=== PATIENT | female | born 1980 | race Two or more races ===

== ENCOUNTER 2020-05-07 00:18 | Emergency (ER) | payer MEDICAID, OTHER, SELFPAY ==
[2020-05-07 00:25] VITALS: PULSE 77; RESP 18; TEMP 36.6; O2SAT 99; BMI 28.4
--- NOTE | 2020-05-07 00:38 | ED_ITS ---
HPI - Abdominal Pain General Chief Complaint: General Medical Stated Complaint: Back pain Time Seen by Provider: 05/07/20 00:33 Source: patient Mode of arrival: ambulatory Limitations: language barrier History of Present Illness HPI narrative: Patient's history of nonobstructive kidney stone in the ultrasound done on 07/24 comes here for sudden onset of left flank pain just prior to arrival without any nausea vomiting or hematuria no urinary symptoms pain get worse on deep breaths localized to left flank also has mild pain on the right flank patient says pain goes to the left thigh also denies any shortness of breath or cough MD elicited complaint: flank pain Pertinent past history: kidney stones Onset (ago): hour(s) Pain Consistency: constant Location: L flank Severity: moderate Pain scale (0-10): 6 Quality: sharp Radiation: back Related Data Previous Rx's Medication Instructions Recorded oxycodone-acetaminophen [Percocet] 1 tab PO Q6H PRN #20 tab 05/07/20 tamsulosin [Flomax] 0.4 mg PO DAILY #10 cap 05/07/20 Allergies Allergy/AdvReac Type Severity Reaction Status Date / Time No Known Allergies Allergy Unverified 01/22/20 19:42 [No Known Allergies*] Review of Systems Review of Systems Constitutional : No Weight loss, No Fever, No Chills ENT/Mouth : No sore throat, No Rhinorrhea Eyes: No Eye Pain, No Swelling Cardiovascular : No Chest Pain, no palpitations Respiratory : No Cough, No Sputum, no shortness of breath Gastrointestinal : no Nausea, No Vomiting, No Diarrhea, No abdominal Pain, no black stools Genitourinary : No Dysuria, No Urinary Frequency Musculoskeletal : No joint pain, No Myalgias, No Joint Swelling Skin : No Skin Lesions, No rash Neuro : No Weakness, No Numbness, No Dizziness, No Headache Psych : No Anxiety/Panic, No Depression Heme/Lymph: No Bruising, No Lymphadenopathy Endocrine : No Polyuria, No Polydipsia All other systems reviewed and are negative Physical Exam Vital Signs: Vital Signs: Last Vital Signs Temp 97.9 F 05/07/20 00:25 Pulse 80 05/07/20 02:00 Resp 18 05/07/20 00:25 BP 140/80 H 05/07/20 02:00 Pulse Ox 100 05/07/20 02:00 Body Mass Index 28.4 Appearance: Alert. Oriented X3. in mild distress. Eyes: Pupils equal, round and reactive to light. ENT: Pharynx normal. Neck: Normal inspection. Neck supple. CVS: Normal heart rate and rhythm. Pulses normal. Respiratory: No respiratory distress. Breath sounds normal. Abdomen: Soft and nontender. Bowel sounds are present, no mass palpable, L CVA tenderness + Skin: Skin warm and dry. Normal skin color. Normal skin turgor. Extremities: No lower extremity edema. Neuro: Oriented X 3. No motor deficit. No sensory deficit. MDM - Abdominal Pain MDM Narrative Medical decision making narrative: Patient with left UPJ stone 5 mm with slight hydronephrosis feeling much better after Toradol and IV fluids will discharge her home advised to follow-up with urologist Medical Records Attestation: I reviewed the patient's medical records. Lab Data Attestation: I reviewed the patient's lab results. Result diagrams: 05/07/20 00:55 05/07/20 00:55 Labs: Lab Results 05/07/20 05/07/20 05/07/20 Range/Units 00:54 00:54 00:55 WBC 8.2 (4.8-10.8) X10*3/uL RBC 4.43 (4.20-5.50) X10*6/uL Hgb 13.6 (12.0-16.0) g/dl Hct 40.9 (37-47) % MCV 92.3 (80-98) fL MCH 30.7 (27.0-33.0) pg MCHC 33.3 (31.0-35.0) g/dl RDW 12.6 (11.0-16.0) % Plt Count 244 (160-400) X10*3/uL MPV 11.0 (9.4-12.3) fL Immature Gran % (Auto) 0.2 (0.0-0.4) % Neut % (Auto) 63.1 (45-73) % Lymph % (Auto) 26.7 (20-40) % [place] % (Auto) 7.4 (2-11) % Eos % (Auto) 2.2 (0-4) % Baso % (Auto) 0.4 (0-2) % Lymph # (Auto) 2.2 (1.2-4.9) X10*3/uL [place] # (Auto) 0.6 (0.1-1.2) X10*3/uL Eos # (Auto) 0.2 (0.0-0.4) X10*3/uL Baso # (Auto) 0.0 (0.0-0.2) X10*3/uL Abs Immat Gran (auto) 0.02 (0.00-0.03) X10*3/uL Absolute Neuts (auto) 5.2 (2.0-8.3) X10*3/uL Absolute Nucleated RBC 0.000 (0.0-0.012) X10*3/uL Nucleated RBC % (auto) 0.0 (0.0-0.2) /100WBC Sodium (135-145) mmol/L Potassium (3.3-5.1) mmol/l Chloride (96-108) mmol/L Carbon Dioxide (22-29) mmol/L Anion Gap (12-20) BUN (9-16) mg/dL Creatinine (0.5-1.4) mg/dL Estim Creat Clear Calc Estimated GFR Random Glucose (60-115) mg/dL Calcium (8.4-10.2) mg/dL Urine Color YELLOW Urine Appearance CLEAR Urine pH 7.0 (5.0-8.0) Ur Specific [place] 1.015 (1.005-1.025) Urine Protein NEG (NEG-TRACE) MG/DL Urine Glucose (UA) NEG (NEG) MG/DL Urine Ketones NEG (NEG) MG/DL Urine Blood 2+ H (NEG) Urine Nitrite NEG (NEG) Ur Leukocyte Esterase NEG (NEG) Urine RBC 15-29 H (0) /HPF Urine WBC 1-4 (0-4) /HPF Ur Squamous Epith Cells 1+ /LPF Urine Bacteria 1+ /LPF Urine Test NEGATIVE (NEGATIVE) 05/07/20 Range/Units 00:55 WBC (4.8-10.8) X10*3/uL RBC (4.20-5.50) X10*6/uL Hgb (12.0-16.0) g/dl Hct (37-47) % MCV (80-98) fL MCH (27.0-33.0) pg MCHC (31.0-35.0) g/dl RDW (11.0-16.0) % Plt Count (160-400) X10*3/uL MPV (9.4-12.3) fL Immature Gran % (Auto) (0.0-0.4) % Neut % (Auto) (45-73) % Lymph % (Auto) (20-40) % [place] % (Auto) (2-11) % Eos % (Auto) (0-4) % Baso % (Auto) (0-2) % Lymph # (Auto) (1.2-4.9) X10*3/uL [place] # (Auto) (0.1-1.2) X10*3/uL Eos # (Auto) (0.0-0.4) X10*3/uL Baso # (Auto) (0.0-0.2) X10*3/uL Abs Immat Gran (auto) (0.00-0.03) X10*3/uL Absolute Neuts (auto) (2.0-8.3) X10*3/uL Absolute Nucleated RBC (0.0-0.012) X10*3/uL Nucleated RBC % (auto) (0.0-0.2) /100WBC Sodium 139 (135-145) mmol/L Potassium 3.8 (3.3-5.1) mmol/l Chloride 106 (96-108) mmol/L Carbon Dioxide 22 (22-29) mmol/L Anion Gap 15 (12-20) BUN 13 (9-16) mg/dL Creatinine 0.80 (0.5-1.4) mg/dL Estim Creat Clear Calc 92.7 Estimated GFR > 60 Random Glucose 123 H (60-115) mg/dL Calcium 9.2 (8.4-10.2) mg/dL Urine Color Urine Appearance Urine pH (5.0-8.0) Ur Specific [place] (1.005-1.025) Urine Protein (NEG-TRACE) MG/DL Urine Glucose (UA) (NEG) MG/DL Urine Ketones (NEG) MG/DL Urine Blood (NEG) Urine Nitrite (NEG) Ur Leukocyte Esterase (NEG) Urine RBC (0) /HPF Urine WBC (0-4) /HPF Ur Squamous Epith Cells /LPF Urine Bacteria /LPF Urine Test (NEGATIVE) Discharge Plan Discharge Clinical Impression: Renal colic Patient Disposition: Home, Self-Care Instructions: Kidney Stones (ED) Additional Instructions: Drink plenty of fluids. Take pain medication as prescribed. Follow-up with urologist. Report to the ER if not better Prescriptions: New oxycodone-acetaminophen [Percocet] 5-325 mg tablet 1 tab PO Q6H PRN (Reason: pain) Qty: 20 RF: 0 tamsulosin [Flomax] 0.4 mg capsule 0.4 mg PO DAILY Qty: 10 RF: 0 Referrals: Joey Carvalho III, MD [Physician] - 2 days Interventions: ED Discharge Assessment Last Done: 05/07/20 03:08 Discharge Date/Time: 05/07/20 03:10 Print Language: Cam[place] [facility] Past Medical History Medical History (Updated 05/07/20 @ 02:41 by Wayne Ford MD) delivery delivered Diabetes HTN (hypertension) Kidney stone Miscarriage Multiple births, some liveborn Social History Social History Alcohol intake: never Smoking Status: Never smoker Smoked in Last 30 Days: No Use of substances other than those prescribed or required for medical reasons: No Advance Directives: No
--- NOTE | 2020-05-07 00:40 | CT_ITS ---
EXAMINATION: CT ABDOMEN AND PELVIS WITHOUT CONTRAST CLINICAL INFORMATION: Left flank pain with history of kidney stone. COMPARISON: Renal ultrasound 08/04/2019 TECHNIQUE: Multidetector volumetric imaging was performed from the superior aspect of the liver through the pubic symphysis. Sagittal and coronal reformatted images were obtained on the technologist's workstation. This CT examination was performed using dose optimization techniques as appropriate, variously including the following: *Automated exposure control *Adjustment of mA and/or kV according to patient size (this includes techniques or standardized protocols for targeted exams where dose is matched to indication/reason for exam; i.e. extremities or head) *Use of iterative reconstruction technique DLP: 630 mGy-cm FINDINGS: LUNG BASES: The visualized lung bases are unremarkable. LIVER, GALLBLADDER, AND BILIARY TREE: The liver is normal in size, shape, and attenuation. No focal hepatic lesion or biliary ductal dilatation is present. The gallbladder is unremarkable with no evidence of radiopaque gallstones, gallbladder wall thickening, or obvious pericholecystic inflammatory changes. PANCREAS: Unremarkable. SPLEEN: Unremarkable. ADRENAL GLANDS: Unremarkable. KIDNEYS AND URETERS: The kidneys are normal in size, shape, and attenuation. Mild left hydronephrosis. There is a 0.4 cm calculus at the left ureteropelvic junction, 9.5 cm from the posterior axillary line. There is a nonobstructing left upper pole 0.4 cm calculus which is 6 cm from the posterior axillary line. No right-sided calculi. BLADDER: Unremarkable. GASTROINTESTINAL TRACT: The stomach is unremarkable. Normal caliber small bowel. There is no obstruction. Normal appendix. No colonic wall thickening or inflammatory change. Scattered diverticulosis without diverticulitis. ABDOMINAL WALL: No significant hernia is appreciated. LYMPH NODES: Normal. VASCULAR: Unremarkable. PELVIC VISCERA: The uterus and adnexa are unremarkable. OSSEOUS STRUCTURES: No acute or suspicious osseous abnormality. CT/CT abdomen pelvis wo con IMPRESSION: Mild left hydronephrosis with a 0.4 cm calculus at the left ureteropelvic junction. Additional nonobstructing left upper pole renal calculus.
[2020-05-07 00:59] LABS: Basophils Percent Auto 0.4 % (0-2); Eosinophils Absolute Auto 0.2 X10*3/uL (0.0-0.4); Eosinophils Percent Auto 2.2 % (0-4); Hematocrit 40.9 % (37-47); Hemoglobin 13.6 g/dl (12.0-16.0); Imm Gran Abs Auto 0.02 X10*3/uL (0.00-0.03); Imm Gran Pct Auto 0.2 % (0.0-0.4); Lymphocytes Absolute Auto 2.2 X10*3/uL (1.2-4.9); Lymphocytes Percent Auto 26.7 % (20-40); MANUAL DIFF FLAG NO; Mean Corpuscular HGB Conc 33.3 g/dl (31.0-35.0); Mean Corpuscular Hemoglobin 30.7 pg (27.0-33.0); Mean Corpuscular Volume 92.3 fL (80-98); Monocytes Absolute Auto 0.6 X10*3/uL (0.1-1.2); Monocytes Percent Auto 7.4 % (2-11); Neutrophils Absolute Auto 5.2 X10*3/uL (2.0-8.3); Neutrophils Percent Auto 63.1 % (45-73); Platelet Count 244 X10*3/uL (160-400); Red Blood Count 4.43 X10*6/uL (4.20-5.50); Red Cell Distribution Width 12.6 % (11.0-16.0); White Blood Count 8.2 X10*3/uL (4.8-10.8)
[2020-05-07] MEDS: Ketorolac Tromethamine 30 MG/ML VIAL IVPUSH (01:01)
[2020-05-07] MEDS: 0.9 % Sodium Chloride 1,000 ML 999 ML IVCONT (01:02)
[2020-05-07 01:03] LABS: Glucose Urine UA NEG (NEG); Leukocyte Esterase Urine NEG (NEG); Nitrite Urine NEG (NEG); Specific Gravity - Urine 1.015 (1.005-1.025); Urine Blood 2+ (NEG); Urine Ketones NEG (NEG); Urine Protein NEG (NEG-TRACE)
[2020-05-07 01:06] LABS: Appearance Urine CLEAR; Color Urine YELLOW
[2020-05-07 01:09] LABS: Bacteria Urine 1+ /LPF; Squamous Epithelial Cell Urine 1+ /LPF; UPreg QC Valid YES; Urine Pregnancy NEGATIVE (NEGATIVE)
[2020-05-07 01:26] LABS: Anion Gap 15 (12-20); Blood Urea Nitrogen 13 mg/dL (9-16); Calcium 9.2 mg/dL (8.4-10.2); Carbon Dioxide 22 mmol/L (22-29); Chloride 106 mmol/L (96-108); Creatinine Clr Calc Pharmacy 92.7; Estimated Glomerular Filt Rate > 60; Glucose Random 123 mg/dL (60-115); Potassium 3.8 mmol/l (3.3-5.1); Sodium 139 mmol/L (135-145)
[2020-05-07 02:00] VITALS: BP 140/80; PULSE 80; O2SAT 100
[2020-05-07] MEDS: Tamsulosin HCL 0.4 MG CAPSULE PO (02:47)
[2020-05-07] MEDS: oxyCODONE HCl Immed Release 5 MG TABLET PO (02:48)
[2020-05-07] MEDS: dexAMETHasone sod phosphate 4 MG/ML VIAL IVPUSH (02:52)
== END 2020-05-07 03:10 | disposition home or self-care (01) ==
PROVIDERS: Emergency Provider Internal Medicine; PCP Internal Medicine
DX: N13.2 Hydronephrosis with renal and ureteral calculous obstruction (principal); E11.9 Type 2 diabetes mellitus without complications; I10 Essential (primary) hypertension; Z87.442 Personal history of urinary calculi
CPT/HCPCS: 36415; 74176; 80048; 81001; 81003; 81025; 85025; 96361; 96374; 96375; 99284; J1100; J1885

== ENCOUNTER 2020-06-10 14:39 | Outpatient (REF) | payer MEDICAID, OTHER, SELFPAY ==
--- NOTE | ~2020-06-10 | XR_ITS ---
EXAMINATION: XR ABDOMEN KUB CLINICAL INDICATION: History of urinary calculi. COMPARISON: CT 05/07/2020 TECHNIQUE: AP view of the abdomen. FINDINGS: Suspect a 0.2 cm left midpole calculus. No additional suspicious calcifications are seen gas and stool throughout the colon with mild to moderate colonic stool burden. No acute osseous abnormality. XR/XR KUB IMPRESSION: Likely a 0.2 cm left midpole renal calculus. No suspicious calcifications overlie the expected position of the right kidney or ureter.
== END 2020-06-10 14:40 | disposition home or self-care (01) ==
LOC: HO.XRAY 14:39
PROVIDERS: PCP Internal Medicine; Visit Provider Internal Medicine
DX: Z87.442 Personal history of urinary calculi (principal)
CPT/HCPCS: 74018

== ENCOUNTER 2020-07-15 16:15 | Emergency (ER) | payer MEDICAID, OTHER, SELFPAY ==
[2020-07-15 17:39] VITALS: BP 156/88; PULSE 64; RESP 16; TEMP 36.6; O2SAT 99; BMI 26.4
--- NOTE | 2020-07-15 17:51 | ED_ITS ---
HPI - General Adult General Chief complaint: General Medical Stated complaint: Body aches/Cough Time Seen by Provider: 07/15/20 17:43 Source: patient Mode of arrival: ambulatory Limitations: language barrier ([employer] present) History of Present Illness HPI narrative: Patient is a 39-year-old female with a past medical history of diabetes, hypertension and kidney stones who had COVID in November 2018 and presents today stating she would like a COVID test. She states she has no household contacts who have tested positive for COVID. She states she has the chills and body aches and a headache. She denies cough congestion fever, nausea, vomiting, diarrhea, shortness of breath, chest pain, loss of smell or loss of taste. Related Data Previous Rx's Medication Instructions Recorded oxycodone-acetaminophen [Percocet] 1 tab PO Q6H PRN #20 tab 05/07/20 tamsulosin [Flomax] 0.4 mg PO DAILY #10 cap 05/07/20 Allergies Allergy/AdvReac Type Severity Reaction Status Date / Time No Known Allergies Allergy Unverified 01/22/20 19:42 [No Known Allergies*] Review of Systems Review of Systems: Yes all other systems are reviewed and are negative PMFSH Past Medical History Medical History delivery delivered Diabetes HTN (hypertension) Kidney stone Miscarriage Multiple births, some liveborn Social History Social History Alcohol intake: never Smoking Status: Never smoker Advance Directives: No Advance Directives Information Provided: No Physical Exam Vital Signs: Vital Signs: Last Vital Signs Temp 97.8 F 07/15/20 17:39 Pulse 64 07/15/20 17:39 Resp 16 07/15/20 17:39 BP 156/88 H 07/15/20 17:39 Pulse Ox 99 07/15/20 17:39 Body Mass Index 26.4 Const: General: cooperative, healthy appearing, comfortable, no acute distress and well developed Orientation/consciousness: patient oriented x3 Limitations: no limitations HENMT: Head: Yes normal to inspection Eyes: General: appearance normal, both eyes and all related structures Neck: Neck: Yes normal visual inspection and Yes full ROM Resp: Effort & Inspection: normal respiratory effort and able to speak in complete sentences Auscultation: clear to auscultation bilaterally Cardio: Rate: regular rate Rhythm: regular rhythm Heart sounds: normal S1 and S2 GI: Inspection: Yes normal to inspection Palpation (GI): Soft to palpation and nontender Neuro: General: patient oriented x3 Extrem: General: Yes normal to inspection Course Course Course Narrative: Patient is a 39-year-old female with a past medical history of diabetes, hypertension and kidney stones who had COVID in November 2018 and presents today stating she would like a COVID test. Vital signs are stable, will do a flu/RSV/COVID test then discharge. Discharge Plan Discharge Clinical Impression: Viral illness Patient Disposition: Home, Self-Care Instructions: COVID-19 (Coronavirus Disease 2019) (ED) Additional Instructions: If any of her testing is positive, you will receive a phone call from the hospital next couple of days. Prescriptions: No Action oxycodone-acetaminophen [Percocet] 5-325 mg tablet 1 tab PO Q6H PRN (Reason: pain) Qty: 20 RF: 0 tamsulosin [Flomax] 0.4 mg capsule 0.4 mg PO DAILY Qty: 10 RF: 0 Print Language: Citizen Of [place]
[2020-07-15 17:58] VITALS: BP 144/74; PULSE 72; RESP 16; TEMP 36.6; O2SAT 99
[2020-07-15 18:44] LABS: Influenza A PCR NEGATIVE (Negative); Influenza B PCR NEGATIVE (Negative); Resp Syncy Virus RNA Qual PCR NEGATIVE (Negative); SARS COV2 PCR INHOUSE NEGATIVE (Negative)
== END 2020-07-15 18:13 | disposition home or self-care (01) ==
PROVIDERS: Physician Assistant; Emergency Provider Emergency Medicine
DX: B34.9 Viral infection, unspecified (principal); M79.10 Myalgia, unspecified site; E11.9 Type 2 diabetes mellitus without complications; I10 Essential (primary) hypertension; Z20.822 Contact with and (suspected) exposure to COVID-19; Z79.899 Other long term (current) drug therapy; Z86.16 Personal history of COVID-19
CPT/HCPCS: 0241U; 36415; 99283

== ENCOUNTER 2020-11-21 07:18 | Emergency (ER) | payer MEDICAID, OTHER, SELFPAY ==
[2020-11-21 07:43] VITALS: BP 125/64; PULSE 74; RESP 18; TEMP 36.7; O2SAT 98; BMI 26.4
--- NOTE | 2020-11-21 07:57 | ED.GENADULT ---
HPI - General Adult General Chief complaint: General Medical Stated complaint: Multiple complaints Time Seen by Provider: 11/21/20 07:37 Source: patient Mode of arrival: ambulatory Limitations: no limitations History of Present Illness MD complaint: body aches post covid vaccine yesterday Onset (ago): day(s) (yesterday) Location: left and upper extremity Severity: moderate Quality: aching Pain Consistency: constant Relieving factors: none Exacerbating factors: none Associated symptoms: other (fatigue, body aches, L arm is sore at injection stie) Treatments prior to arrival: none Related Data Previous Rx's Medication Instructions Recorded oxycodone-acetaminophen [Percocet] 1 tab PO Q6H PRN #20 tab 05/07/20 tamsulosin [Flomax] 0.4 mg PO DAILY #10 cap 05/07/20 cyclobenzaprine 10 mg PO TID PRN #14 tab 11/21/20 ibuprofen 600 mg PO Q6H PRN #30 tab 11/21/20 Allergies Allergy/AdvReac Type Severity Reaction Status Date / Time latex Allergy Hives Verified 11/21/20 07:50 Review of Systems Review of Systems: Constitutional : No Fever, No Chills, pos Fatigue ENT/Mouth : No sore throat, No Rhinorrhea Eyes: No Eye Pain, No Swelling, No Redness Cardiovascular : No Chest Pain, No SOB Respiratory : No Cough, No Sputum, No Wheezing Gastrointestinal : No Nausea, No Vomiting, No Diarrhea Genitourinary : No Dysuria, No Urinary Frequency, No Hematuria, Musculoskeletal : No joint pain, pos Myalgias, No Joint Swelling Skin : No Skin Lesions, No rash Neuro : pos Weakness, No Numbness, No Dizziness, No Headache PMFSH Past Medical History Attestation statement: The following information was validated with the patient. Medical History delivery delivered Diabetes HTN (hypertension) Kidney stone Miscarriage Multiple births, some liveborn Social History Social History Alcohol intake: never Advance Directives: Yes Advance Directives Information Provided: Yes Advance Directives on File: No Physical Exam Vital Signs: Vital Signs: Last Vital Signs Temp 98.1 F 11/21/20 07:43 Pulse 74 11/21/20 07:43 Resp 18 11/21/20 07:43 BP 125/64 11/21/20 07:43 Pulse Ox 98 11/21/20 07:43 Body Mass Index 26.4 Appearance: Alert. Oriented X3. No acute distress. Eyes: Pupils equal, round and reactive to light. ENT: Pharynx normal. Neck: Normal inspection. Neck supple. CVS: Normal heart rate and rhythm. Pulses normal. Respiratory: No respiratory distress. Breath sounds normal. Abdomen: Soft and nontender. Skin: Skin warm and dry. Normal skin color. Normal skin turgor. Extremities: No lower extremity edema. L arm pain with ROM shoulder is normal in appearance I cannot see injection site Neuro: Oriented X 3. No motor deficit. No sensory deficit. Medical Decision Making MDM Narrative Medical decision making narrative: 41 yo female HTN, DM, renal colic here with c/o body aches fatigue and L arm pain after her COVID shot yesterday .... I discussed with her these are normal post vaccine issues and they last a day or two, she did not take OTC medications, she is not toxic, stable VS, looks well, arm is normal in appearance and other than it being sore with ROM no other findings. Can be DC home Discharge Plan Discharge Clinical Impression: Myalgia Patient Disposition: Home, Self-Care Instructions: Musculoskeletal Pain (ED) Additional Instructions: return to ED for any worsening symptoms or concerns Prescriptions: New cyclobenzaprine 10 mg tablet 10 mg PO TID PRN (Reason: muscle spasm) Qty: 14 RF: 0 ibuprofen 600 mg tablet 600 mg PO Q6H PRN (Reason: pain) Qty: 30 RF: 0 No Action oxycodone-acetaminophen [Percocet] 5-325 mg tablet 1 tab PO Q6H PRN (Reason: pain) Qty: 20 RF: 0 tamsulosin [Flomax] 0.4 mg capsule 0.4 mg PO DAILY Qty: 10 RF: 0 Stand Alone Forms: Work/School Release Print Language: [place]
[2020-11-21 08:00] VITALS: BP 147/85; PULSE 71; RESP 18; O2SAT 98
[2020-11-21] MEDS: Acetaminophen 325 MG TABLET 650 MG PO (08:02)
[2020-11-21] MEDS: Ibuprofen 600 MG TABLET PO (08:02)
[2020-11-21] MEDS: Cyclobenzaprine HCl 10 MG TABLET PO (08:02)
--- NOTE | 2020-11-21 08:11 | PC.NURSE ---
Pt alert and oriented x3. Pt reports getting 1st dose of Pfizer vaccine yesterday and has been having muscle pain in left deltoid since. Pt also c/o nausea and chills, no vomiting. Meds given per documented. at bedside.
== END 2020-11-21 08:33 | disposition home or self-care (01) ==
PROVIDERS: Emergency Provider Emergency Medicine
DX: M79.10 Myalgia, unspecified site (principal); I10 Essential (primary) hypertension; E11.9 Type 2 diabetes mellitus without complications; Z79.899 Other long term (current) drug therapy
CPT/HCPCS: 99284

== ENCOUNTER 2021-06-24 11:01 | Emergency (ER) | payer MEDICAID, OTHER, SELFPAY ==
--- NOTE | ~2021-06-24 | US_ITS ---
EXAMINATION: US ABDOMEN LIMITED CLINICAL INFORMATION: Right upper quadrant abdominal pain and vomiting.. COMPARISON: CT of the abdomen and pelvis done on 05/07/2020. TECHNIQUE: Real-time imaging of the right upper quadrant abdominal viscera. FINDINGS: PANCREAS: Normal. LIVER: Normal. The liver is normal in size. The liver contour is normal. Parenchymal echogenicity is normal. No focal hepatic lesion. There is no intrahepatic biliary duct dilatation seen. GALLBLADDER: Normal. The gallbladder is physiologically distended without evidence of stones, sludge, polyps, wall thickening or pericholecystic fluid. COMMON BILE DUCT: Normal in caliber measuring 0.4 cm in diameter. RIGHT KIDNEY: Normal. No hydronephrosis. No renal calculi or focal parenchymal lesions. The kidney measures 11.9 cm in maximum dimension. FREE FLUID: None. US/US abdomen limited IMPRESSION: Unremarkable sonographic appearance of the right upper quadrant of the abdomen. Basically, no sonographic evidence of any cholelithiasis or biliary obstruction is seen.
--- NOTE | ~2021-06-24 | XR_ITS ---
EXAMINATION: XR CHEST CLINICAL INFORMATION: Chest pain COMPARISON: None TECHNIQUE: Frontal portable view of the chest was obtained. 5:08 PM FINDINGS: No significant abnormality is noted involving the heart, lungs, mediastinum, bony thorax or soft tissues. XR/XR chest 1V IMPRESSION: Unremarkable examination.
[2021-06-24 11:17] VITALS: BP 149/76; PULSE 65; RESP 16; TEMP 36.7; O2SAT 98; BMI 26.3
[2021-06-24 12:43] LABS: MANUAL DIFF FLAG NO
[2021-06-24 12:46] LABS: Appearance Urine CLEAR; Color Urine YELLOW; Glucose Urine UA NEG (NEG); Leukocyte Esterase Urine NEG (NEG); Nitrite Urine NEG (NEG); UACC Culture Trigger NO; Urine Blood 2+ (NEG); Urine Ketones NEG (NEG); Urine Protein NEG (NEG-TRACE)
[2021-06-24 12:47] LABS: Basophils Percent Auto 0.4 % (0-2); Eosinophils Absolute Auto 0.1 X10*3/uL (0.0-0.4); Eosinophils Percent Auto 0.8 % (0-4); Hematocrit 38.1 % (37.0-47.0); Hemoglobin 12.8 g/dl (12.0-16.0); Imm Gran Abs Auto 0.03 X10*3/uL (0.00-0.03); Imm Gran Pct Auto 0.4 % (0.0-0.4); Lymphocytes Percent Auto 23.4 % (20-40); Mean Corpuscular HGB Conc 33.6 g/dl (31.0-35.0); Mean Corpuscular Hemoglobin 30.8 pg (27.0-33.0); Mean Corpuscular Volume 91.8 fL (80.0-98.0); Mean Platelet Volume 11.5 fL (9.4-12.3); Monocytes Absolute Auto 0.5 X10*3/uL (0.1-1.2); Monocytes Percent Auto 5.6 % (2-11); Neutrophils Absolute Auto 5.9 x10*3/uL (2.0-8.3); Neutrophils Percent Auto 69.4 % (45-73); Platelet Count 294 X10*3/uL (160-400); Red Blood Count 4.15 X10*6/uL (4.20-5.50); Red Cell Distribution Width 12.9 % (11.0-16.0); White Blood Count 8.5 X10*3/uL (4.8-10.8)
[2021-06-24 12:59] LABS: Alanine Aminotransferase 17 U/L (0-31); Albumin Level 4.4 g/dL (3.5-5.0); Alkaline Phosphatase 88 U/L (39-117); Anion Gap 13 (12-20); Aspartate Amino Transferase 15 U/L (5-31); Blood Urea Nitrogen 11 mg/dL (9-16); Calcium 9.6 mg/dL (8.4-10.2); Carbon Dioxide 26 mmol/L (22-29); Chloride 103 mmol/L (96-108); Creatinine Clr Calc Pharmacy 118.9; Estimated Glomerular Filt Rate > 60; Glucose Random 93 mg/dL (60-115); Lipase 20 U/L (8-78); Potassium 3.5 mmol/L (3.3-5.1); Sodium 138 mmol/L (135-145); Total Protein 7.9 g/dL (6.5-8.0)
[2021-06-24 13:10] LABS: Bacteria Urine TRACE /LPF; Mucus Urine TRACE /LPF; Squamous Epithelial Cell Urine 1+ /LPF; WBC Urine 0-2 /HPF (0-4)
[2021-06-24 14:43] LABS: UPreg QC Valid YES; Urine Pregnancy NEGATIVE (NEGATIVE)
--- NOTE | 2021-06-24 16:39 | ED_ITS ---
HPI - Abdominal Pain General Chief Complaint: Abdominal Pain Stated Complaint: VOMITING BLOOD BACK PAIN Time Seen by Provider: 06/24/21 16:38 Source: patient Mode of arrival: ambulatory Limitations: no limitations History of Present Illness MD elicited complaint: abdominal pain (saw blood in his emesis x 1 after heavy vomiting, chest hurts x 3 days, upper back pain x 3 days, upper abdominal pain) Onset (ago): day(s) (3 days of sore chest, upper back pain) Pain Consistency: constant Location: chest, epigastric (this AM) and other (upper back ) Severity: moderate Quality: cramping and burning Radiation: none Migration to: no migration Exacerbating factors: eating Relieving factors: nothing Context: possible food poisoning Associated symptoms: vomiting Related Data Previous Rx's Medication Instructions Recorded oxycodone-acetaminophen 5 mg-325 1 tab PO Q6H PRN #20 tab 05/07/20 mg tablet (Percocet) tamsulosin 0.4 mg capsule (Flomax) 0.4 mg PO DAILY #10 cap 05/07/20 cyclobenzaprine 10 mg tablet 10 mg PO TID PRN #14 tab 11/21/20 ibuprofen 600 mg tablet 600 mg PO Q6H PRN #30 tab 11/21/20 cyclobenzaprine 10 mg tablet 10 mg PO TID PRN #14 tab 06/24/21 famotidine 20 mg tablet (Pepcid) 20 mg PO DAILY PRN #30 tab 06/24/21 ondansetron 4 mg disintegrating 4 mg PO Q8H PRN #20 tab 06/24/21 tablet Allergies Allergy/AdvReac Type Severity Reaction Status Date / Time latex Allergy Hives Verified 11/21/20 07:50 Review of Systems Review of Systems Constitutional : No Weight loss, No Fever, No Chills ENT/Mouth : No sore throat, No Rhinorrhea Eyes: No Swelling, No Redness Cardiovascular : pos Chest Pain, No SOB, NoEdema Respiratory : No Cough, No Sputum, No Wheezing Gastrointestinal : Positive Nausea, Positive Vomiting, no Diarrhea, positive abdominal Pain, No Hematochezia, No Melena Genitourinary : No Dysuria, No Urinary Frequency, No Hematuria, No Urgency Musculoskeletal : No joint pain, No Myalgias, No Joint Swelling, pos upper back pain Skin : No Skin Lesions, No rash Neuro : No Weakness, No Numbness, No Dizziness, No Headache Psych : No Anxiety/Panic, No Depression Heme/Lymph: No Bruising, No Lymphadenopathy Endocrine : No Polyuria, No Polydipsia All other systems reviewed and are negative. [facility] Past Medical History Attestation statement: The following information was validated with the patient. Medical History delivery delivered Diabetes HTN (hypertension) Kidney stone Miscarriage Multiple births, some liveborn Social History Social History (Updated 06/24/21 @ 16:39 by Rocio Madsen DO) Alcohol intake: never Patient Tobacco Use Status: Never used Tobacco Use of substances other than those prescribed or required for medical reasons: No Advance Directives: No Advance Directives Information Provided: No Physical Exam ED Vital Signs: Vital Signs - 24 hr 06/24/21 11:17 06/24/21 16:41 06/24/21 16:56 Temperature 98.0 F 98.1 F Pulse Rate 65 69 68 Respiratory Rate 16 16 Blood Pressure 149/76 H 176/92 H 143/78 H Pulse Oximetry 98 98 BMI result Body Mass Index 26.3 Appearance: Alert. Oriented X3. No acute distress. Eyes: Pupils equal, round and reactive to light. ENT: Pharynx normal. Neck: Normal inspection. Neck supple. CVS: Normal heart rate and rhythm. Pulses normal. Chest: ttp along chest wall Respiratory: No respiratory distress. Breath sounds normal. Abdomen: Soft and mild epigastric ttp no rebound or guarding, no mass felt Back: upper R trapezius spasm with ttp reproduces pain Skin: Skin warm and dry. Normal skin color. Normal skin turgor. Extremities: No lower extremity edema. No calf ttp Neuro: Oriented X 3. No motor deficit. No sensory deficit. Course Course Course Narrative: patient feels better stable for DC MDM - Abdominal Pain MDM Narrative Medical decision making narrative: 40 yo female no sig PMH takes ibuprofen occasionally notes R upper back pain that is reproduceable and chest wall pain x 3 days. She thinks she might have eaten something bad last night and developed epigastric pain this AM with vo miting after several bouts of vomiting she developed some scant blood in her emesis x 1. At this time will obtain EKG, troponin x 1, CXR, US of GB. IVF, IV zofran and pepcid. suspect shelley spencer tear. possible gall stones, no diarrhea to suggest colitis, no RLQ pain to suggest appendicitis - back and chest pain x 3 days atypical for ACS it is reproduceable she is PERC negative, distal pusles intact seems MSK doubt dissection. Lab Data Result diagrams: 06/24/21 12:29 06/24/21 12:29 Labs: Lab Results 06/24/21 06/24/21 06/24/21 Range/Units 12:29 12: 12:29 WBC 8.5 (4.8-10.8) X10*3/uL RBC 4.15 L (4.20-5.50) X10*6/uL Hgb 12.8 (12.0-16.0) g/dl Hct 38.1 (37.0-47.0) % MCV 91.8 (80.0-98.0) fL MCH 30.8 (27.0-33.0) pg MCHC 33.6 (31.0-35.0) g/dl RDW 12.9 (11.0-16.0) % Plt Count 294 (160-400) X10*3/uL MPV 11.5 (9.4-12.3) fL Immature Gran % (Auto) 0.4 (0.0-0.4) % Neut % (Auto) 69.4 (45-73) % Lymph % (Auto) 23.4 (20-40) % [place] % (Auto) 5.6 (2-11) % Eos % (Auto) 0.8 (0-4) % Baso % (Auto) 0.4 (0-2) % Lymph # (Auto) 2.0 (1.2-4.9) X10*3/uL [place] # (Auto) 0.5 (0.1-1.2) X10*3/uL Eos # (Auto) 0.1 (0.0-0.4) X10*3/uL Baso # (Auto) 0.0 (0.0-0.2) X10*3/uL Abs Immat Gran (auto) 0.03 (0.00-0.03) X10*3/uL Absolute Neuts (auto) 5.9 (2.0-8.3) x10*3/uL Absolute Nucleated RBC 0.000 (0.0-0.012) X10*3/uL Nucleated RBC % (auto) 0.0 (0.0-0.2) /100WBC Sodium 138 (135-145) mmol/L Potassium 3.5 (3.3-5.1) mmol/L Chloride 103 (96-108) mmol/L Carbon Dioxide 26 (22-29) mmol/L Anion Gap 13 (12-20) BUN 11 (9-16) mg/dL Creatinine 0.64 (0.5-1.4) mg/dL Estim Creat Clear Calc 118.9 Estimated GFR > 60 Random Glucose 93 (60-115) mg/dL Calcium 9.6 (8.4-10.2) mg/dL Total Bilirubin 1.0 (0.0-1.0) mg/dL AST 15 (5-31) U/L ALT 17 (0-31) U/L Alkaline Phosphatase 88 (39-117) U/L Troponin I High Sens (<3.5-17.0) ng/L Total Protein 7.9 (6.5-8.0) g/dL Albumin 4.4 (3.5-5.0) g/dL Lipase 20 (8-78) U/L Urine Color YELLOW Urine Appearance CLEAR Urine pH 6.0 (5.0-8.0) Ur Specific [place] 1.020 (1.005-1.025) Urine Protein NEG (NEG-TRACE) MG/DL Urine Glucose (UA) NEG (NEG) MG/DL Urine Ketones NEG (NEG) MG/DL Urine Blood 2+ H (NEG) Urine Nitrite NEG (NEG) Ur Leukocyte Esterase NEG (NEG) Urine RBC 10-14 H (0) /HPF Urine WBC 0-2 (0-4) /HPF Ur Squamous Epith Cells 1+ /LPF Urine Bacteria TRACE /LPF Urine Mucus TRACE /LPF Urine Test (NEGATIVE) 06/24/21 06/24/21 Range/Units 12:29 16:50 WBC (4.8-10.8) X10*3/uL RBC (4.20-5.50) X10*6/uL Hgb (12.0-16.0) g/dl Hct (37.0-47.0) % MCV (80.0-98.0) fL MCH (27.0-33.0) pg MCHC (31.0-35.0) g/dl RDW (11.0-16.0) % Plt Count (160-400) X10*3/uL MPV (9.4-12.3) fL Immature Gran % (Auto) (0.0-0.4) % Neut % (Auto) (45-73) % Lymph % (Auto) (20-40) % [place] % (Auto) (2-11) % Eos % (Auto) (0-4) % Baso % (Auto) (0-2) % Lymph # (Auto) (1.2-4.9) X10*3/uL [place] # (Auto) (0.1-1.2) X10*3/uL Eos # (Auto) (0.0-0.4) X10*3/uL Baso # (Auto) (0.0-0.2) X10*3/uL Abs Immat Gran (auto) (0.00-0.03) X10*3/uL Absolute Neuts (auto) (2.0-8.3) x10*3/uL Absolute Nucleated RBC (0.0-0.012) X10*3/uL Nucleated RBC % (auto) (0.0-0.2) /100WBC Sodium (135-145) mmol/L Potassium (3.3-5.1) mmol/L Chloride (96-108) mmol/L Carbon Dioxide (22-29) mmol/L Anion Gap (12-20) BUN (9-16) mg/dL Creatinine (0.5-1.4) mg/dL Estim Creat Clear Calc Estimated GFR Random Glucose (60-115) mg/dL Calcium (8.4-10.2) mg/dL Total Bilirubin (0.0-1.0) mg/dL AST (5-31) U/L ALT (0-31) U/L Alkaline Phosphatase (39-117) U/L Troponin I High Sens < 3.5 (<3.5-17.0) ng/L Total Protein (6.5-8.0) g/dL Albumin (3.5-5.0) g/dL Lipase (8-78) U/L Urine Color Urine Appearance Urine pH (5.0-8.0) Ur Specific [place] (1.005-1.025) Urine Protein (NEG-TRACE) MG/DL Urine Glucose (UA) (NEG) MG/DL Urine Ketones (NEG) MG/DL Urine Blood (NEG) Urine Nitrite (NEG) Ur Leukocyte Esterase (NEG) Urine RBC (0) /HPF Urine WBC (0-4) /HPF Ur Squamous Epith Cells /LPF Urine Bacteria /LPF Urine Mucus /LPF Urine Test NEGATIVE (NEGATIVE) ECG Data Attestation: I personally reviewed and interpreted this ECG as follows: ECG interpretation date: 06/24/21 ECG interpretation time: 17:06 Interpretation: Rate: 64 Rhythm: NSR [place]: normal Normal P waves. Normal MESHA. Normal QRS complex. ST T wave : normal no FABIENNE qTC: normal prior studies: no acute ischemia The study has been interpreted contemporaneously by me. . Discharge Plan Discharge Clinical Impression: Shelley-Spencer tear, Vomiting Patient Disposition: Home, Self-Care Instructions: Acute Nausea and Vomiting (ED), Acute Abdominal Pain (ED), Shelley-Spencer Syndrome (ED) Additional Instructions: return to ED for any worsening symptoms or concerns no motrin / ibuprofen 7 chun Prescriptions: New famotidine [Pepcid] 20 mg tablet 20 mg PO DAILY PRN (Reason: abdominal discomfort) Qty: 30 0RF ondansetron 4 mg tablet,disintegrating 4 mg PO Q8H PRN (Reason: nausea and vomiting) Qty: 20 0RF cyclobenzaprine 10 mg tablet 10 mg PO TID PRN (Reason: muscle spasm) Qty: 14 0RF No Action oxycodone-acetaminophen [Percocet] 5-325 mg tablet 1 tab PO Q6H PRN (Reason: pain) Qty: 20 0RF tamsulosin [Flomax] 0.4 mg capsule 0.4 mg PO DAILY Qty: 10 0RF cyclobenzaprine 10 mg tablet 10 mg PO TID PRN (Reason: muscle spasm) Qty: 14 0RF ibuprofen 600 mg tablet 600 mg PO Q6H PRN (Reason: pain) Qty: 30 0RF Print Language: Martiniquais
[2021-06-24 16:41] VITALS: BP 176/92; PULSE 69; RESP 16; TEMP 36.7; O2SAT 98
--- NOTE | 2021-06-24 16:46 | ECG_ITS ---
Test Reason : CHEST PAIN Blood Pressure : / mmHG Vent. Rate : 064 BPM Atrial Rate : 064 BPM P-R Int : 148 ms QRS Dur : 090 ms QT Int : 436 ms P-R-T Axes : 057 022 031 degrees QTc Int : 449 ms Normal sinus rhythm with sinus arrhythmia Normal ECG When compared with ECG of 22-SEP-2019 14:20, No significant change was found Referred By: Rocio Madsen Electronically Signed By:LENCHO RUBY MD
[2021-06-24] MEDS: ondansetron HCL 4 MG/2 ML VIAL IVPUSH (16:52)
[2021-06-24] MEDS: Famotidine/PF 20 MG/2 ML VIAL IVPUSH (16:52)
[2021-06-24] MEDS: 0.9 % Sodium Chloride 1,000 ML 999 ML IVCONT (16:53)
[2021-06-24 16:56] VITALS: BP 143/78; PULSE 68
[2021-06-24 17:13] LABS: Troponin-I High Sensitivity < 3.5 ng/L (<3.5-17.0)
[2021-06-24 18:32] VITALS: BP 142/77; PULSE 74; RESP 18; TEMP 36.6; O2SAT 99
== END 2021-06-24 18:43 | disposition home or self-care (01) ==
PROVIDERS: Emergency Provider Emergency Medicine; PCP Internal Medicine
DX: K22.6 Gastro-esophageal laceration-hemorrhage syndrome (principal); R11.10 Vomiting, unspecified; E11.9 Type 2 diabetes mellitus without complications; I10 Essential (primary) hypertension
CPT/HCPCS: 36415; 71045; 76705; 80053; 81001; 81025; 83690; 84484; 85025; 93005; 96361; 96374; 96375; 99284; J2405

== ENCOUNTER 2021-12-01 11:20 | Emergency (ER) | payer MEDICAID, OTHER, SELFPAY ==
[2021-12-01 12:11] VITALS: BP 148/78; PULSE 80; RESP 16; TEMP 36.7; O2SAT 99; BMI 22.3
[2021-12-01 13:08] LABS: COVID-19 Test Negative (Negative); IDNOW Serial# 16C4AD1C; Influenza A Negative (Negative); Influenza B2 Negative (Negative)
[2021-12-01 15:46] LABS: MANUAL DIFF FLAG NO
[2021-12-01 15:55] LABS: Basophils Percent Auto 0.3 % (0-2); Eosinophils Absolute Auto 0.3 X10*3/uL (0.0-0.4); Eosinophils Percent Auto 4.2 % (0-4); Hematocrit 36.7 % (37.0-47.0); Hemoglobin 12.5 g/dl (12.0-16.0); Imm Gran Abs Auto 0.04 X10*3/uL (0.00-0.03); Imm Gran Pct Auto 0.7 % (0.0-0.4); Lymphocytes Absolute Auto 1.7 X10*3/uL (1.2-4.9); Lymphocytes Percent Auto 28.7 % (20-40); Mean Corpuscular HGB Conc 34.1 g/dl (31.0-35.0); Mean Corpuscular Hemoglobin 30.1 pg (27.0-33.0); Mean Corpuscular Volume 88.4 fL (80.0-98.0); Mean Platelet Volume 10.5 fL (9.4-12.3); Monocytes Absolute Auto 0.6 X10*3/uL (0.1-1.2); Neutrophils Absolute Auto 3.4 x10*3/uL (2.0-8.3); Neutrophils Percent Auto 56.1 % (45-73); Platelet Count 318 X10*3/uL (160-400); Red Blood Count 4.15 X10*6/uL (4.20-5.50); Red Cell Distribution Width 12.9 % (11.0-16.0)
[2021-12-01 16:28] LABS: Alanine Aminotransferase 26 U/L (0-31); Albumin Level 4.2 g/dL (3.5-5.0); Alkaline Phosphatase 115 U/L (39-117); Anion Gap 11 (12-20); Aspartate Amino Transferase 24 U/L (5-31); Bilirubin Total 0.6 mg/dL (0.0-1.0); Blood Urea Nitrogen 5 mg/dL (9-16); Calcium 8.6 mg/dL (8.4-10.2); Carbon Dioxide 27 mmol/L (22-29); Chloride 102 mmol/L (96-108); Creatinine Clr Calc Pharmacy 136.5; Estimated Glomerular Filt Rate > 60; Glucose Random 108 mg/dL (60-115); Potassium 3.2 mmol/L (3.3-5.1); Sodium 137 mmol/L (135-145); Total Protein 7.6 g/dL (6.5-8.0)
[2021-12-01 16:29] LABS: Appearance Urine CLEAR; Color Urine YELLOW; Glucose Urine UA NEG (NEG); Leukocyte Esterase Urine NEG (NEG); Nitrite Urine NEG (NEG); PH 6.5 (5.0-8.0); UACC Culture Trigger NO; Urine Blood 2+ (NEG); Urine Ketones NEG (NEG); Urine Protein NEG (NEG-TRACE)
[2021-12-01 16:32] LABS: UPreg QC Valid YES; Urine Pregnancy NEGATIVE (NEGATIVE)
--- NOTE | 2021-12-01 16:36 | ED.GENADULT ---
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 Patient is tested herself for COVID-19 but it has been negative and she reports fevers have been on and off at home. Related Data Previous Rx's Medication Instructions Recorded oxycodone-acetaminophen 5 mg-325 1 tab PO Q6H PRN pain #20 tabs 05/07/20 mg tablet (Percocet) tamsulosin 0.4 mg capsule (Flomax) 0.4 mg PO DAILY #10 caps 05/07/20 cyclobenzaprine 10 mg tablet 10 mg PO TID PRN muscle spasm #14 11/21/20 tabs ibuprofen 600 mg tablet 600 mg PO Q6H PRN pain #30 tabs 11/21/20 cyclobenzaprine 10 mg tablet 10 mg PO TID PRN muscle spasm #14 06/24/21 tabs famotidine 20 mg tablet (Pepcid) 20 mg PO DAILY PRN abdominal 06/24/21 discomfort #30 tabs ondansetron 4 mg disintegrating 4 mg PO Q8H PRN nausea and 06/24/21 tablet vomiting #20 tabs Allergies Allergy/AdvReac Type Severity Reaction Status Date / Time latex Allergy Hives Verified 12/01/21 12:11 Review of Systems Review of Systems: Pertinent positives and negatives as stated in HPI 10 point review of systems is otherwise negative. [facility] Past Medical History Source: nursing notes reviewed Medical History delivery delivered Diabetes HTN (hypertension) Kidney stone Miscarriage Multiple births, some liveborn Social History Social History Alcohol intake: never Patient Tobacco Use Status: Never used Tobacco Advance Directives: No Advance Directives Information Provided: No Physical Exam ED Vital Signs: Vital Signs - 24 hr 12/01/21 12:11 Temperature 98.0 F Pulse Rate 80 Respiratory Rate 16 Blood Pressure 148/78 H Pulse Oximetry 99 Oxygen Delivery Method Room Air BMI result Body Mass Index 22.3 VITAL SIGNS: Reviewed. GENERAL: Well developed, well nourished, in no acute distress. HEAD: Normocephalic/atraumatic EYES: PERRLA, EOMI EARS: Ext canals without abnormality OROPHARYNX: no oral lesions noted, posterior pharynx clear LUNGS: Normal breath sounds. No adventitious sounds or accessory muscle use. SpO2<99> CARDIOVASCULAR: Regular rate and rhythm without noted murmurs ABDOMEN: Soft, non-tender, non-distended with bowel sounds. MUSCULOSKELETAL: No tenderness, deformities, or effusions noted on gross inspection. EXTREMITIES: No cyanosis, clubbing or edema. SKIN: Inspection of the skin reveals no rashes NEUROLOGIC: Alert and oriented x 4. Strength and sensation to light touch were grossly intact x 4. Course Course Course Narrative: 41-year-old female with history and clinical presentation suggestive of viral syndrome, on review COVID-19 testing she is noted be negative, basic lab work is otherwise benign with the exception of a mildly decreased potassium level which was repleted. Otherwise investigations are negative for acute findings and patient was discharged home with instructions to follow-up with her primary care provider. Medical Decision Making Lab Data Result diagrams: 12/01/21 15:41 12/01/21 15:41 Labs: Lab Results 12/01/21 12/01/21 12/01/21 Range/Units 12:18 12:18 15:41 WBC 6.0 (4.8-10.8) X10*3/uL RBC 4.15 L (4.20-5.50) X10*6/uL Hgb 12.5 (12.0-16.0) g/dl Hct 36.7 L (37.0-47.0) % MCV 88.4 (80.0-98.0) fL MCH 30.1 (27.0-33.0) pg MCHC 34.1 (31.0-35.0) g/dl RDW 12.9 (11.0-16.0) % Plt Count 318 (160-400) X10*3/uL MPV 10.5 (9.4-12.3) fL Immature Gran % (Auto) 0.7 H (0.0-0.4) % Neut % (Auto) 56.1 (45-73) % Lymph % (Auto) 28.7 (20-40) % [place] % (Auto) 10.0 (2-11) % Eos % (Auto) 4.2 H (0-4) % Baso % (Auto) 0.3 (0-2) % Lymph # (Auto) 1.7 (1.2-4.9) X10*3/uL [place] # (Auto) 0.6 (0.1-1.2) X10*3/uL Eos # (Auto) 0.3 (0.0-0.4) X10*3/uL Baso # (Auto) 0.0 (0.0-0.2) X10*3/uL Abs Immat Gran (auto) 0.04 H (0.00-0.03) X10*3/uL Absolute Neuts (auto) 3.4 (2.0-8.3) x10*3/uL Absolute Nucleated RBC 0.000 (0.0-0.012) X10*3/uL Nucleated RBC % (auto) 0.0 (0.0-0.2) /100WBC Sodium (135-145) mmol/L Potassium (3.3-5.1) mmol/L Chloride (96-108) mmol/L Carbon Dioxide (22-29) mmol/L Anion Gap (12-20) BUN (9-16) mg/dL Creatinine (0.5-1.4) mg/dL Estim Creat Clear Calc Estimated GFR Random Glucose (60-115) mg/dL Calcium (8.4-10.2) mg/dL Total Bilirubin (0.0-1.0) mg/dL AST (5-31) U/L ALT (0-31) U/L Alkaline Phosphatase (39-117) U/L Total Protein (6.5-8.0) g/dL Albumin (3.5-5.0) g/dL Urine Color Urine Appearance Urine pH (5.0-8.0) Ur Specific [place] (1.005-1.025) Urine Protein (NEG-TRACE) MG/DL Urine Glucose (UA) (NEG) MG/DL Urine Ketones (NEG) MG/DL Urine Blood (NEG) Urine Nitrite (NEG) Ur Leukocyte Esterase (NEG) Urine Test (NEGATIVE) COVID-19 ([place]) Negative (Negative) COVID-19 Clin Com See Note Influenza Type A (KRISTIN) Negative (Negative) Influenza Type B (KRISTIN) Negative (Negative) Influenza A & B Note See Note 12/01/21 12/01/21 12/01/21 Range/Units 15:41 15:41 15:41 WBC (4.8-10.8) X10*3/uL RBC (4.20-5.50) X10*6/uL Hgb (12.0-16.0) g/dl Hct (37.0-47.0) % MCV (80.0-98.0) fL MCH (27.0-33.0) pg MCHC (31.0-35.0) g/dl RDW (11.0-16.0) % Plt Count (160-400) X10*3/uL MPV (9.4-12.3) fL Immature Gran % (Auto) (0.0-0.4) % Neut % (Auto) (45-73) % Lymph % (Auto) (20-40) % [place] % (Auto) (2-11) % Eos % (Auto) (0-4) % Baso % (Auto) (0-2) % Lymph # (Auto) (1.2-4.9) X10*3/uL [place] # (Auto) (0.1-1.2) X10*3/uL Eos # (Auto) (0.0-0.4) X10*3/uL Baso # (Auto) (0.0-0.2) X10*3/uL Abs Immat Gran (auto) (0.00-0.03) X10*3/uL Absolute Neuts (auto) (2.0-8.3) x10*3/uL Absolute Nucleated RBC (0.0-0.012) X10*3/uL Nucleated RBC % (auto) (0.0-0.2) /100WBC Sodium 137 (135-145) mmol/L Potassium 3.2 L (3.3-5.1) mmol/L Chloride 102 (96-108) mmol/L Carbon Dioxide 27 (22-29) mmol/L Anion Gap 11 L (12-20) BUN 5 L D (9-16) mg/dL Creatinine 0.60 (0.5-1.4) mg/dL Estim Creat Clear Calc 136.5 Estimated GFR > 60 Random Glucose 108 (60-115) mg/dL Calcium 8.6 D (8.4-10.2) mg/dL Total Bilirubin 0.6 (0.0-1.0) mg/dL AST 24 D (5-31) U/L ALT 26 (0-31) U/L Alkaline Phosphatase 115 D (39-117) U/L Total Protein 7.6 (6.5-8.0) g/dL Albumin 4.2 (3.5-5.0) g/dL Urine Color YELLOW Urine Appearance CLEAR Urine pH 6.5 (5.0-8.0) Ur Specific [place] 1.010 (1.005-1.025) Urine Protein NEG (NEG-TRACE) MG/DL Urine Glucose (UA) NEG (NEG) MG/DL Urine Ketones NEG (NEG) MG/DL Urine Blood 2+ H (NEG) Urine Nitrite NEG (NEG) Ur Leukocyte Esterase NEG (NEG) Urine Test NEGATIVE (NEGATIVE) COVID-19 ([place]) (Negative) COVID-19 Clin Com Influenza Type A (KRISTIN) (Negative) Influenza Type B (KRISTIN) (Negative) Influenza A & B Note Discharge Plan Discharge Clinical Impression: Viral syndrome, Hypokalemia Patient Disposition: Home, Self-Care Instructions: Viral Syndrome (ED), Hypokalemia (ED), Potassium Content of Foods List (ED) Additional Instructions: 1. Reanudar todos los medicamentos caseros seg?n lo prescrito. 2. Recomendar un seguimiento con brown proveedor de atenci?n primaria en los pr?ximos 1 a 2 d?as para hali reevaluaci?n y un manejo ambulatorio adicional. Por favor revise la informaci?n provista con respecto a ameya niveles de potasio. Regrese a la anastasia de emergencias si los s?ntomas empeoran. Prescriptions: No Action oxycodone-acetaminophen [Percocet] 5-325 mg tablet 1 tab PO Q6H PRN (Reason: pain) Qty: 20 0RF tamsulosin [Flomax] 0.4 mg capsule 0.4 mg PO DAILY Qty: 10 0RF cyclobenzaprine 10 mg tablet 10 mg PO TID PRN (Reason: muscle spasm) Qty: 14 0RF ibuprofen 600 mg tablet 600 mg PO Q6H PRN (Reason: pain) Qty: 30 0RF famotidine [Pepcid] 20 mg tablet 20 mg PO DAILY PRN (Reason: abdominal discomfort) Qty: 30 0RF ondansetron 4 mg tablet,disintegrating 4 mg PO Q8H PRN (Reason: nausea and vomiting) Qty: 20 0RF cyclobenzaprine 10 mg tablet 10 mg PO TID PRN (Reason: muscle spasm) Qty: 14 0RF Referrals: Gavin Chavez III, MD [Primary Care Provider] - Stand Alone Forms: Work/School Release Print Language: Senegalese
[2021-12-01 16:39] LABS: Bacteria Urine TRACE /LPF; Squamous Epithelial Cell Urine 2+ /LPF; WBC Urine 0-2 /HPF (0-4)
[2021-12-01] MEDS: Potassium Chloride ER 20 MEQ TAB.ER.PRT 60 MEQ PO (16:46)
[2021-12-01] MEDS: Ibuprofen 400 MG TABLET PO (16:47)
[2021-12-01] MEDS: Acetaminophen 325 MG TABLET 975 MG PO (16:47)
== END 2021-12-01 17:02 | disposition home or self-care (01) ==
PROVIDERS: Emergency Provider Student in an Organized Health Care Education/Training Program; PCP Internal Medicine
DX: B34.9 Viral infection, unspecified (principal); M54.50 Low back pain, unspecified; R06.02 Shortness of breath; Z20.822 Contact with and (suspected) exposure to COVID-19; Z79.899 Other long term (current) drug therapy
CPT/HCPCS: 36415; 80053; 81001; 81025; 85025; 87502; 87635; 99283

== ENCOUNTER 2022-03-14 14:52 | Outpatient (REF) | payer MEDICAID, OTHER, SELFPAY ==
--- NOTE | ~2022-03-14 | US_ITS ---
EXAMINATION: US VENOUS ULTRASOUND WITH DOPPLER LOWER EXTREMITY, RIGHT CLINICAL INFORMATION: Right leg pain. COMPARISON: None TECHNIQUE: Ultrasound of the deep veins is performed from the hip to the calf with compression sonography and color and pulse Doppler assessment. Spectral analysis with color-flow imaging is performed. FINDINGS: There is normal venous compression and respiratory variation and augmented flow. The visualized common femoral vein, superficial femoral vein, profunda femoral vein, popliteal vein, and the trifurcation region shows no evidence of deep venous thrombosis. No right popliteal cyst. The subcutaneous soft tissues are unremarkable. If the patient's symptoms persist, followup ultrasound in 5 days 7 days might be of value to exclude proximal propagation from a non-visualized calf vein. US/US venous duplex LE RT IMPRESSION: No evidence for deep venous thrombosis in the visualized veins of the right lower extremity.
== END 2022-03-14 14:53 | disposition home or self-care (01) ==
LOC: HO.US 14:52
PROVIDERS: PCP Internal Medicine; Visit Provider Internal Medicine
DX: M79.661 Pain in right lower leg (principal)
CPT/HCPCS: 93971

== ENCOUNTER → 2022-06-28 10:26 | Outpatient (REF) | payer MEDICAID, OTHER, SELFPAY ==
--- NOTE | 2022-06-28 10:31 | CA_ITS ---
Acquisition Time: 2022-06-28 10:41:20 Total Exercise Time: 00:07:58 Test Indications: atypical chest pain Medications: Protocol: LURDES Max HR: 153 BPM 85% of Pred: 178 BPM Max BP: 160/070 mmHG Max Work Load: 10.1 METS Exercise stress test using Lurdes protocol, total of 7 min 58 sec, METS 10.00, TAPHR up to 85 %. Pt tolerated well, denies any CP, mils SOB at the end of the exercise. EG with occ. PAC's no ischemic changes . Normotensive response to exercise. Test reviewed with Dr. Powell. Referred By: Meg Antunez Overread By: Lyssa Weiss NP
== END ==
LOC: HO.CARD 10:26
PROVIDERS: PCP Internal Medicine; Visit Provider Nurse Practitioner
DX: R07.89 Other chest pain (principal)
CPT/HCPCS: 93017

== ENCOUNTER 2022-09-11 12:26 | Outpatient (REF) | payer MEDICAID, OTHER, SELFPAY ==
--- NOTE | ~2022-09-11 | XR_ITS ---
EXAMINATION: XR HAND, RIGHT CLINICAL INFORMATION: Right hand pain with movement COMPARISON: None available. TECHNIQUE: PA, lateral, and oblique views of the right hand. FINDINGS: The bones and soft tissues are normal. No fracture. Alignment is anatomic. Joint spaces are maintained. No erosions or soft tissue calcifications. XR/XR hand RT 2V IMPRESSION: No significant bony abnormality of the right hand identified.
== END 2022-09-11 12:27 | disposition home or self-care (01) ==
LOC: HO.XRAY 12:26
PROVIDERS: Absent Provider Internal Medicine; PCP Internal Medicine; Visit Provider Nurse Practitioner Family
DX: M79.641 Pain in right hand (principal)
CPT/HCPCS: 73120

== ENCOUNTER 2022-09-28 15:23 | Emergency (ER) | payer MEDICAID, OTHER, SELFPAY ==
--- NOTE | ~2022-09-28 | XR_ITS ---
EXAMINATION: XR CHEST CLINICAL INFORMATION: Chest pain COMPARISON: None available. TECHNIQUE: 2 views of the chest were obtained. FINDINGS: No significant abnormality is noted involving the heart, lungs, mediastinum, bony thorax or soft tissues. XR/XR chest 2V IMPRESSION: Unremarkable chest exam.
--- NOTE | ~2022-09-28 | CT_ITS ---
EXAMINATION: CT ABDOMEN AND PELVIS WITHOUT CONTRAST CLINICAL INFORMATION: Right lower quadrant pain. COMPARISON: CT abdomen/pelvis on 05/26/2020. TECHNIQUE: Multidetector volumetric imaging was performed from the superior aspect of the liver through the pubic symphysis. Sagittal and coronal reformatted images were obtained on the technologist's workstation. This CT examination was performed using dose optimization techniques as appropriate, variously including the following: *Automated exposure control *Adjustment of mA and/or kV according to patient size (this includes techniques or standardized protocols for targeted exams where dose is matched to indication/reason for exam; i.e. extremities or head) *Use of iterative reconstruction technique DLP: 536 mGy-cm FINDINGS: The lack of intravenous contrast limits evaluation of the solid visceral organs including the liver, spleen, pancreas, and kidneys. LUNG BASES: Scattered calcified granulomas. Bibasilar subsegmental atelectasis. No focal consolidation or pleural effusion. LIVER, GALLBLADDER, AND BILIARY TREE: The liver is normal in size, shape, and attenuation. No focal hepatic lesion or biliary ductal dilatation is present. The gallbladder is unremarkable with no evidence of radiopaque gallstones, gallbladder wall thickening, or obvious pericholecystic inflammatory changes. PANCREAS: Unremarkable. SPLEEN: Unremarkable. ADRENAL GLANDS: Stable left adrenal adenoma measuring 1.1 cm, for which no imaging follow-up is recommended. KIDNEYS AND URETERS: Punctate nonobstructive left-sided renal calculi. No hydronephrosis. No significant perinephric fat stranding. BLADDER: Unremarkable. GASTROINTESTINAL TRACT: Nonspecific gastric distention with debris, possibly related with postprandial state. The small bowel is nondilated. Normal appendix. Mild pericolonic fat stranding adjacent to the cecal base in the antimesenteric border, the appendix is separate from these inflammatory changes. No evidence of bowel obstruction. ABDOMINAL WALL: No significant hernia is appreciated. LYMPH NODES: A few prominent but subcentimeter short axis right lower quadrant mesenteric lymph nodes are noted. No lymphadenopathy by CT short axis size criteria. VASCULAR: Normal caliber of the abdominal aorta. PELVIC VISCERA: Stable calcification adjacent to the left ovary (3:74). Unchanged architectural distortion of the upper uterine fundus direct towards the abdominal wall. OSSEOUS STRUCTURES: No acute or aggressive appearing osseous abnormalities. Degenerative changes of the spine. CT/CT abdomen pelvis wo IV con IMPRESSION: 1. Mild pericolonic fat stranding adjacent to the cecal base in the antimesenteric border, nonspecific could be related with early focal colitis. The appendix is from this region of fat stranding and appears within normal limits. 2. Nonobstructive left-sided renal calculi. 3. Nonspecific gastric distention with debris, possibly related with postprandial state. Correlate clinically for gastroparesis.
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
[2022-09-28 15:30] VITALS: BP 149/88; PULSE 82; RESP 18; TEMP 36.4; O2SAT 99; BMI 27.4
--- NOTE | 2022-09-28 15:31 | ECG_ITS ---
Test Reason : chest pain Blood Pressure : / mmHG Vent. Rate : 098 BPM Atrial Rate : 098 BPM P-R Int : 138 ms QRS Dur : 086 ms QT Int : 366 ms P-R-T Axes : 037 026 045 degrees QTc Int : 467 ms Normal sinus rhythm Possible Left atrial enlargement Nonspecific ST abnormality Abnormal ECG When compared with ECG of 24-JUN-2021 16:58, Vent. rate has increased BY 34 BPM Referred By: Marilyn Ruiz Electronically Signed By:SHAYLA HIGGINBOTHAM
[2022-09-28 15:55] LABS: MANUAL DIFF FLAG NO
[2022-09-28 15:58] LABS: Basophils Percent Auto 0.4 % (0-2); Eosinophils Absolute Auto 0.1 X10*3/uL (0.0-0.4); Eosinophils Percent Auto 1.4 % (0-4); Hematocrit 34.7 % (37.0-47.0); Imm Gran Abs Auto 0.03 X10*3/uL (0.00-0.03); Imm Gran Pct Auto 0.4 % (0.0-0.4); Lymphocytes Absolute Auto 2.1 X10*3/uL (1.2-4.9); Lymphocytes Percent Auto 29.1 % (20-40); Mean Corpuscular HGB Conc 34.6 g/dl (31.0-35.0); Mean Corpuscular Hemoglobin 30.5 pg (27.0-33.0); Mean Corpuscular Volume 88.1 fL (80.0-98.0); Mean Platelet Volume 10.9 fL (9.4-12.3); Monocytes Absolute Auto 0.7 X10*3/uL (0.1-1.2); Monocytes Percent Auto 9.1 % (2-11); Neutrophils Absolute Auto 4.3 x10*3/uL (2.0-8.3); Neutrophils Percent Auto 59.6 % (45-73); Platelet Count 305 X10*3/uL (160-400); Red Blood Count 3.94 X10*6/uL (4.20-5.50); Red Cell Distribution Width 12.7 % (11.0-16.0); White Blood Count 7.3 X10*3/uL (4.8-10.8)
[2022-09-28 16:06] LABS: INTERNATIONAL NORM RATIO 1.1 (0.9-1.1); Prothrombin Time 12.6 SEC (10.0-13.1)
[2022-09-28 16:13] LABS: Alanine Aminotransferase 24 U/L (0-31); Albumin Level 4.4 g/dL (3.5-5.0); Alkaline Phosphatase 107 U/L (39-117); Anion Gap 12 (12-20); Aspartate Amino Transferase 19 U/L (5-31); Bilirubin Direct 0.4 mg/dL (0.0-0.5); Bilirubin Total 1.8 mg/dL (0.0-1.0); Blood Urea Nitrogen 9 mg/dL (9-16); Calcium 9.5 mg/dL (8.4-10.2); Carbon Dioxide 28 mmol/L (22-29); Chloride 104 mmol/L (96-108); Creatinine Clr Calc Pharmacy 102.8; Estimated Glomerular Filt Rate > 60; Glucose Random 145 mg/dL (60-115); Potassium 3.3 mmol/L (3.3-5.1); Sodium 141 mmol/L (135-145); Total Protein 7.8 g/dL (6.5-8.0)
[2022-09-28 16:21] LABS: Troponin-I High Sensitivity < 2.7 ng/L (<3.5-17.0)
[2022-09-28 19:56] VITALS: BP 155/92; PULSE 74; RESP 18; TEMP 36.8; O2SAT 100
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
[2022-09-28 23:16] LABS: HCG Quantitative < 2 mIU/mL
[2022-09-28] MEDS: Acetaminophen 325 MG TABLET 650 MG PO (23:39)
== END 2022-09-29 01:46 | disposition home or self-care (01) ==
PROVIDERS: Nurse Practitioner Family; Emergency Provider Emergency Medicine
DX: R07.89 Other chest pain (principal); M94.0 Chondrocostal junction syndrome [Tietze]; R10.32 Left lower quadrant pain; Z79.899 Other long term (current) drug therapy
CPT/HCPCS: 36415; 71046; 74176; 80048; 80076; 84484; 84702; 85025; 85610; 93005; 99284; 99285

== ENCOUNTER 2023-01-15 15:19 | Outpatient (REF) | payer MEDICAID, OTHER, SELFPAY ==
[2023-01-15 17:55] LABS: MANUAL DIFF FLAG NO
[2023-01-15 18:12] LABS: Basophils Percent Auto 0.4 % (0-2); Eosinophils Absolute Auto 0.1 X10*3/uL (0.0-0.4); Eosinophils Percent Auto 1.2 % (0-4); Hematocrit 37.3 % (37.0-47.0); Hemoglobin 12.4 g/dl (12.0-16.0); Imm Gran Abs Auto 0.02 X10*3/uL (0.00-0.03); Imm Gran Pct Auto 0.3 % (0.0-0.4); Lymphocytes Absolute Auto 2.4 X10*3/uL (1.2-4.9); Lymphocytes Percent Auto 32.2 % (20-40); Mean Corpuscular HGB Conc 33.2 g/dl (31.0-35.0); Mean Corpuscular Volume 90.3 fL (80.0-98.0); Monocytes Absolute Auto 0.6 X10*3/uL (0.1-1.2); Monocytes Percent Auto 7.6 % (2-11); Neutrophils Absolute Auto 4.3 x10*3/uL (2.0-8.3); Neutrophils Percent Auto 58.3 % (45-73); Platelet Count 282 X10*3/uL (160-400); Red Blood Count 4.13 X10*6/uL (4.20-5.50); Red Cell Distribution Width 13.1 % (11.0-16.0); White Blood Count 7.4 X10*3/uL (4.8-10.8)
[2023-01-15 18:20] LABS: Alanine Aminotransferase 22 U/L (0-31); Albumin Level 4.4 g/dL (3.5-5.0); Alkaline Phosphatase 94 U/L (39-117); Anion Gap 13 (12-20); Aspartate Amino Transferase 18 U/L (5-31); Bilirubin Total 0.6 mg/dL (0.0-1.0); Blood Urea Nitrogen 13 mg/dL (9-16); Calcium 9.7 mg/dL (8.4-10.2); Carbon Dioxide 27 mmol/L (22-29); Chloride 105 mmol/L (96-108); Estimated Glomerular Filt Rate > 60; Glucose Random 103 mg/dL (60-115); Potassium 3.1 mmol/L (3.3-5.1); Sodium 142 mmol/L (135-145); Total Protein 7.8 g/dL (6.5-8.0)
== END 2023-01-15 15:20 | disposition home or self-care (01) ==
LOC: HO.CHCLDS 15:19
PROVIDERS: Visit Provider Internal Medicine
DX: T14.8XXA Other injury of unspecified body region, initial encounter (principal); X58.XXXA Exposure to other specified factors, initial encounter; Y93.9 Activity, unspecified; Y92.9 Unspecified place or not applicable; Y99.9 Unspecified external cause status
CPT/HCPCS: 36415; 80053; 85025; 85610

== ENCOUNTER 2023-02-03 06:40 | Emergency (ER) | payer MEDICAID, OTHER, SELFPAY ==
--- NOTE | 2023-02-03 | ECG_ITS ---
Test Reason : PALPITATIONS Blood Pressure : / mmHG Vent. Rate : 076 BPM Atrial Rate : 076 BPM P-R Int : 142 ms QRS Dur : 084 ms QT Int : 382 ms P-R-T Axes : 062 039 034 degrees QTc Int : 429 ms Normal sinus rhythm Normal ECG When compared with ECG of 28-SEP-2022 15:34, Nonspecific ST abnormality is no longer Present Referred By: Wilder Milian Electronically Signed By:GABRIEL TREVIÑO
[2023-02-03 06:50] VITALS: BP 153/86; PULSE 72; RESP 16; TEMP 36.6; O2SAT 98; BMI 24.5
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
[2023-02-03 07:17] VITALS: BP 135/79; PULSE 67; RESP 16; TEMP 37.1; O2SAT 98
[2023-02-03] MEDS: LORazepam 1 MG TABLET 2 MG PO (07:58)
== END 2023-02-03 08:26 | disposition home or self-care (01) ==
LOC: HO.ED 08:20
PROVIDERS: Emergency Provider Emergency Medicine; PCP Internal Medicine
DX: F41.0 Panic disorder [episodic paroxysmal anxiety] (principal); F41.9 Anxiety disorder, unspecified; E11.9 Type 2 diabetes mellitus without complications; I10 Essential (primary) hypertension
CPT/HCPCS: 93005; 99283; 99284

== ENCOUNTER 2023-03-08 16:22 | Outpatient (REF) | payer MEDICAID, OTHER, SELFPAY ==
[2023-03-08 18:15] LABS: Influenza A PCR NEGATIVE (Negative); Influenza B PCR NEGATIVE (Negative); Resp Syncy Virus RNA Qual PCR NEGATIVE (Negative); SARS COV2 PCR INHOUSE NEGATIVE (Negative)
== END 2023-03-08 16:23 | disposition home or self-care (01) ==
LOC: HO.CHCLNP 16:22
PROVIDERS: Visit Provider Family Medicine
DX: J06.9 Acute upper respiratory infection, unspecified (principal); Z11.52 Encounter for screening for COVID-19
CPT/HCPCS: 0241U

== ENCOUNTER 2023-03-26 10:45 | Outpatient (REF) | payer MEDICAID, OTHER, SELFPAY ==
[2023-03-26 14:50] LABS: Potassium 3.6 mmol/L (3.3-5.1)
== END 2023-03-26 10:46 | disposition home or self-care (01) ==
LOC: HO.CHCLDS 10:45
PROVIDERS: Visit Provider Internal Medicine
DX: E87.6 Hypokalemia (principal); R30.0 Dysuria
CPT/HCPCS: 36415; 84132; 87086

== ENCOUNTER 2023-04-27 21:29 | Emergency (ER) | payer MEDICAID, OTHER, SELFPAY ==
--- NOTE | ~2023-04-27 | CT_ITS ---
EXAMINATION: CT ABDOMEN AND PELVIS WITH CONTRAST CLINICAL INFORMATION: Diffuse abdominal pain COMPARISON: 09/28/2022 TECHNIQUE: Multidetector volumetric images were obtained from the superior aspect of the liver through the pubic symphysis following administration 85 mL of Omnipaque 350 intravenous contrast. Sagittal and coronal reformatted images were obtained on the technologist's workstation. Oral contrast: No This CT examination was performed using dose optimization techniques as appropriate, variously including the following: *Automated exposure control *Adjustment of mA and/or kV according to patient size (this includes techniques or standardized protocols for targeted exams where dose is matched to indication/reason for exam; i.e. extremities or head) *Use of iterative reconstruction technique DLP: 546 mGy-cm FINDINGS: LUNG BASES: The visualized lung bases are unremarkable. LIVER, GALLBLADDER, AND BILIARY TREE: The liver is normal in size, shape, and attenuation. No focal hepatic lesion or biliary ductal dilatation is present. The gallbladder is unremarkable with no evidence of radiopaque gallstones, gallbladder wall thickening, or obvious pericholecystic inflammatory changes. PANCREAS: Unremarkable. SPLEEN: Unremarkable. ADRENAL GLANDS: Unremarkable. KIDNEYS AND URETERS: The kidneys are normal in size, shape, and attenuation. No hydronephrosis or hydroureter. There is a 2 mm nonobstructive calculus in a punctate nonobstructive calculus in the midpole of the left kidney. There is a punctate calculus in the proximal left ureter at the ureteropelvic junction which appears nonobstructive. This calculus previously resided in the upper pole of the left kidney. No perinephric stranding. BLADDER: Unremarkable. GASTROINTESTINAL TRACT: Scattered colonic diverticula without evidence of diverticulitis. Normal appendix. Stomach and small bowel unremarkable. ABDOMINAL WALL: No significant hernia is appreciated. LYMPH NODES: Normal. VASCULAR: Unremarkable. PELVIC VISCERA: Uterus and adnexa unremarkable. OSSEOUS STRUCTURES: Unremarkable. CT/CT abdomen pelvis w IV con IMPRESSION: * No acute findings within the abdomen or pelvis to explain the patient's symptomatology. * There is a punctate calculus in the proximal left ureter at the ureteropelvic junction which appears nonobstructive. This calculus previously resided in the upper pole of the left kidney. * There are 2 additional nonobstructive calculi within the left kidney. * Scattered colonic diverticula without evidence of diverticulitis. Fleischner guidelines were followed.
[2023-04-27 21:34] VITALS: BP 139/85; PULSE 60; RESP 16; TEMP 36.5; O2SAT 99; BMI 35.2
[2023-04-27 22:06] LABS: MANUAL DIFF FLAG NO
--- NOTE | 2023-04-27 22:07 | MHC.EDTECH ---
Patient blood drawn and urine sample collected and sent to lab .
[2023-04-27 22:09] LABS: Basophils Absolute Auto 0.1 X10*3/uL (0.0-0.2); Basophils Percent Auto 0.4 % (0-2); Eosinophils Absolute Auto 0.1 X10*3/uL (0.0-0.4); Eosinophils Percent Auto 0.6 % (0-4); Hematocrit 37.8 % (37.0-47.0); Hemoglobin 12.5 g/dl (12.0-16.0); Imm Gran Abs Auto 0.06 X10*3/uL (0.00-0.03); Imm Gran Pct Auto 0.5 % (0.0-0.4); Lymphocytes Percent Auto 16.2 % (20-40); Mean Corpuscular HGB Conc 33.1 g/dl (31.0-35.0); Mean Corpuscular Hemoglobin 29.9 pg (27.0-33.0); Mean Corpuscular Volume 90.4 fL (80.0-98.0); Mean Platelet Volume 10.7 fL (9.4-12.3); Monocytes Absolute Auto 0.7 X10*3/uL (0.1-1.2); Monocytes Percent Auto 5.5 % (2-11); Neutrophils Absolute Auto 9.5 x10*3/uL (2.0-8.3); Neutrophils Percent Auto 76.8 % (45-73); Platelet Count 277 X10*3/uL (160-400); Red Blood Count 4.18 X10*6/uL (4.20-5.50); Red Cell Distribution Width 12.7 % (11.0-16.0); White Blood Count 12.4 X10*3/uL (4.8-10.8)
[2023-04-27 22:10] LABS: Appearance Urine Clear; Color Urine Yellow; Glucose Urine UA Negative (Negative); Leukocyte Esterase Urine Negative (Negative); Nitrite Urine Negative (Negative); Specific Gravity - Urine 1.015 (1.005-1.025); UMIC TRIGGER UACC YES; Urine Blood Small (1+) (Negative); Urine Ketones Negative (Negative); Urine Protein Negative (Neg-Trace)
[2023-04-27 22:13] LABS: Bacteria Urine None Seen (None Seen); Hyaline Casts Urine 0-2 /LPF (0-2); Squamous Epithelial Cell Urine 0-2 /HPF (0-2); WBC Urine 0-5 /HPF (0-5)
[2023-04-27 22:35] LABS: Alanine Aminotransferase 16 U/L (0-31); Albumin Level 4.5 g/dL (3.5-5.0); Alkaline Phosphatase 98 U/L (39-117); Anion Gap 13 (12-20); Aspartate Amino Transferase 17 U/L (5-31); Bilirubin Total 0.8 mg/dL (0.0-1.0); Blood Urea Nitrogen 11 mg/dL (9-16); Calcium 9.5 mg/dL (8.4-10.2); Carbon Dioxide 25 mmol/L (22-29); Chloride 104 mmol/L (96-108); Creatinine Clr Calc Pharmacy 83.4; Estimated Glomerular Filt Rate > 60; Glucose Random 118 mg/dL (60-115); Lipase 21 U/L (8-78); Potassium 3.7 mmol/L (3.3-5.1); Sodium 138 mmol/L (135-145); Total Protein 8.1 g/dL (6.5-8.0)
--- NOTE | 2023-04-27 23:57 | ED.ABDPAIN ---
HPI - Abdominal Pain General Chief Complaint: Abdominal Pain Stated Complaint: Abdominal pain Time Seen by Provider: 04/27/23 23:50 Source: patient Mode of arrival: ambulatory Limitations: no limitations History of Present Illness HPI narrative: patient comes to the emergency room complaining of nausea vomiting and diarrhea And diffuse abdominal pain for 2 days. Patient denies fever chills, no chest pain or shortness of breath. Related Data Previous Rx's Medication Instructions Recorded oxycodone-acetaminophen 5 mg-325 1 tab PO Q6H PRN pain #20 tabs 05/07/20 mg tablet (Percocet) tamsulosin 0.4 mg capsule (Flomax) 0.4 mg PO DAILY #10 caps 05/07/20 cyclobenzaprine 10 mg tablet 10 mg PO TID PRN muscle spasm #14 11/21/20 tabs ibuprofen 600 mg tablet 600 mg PO Q6H PRN pain #30 tabs 11/21/20 cyclobenzaprine 10 mg tablet 10 mg PO TID PRN muscle spasm #14 06/24/21 tabs famotidine 20 mg tablet (Pepcid) 20 mg PO DAILY PRN abdominal 06/24/21 discomfort #30 tabs ondansetron 4 mg disintegrating 4 mg PO Q8H PRN nausea and 06/24/21 tablet vomiting #20 tabs ibuprofen 600 mg tablet 600 mg PO TID PRN fever or pain 04/28/23 #14 tabs ondansetron HCl 4 mg tablet 4 mg PO Q6H PRN nausea and 04/28/23 vomiting #10 tabs prednisone 10 mg tablet 10 mg PO DAILY #3 tabs 04/28/23 tamsulosin 0.4 mg capsule 0.4 mg PO DAILY #14 caps 04/28/23 Allergies Allergy/AdvReac Type Severity Reaction Status Date / Time latex Allergy Hives Verified 12/01/21 12:11 Review of Systems Review of Systems Constitutional : No Weight loss, No Fever, No Chills, No Night Sweats, No Fatigue, No Malaise ENT/Mouth : No Hearing loss, No Ear Pain, No Nasal Congestion, No Sinus Pain, No Hoarseness, No sore throat, No Rhinorrhea, No Swallowing Difficulty Eyes: No Eye Pain, No Swelling, No Redness, No Foreign Body, No Discharge, No Vision Changes Cardiovascular : No Chest Pain, No SOB, No Dyspnea on Exertion, No Orthopnea, No Edema, No Palpitations Respiratory : No Cough, No Sputum, No Wheezing, No Smoke Exposure, No Dyspnea Gastrointestinal : patient complains of nausea, vomiting and diarrhea, diffuse abdominal pain/cramping Genitourinary : no irregular bleeding, No Dysuria, No Urinary Frequency, No Hematuria, No Urinary Incontinence, No Urgency, No Flank Pain, No Urinary Flow Changes, No Hesitancy Musculoskeletal : No joint pain, No Myalgias, No Joint Swelling Skin : No Skin Lesions, No rash Neuro : No Weakness, No Numbness, No Paresthesias, No Loss of Consciousness, No Dizziness, No Headache Psych : No Anxiety/Panic, No Depression, No SI/HI/AH/VH, No Social Issues, Heme/Lymph: No Bruising, No Bleeding,No Lymphadenopathy Endocrine : No Polyuria, No Polydipsia, No Temperature Intolerance [facility] Past Medical History Medical History delivery delivered Multiple births, some liveborn Miscarriage Diabetes HTN (hypertension) Kidney stone Social History Social History Alcohol intake: former Patient Tobacco Use Status: Never used Tobacco Smoked in Last 30 Days: No Use of substances other than those prescribed or required for medical reasons: No Advance Directives: No Advance Directives Information Provided: No Physical Exam ED Vital Signs: Vital Signs - 24 hr 04/27/23 21:34 04/28/23 00:37 Temperature 97.7 F Pulse Rate 60 68 Respiratory Rate 16 16 Blood Pressure 139/85 130/89 Pulse Oximetry 99 98 Oxygen Delivery Method Room Air Room Air BMI result Body Mass Index 35.2 Const Other: Appearance: Alert. Oriented X3. No acute distress. Eyes: Pupils equal, round and reactive to light. ENT: Pharynx normal. Neck: Normal inspection. Neck supple. No lymph nodes noted. No crepitus CVS: Normal heart rate and rhythm. Pulses normal. Normal S1 and S2 Respiratory: No respiratory distress. Breath sounds normal. No Wheezing. No rales Abdomen: Soft , No rigidity. minimal pain to palpation all quadrantsNo distention. Skin: Skin warm and dry. Normal skin color. Normal skin turgor. Extremities: No lower extremity edema. No Lacerations. No Rash Neuro: Oriented X 3. No motor deficit. No sensory deficit. Moving all extremities. No slurred speech. CN 2 through 12 grossly intact Psych: calm, cooperative, normal affect Medical Decision Making Medical Decision Making [facility] Narrative: - my interpretation of labs: Normal chemistry, LFTs and lipase. White blood cell count slightly elevated 12.4. Urinalysis shows hematuria which is chronic for the patient - CT scan of the abdomen pending - patient receiving IV fluids, Zofran and loperamide - interpretation of CT scan, punctuate stone the left ureter. - Patient's source of pain likely secondary to ureterolithiasis - patient feeling much better, patient ready for discharge Differential Diagnosis Differential Diagnoses: The differential diagnosis associated with the presentation includes ( gastritis, gastroenteritis, diverticulitis, cholecystitis, kidney stone) Admission/Observation Consideration of admission/observation: Escalation of care including admission/observation considered ( given the patient's presentation admission was considered) Lab Data [facility] Lab Attestation statement: I reviewed the patient's lab results. 04/27/23 21:58 04/27/23 21:58 Labs: Lab Results 04/27/23 Range/Units 21:58 WBC 12.4 H (4.8-10.8) X10*3/uL RBC 4.18 L (4.20-5.50) X10*6/uL Hgb 12.5 (12.0-16.0) g/dl Hct 37.8 (37.0-47.0) % MCV 90.4 (80.0-98.0) fL MCH 29.9 (27.0-33.0) pg MCHC 33.1 (31.0-35.0) g/dl RDW 12.7 (11.0-16.0) % Plt Count 277 (160-400) X10*3/uL MPV 10.7 (9.4-12.3) fL Immature Gran % (Auto) 0.5 H (0.0-0.4) % Neut % (Auto) 76.8 H (45-73) % Lymph % (Auto) 16.2 L (20-40) % [place] % (Auto) 5.5 (2-11) % Eos % (Auto) 0.6 (0-4) % Baso % (Auto) 0.4 (0-2) % Lymph # (Auto) 2.0 (1.2-4.9) X10*3/uL [place] # (Auto) 0.7 (0.1-1.2) X10*3/uL Eos # (Auto) 0.1 (0.0-0.4) X10*3/uL Baso # (Auto) 0.1 (0.0-0.2) X10*3/uL Abs Immat Gran (auto) 0.06 H (0.00-0.03) X10*3/uL Absolute Neuts (auto) 9.5 H (2.0-8.3) x10*3/uL Absolute Nucleated RBC 0.000 (0.0-0.012) X10*3/uL Nucleated RBC % (auto) 0.0 (0.0-0.2) /100WBC Sodium 138 (135-145) mmol/L Potassium 3.7 (3.3-5.1) mmol/L Chloride 104 (96-108) mmol/L Carbon Dioxide 25 (22-29) mmol/L Anion Gap 13 (12-20) BUN 11 (9-16) mg/dL Creatinine 0.69 (0.5-1.4) mg/dL Estim Creat Clear Calc 83.4 Estimated GFR > 60 Random Glucose 118 H (60-115) mg/dL Calcium 9.5 (8.4-10.2) mg/dL Total Bilirubin 0.8 (0.0-1.0) mg/dL AST 17 (5-31) U/L ALT 16 (0-31) U/L Alkaline Phosphatase 98 (39-117) U/L Total Protein 8.1 H (6.5-8.0) g/dL Albumin 4.5 (3.5-5.0) g/dL Lipase 21 (8-78) U/L Urine Color Yellow Urine Appearance Clear Urine pH 6.0 (5.0-9.0) Ur Specific T[place]per 1.015 (1.005-1.025) Urine Protein Negative (Neg-Trace) mg/dL Urine Glucose (UA) Negative (Negative) mg/dL Urine Ketones Negative (Negative) mg/dL Urine Blood Small (1+) H (Negative) Urine Nitrite Negative (Negative) Ur Leukocyte Esterase Negative (Negative) Urine RBC 6-10 H (0-2) /HPF Urine WBC 0-5 (0-5) /HPF Ur Squamous Epith Cells 0-2 (0-2) /HPF Urine Bacteria None Seen (None Seen) Hyaline Casts 0-2 (0-2) /LPF Independent Interpretation I performed an independent interpretation of an: CT Scan Radiology Impression Discussion of test interpretation with radiology: I have reviewed the radiologist's reading. Radiologist Impression: FINDINGS: LUNG BASES: The visualized lung bases are unremarkable. LIVER, GALLBLADDER, AND BILIARY TREE: The liver is normal in size, shape, and attenuation. No focal hepatic lesion or biliary ductal dilatation is present. The gallbladder is unremarkable with no evidence of radiopaque gallstones, gallbladder wall thickening, or obvious pericholecystic inflammatory changes. PANCREAS: Unremarkable. SPLEEN: Unremarkable. ADRENAL GLANDS: Unremarkable. KIDNEYS AND URETERS: The kidneys are normal in size, shape, and attenuation. No hydronephrosis or hydroureter. There is a 2 mm nonobstructive calculus in a punctate nonobstructive calculus in the midpole of the left kidney. There is a punctate calculus in the proximal left ureter at the ureteropelvic junction which appears nonobstructive. This calculus previously resided in the upper pole of the left kidney. No perinephric stranding. BLADDER: Unremarkable. GASTROINTESTINAL TRACT: Scattered colonic diverticula without evidence of diverticulitis. Normal appendix. Stomach and small bowel unremarkable. ABDOMINAL WALL: No significant hernia is appreciated. LYMPH NODES: Normal. VASCULAR: Unremarkable. PELVIC VISCERA: Uterus and adnexa unremarkable. OSSEOUS STRUCTURES: Unremarkable. CT/CT abdomen pelvis w IV con IMPRESSION: * No acute findings within the abdomen or pelvis to explain the patient's symptomatology. * There is a punctate calculus in the proximal left ureter at the ureteropelvic junction which appears nonobstructive. This calculus previously resided in the upper pole of the left kidney. * There are 2 additional nonobstructive calculi within the left kidney. * Scattered colonic diverticula without evidence of diverticulitis. Fleischner guidelines were followed. Independent Historian Clinical information obtained from an independent historian. History obtained from or confirmed by: Spouse Medications Administered Discontinued Medications Generic Name Dose Route Start Last Admin Trade Name Freq PRN Reason Stop Dose Admin Sodium Chloride 1,000 mls @ 999 mls/hr 04/27/23 23:53 04/28/23 00:18 Ns IVCONT 04/28/23 00:53 999 mls/hr .Q1H1M ONE Administration Iohexol 85 ml 04/28/23 01:10 04/28/23 01:11 Iohexol 350 Mg/Ml 100 Ml Infus..Btl IV 04/28/23 01:11 85 ml ONCE ONE Administration Loperamide HCl 4 mg 04/27/23 23:56 04/28/23 00:34 Loperamide Hcl 2 Mg Capsule PO 04/27/23 23:57 4 mg ONCE ONE Administration Ondansetron HCl 4 mg 04/27/23 23:53 04/28/23 00:34 Ondansetron Hcl 4 Mg/2 Ml Vial IVPUSH 04/27/23 23:54 4 mg ONCE ONE Administration Critical Care Time Critical Care Time Critical Care Time: Yes Total Critical Care Time: 60 Attestation: I have personally provided critical care time. Time includes review of lab data, radiology results, discussion with consultants, and monitoring for potential decompensation. Intervention performed as documented. Discharge Plan Discharge Clinical Impression: Ureterolithiasis Patient Disposition: Home, Self-Care Instructions: Kidney Stones (ED) Additional Instructions: Please follow-up with your primary care physician tomorrow. If you have any worsening or new symptoms, please return to the emergency room or call 911 Prescriptions: New prednisone 10 mg tablet 10 mg PO DAILY Qty: 3 0RF tamsulosin 0.4 mg capsule 0.4 mg PO DAILY Qty: 14 0RF ondansetron HCl 4 mg tablet 4 mg PO Q6H PRN (Reason: nausea and vomiting) Qty: 10 0RF ibuprofen 600 mg tablet 600 mg PO TID PRN (Reason: fever or pain) Qty: 14 0RF No Action oxycodone-acetaminophen [Percocet] 5-325 mg tablet 1 tab PO Q6H PRN (Reason: pain) Qty: 20 0RF tamsulosin [Flomax] 0.4 mg capsule 0.4 mg PO DAILY Qty: 10 0RF cyclobenzaprine 10 mg tablet 10 mg PO TID PRN (Reason: muscle spasm) Qty: 14 0RF ibuprofen 600 mg tablet 600 mg PO Q6H PRN (Reason: pain) Qty: 30 0RF famotidine [Pepcid] 20 mg tablet 20 mg PO DAILY PRN (Reason: abdominal discomfort) Qty: 30 0RF ondansetron 4 mg tablet,disintegrating 4 mg PO Q8H PRN (Reason: nausea and vomiting) Qty: 20 0RF cyclobenzaprine 10 mg tablet 10 mg PO TID PRN (Reason: muscle spasm) Qty: 14 0RF Referrals: Иван Brock MD [Physician] - 05/07/23
[2023-04-28] MEDS: 0.9 % Sodium Chloride 1,000 ML 999 ML IVCONT (00:18)
[2023-04-28] MEDS: ondansetron HCL 4 MG/2 ML VIAL IVPUSH (00:34)
[2023-04-28] MEDS: Loperamide HCl 2 MG CAPSULE 4 MG PO (00:34)
[2023-04-28 00:37] VITALS: BP 130/89; PULSE 68; RESP 16; O2SAT 98
[2023-04-28] MEDS: iohexoL 350 MG/ML 100 ML INFUS..BTL 85 ML IV (01:11)
[2023-04-28 02:23] VITALS: PULSE 63; RESP 14; O2SAT 97
== END 2023-04-28 02:32 | disposition home or self-care (01) ==
PROVIDERS: Emergency Provider Emergency Medicine; PCP Internal Medicine
DX: N20.2 Calculus of kidney with calculus of ureter (principal); I10 Essential (primary) hypertension; E11.9 Type 2 diabetes mellitus without complications; Z87.442 Personal history of urinary calculi; Z79.899 Other long term (current) drug therapy
CPT/HCPCS: 36415; 74177; 80053; 81001; 83690; 85025; 96361; 96374; 99285; J2405; Q9967

== ENCOUNTER 2023-07-25 16:18 | Outpatient (REF) | payer MEDICAID, OTHER, SELFPAY ==
[2023-07-25 17:37] LABS: MANUAL DIFF FLAG NO
[2023-07-25 17:44] LABS: Basophils Percent Auto 0.4 % (0-2); Eosinophils Absolute Auto 0.1 X10*3/uL (0.0-0.4); Eosinophils Percent Auto 1.7 % (0-4); Hemoglobin 12.5 g/dl (12.0-16.0); Imm Gran Abs Auto 0.02 X10*3/uL (0.00-0.03); Imm Gran Pct Auto 0.3 % (0.0-0.4); Lymphocytes Absolute Auto 2.2 X10*3/uL (1.2-4.9); Lymphocytes Percent Auto 28.8 % (20-40); Mean Corpuscular HGB Conc 33.8 g/dl (31.0-35.0); Mean Corpuscular Volume 91.8 fL (80.0-98.0); Mean Platelet Volume 11.1 fL (9.4-12.3); Monocytes Absolute Auto 0.6 X10*3/uL (0.1-1.2); Monocytes Percent Auto 8.1 % (2-11); Neutrophils Absolute Auto 4.6 x10*3/uL (2.0-8.3); Neutrophils Percent Auto 60.7 % (45-73); Platelet Count 285 X10*3/uL (160-400); Red Blood Count 4.03 X10*6/uL (4.20-5.50); Red Cell Distribution Width 13.4 % (11.0-16.0); White Blood Count 7.6 X10*3/uL (4.8-10.8)
[2023-07-25 18:18] LABS: Anion Gap 13 (12-20); Blood Urea Nitrogen 9 mg/dL (9-16); Calcium 9.5 mg/dL (8.4-10.2); Carbon Dioxide 26 mmol/L (22-29); Chloride 104 mmol/L (96-108); Estimated Glomerular Filt Rate > 60; Glucose Random 92 mg/dL (60-115); Potassium 3.4 mmol/L (3.3-5.1); Sodium 140 mmol/L (135-145)
== END 2023-07-25 16:19 | disposition home or self-care (01) ==
LOC: HO.CHCLDS 16:18
PROVIDERS: Visit Provider Internal Medicine
DX: A04.8 Other specified bacterial intestinal infections (principal); R11.0 Nausea
CPT/HCPCS: 36415; 80048; 85025

== ENCOUNTER 2024-02-25 09:20 | Outpatient (REF) | payer OTHER, SELFPAY ==
[2024-02-25 12:27] LABS: Alanine Aminotransferase 30 U/L (0-31); Albumin Level 4.3 g/dL (3.5-5.0); Alkaline Phosphatase 107 U/L (39-117); Anion Gap 12 (12-20); Aspartate Amino Transferase 23 U/L (5-31); Bilirubin Total 0.9 mg/dL (0.0-1.0); Blood Urea Nitrogen 14 mg/dL (9-16); Calcium 9.4 mg/dL (8.4-10.2); Carbon Dioxide 26 mmol/L (22-29); Chloride 106 mmol/L (96-108); Cholesterol 219 mg/dL (<200); Estimated Glomerular Filt Rate > 60; Glucose Random 110 mg/dL (60-115); HDL Cholesterol 45 mg/dL (>40); LDL Cholesterol Calculated 100 mg/dL (<100); Sodium 140 mmol/L (135-145); Total Protein 7.5 g/dL (6.5-8.0); Triglycerides 370 mg/dL (<150)
== END 2024-02-25 09:21 | disposition home or self-care (01) ==
LOC: HO.HHCL 09:20
PROVIDERS: Visit Provider Internal Medicine
DX: I10 Essential (primary) hypertension (principal)
CPT/HCPCS: 36415; 80053; 80061

== ENCOUNTER 2024-05-20 04:25 | Emergency (ER) | payer OTHER, SELFPAY ==
--- NOTE | ~2024-05-20 | XR_ITS ---
EXAMINATION: XR CHEST CLINICAL INFORMATION: flu like sx COMPARISON: 09/28/2022. TECHNIQUE: 2 views of the chest were obtained. FINDINGS: The cardiac, hilar, and mediastinal contours are normal. The lungs are clear bilaterally. There is no pneumothorax or pleural effusion. There is no focal osseous or soft tissue abnormality. XR/XR chest 2V IMPRESSION: Normal chest. Electronically signed by: Arturo Patino MD 05/20/2024 08:13 AM [facility]
[2024-05-20 04:32] VITALS: BP 154/79; PULSE 73; RESP 20; TEMP 37; O2SAT 95; BMI 32.2
[2024-05-20 04:52] LABS: Basophils Percent Auto 0.4 % (0-2); Eosinophils Absolute Auto 0.1 X10*3/uL (0.0-0.4); Eosinophils Percent Auto 1.8 % (0-4); Hematocrit 34.1 % (37.0-47.0); Hemoglobin 11.7 g/dl (12.0-16.0); Imm Gran Abs Auto 0.02 X10*3/uL (0.00-0.03); Imm Gran Pct Auto 0.3 % (0.0-0.4); Lymphocytes Absolute Auto 2.1 X10*3/uL (1.2-4.9); Lymphocytes Percent Auto 29.2 % (20-40); MANUAL DIFF FLAG NO; Mean Corpuscular HGB Conc 34.3 g/dl (31.0-35.0); Mean Corpuscular Hemoglobin 30.4 pg (27.0-33.0); Mean Corpuscular Volume 88.6 fL (80.0-98.0); Mean Platelet Volume 10.3 fL (9.4-12.3); Monocytes Absolute Auto 0.5 X10*3/uL (0.1-1.2); Monocytes Percent Auto 7.2 % (2-11); Neutrophils Absolute Auto 4.4 x10*3/uL (2.0-8.3); Neutrophils Percent Auto 61.1 % (45-73); Platelet Count 269 X10*3/uL (160-400); Red Blood Count 3.85 X10*6/uL (4.20-5.50); Red Cell Distribution Width 13.9 % (11.0-16.0); White Blood Count 7.1 X10*3/uL (4.8-10.8)
[2024-05-20 05:07] LABS: Alanine Aminotransferase 23 U/L (0-31); Albumin Level 3.9 g/dL (3.5-5.0); Alkaline Phosphatase 113 U/L (39-117); Anion Gap 11 (12-20); Aspartate Amino Transferase 20 U/L (5-31); Bilirubin Total 0.5 mg/dL (0.0-1.0); Blood Urea Nitrogen 13 mg/dL (9-16); Carbon Dioxide 23 mmol/L (22-29); Chloride 109 mmol/L (96-108); Creatinine Clr Calc Pharmacy 97.9; Estimated Glomerular Filt Rate > 60; Glucose Random 126 mg/dL (60-115); Potassium 3.6 mmol/L (3.3-5.1); Sodium 139 mmol/L (135-145); Total Protein 7.1 g/dL (6.5-8.0)
[2024-05-20 05:29] LABS: Influenza A PCR NEGATIVE (Negative); Influenza B PCR NEGATIVE (Negative); Resp Syncy Virus RNA Qual PCR NEGATIVE (Negative); SARS COV2 PCR INHOUSE NEGATIVE (Negative)
--- NOTE | 2024-05-20 07:49 | ED.GENADULT ---
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 She reports waking up this morning with a red, itchy rash to her abdomen and upper extremities. She reports taking Benadryl with complete resolution of rash [employer] in ED. Her only known allergy is to latex and she does not believe she has come into contact with this. Denies new soaps, lotions, detergents. Denies new medications or antibiotics. Denies known tick or insect bites. Denies known sick contacts. Denies fever, chills, sore throat, cough, sputum production, chest pain, shortness of breath, dyspnea, nausea or vomiting, abdominal pain, dysuria, hematuria, constipation. Related Data Previous Rx's ?Medication ?Instructions ?Recorded oxycodone-acetaminophen 5 mg-325 1 tab PO Q6H PRN pain #20 tabs 05/07/20 mg tablet (Percocet) tamsulosin 0.4 mg capsule (Flomax) 0.4 mg PO DAILY #10 caps 05/07/20 cyclobenzaprine 10 mg tablet 10 mg PO TID PRN muscle spasm #14 11/21/20 tabs ibuprofen 600 mg tablet 600 mg PO Q6H PRN pain #30 tabs 11/21/20 cyclobenzaprine 10 mg tablet 10 mg PO TID PRN muscle spasm #14 06/24/21 tabs famotidine 20 mg tablet (Pepcid) 20 mg PO DAILY PRN abdominal 06/24/21 discomfort #30 tabs ondansetron 4 mg disintegrating 4 mg PO Q8H PRN nausea and 06/24/21 tablet vomiting #20 tabs ibuprofen 600 mg tablet 600 mg PO TID PRN fever or pain 04/28/23 #14 tabs ondansetron HCl 4 mg tablet 4 mg PO Q6H PRN nausea and 04/28/23 vomiting #10 tabs prednisone 10 mg tablet 10 mg PO DAILY #3 tabs 04/28/23 tamsulosin 0.4 mg capsule 0.4 mg PO DAILY #14 caps 04/28/23 amoxicillin 875 mg-potassium 1 tab PO BID 7 days #14 tabs 05/20/24 clavulanate 125 mg tablet prednisone 20 mg tablet 20 mg PO DAILY 3 days #3 tabs 05/20/24 Allergies Allergy/AdvReac Type Severity Reaction Status Date / Time latex Allergy Hives Verified 05/20/24 04:40 Review of Systems Review of Systems: Yes all other systems are reviewed and are negative [facility] Past Medical History Attestation statement: The following information was validated with the patient. Source: old records reviewed and nursing notes reviewed Medical History delivery delivered Multiple births, some liveborn Miscarriage Diabetes HTN (hypertension) Kidney stone Social History Social History Alcohol intake: former Patient Tobacco Use Status: Never used Tobacco Advance Directives: No Advance Directives Information Provided: Yes Physical Exam ED Vital Signs: Vital Signs - 24 hr 05/20/24 04:32 05/20/24 08:52 Temperature 98.6 F 98.6 F Pulse Rate 73 66 Respiratory Rate 20 18 Blood Pressure 154/79 H 143/74 H Pulse Oximetry 95 100 Oxygen Delivery Method Room Air Room Air BMI result Body Mass Index 32.2 Hypertensive, afebrile General: Well appearing, in no acute distress. Skin: Warm, dry, intact. No rashes or lesions. No target lesions. No sloughing. No involvement of mucous membranes and web spaces. Head: Normocephalic, atraumatic. EENT: Hearing is intact b/l. Conjunctiva clear. PERRLA. EOM intact. Moist mucous membranes.?Tender to percussion over bilateral maxillary sinuses and frontal sinus. Neck: Supple without LAD Cardiac: Chest wall symmetric. RRR Lungs: Normal respiratory effort without accessory muscle use. CTA bilaterally. No rales, rhonchi, or wheezes.? Abdomen: Soft, non-tender, non-distended Back: No midline spinous or paraspinal tenderness. No step off deformity. Ext: Upper and lower extremities atraumatic, without tenderness, deformity, swelling or erythema. Full ROM throughout. Neuro: AOx3. Normal speech. CN 2-12 grossly intact. Strength 5/5 intact throughout. No saddle anesthesia. Sensation intact to light touch. NV intact distally. Reflexes 2+ bilaterally. Ambulating with steady gait. Psych: Appropriate mood and affect. Responds appropriately to questions. Course Course Course Narrative: CBC without leukocytosis or left shift. Normocytic anemia, H&H stable and above transfusion threshold. Chemistry without acute electrolyte abnormality requiring intervention. Random glucose 126. No GURWINDER. Normal liver function. She tested negative for COVID, flu, RSV, strep throat. Lyme and tick panel pending although less likely. Chest x-ray without infiltrate or consolidation to suggest pneumonia. > exam consistent with sinusitis. Will discharge patient home with Augmentin. Informed that she will be called with any results from her Lyme/tick testing that warrant treatment. Advised to follow up with PCP. Patient has remained stable throughout ED visit today. Discussed worrisome signs and symptoms and when to return to the ED. All questions answered at this time. Patient is agreeable with disposition and stable for discharge. Medical Decision Making Medical Decision Making [facility] Narrative: 43 year old Citizen [place]-speaking female with pmhx significant for DM, HTN presents to the ED today for evaluation of myalgias, headache, nasal congestion, sinus pressure/pain and one episode of diarrhea x1 week. She is hypertensive, vitals are otherwise WNL. Her exam is only significant for tenderness to percussion over maxillary and frontal sinuses. Her exam is otherwise quite unremarkable. I do not appreciate any rash on her body. There is no sloughing, target lesions, involvement of mucous membranes or web spaces. Differential diagnosis includes viral syndrome, sinusitis, strep throat, anemia, electrolyte abnormality, contact/atopic/eczematous dermatitis, psoriasis. History and exam findings not consistent with lyme/tick bourne illness, herpes zoster/simplex, scabies, HFM,? dangerous etiologies of rash such as SJS/TEN, or secondary dangerous causes such as petechial rashes from thrombocytopenia or rickettsial infections.? Plan at this time is to treat symptomatically, instruct to follow up with PCP or derm PRN. Differential Diagnosis Differential Diagnoses: The differential diagnosis associated with the presentation includes As above Admission/Observation Not indicated Lab Data [facility] Lab Attestation statement: I reviewed the patient's lab results. As above 05/20/24 04:47 05/20/24 04:47 Labs: Lab Results 05/20/24 05/20/24 05/20/24 Range/Units 04:47 08:08 09:00 WBC 7.1 (4.8-10.8) X10*3/uL RBC 3.85 L (4.20-5.50) X10*6/uL Hgb 11.7 L (12.0-16.0) g/dl Hct 34.1 L (37.0-47.0) % MCV 88.6 (80.0-98.0) fL MCH 30.4 (27.0-33.0) pg MCHC 34.3 (31.0-35.0) g/dl RDW 13.9 (11.0-16.0) % Plt Count 269 (160-400) X10*3/uL MPV 10.3 (9.4-12.3) fL Immature Gran % (Auto) 0.3 (0.0-0.4) % Neut % (Auto) 61.1 (45-73) % Lymph % (Auto) 29.2 (20-40) % [place] % (Auto) 7.2 (2-11) % Eos % (Auto) 1.8 (0-4) % Baso % (Auto) 0.4 (0-2) % Lymph # (Auto) 2.1 (1.2-4.9) X10*3/uL [place] # (Auto) 0.5 (0.1-1.2) X10*3/uL Eos # (Auto) 0.1 (0.0-0.4) X10*3/uL Baso # (Auto) 0.0 (0.0-0.2) X10*3/uL Abs Immat Gran (auto) 0.02 (0.00-0.03) X10*3/uL Absolute Neuts (auto) 4.4 (2.0-8.3) x10*3/uL Absolute Nucleated RBC 0.000 (0.0-0.012) X10*3/uL Nucleated RBC % (auto) 0.0 (0.0-0.2) /100WBC Sodium 139 (135-145) mmol/L Potassium 3.6 (3.3-5.1) mmol/L Chloride 109 H (96-108) mmol/L Carbon Dioxide 23 (22-29) mmol/L Anion Gap 11 L (12-20) BUN 13 (9-16) mg/dL Creatinine 0.64 (0.5-1.4) mg/dL Estim Creat Clear Calc 97.9 Estimated GFR > 60 Random Glucose 126 H (60-115) mg/dL Calcium 8.0 L D (8.4-10.2) mg/dL Total Bilirubin 0.5 (0.0-1.0) mg/dL AST 20 (5-31) U/L ALT 23 (0-31) U/L Alkaline Phosphatase 113 (39-117) U/L Total Protein 7.1 (6.5-8.0) g/dL Albumin 3.9 (3.5-5.0) g/dL A.phagocytophil DNA PCR NOT DETECTED (NOT DETECTED) Babesia microti DNA PCR NOT DETECTED (NOT DETECTED) Borrelia sp DNA (PCR) NOT DETECTED (NOT DETECTED) Lyme Screen IgG & IgM <0.90 index Lyme Progressive Test TNP Borrelia miyamotoi (PCR) NOT DETECTED (NOT DETECTED) E.chaffeensis DNA (PCR) NOT DETECTED (NOT DETECTED) Influenza Type A (PCR) NEGATIVE (Negative) Influenza Type B (PCR) NEGATIVE (Negative) RSV RNA Qual (PCR) NEGATIVE (Negative) SARS-CoV-2 RNA (RT-PCR) NEGATIVE (Negative) S. pyogenes GrpA KRISTIN Negative (Negative) Tick-borne Disease PCR SEE NOTE Independent Interpretation I performed an independent interpretation of an: Plain X-Ray Interpretation: Chest x-ray without infiltrate or consolidation Radiology Impression Discussion of test interpretation with radiology: I have reviewed the radiologist's reading. Radiologist Impression: EXAMINATION: XR CHEST CLINICAL INFORMATION: flu like sx COMPARISON: 09/28/2022. TECHNIQUE: 2 views of the chest were obtained. FINDINGS: The cardiac, hilar, and mediastinal contours are normal. The lungs are clear bilaterally. There is no pneumothorax or pleural effusion. There is no focal osseous or soft tissue abnormality. XR/XR chest 2V IMPRESSION: Normal chest. Electronically signed by: Arturo Patino MD 05/20/2024 08:13 AM [facility] Prescription Management I considered prescription management with: Antibiotic (Augmentin) Chronic Conditions Patient?s care impacted by: Diabetes Social Determinants Patient?s care significantly limited by Social Determinants of Health including: Other Social Determinant of Health Critical Care Time Critical Care Time Critical Care Time: No Discharge Plan Discharge Clinical Impression: Sinusitis Patient Disposition: Home, Self-Care Instructions: Sinusitis (ED) Additional Instructions: Your exam is significant for a sinus infection. Augmentin is an antibiotic that has been sent to your pharmacy for treatment. Take this as prescribed and to completion. Do not skip any doses. On Augmentin, softer bowel movements are to be expected. Call your provider if you move your bowels more than 4 times a day, your bowel movements are almost all liquid, or you get a rash.? I am also sending Prednisone to your pharmacy for you to take over the next 5 days for rash. If you have diabetes, please monitor your blood sugar at home while taking this medication as this can cause an elevation in blood sugar. Your blood has been sent to the lab to test for tick/lyme pathology. You will be called with any positive results that warrant treatment. Take Tylenol/Motrin at home for pain/discomfort. Follow up with your primary care provider. Return with any new or worsening symptoms. In the case of an emergency call 911. Prescriptions: New prednisone 20 mg tablet 20 mg PO DAILY 3 Days Qty: 3 0RF amoxicillin-pot clavulanate 875-125 mg tablet 1 tab PO BID 7 Days Qty: 14 0RF No Action oxycodone-acetaminophen [Percocet] 5-325 mg tablet 1 tab PO Q6H PRN (Reason: pain) Qty: 20 0RF tamsulosin [Flomax] 0.4 mg capsule 0.4 mg PO DAILY Qty: 10 0RF cyclobenzaprine 10 mg tablet 10 mg PO TID PRN (Reason: muscle spasm) Qty: 14 0RF ibuprofen 600 mg tablet 600 mg PO Q6H PRN (Reason: pain) Qty: 30 0RF famotidine [Pepcid] 20 mg tablet 20 mg PO DAILY PRN (Reason: abdominal discomfort) Qty: 30 0RF ondansetron 4 mg tablet,disintegrating 4 mg PO Q8H PRN (Reason: nausea and vomiting) Qty: 20 0RF cyclobenzaprine 10 mg tablet 10 mg PO TID PRN (Reason: muscle spasm) Qty: 14 0RF prednisone 10 mg tablet 10 mg PO DAILY Qty: 3 0RF tamsulosin 0.4 mg capsule 0.4 mg PO DAILY Qty: 14 0RF ondansetron HCl 4 mg tablet 4 mg PO Q6H PRN (Reason: nausea and vomiting) Qty: 10 0RF ibuprofen 600 mg tablet 600 mg PO TID PRN (Reason: fever or pain) Qty: 14 0RF Referrals: [facility] Family Medicine [Provider Group] [facility] [place] Primary Care, [place] [Provider Group] [facility] [place] Primary Care,[place]y [Provider Group] Stand Alone Forms: Work/School Release Interventions: ED Discharge Assessment Last Done: 05/20/24 08:52 Discharge Date/Time: 05/20/24 09:11 Print Language: Citizen Of [place]
--- OUTSIDE RECORDS SUMMARY | 2024-05-20 08:08 | XMS_ITS | Continuity of Care Document ---
Author Organization [facility] Address [address] [place] [address] [address] [place] [address] Phone Care Team Providers Care Vice President Industrial Relations Name Role Phone Vaishali Thrasher MD, FACS, RVT Unavailable Unavailable Advance Directives Directive Yes / No Effective Date File Name No Information Encounters Encounter Description Practice Location Reason(s) For Visit Diagnoses Date Provider Providers Copied on Encounter [facility], [address] [place] [address] [address], [place], [id number], tel:[phone] [facility] No Information Apr-2 3 Alex Maldonado. [address] [place] [address], [address], . tel:[phone] Referring Provider: Terry Gaytan, [address] [place] [address], [address]. tel:[phone] Family History Family Member Type Diagnosis Age At Onset No Information Payers Payer name Insurance type Covered democrat ID Authoriza tion(s) No Information Social History [...]
[2024-05-20 08:23] LABS: IDNOW Serial# 58CA691E; Strep A Nucleic Acid Negative (Negative)
[2024-05-20 08:52] VITALS: BP 143/74; PULSE 66; RESP 18; TEMP 37; O2SAT 100
[2024-05-21 22:33] LABS: Lyme Abs Screen <0.90 index
[2024-05-22 00:29] LABS: A. Phagocytphilium DNA,RT-PCR NOT DETECTED (NOT DETECTED); Babesia Microti DNA, RT-PCR NOT DETECTED (NOT DETECTED); Borrelia Miyamotoi,DNA RT-PCR NOT DETECTED (NOT DETECTED); E.Chaffeensis DNA RT-PCR NOT DETECTED (NOT DETECTED); Lyme(Borrelia ssp)DNA RT-PCR NOT DETECTED (NOT DETECTED)
== END 2024-05-20 09:11 | disposition home or self-care (01) ==
PROVIDERS: Physician Assistant Medical; Emergency Provider Emergency Medicine
DX: J32.8 Other chronic sinusitis (principal); R21 Rash and other nonspecific skin eruption; R51.9 Headache, unspecified; E11.9 Type 2 diabetes mellitus without complications; I10 Essential (primary) hypertension; Z03.818 Encounter for observation for suspected exposure to other biological agents ruled out; Z79.899 Other long term (current) drug therapy
CPT/HCPCS: 0241U; 36415; 71046; 80053; 85025; 86617; 86618; 87468; 87469; 87478; 87484; 87651; 87798; 99282; 99283

== ENCOUNTER → 2024-05-20 07:50 | Outpatient (BNV) | payer OTHER, SELFPAY | PROVIDERS: Emergency Provider Emergency Medicine; Visit Provider Radiology Diagnostic Radiology | DX: R51.9 Headache, unspecified (principal); R09.81 Nasal congestion | CPT/HCPCS: 71046 ==

== ENCOUNTER 2024-06-17 12:15 | Outpatient (REF) | payer OTHER, SELFPAY ==
[2024-06-17 13:05] LABS: MANUAL DIFF FLAG NO
[2024-06-17 13:22] LABS: Basophils Percent Auto 0.3 % (0-2); Eosinophils Absolute Auto 0.2 X10*3/uL (0.0-0.4); Eosinophils Percent Auto 1.7 % (0-4); Hematocrit 35.8 % (37.0-47.0); Hemoglobin 11.8 g/dl (12.0-16.0); Imm Gran Abs Auto 0.04 X10*3/uL (0.00-0.03); Imm Gran Pct Auto 0.4 % (0.0-0.4); Lymphocytes Absolute Auto 2.5 X10*3/uL (1.2-4.9); Lymphocytes Percent Auto 27.1 % (20-40); Mean Corpuscular Hemoglobin 29.7 pg (27.0-33.0); Mean Corpuscular Volume 90.2 fL (80.0-98.0); Mean Platelet Volume 10.9 fL (9.4-12.3); Monocytes Absolute Auto 0.7 X10*3/uL (0.1-1.2); Monocytes Percent Auto 7.3 % (2-11); Neutrophils Absolute Auto 5.8 x10*3/uL (2.0-8.3); Neutrophils Percent Auto 63.2 % (45-73); Platelet Count 329 X10*3/uL (160-400); Red Blood Count 3.97 X10*6/uL (4.20-5.50); Red Cell Distribution Width 13.3 % (11.0-16.0); White Blood Count 9.2 X10*3/uL (4.8-10.8)
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
--- OUTSIDE RECORDS SUMMARY | 2024-06-17 13:30 | XMS_ITS | Encounter Summary ---
Author Organization [employer] Address [address] [facility] 7t [place] [address] Care Team Providers Care Weight Loss Sales Consultant Name Role Phone Terry Rasheed MD Primary Care Prov ider Reason for Visit * Reason Comments Med Refill Encounter Details Date Type Department Care Team ([facility] st Contact Info) Description 11/09/2023 Refill [facility] MED & PEDS [address] [place], [place] [phone] Terry Rasheed MD [address] [place] [address] Social History Tobacco Use Types Packs/Day Years Used Date Smoking Tobacco: Never Passive Smoke Exposure: Never Smokeless Tobacco: Never Alcohol Use Standard Drinks/Week Comments Never 0 (1 standard drink = 0.6 oz pur e alcohol) Depression Answer Date Recorded Patient Health Questionnaire-9 Score 0 05/28/2023 Patient Health Questionnaire-9 Score 0 05/28/2023 Last PHQ-9: Questionnaire Data Not on file 0 05/28/2023 Housing Stability Answer Date Recorded What is your housing situation today? I have brit adri 07/12/[address] you li [...] Answer Date Recorded Patient Health Questionnaire-2 Score 0 05/28/2023 Comments Unknown Sex and Gender Information Value Date Recorded Sex Assigned at Female 03/06/2022 10:35 AM EDT Legal Sex Female 10:35 AM EDT Gender Identity Female 03/06/2022 10:35 AM EDT Sexual Orientation Straight 10/09/2022 10 :42 AM EDT documented as of this encounter Plan of Treatment Upcoming Encounters Date Type Department Care Team (Late st Contact Info) Description 06/17/2024 2:00 PM EST Office Visit [facility] WALK-IN [address] [address] documented as of this encounter Visit Diagnoses Not on filedocumented in this encounter Additional Health Concerns Assessment Noted Time PHQ-9 Depression Total Score: 0 05/28/19 9:00 AM EST documented as of this encounter Care Teams Weight Loss Sales Consultant Relationship Specialty Start Date End Date Terry Rasheed MD [address] [place] [address] PCP - General Internal Medicine 12/24/23 documented as of this encounter
--- OUTSIDE RECORDS SUMMARY | 2024-06-17 13:30 | XMS_ITS | Encounter Summary ---
Author Organization [employer] Address [address] [facility] [address] [place] [address] Care Team Providers Care Well Flow Operator Name Role Phone Terry Rasheed MD Primary Care Prov ider Terry Rasheed MD Primary Care Prov ider Reason for Visit * Reason Comments Med Refill Encounter Details Date Type Department Care Team (Late Contact Info) Description 07/24/2022 Refill [facility] CH[facility] MED & PEDS [address] [place], [place] [phone] Terry Rasheed MD [address] [place], [place] [phone] Social History Tobacco Use Types Packs/Day Years Used Date Smoking Tobacco: Never Passive Smoke Exposure: Never Smokeless Tobacco: Never Alcohol Use Standard Drinks/Week Comments Never 0 (1 standard drink = 0.6 oz pur e alcohol) Comments Unknown Sex and Gender Information Value Date Recorded Sex Assigned at Female 03/06/2022 10:35 AM EDT Legal Sex Female 10:35 AM EDT Gender Identity Female 03/06/2022 10:35 AM EDT Sexual Orientation Straight 10/09/2022 10 :42 AM EDT documented as of this encounter Plan of Treatment Upcoming Encounters Date Type Department Care Team ([facility] Contact Info) Description 06/17/2024 2:00 PM EST Office Visit [facility] [address] [place], [place] [phone] documented as of this encounter Visit Diagnoses Not on filedocumented in this encounter Additional Health Concerns Assessment Noted Time PHQ-9 Depression Total Score: 0 05/15/19 23 9:53 AM EST documented as of this encounter Care Teams Well Flow Operator Relationship Specialty Start Date End Date Terry Rasheed MD [address] [place] [address] PCP - General Internal Medicine 08/10/20 09/26/23 Terry Rasheed MD [address] [place] [address] PCP - General Internal Medicine 12/24/23 documented as of this encounter
--- OUTSIDE RECORDS SUMMARY | 2024-06-17 13:30 | XMS_ITS | Encounter Summary ---
Author Organization [employer] Address [address] [facility] [address] [place] [address] Care Team Providers Care Veterinarian Laboratory Animal Care Name Role Phone Terry Rasheed MD Primary Care Prov ider Reason for Visit * Reason Onset Date Comments Med Refill 06/03/2024 Encounter Details Date Type Department Care Team (Late st Contact Info) Description 06/03/2024 Refill [facility] [address] [place] [address] Terry Rasheed MD [address] [place] [address] Mild intermittent asthma without complication Social History Tobacco Use Types Packs/Day Years [...] AM EDT documented as of this encounter Miscellaneous Notes * Telephone Encounter - Ino Willis - 06/03/2024 2:35 PM EST TC from pt requesting medication refill. Medications needing refill : albuterol 108 (90 Base) MCG/ACT inhaler To be sent to: [facility] - [place], [place] - [address] [place] [address] documented in this encounter Plan of Treatment Upcoming Encounters Date Type Department Care Team ([facility] st Contact Info) Description 06/17/2024 2:00 PM EST Office Visit [facility]ALK[facility] [place] [address] [place] [address] documented as of this encounter Visit Diagnoses Diagnosis Mild intermittent asthma without complication documented in this encounter Additional Health Concerns Assessment Noted Time PHQ-9 Depression Total Score: 16 024 10:47 AM EST documented as of this encounter Care Teams Veterinarian Laboratory Animal Care Relationship Specialty Start Date End Date Terry Rasheed MD [address] [place] [address] PCP - General Internal Medicine 12/24/23 documented as of this encounter
--- OUTSIDE RECORDS SUMMARY | 2024-06-17 13:30 | XMS_ITS | Encounter Summary ---
Author Organization [employer] Address [address] [facility] 7t [place] [address] Care Team Providers Care Data Specialist Name Role Phone Terry Rasheed MD Primary Care Prov ider Reason for Visit * Reason Onset Date Comments Referral 06/02/2024 Encounter Details Date Type Department Care Team ([facility] st Contact Info) Description 06/02/2024 Telephone [facility] CH[facility] MED & PEDS [address] [place], [place] [phone] Terry Rasheed MD [address] [place] [address] Referral Social History Tobacco Use Types Packs/Day Years [...] is your housing situation today? I have britsiddhartha rush 07/12/[address] you [...] Description 06/17/2024 2:00 PM EST Office Visit [facility] WALK-IN [address] [address] documented as of this encounter Visit Diagnoses Not on filedocumented in this encounter Additional Health Concerns Assessment Noted Time PHQ-9 Depression Total Score: 16 024 10:47 AM EST documented as of this encounter Care Teams Data Specialist Relationship Specialty Start Date End Date Terry Rasheed MD [address] [place] [address] PCP - General Internal Medicine 12/24/23 documented as of this encounter
--- OUTSIDE RECORDS SUMMARY | 2024-06-17 13:30 | XMS_ITS | Encounter Summary ---
Author Organization [employer] Address [address] [facility] [address] [place] [address] Care Team Providers Care Mixing Operator Name Role Phone Terry Rasheed MD Primary Care Prov ider Terry Rasheed MD Primary Care Prov ider Reason for Visit * Reason Onset Date Comments Referral 07/18/2023 Encounter Details Date Type Department Care Team (Late st Contact Info) Description 07/18/2023 Telephone [facility] [address] [place] [address] Terry Rasheed MD [address] [place] [address] Referral Social History Tobacco Use Types Packs/Day [...] encounter Miscellaneous Notes * Telephone Encounter - Jarvis Driscoll - 07/18/2023 1:32 PM EDT TC from pt requesting new referral : DATE: N/A TIME: N/A Address: [address] [place] [address] [place] [address] Visits: N/A Facility Name: [facility] Type of Specialist: Urologist DX: Kidney Pain Phone #: [phone] Fax #: [phone] documented in this encounter Plan of Treatment Upcoming Encounters Date Type Department Care Team (Late st Contact Info) Description 06/17/2024 2:00 PM EST Office Visit [facility] [address] [place] [address] documented as of this encounter Visit Diagnoses Not on filedocumented in this encounter Additional Health Concerns Assessment Noted Time PHQ-9 Depression Total Score: 0 05/28/19 24 9:00 AM EST documented as of this encounter Care Teams Mixing Operator Relationship Specialty Start Date End Date Terry Rasheed MD [address] [place] [address] PCP - General Internal Medicine 08/10/20 09/26/23 Terry Rasheed MD [address] [place] [address] PCP - General Internal Medicine 12/24/23 documented as of this encounter
--- OUTSIDE RECORDS SUMMARY | 2024-06-17 13:30 | XMS_ITS | Encounter Summary ---
Author Organization [employer] Address [address] [facility] 7t [place] [address] Care Team Providers Care Janitorial Maintenance Worker Name Role Phone Terry Rasheed MD Primary Care Prov ider Reason for Visit * Reason Onset Date Comments Referral 06/02/2024 Encounter Details Date Type Department Care Team ([facility] st Contact Info) Description 06/02/2024 Telephone [facility] MED & PEDS [address] [place], [place] [phone] Terry Rasheed MD [address] [place] [address] Referral Social History Tobacco Use Types Packs/Day [...] encounter Miscellaneous Notes * Telephone Encounter - Tiffanie Cole - 06/02/2024 2:33 PM EST Pt requesting a referral for a psychologist, stated gets seen in [place] for a therapist and she was recommended to obtain a referral documented in this encounter Plan of Treatment Upcoming Encounters Date Type Department Care Team (Late st Contact Info) Description 06/17/2024 2:00 PM EST Office Visit [facility] [address] [address] documented as of this encounter Visit Diagnoses Not on filedocumented in this encounter Additional Health Concerns Assessment Noted Time PHQ-9 Depression Total Score: 16 024 10:47 AM EST documented as of this encounter Care Teams Janitorial Maintenance Worker Relationship Specialty Start Date End Date Terry Rasheed MD [address] [place] [address] PCP - General Internal Medicine 12/24/23 documented as of this encounter
--- OUTSIDE RECORDS SUMMARY | 2024-06-17 13:31 | XMS_ITS | Encounter Summary ---
Author Organization [employer] [facility] Address [address] [facility] [address] [place] [address] Care Team Providers Care Radiology Assistant Name Role Phone Terry Rasheed MD Primary Care Prov ider Terry Rasheed MD Primary Care Prov ider Encounter Details Date Type Department Care Team (Latest Contact Info) Description 09/24/2020 Abstract [facility] CONVERSIONS Dental, Provider, DDS Social History Tobacco Use Types Packs/Day Years Used Date Smoking Tobacco: Never Assessed Comments Unknown Sex and Gender Information Value Date Recorded Sex Assigned at Female 03/06/2022 10:35 AM EDT Legal Sex Female 10:35 AM EDT Gender Identity Female 03/06/2022 10:35 AM EDT Sexual Orientation Straight 10/09/2022 10 :42 AM EDT documented as of this encounter Plan of Treatment Upcoming Encounters Date Type Department Care Team ( st Contact Info) Description 06/17/2024 2:00 PM EST Office Visit [facility] WALK-[facility] [place] [address] [place] [address] documented as of this encounter Visit Diagnoses Not on filedocumented in this encounter Care Teams Radiology Assistant Relationship Specialty Start Date End Date Terry Rasheed MD [address] [place] [address] PCP - General Internal Medicine 08/10/20 09/26/23 Terry Rasheed MD [address] [place] [id number] PCP - General Internal Medicine 12/24/23 documented as of this encounter
--- OUTSIDE RECORDS SUMMARY | 2024-06-17 13:31 | XMS_ITS | Encounter Summary ---
Author Organization [employer] Address [address] [facility] [address] [place] [address] Care Team Providers Care Cigar Packer And Picker Name Role Phone Terry Rasheed MD Primary Care Prov ider Terry Rasheed MD Primary Care Prov ider Reason for Visit * Reason Onset Date Comments ER Follow-up 07/31/2023 Encounter Details Date Type Department Care Team ([facility] st Contact Info) Description 07/31/2023 Telephone [facility] [address] [place], [place] [phone] Terry Rasheed MD [address] [place] [address] ER Follow-up Social History Tobacco Use Types Packs/Day Years [...] encounter Miscellaneous Notes * Telephone Encounter - Cara Miguel RN - 08/01/2023 10:56 AM EDT Fax request for notes, sent to [facility] as requested. * Telephone Encounter - Marti Mitchell RN - 07/31/2023 5:07 PM EDT TC placed to patient regarding message below. Patient states she is feeling better and planning to go back to work this Sun, , Sun. She states she was told she has had a virus, and she is still experiencing some general feeling of unwellness and a bit of a DOBBINS. Patient asked about work and whether she should go if she doesn't feel up to it and getting a letter for work. Advised patient to seek care and eval in [facility] if she is feeling unwell enough to go back to work or needs further care thisweek or has persistence/worsening of symptoms. She expressed understanding. Scheduled for televisitf/u with PCP for 08/06/23 @ 10:15am. No other concerns or questions at this time. Routing back to [facility] to fax request for recent ED records to [facility]. Patient calling to report ED visit on : Date: 07/30/23 Hospital: [facility] Seen for: Fever , headache, back pain , cough and trouble breathing . Patient advised will forward to team nurse for follow up * Telephone Encounter - Natalee Fu - 07/31/2023 9:08 AM EDT Patient calling to report ED visit on : Date: 07/30/23 Hospital: [facility] Seen for: Fever , headache, back pain , cough and trouble breathing . Patient advised will forward to team nurse for follow up documented in this encounter Plan of Treatment Upcoming Encounters Date Type Department Care Team (Late st Contact Info) Description 06/17/2024 2:00 PM EST Office Visit [facility] [address] [address] documented as of this encounter Visit Diagnoses Not on filedocumented in this encounter Additional Health Concerns Assessment Noted Time PHQ-9 Depression Total Score: 0 05/28/19 9:00 AM EST documented as of this encounter Care Teams Cigar Packer And Picker Relationship Specialty Start Date End Date Terry Rasheed MD [address] [place] [address] PCP - General Internal Medicine 08/10/20 09/26/23 Terry Rasheed MD [address] [place] [address] PCP - General Internal Medicine 12/24/23 documented as of this encounter
--- OUTSIDE RECORDS SUMMARY | 2024-06-17 13:31 | XMS_ITS | Encounter Summary ---
Author Organization [employer] Address [address] [place] [address] Care Team Providers Care Supervisor Powdered Metal Name Role Phone Terry Rasheed MD Primary Care Prov ider Terry Rasheed MD Primary Care Prov ider Reason for Visit * Reason Comments Med Refill Encounter Details Date Type Department Care Team (Late st Contact Info) Description 01/05/2023 Refill [facility] [address] [place], [place] [phone] Terry Rasheed MD [address] [place] [address] Social History Tobacco Use Types Packs/Day Years Used Date Smoking Tobacco: Never Passive Smoke Exposure: Never Smokeless Tobacco: Never Alcohol Use Standard Drinks/Week Comments Never 0 (1 standard drink = 0.6 oz pur e alcohol) Depression Answer Date Recorded Patient Health Questionnaire-9 Score 11 10/09/2022 Depression Answer Date Recorded Patient Health Questionnaire-2 Score 2 10/09/2022 Comments Unknown Sex and Gender Information Value Date Recorded Sex Assigned at Female 03/06/2022 10:35 AM EDT Legal Sex Female 10:35 AM EDT Gender Identity Female 03/06/2022 10:35 AM EDT Sexual Orientation Straight 10/09/2022 10 :42 AM EDT documented as of this encounter Plan of Treatment Upcoming Encounters Date Type Department Care Team (Late Contact Info) Description 06/17/2024 2:00 PM EST Office Visit [facility] [place] [address] [place] [address] documented as of this encounter Visit Diagnoses Not on filedocumented in this encounter Additional Health Concerns Assessment Noted Time PHQ-9 Depression Total Score: 11 023 10:42 AM EDT documented as of this encounter Care Teams Supervisor Powdered Metal Relationship Specialty Start Date End Date Terry Rasheed MD [address] [place] [address] PCP - General Internal Medicine 08/10/20 09/26/23 Terry Rasheed MD [address] [place] [address] PCP - General Internal Medicine 12/24/23 documented as of this encounter
--- OUTSIDE RECORDS SUMMARY | 2024-06-17 13:31 | XMS_ITS | Encounter Summary ---
Author Organization [employer] Address [address] [facility] [address] [place] [address] Care Team Providers Care Construction Laborer Name Role Phone Terry Rasheed MD Primary Care Prov ider Reason for Visit * Reason Onset Date Comments Referral 06/17/2024 Encounter Details Date Type Department Care Team ([facility] st Contact Info) Description 06/17/2024 Telephone [facility] [address] [place], [place] [phone] Terry Rasheed MD [address] [place] [address] Referral Social History Tobacco Use Types Packs/Day [...] * Telephone Encounter - Tiffanie Cole - 06/17/2024 12:59 PM EST Pt requesting new referral to [facility] Elisabet Gaxiola,MS, CNM [address] [phone] Fax [phone] Pt states they are accepting nonprofit fundraiser documented in this encounter Plan of Treatment Upcoming Encounters Date Type Department Care Team (Late st Contact Info) Description 06/17/2024 2:00 PM EST Office Visit [facility] [place] [address] [place] [address] documented as of this encounter Visit Diagnoses Not on filedocumented in this encounter Additional Health Concerns Assessment Noted Time PHQ-9 Depression Total Score: 16 024 10:47 AM EST documented as of this encounter Care Teams Construction Laborer Relationship Specialty Start Date End Date Terry Rasheed MD [address] [place] [id number] PCP - General Internal Medicine 12/24/23 documented as of this encounter
--- OUTSIDE RECORDS SUMMARY | 2024-06-17 13:31 | XMS_ITS | Clinical Summary ---
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 patient's clinical presentation, history and other laboratory results. ??If the results are inconsistent with clinical evidence, additional testing is suggested to confirm the result. 06/13/2019 12:4 1 PM EST us Historical Provider HISTORICAL/NON ORDERABLE LABS Final Result Performing Organization Address City/State/[facility] Co de Phone Number [facility] [address] from Last 3 Months or Most Recently Relevant to Health Maintenance Insurance [facility] HS [facility] MEDICAID LIMITED ADULT Care Teams Agency Appointments Supervisor Relationship Specialty Start Date End Date Terry Rasheed MD [address] [place] [phone] PCP - General Internal Medicine 12/24/23
--- OUTSIDE RECORDS SUMMARY | 2024-06-17 13:31 | XMS_ITS | Continuity of Care Document ---
Author Organization [facility] Address [address] [place] [address] [address] [place] [phone] Phone Care Team Providers Care Linen Room Attendant Name Role Phone Vaishali Thrasher MD, FACS, RVT Unavailable Unavailable Advance Directives Directive Yes / No Effective Date File Name No Information Encounters Encounter Description Practice Location Reason(s) For Visit Diagnoses Date Provider Providers Copied on Encounter [facility], [address] [place] [address] [address], [place], [id number], tel:[phone] [facility] No Information Apr-2 3 Alex Maldonado. [address] [place] [address], [address], . tel:[phone] Referring Provider: Terry Gaytan, [address] [place] [address], [address]. tel:[phone] Family History Family Member Type Diagnosis Age At Onset No Information Payers Payer name Insurance type Covered republican ID Authoriza tion(s) No Information Social History [...]
--- OUTSIDE RECORDS SUMMARY | 2024-06-17 13:31 | XMS_ITS | Encounter Summary ---
Author Organization [employer] Address [address] [facility] [address] [place] [address] Care Team Providers Care Auto Damage Appraiser Name Role Phone Terry Rasheed MD Primary Care Prov ider Reason for Referral * Consultation (Routine) - Authorized Specialty Diagnoses / Procedures Referred By Contac t Referred To Contact Psychiatry / Behavioral Health Diagnoses Major depressive disorder with single episode, in partial remission (CMS/HCC) Teryr Rasheed MD [address] [place] [address] Phone: tel: fax: Referral ID Status Reason Start Date Expiration Date Visits Requested Visits Authorized [id number] Authorized Specialty Services Required 06/16/2024 06/16/2025 1 1 Encounter Details Date Type Department Care Team (Late st Contact Info) Description 06/16/2024 1:00 PM EST Office Visit [facility] [address] [place] [address] Terry Rasheed MD [address] [place] [address] Primary hypertension (Primary Dx); Dietary counseling; Exercise counseling; Major depressive disorder with single episode, in partial remission (CMS/HCC) Social History Tobacco Use Types Packs/Day Years [...] 20 06/16/2024 1:03 PM EST Oxygen Saturation - - Inhaled Oxygen Concentration - - Weight 76.2 kg (168 lb) 06/16/2024 1:03 PM EST Height 165.1 cm (5' 5 ) 06/16/2024 1:03 PM EST Body Mass Index 27.96 06/16/2024 1:03 PM EST documented in this encounter Progress Notes * Terry Gaytan MD - 06/16/2024 1:00 PM EST Subjective Patient ID: Vonda Madrigal is a 43 y.o. female who presents for No chief complaint on file.. Hypertension This is a chronic problem. The problem is controlled. Pertinent negatives include no chest pain, headaches, palpitations, peripheral edema or shortness of breath. Review of Systems Respiratory: Negative for shortness of breath. Cardiovascular: Negative for chest pain and palpitations. Neurological: Negative for headaches. Objective Physical Exam Constitutional: Appearance: Normal appearance. Cardiovascular: Rate and Rhythm: Normal rate and regular rhythm. Heart sounds: No murmur heard. Pulmonary: Effort: Pulmonary effort is normal. No respiratory distress. Breath sounds: No stridor. No wheezing or rhonchi. Neurological: General: No focal deficit present. Mental Status: She is alert and oriented to person, place, and time. Psychiatric: Mood and Affect: Mood normal. Behavior: Behavior normal. Assessment/Plan Problem List Items Addressed This Visit Hypertension - Primary Controlled, continue low sodium diet and exercise as tolerated, keep bp log, target <140/90, newlabs ordered, follow up in 3 months Relevant Orders CBC auto differential Comprehensive Metabolic Panel Lipid Panel, Standard TSH W/Reflex to FT4 Other Visit Diagnoses Dietary counseling Exercise counseling documented in this encounter Miscellaneous Notes * Assessment & Plan Note - Terry Gaytan MD - 06/16/2024 1:27 PM ESTAssociated Problem(s): Hypertension Controlled, continue low sodium diet and exercise as tolerated, keep bp log, target <140/90, newlabs ordered, follow up in 3 months documented in this encounter Plan of Treatment Upcoming Encounters Date Type Department Care Team (Late st Contact Info) Description 06/17/2024 2:00 PM EST Office Visit [facility] [address] [address] Scheduled Orders Name Type Priority Associated Diagnoses Orde r Schedule Comprehensive Metabolic Panel Lab Routine Primary hypertension Expected: 06/16/2024 (Approximate), Expires: 06/16/2025 Lipid Panel, Standard Lab Routine Primary hypertension Expected: 06/16/2024 (Approximate), Expires: 06/16/2025 TSH W/Reflex to FT4 Lab Routine Primary hypertension Expected: 06/16/2024 (Approximate), Expires: 06/16/2025 Scheduled Referrals Name Type Priority Associated Diagnoses Order Schedule Referral to Behavioral Health Psychiatry Outpatient Referral Routine Major depressive disorder with single episode, in partial remission ([facility]) Expected: 06/16/2024 (Approximate), Expires: 06/16/2025 documented as of this encounter Procedures Procedure Name Priority Date/Time Associated Diagnosis Comments CBC WITH AUTO DIFFERENTIAL Routine 06/17/2024 12:17 PM EST Primary hypertension documented in this encounter Results * (ABNORMAL) CBC auto differential (06/17/2024 12:17 PM EST) White Blood Count 9.2 4.8 - 10.8 X10*3/uL [facility] Red Blood Count 3.97(L) 4.20 - 5.50 X10*6/uL [facility] Hemoglobin 11.8(L) 12.0 - 16.0 g/dl [facility] Hematocrit 35.8(L) 37.0 - 47.0 % [facility] Mean Corpuscular Volume 90.2 80.0 - 98.0 fL [facility] Mean Corpuscular Hemoglobin 29.7 27.0 - 33.0 pg [facility] Mean Corpuscular HGB Conc 33.0 31.0 - 35.0 g/dl [facility] Red Cell Distribution Width 13.3 11.0 - 16.0 % [facility] Platelet Count 329 160 - 400 X10*3/uL [facility] Mean Platelet Volume 10.9 9.4 - 12.3 fL [facility] Neutrophils Percent Auto 63.2 45 - 73 % [facility] Imm Gran Pct Auto 0.4 0.0 - 0.4 % [facility] Lymphocytes Percent Auto 27.1 20 - 40 % [facility] Monocytes Percent Auto 7.3 2 - 11 % [facility] Eosinophils Percent Auto 1.7 0 - 4 % [facility] Basophils Percent Auto 0.3 0 - 2 % [facility] NRBC Pct Auto 0.0 0.0 - 0.2 /100WBC [facility] Neutrophils Absolute Auto 5.8 2.0 - 8.3 x10*3/uL [facility] Imm Gran Abs Auto 0.04(H) 0.00 - 0.03 X10*3/uL [facility] Lymphocytes Absolute Auto 2.5 1.2 - 4.9 X10*3/uL [facility] Monocytes Absolute Auto 0.7 0.1 - 1.2 X10*3/uL [facility] Eosinophils Absolute Auto 0.2 0.0 - 0.4 X10*3/uL [facility] Basophils Absolute Auto 0.0 0.0 - 0.2 X10*3/uL [facility] NRBC Abs Auto 0.000 0.0 - 0.012 X10*3/uL [facility] Blood Venous blood specimen / Unknown 06/17/2024 12:17 PM EST 06/17/2024 1:02 PM EST us Terry Gaytan MD LAB BLOOD ORDERABL ES Final Result [facility] [address] [place] [phone] documented in this encounter Visit Diagnoses Diagnosis Primary hypertension- Primary Unspecified essential hypertension Dietary counseling Dietary surveillance and counseling Exercise counseling Major depressive disorder with single episode, in partial remission (CMS/HCC) documented in this encounter Additional Health Concerns Assessment Noted Time PHQ-9 Depression Total Score: 16 024 10:47 AM EST documented as of this encounter Care Teams Auto Damage Appraiser Relationship Specialty Start Date End Date Terry Rasheed MD [address] [place] [phone] PCP - General Internal Medicine 12/24/23 documented as of this encounter
--- OUTSIDE RECORDS SUMMARY | 2024-06-17 13:31 | XMS_ITS | Clinical Summary ---
Author Organization [facility] Address [address] [place] [address] Care Team Providers Care Health Actuary Name Role Phone Unavailable Primary Care Provider Unavailabl e Social History Tobacco Use Types Packs/Day Years Used Date Smoking Tobacco: Never Assessed Comments Unknown Sex and Gender Information Value Date Recorded Sex Assigned at Not on file Legal Sex Female 11:04 AM EDT Gender Identity Not on file Sexual Orientation Not on file Plan of Treatment Health Maintenance Due Date Last Done Comments Breast Cancer Screening 1980 DTaP,Tdap,and Td Vaccines (1 - Tdap) 09/26/1986 Hepatitis B Vaccines (1 of 3 - 19+ 3-dose series) 09/26/1998 Cervical Cancer Screening: P ap Smear 09/26/2000 Depression Screening 11/28/2023 HIV Screening 11/28/2023 Hepatitis C Screening 11/28/2023 Social Influencers of Health Screening 11/28/2023 COVID-19 Vaccine ( - 2023-2 5 season) 2024 Influenza Vaccine (#1) 2024 HIB Vaccines Aged Out No longer eligi ble based on patient's age to complete this topic HPV Vaccines Aged Out No longer eligi ble based on patient's age to complete this topic Hepatitis A Vaccines Aged Out No long er eligible based on patient's age to complete this topic IPV Vaccines Aged Out No longer eligi ble based on patient's age to complete this topic MMR Vaccines Aged Out No longer eligi ble based on patient's age to complete this topic Meningococcal ACWY Vaccine Aged Out N o longer eligible based on patient's age to complete this topic Meningococcal B Vacine Aged Out No lo nger eligible based on patient's age to complete this topic Pneumococcal Vaccine: Pediat rics (0 to 5 Years) and At-Risk Patients (6 to 64 Years) Aged Out No longer eligible b ased on patient's age to complete this topic RSV Immunization Patients Un ketty 20 months Aged Out No longer eligible b ased on patient's age to complete this topic Varicella Vaccines Aged Out No longer eligible based on patient's age to complete this topic
--- OUTSIDE RECORDS SUMMARY | 2024-06-17 13:31 | XMS_ITS | Encounter Summary ---
Author Organization [employer] Address [address] [facility] [address] [place] [address] Care Team Providers Care Children'S Program Coordinator Name Role Phone Terry Rasheed MD Primary Care Prov ider Terry Rasheed MD Primary Care Prov ider Reason for Visit * Reason Onset Date Comments triage 09/18/2022 Encounter Details Date Type Department Care Team (Late st Contact Info) Description 09/18/2022 Telephone [facility] [address] [place] [address] Terry Rasheed MD [address] [place] [address] triage Social History Tobacco Use Types Packs/Day Years [...] Orientation Straight 10/09/2022 10 :42 AM EDT COVID-19 Exposure Response Date Recorded In the last 10 days, have yo u been in contact with someone who was confirmed or suspected to have Coronavirus/COVID-19? No / Unsure 09/11/2022 10:59 AM EDT documented as of this encounter Miscellaneous Notes * Telephone Encounter - Keily Epperson RN - 09/18/2022 10:39 AM EDT Incoming call from Pt, reports missed appt with Flores [facility] Director due to sleeping in. Per pt was uplast night with daughter who is ill. Per pt states depression sx have improved with recommendationsgiven by Flores but wants to r/s her missed appt with her. Denies any SI/HI. Per pt feels safe in home. Depression not interfering with work, or ability to complete ADLs. Offered appt with PCP . Pt declines only wants to r/s with Flores. Attempted to reach Flores Stewart to transfer call. No answer. Advised pt will leave note with Flores to call pt back. Pt agrees. Protocol Used: Depression (Adult) Protocol-Based Disposition: See in Office or Video Visit within 3 Days Video visit offer not recorded Positive Triage Question: * Requesting to talk with a counselor (mental health worker, psychiatrist, etc.) * All higher-acuity triage questions were negative Care Advice Discussed: * Depression - Symptoms * Depression - Tips for Healthy Living * Depression - Stay Active * Reasons To Call Back - You feel like harming yourself - You become worse * Telephone Encounter - Keily Epperson RN - 09/18/2022 10:27 AM EDT Call to Vonda Luna for triage. No answer, LVM to return call to [facility] Triageline. Noticed pt has appt today with [facility] provider Flores Stewart, discussed with her and pt did not show yet for her appt. Will attempt call again within 1 hour. Protocol Used: No Contact or Duplicate Contact Call (Adult) Protocol-Based Disposition: No Contact Call Positive Triage Questions: * No answer. First attempt to contact caller. Follow-up call scheduled within 60 minutes. * Message left on identified voicemail * All higher-acuity triage questions were negative * Telephone Encounter - Brian Dodson - 09/18/2022 10:15 AM EDT Symptom: Depression Outcome: Schedule an urgent appointment (within 4 hours) or talk to a nurse or provider soon Reason: Getting worse The caller accepted this outcome documented in this encounter Plan of Treatment Upcoming Encounters Date Type Department Care Team (Late st Contact Info) Description 06/17/2024 2:00 PM EST Office Visit [facility] [address] [address] documented as of this encounter Visit Diagnoses Not on filedocumented in this encounter Additional Health Concerns Assessment Noted Time PHQ-9 Depression Total Score: 12 023 11:19 AM EDT documented as of this encounter Care Teams Children'S Program Coordinator Relationship Specialty Start Date End Date Terry Rasheed MD [address] [place] [address] PCP - General Internal Medicine 08/10/20 09/26/23 Terry Rasheed MD [address] [place] [address] PCP - General Internal Medicine 12/24/23 documented as of this encounter
--- OUTSIDE RECORDS SUMMARY | 2024-06-17 13:31 | XMS_ITS | Encounter Summary ---
Author Organization [employer] Address [address] [place] [address] Care Team Providers Care Executive Administrator Name Role Phone Terry Rasheed MD Primary Care Prov ider Terry Rasheed MD Primary Care Prov ider Reason for Visit * Reason Onset Date Comments Results 04/06/2022 Encounter Details Date Type Department Care Team (Late st Contact Info) Description 04/06/2022 Telephone [facility] [address] [place] [address] Terry Rasheed MD [address] [place], [place] [phone] Results Social History Tobacco Use Types Packs/Day Years Used Date Smoking Tobacco: Never Assessed Depression Answer Date Recorded Patient Health Questionnaire-9 [...] suspected to have Coronavirus/COVID-19? No / Unsure 10/16/2022 9:56 AM EDT documented as of this encounter Miscellaneous Notes * Telephone Encounter - Zelalem Gomes - 04/06/2022 3:04 PM EST Tc from pt requesting a lab results. Please contact at [phone] Kaiser documented in this encounter Plan of Treatment Upcoming Encounters Date Type Department Care Team (Late st Contact Info) Description 06/17/2024 2:00 PM EST Office Visit [facility] [address] [address] documented as of this encounter Visit Diagnoses Not on filedocumented in this encounter Care Teams Executive Administrator Relationship Specialty Start Date End Date Terry Rasheed MD [address] [place] [address] PCP - General Internal Medicine 08/10/20 09/26/23 Terry Rasheed MD [address] [place] [address] PCP - General Internal Medicine 12/24/23 documented as of this encounter
--- OUTSIDE RECORDS SUMMARY | 2024-06-17 13:31 | XMS_ITS | Encounter Summary ---
Author Organization [employer] Address [address] [facility] [address] [place] [address] Care Team Providers Care Cut Off Sawyer Name Role Phone Terry Rasheed MD Primary Care Prov ider Encounter Details Date Type Department Care Team (Latest Contact Info) Description 06/16/2024 Travel Social History Tobacco Use Types Packs/Day Years [...] Description 06/17/2024 2:00 PM EST Office Visit [facility] [address] [address] documented as of this encounter Visit Diagnoses Not on filedocumented in this encounter Additional Health Concerns Assessment Noted Time PHQ-9 Depression Total Score: 16 024 10:47 AM EST documented as of this encounter Care Teams Cut Off Sawyer Relationship Specialty Start Date End Date Terry Rasheed MD [address] [place] [address] PCP - General Internal Medicine 12/24/23 documented as of this encounter
--- OUTSIDE RECORDS SUMMARY | 2024-06-17 13:31 | XMS_ITS | Encounter Summary ---
Author Organization [employer] Address [address] [address] [facility] [address] [place] [address] Care Team Providers Care Dipper Machine Operator Name Role Phone Terry Rasheed MD Primary Care Prov ider Terry Rasheed MD Primary Care Prov ider Encounter Details Date Type Department Care Team (Late st Contact Info) Description 08/01/2023 Telephone [facility] [address] [place] [address] Terry Rasheed MD [address] [place], [place] [phone] Social History Tobacco Use Types Packs/Day Years [...] Description 06/17/2024 2:00 PM EST Office Visit [facility] [address] [address] documented as of this encounter Visit Diagnoses Not on filedocumented in this encounter Additional Health Concerns Assessment Noted Time PHQ-9 Depression Total Score: 0 05/28/19 24 9:00 AM EST documented as of this encounter Care Teams Dipper Machine Operator Relationship Specialty Start Date End Date Terry Rasheed MD [address] [place] [address] PCP - General Internal Medicine 08/10/20 09/26/23 Terry Rasheed MD [address] [place] [address] PCP - General Internal Medicine 12/24/23 documented as of this encounter
[2024-06-17 13:52] LABS: Alanine Aminotransferase 33 U/L (0-31); Albumin Level 4.3 g/dL (3.5-5.0); Alkaline Phosphatase 123 U/L (39-117); Anion Gap 10 (12-20); Aspartate Amino Transferase 27 U/L (5-31); Bilirubin Total 0.7 mg/dL (0.0-1.0); Blood Urea Nitrogen 9 mg/dL (9-16); Carbon Dioxide 26 mmol/L (22-29); Chloride 106 mmol/L (96-108); Cholesterol 182 mg/dL (<200); Estimated Glomerular Filt Rate > 60; Glucose Random 94 mg/dL (60-115); HDL Cholesterol 57 mg/dL (>40); LDL Cholesterol Calculated 94 mg/dL (<100); Sodium 138 mmol/L (135-145); TSH reflex Free T4 2.57 uIU/mL (0.32-4.0); Total Protein 8.2 g/dL (6.5-8.0); Triglycerides 158 mg/dL (<150)
== END 2024-06-17 12:16 | disposition home or self-care (01) ==
LOC: HO.HHCL 12:15
PROVIDERS: Visit Provider Internal Medicine
DX: I10 Essential (primary) hypertension (principal)
CPT/HCPCS: 36415; 80053; 80061; 84443; 85025

== ENCOUNTER 2024-09-09 11:05 | Outpatient (AMB) | payer OTHER, SELFPAY ==
[2024-09-09 11:08] VITALS: BP 128/67; PULSE 82; O2SAT 97; BMI 31.4
--- NOTE | 2024-09-09 11:08 | A.OFFVIS_ITS ---
Vital Signs 09/09/24 11:08 Height 5 ft 1 in Weight 166 lb BMI 31.4 BP 128/67 Blood Pressure Location Lt brachial Position Sitting Pulse 82 Pulse Oximetry (%) 97 Oxygen Delivery Method Room Air Intake Visit Reasons: Colonoscopy Screening, Hx of Diverticulitis Intake Note: Patient new consult for 1st pre Colonoscopy screening. Patient cc: nauseas, dizziness, always tired, abdominal pain/bloating with a bdominal noises acid reflux with gasses, and between diarrhea and constipation with bloody BM. Agricultural Education Instructor Required: Yes Agricultural Education Instructor Name: [facility] Allergies latex Allergy (Verified 09/09/24 11:07) Hives Medication List - Last Reconciled 09/09/24 by Erika Greenwood CNP famotidine (Pepcid) 20 mg PO DAILY PRN ibuprofen 600 mg PO Q6H PRN ibuprofen 600 mg PO TID PRN ondansetron HCl 4 mg PO Q6H PRN prednisone 10 mg PO DAILY tamsulosin (Flomax) 0.4 mg PO DAILY tamsulosin 0.4 mg PO DAILY HPI HPI Colonoscopy Screening, Hx of Diverticulitis: Details: Patient is a 43-year-old female with PMH of depression/anxiety, hypertenion. Referred by PCP for index screening colonoscopy. Patient presents today for index colonoscopy screening and evaluation of abdominal pain. She reports a viral gastrointestinal illness in late July, followed by an emergency room visit at [facility] for persistent abdominal pain and hematochezia. She was diagnosed and treated for diverticulitis. States she completed the antibiotic course. Shares the bloody stools lasted a couple of days and have since resolved to intermittent light red blood noted only with wiping. She reports an urge to defecate following meals, accompanied by a sensation of rectum ripping apart approximately 2?3 times per week. Previously, her bowel movements were soft, formed, and occurred without straining. Following the ER visit, the patient was evaluated by her PCP, who prescribed Zofran and what she believes was a PPI, possibly omeprazole. She notes these medications have improved symptoms of pyrosis and regurgitation Associated symptoms: nausea Aggravating factors: as above Alleviating attempts: as above Patient denies: fever, appetite changes,, dysphasia or unintentional wt loss The patient was prescribed antihypertensive medication following the of her child in 2019. She recalls being started on losartan but is unable to remember the specific dosage or whether additional medications were involved. In 2022, she was also prescribed an antidepressant, though she does not recall the name of the medication Expresses concern for LE swelling onset approx one week ago. Social hx: denies ETOH use denies recreational drug use non-smoker -family hx as below -denies personal hx of CA -denies any other significant cardiopulmonary history -no sugrical hx that required anesthesia PFS Medical History (Updated 09/09/24 @ 16:55 by Erika Greenwood CNP) Acid reflux Elevated alkaline phosphatase level Colon cancer screening Change in stool delivery delivered Multiple births, some liveborn Miscarriage Diabetes HTN (hypertension) Kidney stone Surgical History (Updated 09/09/24 @ 11:14 by Mckenzie Garcia) Hx of section Family History (Updated 09/09/24 @ 11:18 by Mckenzie Garcia) Mother HTN (hypertension) Diabetes Father HTN (hypertension) Disease of colon Paternal Uncle Colon cancer Paternal Uncle Colon cancer Paternal Aunt Breast CA Paternal Aunt Breast CA Social History Alcohol intake: former Patient Tobacco Use Status: Never used Tobacco Review of Systems Const Reports as per HPI ENT Reports as per HPI Card Reports as per HPI Resp Reports as per HPI GI Reports as per HPI Reports as per HPI Physical Exam Vital Signs: Last Vital Signs Pulse 82 09/09/24 11:08 BP 128/67 09/09/24 11:08 Pulse Ox 97 09/09/24 11:08 Oxygen Delivery Method Room Air 09/09/24 11:08 BMI result Body Mass Index 31.4 Const General: healthy appearing, no acute distress and well developed Nutritional Appearance: well nourished Orientation/consciousness: patient oriented x3 HEENT Head: Yes normal to inspection, Yes normocephalic and Yes atraumatic Face and sinus: Yes normal facial exam Eyes General: appearance normal, both eyes and all related structures Neck Neck: Yes normal visual inspection Resp Effort & Inspection: normal respiratory effort, able to speak in complete sentences, no tracheal deviation and symmetric chest movement Auscultation: clear to auscultation bilaterally Cardio Jugular venous distension: no JVD Rate: regular rate Rhythm: regular rhythm Heart sounds: S1 normal heart sound present, S2 normal heart sound present, no gallops and no murmurs GI Inspection: Yes normal to inspection and No distended Palpation (GI): Soft to palpation, not firm, nontender and No hepatosplenomegaly present Auscultation: normal bowel sounds Neuro General: patient oriented x3 Gait exam (Neuro): Normal gait present Psych Appearance: grossly normal Mental Status: mental status grossly normal Speech and movement: Normal speech and movement present Affect: normal affect Attitude: cooperative Thought process: Normal thought process present Thought content: Normal thought content present Insight: Good insight present (Psych) Judgement: Good judgement present (Psych) Results Reviewed Results Reviewed: 07/27/2024 ER note: Elevated alkaline phos 123, ALT 33, AST 27, total bili 0.7 Assessment & Plan Assessment & Plan (1) Change in stool: Code(s): R19.5 - Other fecal abnormalities Category: Medical Plan: Onset after viral illness. Reviewed ER note from 07/27/2024 with findings of diverticulitis and elevated alkaline phos. She was prescribed Augmentin and has since completed treatment. We will rule out H pylori as source, she has been off antibiotics at least 4 weeks. She understands to hold PPI for 1 week prior to completing stool testing. We will obtain fasting bloodwork and additional screening labs to rule out inflammatory or genetic as the source of symptoms. Reinforced lifestyle modifications to promote regularity: -higher fiber diet, examples provided -adequate hydration with water -150 minutes of moderate intensity exercise per week (2) Blood present in stool: Code(s): K92.1 - Melena Plan: She is due for her index screening colonoscopy as below. Lifestyle modificatio ns as above. (3) Colon cancer screening: Code(s): Z12.11 - Encounter for screening for malignant neoplasm of colon Category: Medical Plan: Symptomatic, due for index screening colonoscopy. Reviewed prep and procedure expectations. Prep Rx'd to preferred pharmacy. (4) Elevated alkaline phosphatase level: Code(s): R74.8 - Abnormal levels of other serum enzymes Category: Medical Plan: Repeat labs, fasting. We will determine need for further workup after results. (5) Acid reflux: Code(s): K21.9 - Gastro-esophageal reflux disease without esophagitis Category: Medical Qualifiers: Esophagitis presence: esophagitis presence not specified Qualified Code(s): K21.9 - Gastro-esophageal reflux disease without esophagitis Plan: Managed well with medications prescribed by PCP. Encouraged to bring medications to next visit. We will plan for endoscopy at time of colonoscopy. Education on GERD prevention : -Advised against heavy meals; encouraged small, frequent meals instead of large ones. - Instructed to remain upright for 2?3 hours after eating. - Advised to avoid late-night meals, spicy foods, caffeine, alcohol, known dietary triggers, and tight-fitting clothing. - Emphasis placed on gradual implementation of lifestyle changes to improve adherence and symptom control. Plan Would like to see back before procedure, discuss follow-up in 4 weeks or sooner as needed. Time: I spent a total of 60 minutes on the date of encounter which includes: Preparing to see the patient (reviewed previous documentation, test results and medical history) Performing a medically appropriate exam and/or evaluation Ordering medications, tests, and procedures Documenting clinical information in the health record Orders: Orders H pylori Ag Stool Today R19.5 - Other fecal abnormalities C Reactive Protein Today R19.5 - Other fecal abnormalities Transglutaminase IgA Today R19.5 - Other fecal abnormalities Alkaline Phosphatase Isoenzyme Today R74.8 - Abnormal levels of other serum enzymes IRON PROFILE Today K92.1 - Melena Calprotectin, Fecal Today R19.5 - Other fecal abnormalities Hemoglobin A1c Today R73.9 - Hyperglycemia, unspecified Complete Blood Count Auto Diff Today K92.1 - Melena, R19.5 - Other fecal abnormalities Comprehensive Met. Panel Today R74.8 - Abnormal levels of other serum enzymes Medications: New polyethylene glycol 3350 (Miralax) per colonoscopy prep instructions 238 grams PO ONCE 238 grams 0RF bisacodyl per colonoscopy instructions 20 mg (4 x 5 mg) PO ONCE 1 day 4 tabs 0RF Coding Level of Care Code New Pt New Pt Level 5 (42978) Patient Type New Diagnoses Change in stool R19.5 Blood present in stool K92.1 Colon cancer screening Z12.11 Elevated alkaline phosphatase level R74.8 Gastroesophageal reflux disease, unspecified whether esophagitis present K21.9 Esophagitis presence: esophagitis presence not specified
--- OUTSIDE RECORDS SUMMARY | 2024-09-09 12:53 | XMS_ITS | Continuity of Care Document ---
Author Organization [facility] Address [address] [place] [address] [address] [place] [address] Phone Care Team Providers Care Embalmer Assistant Name Role Phone Vaishali Thrasher MD, FACS, RVT Unavailable Unavailable Advance Directives Directive Yes / No Effective Date File Name No Information Encounters Encounter Description Practice Location Reason(s) For Visit Diagnoses Date Provider Providers Copied on Encounter [facility], [address] [place] [address] [address], [place], [id number], tel:[phone] [facility] No Information Apr-2 3 Alex Maldonado. [address] [place] [address], [address], . tel:[phone] Referring Provider: Terry Gaytan, [address] [place] [address], [address]. tel:[phone] Family History Family Member Type Diagnosis [...]
--- OUTSIDE RECORDS SUMMARY | 2024-09-09 12:53 | XMS_ITS | Encounter Summary ---
Author Organization [employer] Address [address] [facility] [address] [place] [address] Care Team Providers Care Cylinder Press Operator Helper Name Role Phone Terry Rasheed MD Primary Care Prov ider Terry Rasheed MD Primary Care Prov ider Reason for Visit * Reason Comments Med Refill Encounter Details Date Type Department Care Team (Late Contact Info) Description 07/24/2022 Refill [facility] MED & PEDS [address] [place] [address] Terry Rasheed MD [address] [place] [address] Social History Tobacco Use Types Packs/Day Years [...] Upcoming Encounters Date Type Department Care Team ([facility] Contact Info) Description 09/10/2024 10:15 AM EDT Telemedicine [facility] MED & PEDS [address] [place] [address] Terry Rasheed MD [address] [place] [address] documented as of this encounter Visit Diagnoses Not on filedocumented in this encounter Additional Health Concerns Assessment Noted Time PHQ-9 Depression Total Score: 0 05/15/19 23 9:53 AM EST documented as of this encounter Care Teams Cylinder Press Operator Helper Relationship Specialty Start Date End Date Terry Rasheed MD [address] [place] [address] PCP - General Internal Medicine 08/10/20 09/26/23 Terry Rasheed MD [address] [place] [address] PCP - General Internal Medicine 12/24/23 documented as of this encounter
--- OUTSIDE RECORDS SUMMARY | 2024-09-09 12:53 | XMS_ITS | Encounter Summary ---
Author Organization [employer] Address [address] [facility] [address] [facility] [address] [place] [address] Care Team Providers Care Planer Hand Name Role Phone Terry Rasheed MD Primary Care Prov ider Terry Rasheed MD Primary Care Prov ider Encounter Details Date Type Department Care Team (Late st Contact Info) Description 08/01/2023 Telephone [facility] [address] [place] [address] Terry Rasheed MD [address] [place] [address] Social History Tobacco Use Types Packs/Day Years [...] Care Team (Late st Contact Info) Description 09/10/2024 10:15 AM EDT Telemedicine [facility] MED & PEDS [address] [place] [address] Terry Rasheed MD [address] [place] [address] documented as of this encounter Visit Diagnoses Not on filedocumented in this encounter Additional Health Concerns Assessment Noted Time PHQ-9 Depression Total Score: 0 05/28/19 24 9:00 AM EST documented as of this encounter Care Teams Planer Hand Relationship Specialty Start Date End Date Terry Rasheed MD [address] [place] [address] PCP - General Internal Medicine 08/10/20 09/26/23 Terry Rasheed MD [address] [place] [address] PCP - General Internal Medicine 12/24/23 documented as of this encounter
--- OUTSIDE RECORDS SUMMARY | 2024-09-09 12:53 | XMS_ITS | Encounter Summary ---
Author Organization [employer] Address [address] [place] [address] Care Team Providers Care Business Process Specialist Name Role Phone Terry Rasheed MD Primary Care Prov ider Terry Rasheed MD Primary Care Prov ider Reason for Visit * Reason Onset Date Comments triage 09/18/2022 Encounter Details Date Type Department Care Team (Late st Contact Info) Description 09/18/2022 Telephone [facility]INE [address] [place] [address] Terry Rasheed MD [address] [place] [address] triage Social History Tobacco Use Types Packs/Day [...] from Pt, reports missed appt with [facility] Director due to sleeping in. Per pt [...] No answer, LVM to return call to [facility]. Noticed pt has appt today with [facility] provider Flores Stewart, discussed with her and [...] Info) Description 09/10/2024 10:15 AM EDT Telemedicine [facility] MED & PEDS [address] [place] [address] Terry Rasheed MD [address] [place] [address] documented as of this encounter Visit Diagnoses Not on filedocumented in this encounter Additional Health Concerns Assessment Noted Time PHQ-9 Depression Total Score: 12 023 11:19 AM EDT documented as of this encounter Care Teams Business Process Specialist Relationship Specialty Start Date End Date Terry Rasheed MD [address] [place] [address] PCP - General Internal Medicine 08/10/20 09/26/23 Terry Rasheed MD [address] [place] [address] PCP - General Internal Medicine 12/24/23 documented as of this encounter
--- OUTSIDE RECORDS SUMMARY | 2024-09-09 12:53 | XMS_ITS | Encounter Summary ---
Author Organization [facility] [employer] Address [address] [place] [address] Care Team Providers Care Brokerage Purchase And Sale Clerk Name Role Phone Terry Rasheed MD Primary Care Prov ider Terry Rasheed MD Primary Care Prov ider Reason for Visit * Reason Onset Date Comments Referral 07/18/2023 Encounter Details Date Type Department Care Team (Late st Contact Info) Description 07/18/2023 Telephone [facility] MEDICINE [address] [place] [address] Terry Rasheed MD [address] [place] [address] Referral Social History Tobacco Use Types Packs/Day [...] referral : DATE: N/A TIME: N/A Address: [address] [place] [address] [place] [address] Visits: N/A Facility Name: [facility] Urology center Type of Specialist: Urologist DX: Kidney Pain Phone #: [phone] Fax #: [phone] documented in this encounter Plan of Treatment Upcoming Encounters Date Type Department Care Team (Late st Contact Info) Description 09/10/2024 10:15 AM EDT Telemedicine [facility] MED & PEDS [address] [place] [address] Terry Rasheed MD [address] [place] [address] documented as of this encounter Visit Diagnoses Not on filedocumented in this encounter Additional Health Concerns Assessment Noted Time PHQ-9 Depression Total Score: 0 05/28/19 24 9:00 AM EST documented as of this encounter Care Teams Brokerage Purchase And Sale Clerk Relationship Specialty Start Date End Date Terry Rasheed MD [address] [place] [address] PCP - General Internal Medicine 08/10/20 09/26/23 Terry Rasheed MD [address] [place] [address] PCP - General Internal Medicine 12/24/23 documented as of this encounter
--- OUTSIDE RECORDS SUMMARY | 2024-09-09 12:53 | XMS_ITS | Encounter Summary ---
Author Organization [employer] Address [address] [place] [address] Care Team Providers Care Dna Sequencing Associate Name Role Phone Terry Rasheed MD Primary Care Prov ider Terry Rasheed MD Primary Care Prov ider Reason for Visit * Reason Comments Med Refill Encounter Details Date Type Department Care Team (Late st Contact Info) Description 01/05/2023 Refill [facility] MED & PEDS [address] [place], [place] [phone] Terry Rasheed MD [address] [place] [address] Social History Tobacco Use Types Packs/Day Years [...] Department Care Team (Late Contact Info) Description 09/10/2024 10:15 AM EDT Telemedicine [facility] MED & PEDS [address] [place] [address] Terry Rasheed MD [address] [place] [address] documented as of this encounter Visit Diagnoses Not on filedocumented in this encounter Additional Health Concerns Assessment Noted Time PHQ-9 Depression Total Score: 11 023 10:42 AM EDT documented as of this encounter Care Teams Dna Sequencing Associate Relationship Specialty Start Date End Date Terry Rasheed MD [address] [place] [address] PCP - General Internal Medicine 08/10/20 09/26/23 Terry Rasheed MD [address] [place] [address] PCP - General Internal Medicine 12/24/23 documented as of this encounter
--- OUTSIDE RECORDS SUMMARY | 2024-09-09 12:53 | XMS_ITS | Encounter Summary ---
Author Organization [employer] Address [address] [place] [address] Care Team Providers Care Director Erp Name Role Phone Terry Rasheed MD Primary Care Prov ider Reason for Visit * Reason Onset Date Comments Nurse Triage 08/04/2024 Encounter Details Date Type Department Care Team ([facility] st Contact Info) Description 08/04/2024 Telephone [facility] MEDICINE [address] [place] [address] Terry Rasheed MD [address] [place] [address] Nurse Triage Social History Tobacco Use Types Packs/Day Years [...] encounter Miscellaneous Notes * Telephone Encounter - Shanell Falk RN - 08/04/2024 2:33 PM EDT Triage call x2. Pt didn't answer, call went directly to voice mail. Left voice message to call [facility] [phone] when available. * Telephone Encounter - Vega Villafuerte - 08/04/2024 2:09 PM EDT Symptom: Abdominal Pain - Female - Not Outcome: Schedule an urgent appointment (within 4 hours) or talk to a nurse or provider soon Reason: Getting worse The caller accepted this outcome. documented in this encounter Plan of Treatment Upcoming Encounters Date Type Department Care Team (Late st Contact Info) Description 09/10/2024 10:15 AM EDT Telemedicine [facility] MED & PEDS [address] [place] [address] Terry Rasheed MD [address] [place], [place] [phone] documented as of this encounter Visit Diagnoses Not on filedocumented in this encounter Additional Health Concerns Assessment Noted Time PHQ-9 Depression Total Score: 16 024 10:47 AM EST documented as of this encounter Care Teams Director Erp Relationship Specialty Start Date End Date Terry Rasheed MD [address] [place] [address] PCP - General Internal Medicine 12/24/23 documented as of this encounter
--- OUTSIDE RECORDS SUMMARY | 2024-09-09 12:53 | XMS_ITS | Encounter Summary ---
Author Organization [employer] Address [address] [facility] 7t [place] [address] Care Team Providers Care Performance Improvement Manager Name Role Phone Terry Rasheed MD Primary Care Prov ider Terry Rasheed MD Primary Care Prov ider Reason for Visit * Reason Onset Date Comments ER Follow-up 07/31/2023 Encounter Details Date Type Department Care Team ([facility] st Contact Info) Description 07/31/2023 Telephone [facility] MED & PEDS [address] [place], [place] [phone] Terry Rasheed MD [address] [place] [address] ER Follow-up Social History Tobacco Use Types [...] EDT Fax request for notes, sent to [facility] as requested. * Telephone Encounter - Marti [...] patient to seek care and eval in [facility] if she is feeling unwell enough to go back to work or needs further care thisweek or has persistence/worsening of symptoms. She expressed understanding. Scheduled for televisitf/u with PCP for 08/06/23 @ 10:15am. No other concerns or questions at this time. [facility]. Patient calling to report ED visit on : Date: 07/30/23 Hospital: [facility] Seen for: Fever , headache, back pain , cough and trouble breathing . Patient advised will forward to team nurse for follow up * Telephone Encounter - Natalee Nickie - 07/31/2023 9:08 AM EDT Patient calling [...] Info) Description 09/10/2024 10:15 AM EDT Telemedicine [facility] MED & PEDS [address] [place] [address] Terry Rasheed MD [address] [place] [address] documented as of this encounter Visit Diagnoses Not on filedocumented in this encounter Additional Health Concerns Assessment Noted Time PHQ-9 Depression Total Score: 0 05/28/19 9:00 AM EST documented as of this encounter Care Teams Performance Improvement Manager Relationship Specialty Start Date End Date Terry Rasheed MD [address] [place] [address] PCP - General Internal Medicine 08/10/20 09/26/23 Terry Rasheed MD [address] [place] [address] PCP - General Internal Medicine 12/24/23 documented as of this encounter
--- OUTSIDE RECORDS SUMMARY | 2024-09-09 12:53 | XMS_ITS | Encounter Summary ---
Author Organization [employer] Address [address] [facility] [address] [place] [address] Care Team Providers Care Portfolio Manager Name Role Phone Terry Rasheed MD Primary Care Prov ider Reason for Visit * Reason Comments Med Refill Encounter Details Date Type Department Care Team ([facility] st Contact Info) Description 11/09/2023 Refill [facility] MED & PEDS [address] [place], [place] [phone] Terry Rasheed MD [address] [place] [address] Social History Tobacco Use Types Packs/Day Years [...] Info) Description 09/10/2024 10:15 AM EDT Telemedicine [facility] MED & PEDS [address] [place] [address] Terry Rasheed MD [address] [place] [address] documented as of this encounter Visit Diagnoses Not on filedocumented in this encounter Additional Health Concerns Assessment Noted Time PHQ-9 Depression Total Score: 0 05/28/19 24 9:00 AM EST documented as of this encounter Care Teams Portfolio Manager Relationship Specialty Start Date End Date Terry Rasheed MD [address] [place] [address] PCP - General Internal Medicine 12/24/23 documented as of this encounter
--- OUTSIDE RECORDS SUMMARY | 2024-09-09 12:54 | XMS_ITS | Encounter Summary ---
Author Organization [employer] Address [address] [place] [address] Care Team Providers Care Customer Support Representative Name Role Phone Terry Rasheed MD Primary Care Prov ider Terry Rasheed MD Primary Care Prov ider Encounter Details Date Type Department Care Team (Latest Contact Info) Description 09/24/2020 Abstract [facility] CONVERSIONS Dental, Provider, DDS Social History Tobacco [...] Care Team ( st Contact Info) Description 09/10/2024 10:15 AM EDT Telemedicine [facility] [address] [place], [place] [phone] Terry Rasheed MD [address] [place], [place] [phone] documented as of this encounter Visit Diagnoses Not on filedocumented in this encounter Care Teams Customer Support Representative Relationship Specialty Start Date End Date Terry Rasheed MD [address] [place] [address] PCP - General Internal Medicine 08/10/20 09/26/23 Terry Rasheed MD [address] [place] [phone] PCP - General Internal Medicine 12/24/23 documented as of this encounter
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
--- OUTSIDE RECORDS SUMMARY | 2024-09-09 12:54 | XMS_ITS | Clinical Summary ---
Author Organization [facility] ity Address [address] [place] [address] Care Team Providers Care Refueling Ramp Attendant Name Role Phone Unavailable Primary Care Provider [...] 1979 DTaP,Tdap,and Td Vaccines (1 - Tdap) 09/26/1998 Hepatitis B Vaccines (1 of 3 - 19+ 3-dose series) 09/26/1998 Cervical Cancer Screening: P ap Smear 09/26/2000 Depression Screening 11/28/2023 HIV Screening 11/28/2023 Hepatitis C Screening 11/28/2023 Social Influencers of Health Screening 11/28/2023 COVID-19 Vaccine (2023-2 5 season) 2024 Influenza Vaccine (Season Ended) 2025 HIB Vaccines Aged Out No longer eligi [...] age to complete this topic Meningococcal B Vaccine Aged Out No l onger eligible based on patient's age to complete [...]
== END 2024-09-09 12:07 | disposition home or self-care (01) ==
LOC: HO.HGI 11:06
PROVIDERS: PCP Internal Medicine; Visit Provider Nurse Practitioner Family
DX: R19.5 Other fecal abnormalities (principal); K21.9 Gastro-esophageal reflux disease without esophagitis; Z12.11 Encounter for screening for malignant neoplasm of colon
CPT/HCPCS: 99203

== ENCOUNTER → 2024-09-09 11:05 | Outpatient (BNVA) | payer OTHER, SELFPAY | PROVIDERS: PCP Internal Medicine; Visit Provider Nurse Practitioner Family | DX: Z12.11 Encounter for screening for malignant neoplasm of colon (principal); K92.1 Melena; K21.9 Gastro-esophageal reflux disease without esophagitis; R19.5 Other fecal abnormalities; R74.8 Abnormal levels of other serum enzymes | CPT/HCPCS: 99202 ==

== ENCOUNTER 2024-09-15 09:37 | Outpatient (REF) | payer OTHER, SELFPAY ==
[2024-09-15 09:54] LABS: MANUAL DIFF FLAG NO
--- OUTSIDE RECORDS SUMMARY | 2024-09-15 09:57 | XMS_ITS | Encounter Summary ---
Author Organization [employer] Address [address] 7t [place] [address] Care Team Providers Care Heel Sprayer Name Role Phone Terry Rasheed MD Primary Care Prov ider Terry Rasheed MD Primary Care Prov ider Reason for Visit * Reason Comments Med Refill Encounter Details Date Type Department Care Team (Late st Contact Info) Description 01/05/2023 Refill [facility] MED & PEDS [address] [place], [place] [phone] Terry Rasheed MD [address] [place] [address] Social History Tobacco Use Types Packs/Day Years [...] Department Care Team (Late Contact Info) Description 12/02/2024 8:30 AM EDT Telemedicine [facility] MED & PEDS [address] [place] [address] Terry Rasheed MD [address] [place] [address] documented as of this encounter Visit Diagnoses Not on filedocumented in this encounter Additional Health Concerns Assessment Noted Time PHQ-9 Depression Total Score: 11 023 10:42 AM EDT documented as of this encounter Care Teams Heel Sprayer Relationship Specialty Start Date End Date Terry Rasheed MD [address] [place] [address] PCP - General Internal Medicine 08/10/20 09/26/23 Terry Rasheed MD [address] [place] [address] PCP - General Internal Medicine 12/24/23 documented as of this encounter
--- OUTSIDE RECORDS SUMMARY | 2024-09-15 09:57 | XMS_ITS | Encounter Summary ---
Author Organization [employer] Address [address] 7[address] [place] [address] Care Team Providers Care Welder/Fitter Name Role Phone Terry Rasheed MD Primary Care Prov ider Terry Rasheed MD Primary Care Prov ider Encounter Details Date Type Department Care Team (Late st Contact Info) Description 08/01/2023 Telephone [facility] MEDICINE [address] [place] [address] Terry Rasheed MD [address] [place] [address] Social History Tobacco Use Types Packs/Day Years [...] Care Team (Late st Contact Info) Description 12/02/2024 8:30 AM EDT Telemedicine [facility] MED & PEDS [address] [place] [address] Terry Rasheed MD 505 [place] [address] documented as of this encounter Visit Diagnoses Not on filedocumented in this encounter Additional Health Concerns Assessment Noted Time PHQ-9 Depression Total Score: 0 05/28/19 24 9:00 AM EST documented as of this encounter Care Teams Welder/Fitter Relationship Specialty Start Date End Date Terry Rasheed MD 505 [place] [address] PCP - General Internal Medicine 08/10/20 09/26/23 Terry Rasheed MD [address] [place] [address] PCP - General Internal Medicine 12/24/23 documented as of this encounter
--- OUTSIDE RECORDS SUMMARY | 2024-09-15 09:57 | XMS_ITS | Encounter Summary ---
Author Organization [employer] Address [address] 7[address] [place] [address] Care Team Providers Care Sales Office Administrator Name Role Phone Terry Rasheed MD Primary Care Prov ider Terry Rasheed MD Primary Care Prov ider Reason for Visit * Reason Onset Date Comments Referral 07/18/2023 Encounter Details Date Type Department Care Team (Late st Contact Info) Description 07/18/2023 Telephone [facility] MEDICINE [address] [place] [address] Terry Rasheed MD 505 [place] [address] Referral Social History Tobacco Use Types Packs/Day [...] referral : DATE: N/A TIME: N/A Address: [address] [place] [address] [place] [address] Visits: N/A Facility Name: [facility] Urology center Type of Specialist: Urologist DX: Kidney Pain Phone #: [phone] Fax #: [phone] documented in this encounter Plan of Treatment Upcoming Encounters Date Type Department Care Team (Late st Contact Info) Description 12/02/2024 8:30 AM EDT Telemedicine [facility] MED & PEDS [address] [place] [address] Terry Rasheed MD [address] [place] [address] documented as of this encounter Visit Diagnoses Not on filedocumented in this encounter Additional Health Concerns Assessment Noted Time PHQ-9 Depression Total Score: 0 05/28/19 24 9:00 AM EST documented as of this encounter Care Teams Sales Office Administrator Relationship Specialty Start Date End Date Terry Rasheed MD [address] [place] [address] PCP - General Internal Medicine 08/10/20 09/26/23 Terry Rasheed MD [address] [place] [address] PCP - General Internal Medicine 12/24/23 documented as of this encounter
--- OUTSIDE RECORDS SUMMARY | 2024-09-15 09:57 | XMS_ITS | Encounter Summary ---
Author Organization [employer] Address [address] [facility] 7t [place] [address] Care Team Providers Care Bank Teller Name Role Phone Terry Rasheed MD Primary Care Prov ider Terry Rasheed MD Primary Care Prov ider Reason for Visit * Reason Onset Date Comments ER Follow-up 07/31/2023 Encounter Details Date Type Department Care Team ([facility] st Contact Info) Description 07/31/2023 Telephone [facility] MED & PEDS 505 [place], [place] [phone] Terry Rasheed MD 505 [place] [address] ER Follow-up Social History Tobacco Use Types [...] EDT Fax request for notes, sent to [facility] as requested. * Telephone Encounter - Marti [...] patient to seek care and eval in [facility] if she is feeling unwell enough to go back to work or needs further care thisweek or has persistence/worsening of symptoms. She expressed understanding. Scheduled for televisitf/u with PCP for 08/06/23 @ 10:15am. No other concerns or questions at this time. [facility] to [facility]. Patient calling to report ED visit on [...] 12/02/2024 8:30 AM EDT Telemedicine [facility] MED & PEDS [address] [place] [address] Terry Rasheed MD [address] [place] [address] documented as of this encounter Visit Diagnoses Not on filedocumented in this encounter Additional Health Concerns Assessment Noted Time PHQ-9 Depression Total Score: 0 05/28/19 9:00 AM EST documented as of this encounter Care Teams Bank Teller Relationship Specialty Start Date End Date Terry Rasheed MD 505 [place] [address] PCP - General Internal Medicine 08/10/20 09/26/23 Terry Rasheed MD [address] [place] [address] PCP - General Internal Medicine 12/24/23 documented as of this encounter
--- OUTSIDE RECORDS SUMMARY | 2024-09-15 09:57 | XMS_ITS | Encounter Summary ---
Author Organization [employer] Address [address] 7[address] [place] [address] Care Team Providers Care Warp Hand Name Role Phone Terry Rasheed MD Primary Care Prov ider Terry Rasheed MD Primary Care Prov ider Reason for Visit * Reason Onset Date Comments triage 09/18/2022 Encounter Details Date Type Department Care Team (Late st Contact Info) Description 09/18/2022 Telephone [facility] MEDICINE [address] [place] [address] Terry Rasheed MD [address] [place] [address] triage Social History Tobacco Use Types Packs/Day [...] from Pt, reports missed appt with Flores [facility] Director due to sleeping in. Per pt [...] No answer, LVM to return call to [facility]. Noticed pt has appt today with [facility] provider Flores Stewart, discussed with her and [...] 8:30 AM EDT Telemedicine [facility] MED & PEDS [address] [place] [address] Terry Rasheed MD [address] [place] [address] documented as of this encounter Visit Diagnoses Not on filedocumented in this encounter Additional Health Concerns Assessment Noted Time PHQ-9 Depression Total Score: 12 023 11:19 AM EDT documented as of this encounter Care Teams Warp Hand Relationship Specialty Start Date End Date Terry Rasheed MD [address] [place] [address] PCP - General Internal Medicine 08/10/20 09/26/23 Terry Rasheed MD [address] [place] [address] PCP - General Internal Medicine 12/24/23 documented as of this encounter
--- OUTSIDE RECORDS SUMMARY | 2024-09-15 09:57 | XMS_ITS | Encounter Summary ---
Author Organization [employer] Address [address] 7[address] [place] [address] Care Team Providers Care Behavioral Specialist Name Role Phone Terry Rasheed MD Primary Care Prov ider Encounter Details Date Type Department Care Team (Latest Contact Info) Description 09/10/2024 Travel Social History Tobacco Use Types Packs/Day [...] Info) Description 12/02/2024 8:30 AM EDT Telemedicine [facility] MED & PEDS 505 [place] [address] Terry Rasheed MD 505 [place] [address] documented as of this encounter Visit Diagnoses Not on filedocumented in this encounter Additional Health Concerns Assessment Noted Time PHQ-9 Depression Total Score: 16 024 10:47 AM EST documented as of this encounter Care Teams Behavioral Specialist Relationship Specialty Start Date End Date Terry Rasheed MD [address] [place] [address] PCP - General Internal Medicine 12/24/23 documented as of this encounter
--- OUTSIDE RECORDS SUMMARY | 2024-09-15 09:57 | XMS_ITS | Encounter Summary ---
Author Organization [employer] Address [address] [place] [address] Care Team Providers Care Health And Fitness Instructor Name Role Phone Terry Rasheed MD Primary Care Prov ider Terry Rasheed MD Primary Care Prov ider Reason for Visit * Reason Comments Med Refill Encounter Details Date Type Department Care Team (Late Contact Info) Description 07/24/2022 Refill [facility] MED & PEDS [address] [place] [address] Terry Rasheed MD 505 [place] [address] Social History Tobacco Use Types Packs/Day Years [...] Upcoming Encounters Date Type Department Care Team ([facility] Contact Info) Description 12/02/2024 8:30 AM EDT Telemedicine [facility] MED & PEDS [address] [place] [address] Terry Rasheed MD [address] [place] [address] documented as of this encounter Visit Diagnoses Not on filedocumented in this encounter Additional Health Concerns Assessment Noted Time PHQ-9 Depression Total Score: 0 05/15/19 23 9:53 AM EST documented as of this encounter Care Teams Health And Fitness Instructor Relationship Specialty Start Date End Date Terry Rasheed MD [address] [place] [address] PCP - General Internal Medicine 08/10/20 09/26/23 Terry Rasheed MD [address] [place] [address] PCP - General Internal Medicine 12/24/23 documented as of this encounter
--- OUTSIDE RECORDS SUMMARY | 2024-09-15 09:57 | XMS_ITS | Encounter Summary ---
Author Organization [employer] Address [address] [facility] 7t [place] [address] Care Team Providers Care Rivet Thrower Name Role Phone Terry Rasheed MD Primary Care Prov ider Encounter Details Date Type Department Care Team ([facility] st Contact Info) Description 09/10/2024 10:15 AM EDT Telemedicine [facility] CHC MED & PEDS [address] [place], [place] [phone] Terry Rasheed MD [address] [place] [address] Primary hypertension (Primary Dx); PTSD (post-traumatic stress disorder) Social History Tobacco Use Types Packs/Day Years [...] housing situation today? I have brit adri 08/13/[address] you li [...] Sign Reading Time Taken Comments Blood Pressure 126/63 09/10/2024 10:02 AM EDT Pulse - - Temperature - - Respiratory Rate - - Oxygen Saturation - - Inhaled Oxygen Concentration - - Weight - - Height - - Body Mass Index - - documented in this encounter Progress Notes * Terry Gaytan MD - 09/10/2024 10:15 AM EDT Subjective Patient ID: Vonda Madrigal is a 43 y.o. female who presents for No chief complaint on file.. Hypertension This is a chronic problem. Pertinent negatives include no chest pain, headaches, palpitations, peripheral edema or shortness of breath. Review of Systems Respiratory: Negative for shortness of breath. Cardiovascular: Negative for chest pain and palpitations. Neurological: Negative for headaches. Objective Physical Exam Neurological: General: No focal deficit present. Mental Status: She is oriented to person, place, and time. Psychiatric: Mood and Affect: Mood normal. Behavior: Behavior normal. Assessment/Plan Problem List Items Addressed This Visit Hypertension - Primary Controlled, keep low sodium diet and exercise as tolerated, target <140/90, PTSD (post-traumatic stress disorder) Following therapist, no sucidal/homicidal ideas, continue current therapy documented in this encounter Miscellaneous Notes * Assessment & Plan Note - Terry Gaytan MD - 09/10/2024 10:54 AM EDTAssociated Problem(s): PTSD (post-traumatic stress disorder) Following therapist, no sucidal/homicidal ideas, continue current therapy * Assessment & Plan Note - Terry Gaytan MD - 09/10/2024 10:53 AM EDTAssociated Problem(s): Hypertension Controlled, keep low sodium diet and exercise as tolerated, target <140/90, documented in this encounter Plan of Treatment Upcoming Encounters Date Type Department Care Team (Late st Contact Info) Description 12/02/2024 8:30 AM EDT Telemedicine [facility] CHC MED & PEDS [address] [place] [address] Terry Rasheed MD [address] [place] [address] documented as of this encounter Visit Diagnoses Diagnosis Primary hypertension- Primary Unspecified essential hypertension PTSD (post-traumatic stress disorder) Posttraumatic stress disorder documented in this encounter Additional Health Concerns Assessment Noted Time PHQ-9 Depression Total Score: 16 04/22/2 024 10:47 AM EST documented as of this encounter Care Teams Rivet Thrower Relationship Specialty Start Date End Date Terry Rasheed MD [address] [place] [address] PCP - General Internal Medicine 12/24/23 documented as of this encounter
--- OUTSIDE RECORDS SUMMARY | 2024-09-15 09:57 | XMS_ITS | Encounter Summary ---
Author Organization [employer] Address [address] [facility] 7t [place] [address] Care Team Providers Care Stem Threshing Machine Operator Name Role Phone Terry Rasheed MD Primary Care Prov ider Reason for Visit * Reason Comments Med Refill Encounter Details Date Type Department Care Team ([facility] st Contact Info) Description 11/09/2023 Refill [facility] CHC MED & PEDS [address] [place], [place] [phone] Terry Rasheed MD [address] [place] [address] Social History Tobacco Use Types Packs/Day Years [...] Info) Description 12/02/2024 8:30 AM EDT Telemedicine [facility] CHC MED & PEDS [address] [place] [address] Terry Rasheed MD [address] [place] [address] documented as of this encounter Visit Diagnoses Not on filedocumented in this encounter Additional Health Concerns Assessment Noted Time PHQ-9 Depression Total Score: 0 05/28/19 24 9:00 AM EST documented as of this encounter Care Teams Stem Threshing Machine Operator Relationship Specialty Start Date End Date Terry Rasheed MD [address] [place] [address] PCP - General Internal Medicine 12/24/23 documented as of this encounter
--- OUTSIDE RECORDS SUMMARY | 2024-09-15 09:57 | XMS_ITS | Encounter Summary ---
Author Organization [employer] Address [address] 7[address] [place] [address] Care Team Providers Care Exchange Mechanic Name Role Phone Terry Rasheed MD Primary Care Prov ider Reason for Visit * Reason Onset Date Comments Nurse Triage 08/04/2024 Encounter Details Date Type Department Care Team ([facility] st Contact Info) Description 08/04/2024 Telephone [facility] MEDICINE [address] [place] [address] Terry Rasheed MD [address] [place] [address] Nurse Triage Social History Tobacco Use Types [...] voice mail. Left voice message to call [facility] [phone] when available. * Telephone Encounter - Vega [...] Info) Description 12/02/2024 8:30 AM EDT Telemedicine [facility] CHC MED & PEDS [address] [place] [address] Terry Rasheed MD [address] [place], [place] [phone] documented as of this encounter Visit Diagnoses Not on filedocumented in this encounter Additional Health Concerns Assessment Noted Time PHQ-9 Depression Total Score: 16 024 10:47 AM EST documented as of this encounter Care Teams Exchange Mechanic Relationship Specialty Start Date End Date Terry Rasheed MD [address] [place] [address] PCP - General Internal Medicine 12/24/23 documented as of this encounter
--- OUTSIDE RECORDS SUMMARY | 2024-09-15 09:58 | XMS_ITS | Continuity of Care Document ---
Author Organization [facility] Address [address] [place] [address] [address] [place] [address] Phone Care Team Providers Care Corporate Treasury Analyst Name Role Phone Vaishali Thrasher MD, FACS, RVT Unavailable Unavailable Advance Directives Directive Yes / No Effective Date File Name No Information Encounters Encounter Description Practice Location Reason(s) For Visit Diagnoses Date Provider Providers Copied on Encounter [facility], [address] [place] [address] [address], [place], [id number], tel:[phone] [address] [facility] No Information Apr-2 3 Alex Maldonado. [address] [place] [address], [address], . tel:[phone] Referring Provider: Terry Gaytan, [address] [place] [address], [address]. tel:[phone] Family History Family Member Type Diagnosis Age At Onset No Information Payers Payer name Insurance type Covered green party ID Authoriza tion(s) No Information Social [...]
--- OUTSIDE RECORDS SUMMARY | 2024-09-15 09:58 | XMS_ITS | Clinical Summary ---
Author Organization [facility] Address [address] [place] [address] Care Team Providers Care Arborer Name Role Phone Unavailable Primary Care Provider [...]
--- OUTSIDE RECORDS SUMMARY | 2024-09-15 09:58 | XMS_ITS | Encounter Summary ---
Author Organization [email or web address] Address [address] [facility] 7t [place] [address] Care Team Providers Care Environmental Sciences Professor Name Role Phone Terry Rasheed MD Primary Care Prov ider Terry Rasheed MD Primary Care Prov ider Encounter Details Date Type Department Care Team (Latest Contact Info) Description 09/24/2020 Abstract [facility] CONVERSIONS Dental, Provider, DDS Social History Tobacco [...] Care Team ( st Contact Info) Description 12/02/2024 8:30 AM EDT Telemedicine [facility] CHC MED & PEDS 505 [place], [place] [phone] Terry Rasheed MD [address] [place], [place] [phone] documented as of this encounter Visit Diagnoses Not on filedocumented in this encounter Care Teams Environmental Sciences Professor Relationship Specialty Start Date End Date Terry Rasheed MD [address] [place], [place] [phone] PCP - General Internal Medicine 08/10/20 09/26/23 Terry Rasheed MD [address] [place] [address] PCP - General Internal Medicine 12/24/23 documented as of this encounter
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
[2024-09-15 10:31] LABS: Basophils Percent Auto 0.5 % (0-2); Eosinophils Absolute Auto 0.1 X10*3/uL (0.0-0.4); Eosinophils Percent Auto 1.6 % (0-4); Hematocrit 37.6 % (37.0-47.0); Hemoglobin 12.2 g/dl (12.0-16.0); Imm Gran Abs Auto 0.04 X10*3/uL (0.00-0.03); Imm Gran Pct Auto 0.5 % (0.0-0.4); Lymphocytes Absolute Auto 1.8 X10*3/uL (1.2-4.9); Lymphocytes Percent Auto 24.2 % (20-40); Mean Corpuscular HGB Conc 32.4 g/dl (31.0-35.0); Mean Corpuscular Hemoglobin 28.5 pg (27.0-33.0); Mean Corpuscular Volume 87.9 fL (80.0-98.0); Mean Platelet Volume 10.4 fL (9.4-12.3); Monocytes Absolute Auto 0.4 X10*3/uL (0.1-1.2); Monocytes Percent Auto 5.8 % (2-11); Neutrophils Absolute Auto 5.1 x10*3/uL (2.0-8.3); Neutrophils Percent Auto 67.4 % (45-73); Platelet Count 311 X10*3/uL (160-400); Red Blood Count 4.28 X10*6/uL (4.20-5.50); Red Cell Distribution Width 13.8 % (11.0-16.0); White Blood Count 7.6 X10*3/uL (4.8-10.8)
[2024-09-15 11:00] LABS: Alanine Aminotransferase 29 U/L (0-31); Albumin Level 4.3 g/dL (3.5-5.0); Alkaline Phosphatase 119 U/L (39-117); Anion Gap 13 (12-20); Aspartate Amino Transferase 21 U/L (5-31); Bilirubin Total 0.6 mg/dL (0.0-1.0); Blood Urea Nitrogen 10 mg/dL (9-16); C Reactive Protein 0.96 mg/dL (< or = 0.50); Calcium 9.6 mg/dL (8.4-10.2); Carbon Dioxide 24 mmol/L (22-29); Chloride 104 mmol/L (96-108); Estimated Glomerular Filt Rate > 60; Glucose Random 108 mg/dL (60-115); Iron 79 mcg/dL (30-160); Percent Iron Saturation 21 % (15-50); Potassium 4.3 mmol/L (3.3-5.1); Sodium 137 mmol/L (135-145); Total Iron Binding Capacity 378 mcg/dL (228-428); Unsaturated Iron Binding 299 ug/dL
[2024-09-15 11:20] LABS: Estimated Average Glucose 120 mg/dL; Hemoglobin A1C 128.3032 umol/L; Hemoglobin A1c % 5.8 % (<6.0); Total Hemoglobin (HGBA1C) 3178.3396 umol/L
[2024-09-18 17:48] LABS: Alk.Phos Iso. Macrohepatic 0 % (<=0); Alk.Phos Isoenzymes Bone 32 % (28-66); Alk.Phos Isoenzymes Intest 9 % (1-24); Alk.Phos Isoenzymes Liver 59 % (25-69); Alk.Phos Isoenzymes Placental 0 % (<=0); Alk.Phos Isoenzymes Total 110 U/L (31-125)
[2024-09-19 13:43] LABS: Transglutaminase IgA <1.0 U/mL
== END 2024-09-15 09:38 | disposition home or self-care (01) ==
LOC: HO.LAB 09:37
PROVIDERS: PCP Internal Medicine; Visit Provider Nurse Practitioner Family
DX: R74.8 Abnormal levels of other serum enzymes (principal); K92.1 Melena; R73.9 Hyperglycemia, unspecified
CPT/HCPCS: 36415; 80053; 83036; 83540; 84080; 85025; 86140; 86364

== ENCOUNTER 2024-10-07 13:44 | Outpatient (REF) | payer OTHER, SELFPAY ==
--- OUTSIDE RECORDS SUMMARY | 2024-10-07 15:25 | XMS_ITS | Patient Health Record ---
Author Organization [facility] Address [address] [id number] Care Team Providers Care Solar Energy Technician Name Role Phone CHRIS TAPIA [phone] Allergies No Known Allergies Results Component Value Reference Range Notes PDF Report (Not yet reviewed by provider) Interpretation: Performing Lab:[facility], [address], [address], [place], Phone - [phone], Director - [facility] Notes/Report: Clinical Information:[id number] No. of containers..01 ThinPrep Vial Urinalysis Reviewed date:10/06/2024 10:27:25 AM Interpretation:Blood Performing Lab: Notes/Report: Blood Leukocytes - Nitrates - Uro 0.2 Protein 15 pH 6.0 Blood 25 Spec [place] 1.020 Ketones - Bilirubin - Glucose - NuSwab VG+, Sherry 6sp-1800 68 Reviewed date:10/06/2024 10:44:14 AM Interpretation:Negative Performing Lab:[facility], [address] [place] [address], Phone - [phone], Director - Wilfredo Notes/Report: Test(s) 672802- Atopobium vaginae; 725399- BVAB 2; 074299- Megasphaera 1 was developed and its performance characteristics determined by [employer]. It has not been cleared or approved by the Food and Drug Administration. Test(s) 351532-Ijrulld albicans, GREGORIA; 780001-Klmqjya glabrata, GREGORIA; 836305-Z parapsilosis/tropicalis; 071572-Yfncunx lusitaniae, GREGORIA; 028463-Xuvoowz krusei, GREGORIA was developed and its performance characteristics determined by [employer]. It has not been cleared or approved by the Food and Drug Administration. Atopobium vaginae Low - 0 BVAB 2 Low - 0 Megasphaera 1 Low - 0 Calculate total score by adding the 3 individual bacterial vaginosis (BV) marker scores together. Total score is interpreted as follows: Total score 0-1: Indicates the absence of BV. Total score 2: Indeterminate for BV. Additional clinical data should be evaluated to establish a diagnosis. Total score 3-6: Indicates the presence of BV. Sherry albicans, GREGORIA Negative Negative Sherry glabrata, GREGORIA Negative Negative C parapsilosis/tropicalis Negative Negative Th is assay does not differentiate C. tropicalis and C. parapsilosis. Sherry lusitaniae, GREGORIA Negative Negative Sherry krusei, GREGORIA Negative Negative Trich vag by GREGORIA Negative Negative Chlamydia trachomatis, GREGORIA Negative Negative Neisseria gonorrhoeae, GREGORIA Negative Negative HCV Antibody RFX to Quant PC [id number] Reviewed date:10/06/2024 10:32:56 AM Interpretation:Negative Performing Lab:[facility], [address], [address], [place], Phone - [phone], Director - [facility] Notes/Report: HCV Ab Non Reactive Non Reactive Interpretation: Not infected with HCV unless early or acute infection is suspected (which may be delayed in an immunocompromised individual), or other evidence exists to indicate HCV infection. Hepatitis B Surf Ab Quant-00 6530 Reviewed date:10/06/2024 10:32:49 AM Interpretation:Immune Performing Lab:[facility], [address], [address], [place], Phone - [phone], Director - [facility] Notes/Report: Hepatitis B Surf Ab Quant 2203.0 Immunity>10 mIU /mL Results confirmed on dilution. Status of Immunity Anti-HBs Level Inconsistent with Immunity 0.0 - 10.0 Consistent with Immunity >10.0 HBsAg Screen-[id number] Reviewed date:10/06/2024 10:33:05 AM Interpretation:Negative Performing Lab:[facility], [address], [address], [place], Phone - [phone], Director - [facility] Notes/Report: HBsAg Screen Negative Negative [place] Reviewed date:10/03/2024 02:18:32 PM Interpretation:Normal Performing Lab: Notes/Report: Normal Clue Cells neg WBC neg Hyphae neg Trichomonas neg pH 4.5 CORDELL Prep neg whiff IGP, Apt HPV,rfx 16/18,45-19 9344 (Not yet reviewed by provider) Interpretation: Performing Lab:[facility], [address], [address], [place], Phone - [phone], Director - [facility] Notes/Report: Clinical Information:[id number] No. of containers..01 ThinPrep Vial DIAGNOSIS: NEGATIVE FOR INTRAEPITHELIAL LESION OR MALIGNANCY. Specimen adequacy: Satisfactory for evaluation. Endocervical and/or squamous metaplastic cells (endocervical component) are present. Clinician provided ICD10: Z01.419 Z11.51 Performed by: Kin bailey Wallpaper Consultant (ASCP) . . Note: The Pap smear is a screening test designed to aid in the detection of premalignant and malignant conditions of the uterine cervix. It is not a diagnostic procedure and should not be used as the sole means of detecting cervical cancer. Both false-positive and false-negative reports do occur. . Test Methodology: This liquid based ThinPrep(R) pap test was screened with the use of an image guided system. HPV Aptima Negative Negative This nucleic acid amplification test detects fourteen high-risk HPV types (16,18,31,33,35,39,45,51,5 2,56,58,59,66,68) without differentiation. HIV Ab/p24 Ag with Reflex-08 3935 Reviewed date:10/06/2024 10:33:13 AM Interpretation:Negative Performing Lab:[facility], [address], [address], [place], Phone - [phone], Director - [facility] Notes/Report: HIV Ab/p24 Ag Screen Non Reactive Non Reactive HIV-1/HIV-2 antibodies and HIV-1 p24 antigen were NOT detected. There is no laboratory evidence of HIV infection. HIV Negative T pallidum Screening [place] -512485 Reviewed date:10/06/2024 10:33:22 AM Interpretation:Negative Performing Lab:[facility], [address], [address], [place], Phone - [phone], Director - [facility] Notes/Report: T pallidum Antibodies Non Reactive Non Reactive Reason For Referral No Information Medications Medication SIG (Take, Route, Fr equency, Duration) Notes Start Date End Date Status Atenolol Active Omeprazole Active hydrOXYzine HCl Acti ve Social History Sex Assigned At : Social History Observation Description Sex Assigned At Female Vital Signs Blood pressure diastolic 88 mm Hg 10/03/2024 Height 5'5 in 10/03/2024 Blood pressure systolic 152 mm Hg 10/03/2024 Weight 160 lbs 10/03/2024 BMI 26.62 kg/m2 10/03/2024 Encounters Encounter Location Date Provider Diagnosis [address] [id number] 10/03/2024 CHRIS TAPIA Encounter for gynecological examination (general) (routine) without abnormal findings Z01.419 ; Dysuria R30.0 ; Vaginal discharge N89.8 ; HPV Pap Screening Z11.51 ; HIV Screening Z11.4 ; Encounter for screening for infections with a predominantly sexual mode of transmission Z11.3 ; Screening for other viral diseases Z11.59 and Other problems related to lifestyle Z72.[address] [id number] 10/06/2024 CHRIS TAPIA Dysuria R30.0 Assessments Encounter Date Diagnosis (ICD Code) Assessment Notes Treatment Notes Treatment Clinical Notes Section Notes 10/03/2024 Dysuria (ICD-10 - R30.0) 10/03/2024 Encounter for gynecological examination (general) (routine) without abnormal findings (ICD-10 - Z01.419) Discussed routine screenings and self breast/chest awareness. Mammogram screening recommendations reviewed- CLT up to date with mammo screening- reviewed normal results with clt. Pap guidelines reviewed and pap collected. Routine screening in 5 years if normal. 10/06/2024 Dysuria (ICD-10 - R30.0) 10/03/2024 Vaginal discharge (ICD-10 - N89.8) Will further evaluate clt's concerns for symptoms with STI and vaginal infection check. Normal on exam 10/03/2024 HPV Pap Screening (ICD-10 - Z11.51) 10/03/2024 HIV Screening (ICD-10 - Z11.4) 10/03/2024 Encounter for screening for infections with a predominantly sexual mode of transmission (ICD-10 - Z11.3) Discussed STI risks, screenings that are available through [facility] and safe sex. Clt aware of lab processing times and how to view results on portal and how positive results will be communicated 10/03/2024 Screening for other viral diseases (ICD-10 - Z11.59) 10/03/2024 Other problems related to lifestyle (ICD-10 - Z72.89) Plan Of Treatment Pending Test Test Name Order Date Urine Culture, Routine-[id number] 10/06/2024 IGP, Apt HPV,rfx 16/18,45-556492 025 PDF Report 10/03/2024 Insurance Providers Payer Name Payer Address Payer Phone Subscriber Number Group Number Insured Name Patient Relationship to Insured Coverage Start Date Coverage End Date [facility] [address] [place] [id number] Vonda Quevedo Self - patient is the insured Medical (General) History Medical History History ICD Code High blood pressure Kidney disease, kidney stones Depression/Anxiety Vaginal infections Gastritis- followed by GI Hospitalization History Reason Date(Month/Year) childbirth
[2024-10-12 19:13] LABS: Calprotectin, Fecal 38 mcg/g
== END 2024-10-07 13:45 | disposition home or self-care (01) ==
LOC: HO.LNP 13:44
PROVIDERS: Visit Provider Nurse Practitioner Family
DX: R19.5 Other fecal abnormalities (principal)
CPT/HCPCS: 83993; 87338

== ENCOUNTER 2024-11-01 21:19 | Emergency (ER) | payer OTHER, SELFPAY ==
--- NOTE | ~2024-11-01 | XR_ITS ---
CLINICAL HISTORY: pain s p trauma 3 view left foot Comparison: None provided Findings: No fractures or dislocations. No significant loss of joint space, osteophytes, or erosions. No ankle effusion. No radiopaque foreign body. IMPRESSION: 1. No acute findings. This document has been electronically signed by: Masoud Donovan MD on 11/01/2024 23:44:00
--- NOTE | ~2024-11-01 | XR_ITS ---
CLINICAL HISTORY: pain swelling s p trauma 3 view left ankle Comparison: None provided Findings: No acute fractures or dislocations. No significant arthritic change or erosions. No ankle effusion. No radiopaque foreign body. IMPRESSION: 1. No acute findings. This document has been electronically signed by: Masoud Donovan MD on 11/01/2024 23:42:58
[2024-11-01 21:51] VITALS: BP 148/87; PULSE 86; RESP 18; TEMP 36.4; O2SAT 99; BMI 27.8
--- OUTSIDE RECORDS SUMMARY | 2024-11-01 22:45 | XMS_ITS | Patient Health Record ---
Author Organization [facility] Address [address] [id number] Care Team Providers Care Size Cutter Name Role Phone CHRIS TAPIA [phone] Allergies No Known Allergies Results Component Value Reference Range Notes Urinalysis Reviewed date:10/06/2024 10:27:25 AM Interpretation:Blood Performing Lab: Notes/Report: Blood Leukocytes - Nitrates - Uro 0.2 Protein 15 pH 6.0 Blood 25 Spec [place] 1.020 Ketones - Bilirubin - Glucose - HBsAg Screen-[id number] Reviewed date:10/06/2024 10:33:05 AM Interpretation:Negative Performing Lab:[facility], [address], [address], [place], Phone - [phone], Director - [facility] Notes/Report: HBsAg Screen Negative Negative T pallidum Screening [place] -[id number] Reviewed date:10/06/2024 10:33:22 AM Interpretation:Negative Performing Lab:[facility], [address], [address], [place], Phone - [phone], Director - [facility] Notes/Report: T pallidum Antibodies Non Reactive Non Reactive HIV Ab/p24 Ag with Reflex-08 3935 Reviewed date:10/06/2024 10:33:13 AM Interpretation:Negative Performing Lab:[facility], [address], [address], [place], Phone - [phone], Director - [facility] Notes/Report: HIV Ab/p24 Ag Screen Non Reactive Non Reactive HIV-1/HIV-2 antibodies and HIV-1 p24 antigen were NOT detected. There is no laboratory evidence of HIV infection. HIV Negative [place] Reviewed date:10/03/2024 02:18:32 PM Interpretation:Normal Performing Lab: Notes/Report: Normal Clue Cells neg WBC neg Hyphae neg Trichomonas neg pH 4.5 CORDELL Prep neg whiff Hepatitis B Surf Ab Quant-00 6530 Reviewed date:10/06/2024 10:32:49 AM Interpretation:Immune Performing Lab:[facility], [address], [address], [place], Phone - [phone], Director - [facility] Notes/Report: Hepatitis B Surf Ab Quant 2203.0 Immunity>10 mIU /mL Results confirmed on dilution. Status of Immunity Anti-HBs Level Inconsistent with Immunity 0.0 - 10.0 Consistent with Immunity >10.0 HCV Antibody RFX to Quant PC [id number] Reviewed date:10/06/2024 10:32:56 AM Interpretation:Negative Performing Lab:[facility], [address], [address], [place], Phone - [phone], Director - [facility] Notes/Report: HCV Ab Non Reactive Non Reactive Interpretation: Not infected with HCV unless early or acute infection is suspected (which may be delayed in an immunocompromised individual), or other evidence exists to indicate HCV infection. NuSwab VG+, Sherry 6sp-1800 68 Reviewed date:10/06/2024 10:44:14 AM Interpretation:Negative Performing Lab:[facility] [place], [address] [place] [address], [place], Phone - [phone], Director - Wilfredo Notes/Report: Test(s) 782977- Atopobium vaginae; 437236- BVAB 2; 901754- Megasphaera 1 was developed and its performance characteristics determined by [employer]. It has not been cleared or approved by the Food and Drug Administration. Test(s) 335692-Sfxcezx albicans, GREGORIA; 318810-Ebflokz glabrata, GREGORIA; 561193-Z parapsilosis/tropicalis; 799137-Uyfcxlc lusitaniae, GREGORIA; 309263-Bkgznvr krusei, GREGORIA was developed and its performance characteristics determined by [employer]. It has not been cleared or approved [...] Negative Negative Neisseria gonorrhoeae, GREGORIA Negative Negative IGP, Apt HPV,rfx 16/18,45-19 9344 Reviewed date:10/08/2024 03:38:28 PM Interpretation:Normal, HPV neg Performing Lab:[facility], [address], [address], [place], Phone - [phone], Director - [facility] Notes/Report: Clinical Information:[id number] No. of containers..01 ThinPrep Vial DIAGNOSIS: NEGATIVE FOR INTRAEPITHELIAL LESION OR MALIGNANCY. Specimen adequacy: Satisfactory for evaluation. Endocervical and/or squamous metaplastic cells (endocervical component) are present. Clinician provided ICD10: Z01.419 Z11.51 Performed by: Kin bailey, Automobile Body Repairer (ASCP) . . Note: The Pap smear [...] high-risk HPV types (16,18,31,33,35,39,45,51,5 2,56,58,59,66,68) without differentiation. PDF Report Reviewed date:10/08/2024 03:39:29 PM Interpretation: Performing Lab:[facility], [address], [address], [place], Phone - [phone], Director - [facility] Notes/Report: Clinical Information:[id number] No. of containers..01 ThinPrep Vial Reason For Referral No Information Medications Medication [...] 10/03/2024 Encounters Encounter Location Date Provider Diagnosis [address] [id number] 10/03/2024 CHRISCARINA TAPIA Encounter for gynecological examination (general) (routine) without abnormal findings Z01.419 ; Dysuria R30.0 ; Vaginal discharge N89.8 ; HPV Pap Screening Z11.51 ; HIV Screening Z11.4 ; Encounter for screening for infections with a predominantly sexual mode of transmission Z11.3 ; Screening for other viral diseases Z11.59 and Other problems related to lifestyle Z72.[address] [id number] 10/06/2024 CHRIS WILLIE Dysuria R30.0 Assessments Encounter Date Diagnosis (ICD [...] lifestyle (ICD-10 - Z72.89) Plan Of Treatment No Information Insurance Providers Payer Name Payer Address Payer Phone Subscriber Number Group Number Insured Name Patient Relationship to Insured Coverage Start Date Coverage End Date [facility] [address] [place], [place] [id number] Vonda Quevedo Self - patient is the insured Medical (General) History Medical History History ICD Code High blood pressure Kidney disease, kidney stones Depression/Anxiety Vaginal infections Gastritis- followed by GI Hospitalization History Reason Date(Month/Year) childbirth
--- NOTE | 2024-11-01 23:15 | ED.GENADULT ---
HPI - General Adult General Chief complaint: Extremity Injury, Lower Stated complaint: left foot twisted Time Seen by Provider: 11/01/24 22:07 Source: patient Limitations: language barrier History of Present Illness ED Provider: Nevin Barksdale PA-C HPI narrative: 44-year-old female presents with left ankle pain and swelling. Patient states she stepped on a plastic bottle, subsequently inverting her left ankle. Pain most prominent along lateral aspect of the ankle. Related Data Previous Rx's ?Medication ?Instructions ?Recorded tamsulosin 0.4 mg capsule (Flomax) 0.4 mg PO DAILY #10 caps 05/07/20 ibuprofen 600 mg tablet 600 mg PO Q6H PRN pain #30 tabs 11/21/20 famotidine 20 mg tablet (Pepcid) 20 mg PO DAILY PRN abdominal 06/24/21 discomfort #30 tabs ibuprofen 600 mg tablet 600 mg PO TID PRN fever or pain 04/28/23 #14 tabs ondansetron HCl 4 mg tablet 4 mg PO Q6H PRN nausea and 04/28/23 vomiting #10 tabs prednisone 10 mg tablet 10 mg PO DAILY #3 tabs 04/28/23 tamsulosin 0.4 mg capsule 0.4 mg PO DAILY #14 caps 04/28/23 bisacodyl 5 mg tablet,delayed 20 mg (4 x 5 mg) PO ONCE 1 day #4 09/09/24 release tabs polyethylene glycol 3350 17 238 g PO ONCE #238 grams 09/09/24 gram/dose oral powder (Miralax) bismuth subsalicylate 262 mg tablet 524 mg (2 x 262 mg) PO QID 14 days 10/29/24 #112 tabs metronidazole 500 mg tablet 500 mg PO QID #56 tabs 10/29/24 omeprazole 20 mg tablet,delayed 20 mg PO BID #28 tabs 10/29/24 release tetracycline 500 mg capsule 500 mg PO QID 14 days #56 caps 10/29/24 methocarbamol 750 mg tablet 750 mg PO Q8H PRN pain #10 tabs 11/02/24 Allergies Allergy/AdvReac Type Severity Reaction Status Date / Time latex Allergy Hives Verified 11/01/24 21:52 Review of Systems Review of Systems: Yes all other systems are reviewed and are negative Constitutional: Constitutional: Denies fatigue and Denies fever(s) Musculoskeletal: Musculoskeletal: Reports arthralgias and Reports joint swelling Endocrine: Endocrine: Denies fatigue PMFSH Past Medical History Attestation statement: The following information was validated with the patient. Medical History (Updated 11/02/24 @ 00:06 by BEAU Silverman) Acid reflux Elevated alkaline phosphatase level Colon cancer screening Change in stool delivery delivered Multiple births, some liveborn Miscarriage Diabetes HTN (hypertension) Kidney stone Surgical History (Updated 09/09/24 @ 11:14 by Mckenzie Garcia) Hx of section Family History Family History (Updated 09/09/24 @ 11:18 by Mckenzie Garcia) Mother HTN (hypertension) Diabetes Father HTN (hypertension) Disease of colon Paternal Uncle Colon cancer Paternal Uncle Colon cancer Paternal Aunt Breast CA Paternal Aunt Breast CA Social History Social History Alcohol intake: former Patient Tobacco Use Status: Never used Tobacco Advance Directives: No Advance Directives Information Provided: No Physical Exam ED Vital Signs: Vital Signs - 24 hr 11/01/24 21:51 Temperature 97.5 F Pulse Rate 86 Respiratory Rate 18 Blood Pressure 148/87 H Pulse Oximetry 99 Oxygen Delivery Method Room Air BMI result Body Mass Index 27.8 Const Other: Alert Orientation/consciousness: patient oriented x3 Resp Effort & Inspection: normal respiratory effort Cardio Other: Normal peripheral perfusion Skin Other: Warm dry no rash Neuro General: patient oriented x3, gait normal, no focal motor deficits and CN's II-XI intact bilaterally Extrem Other: Mild swelling lateral left ankle, patient able to flex and extend, no overt deformity Psych Other: Calm cooperative Medications Administered Discontinued Medications Generic Name Dose Route Start Last Admin Trade Name Freq PRN Reason Stop Dose Admin Ketorolac Tromethamine 15 mg 11/01/24 23:03 11/01/24 23:49 Ketorolac Tromethamine 15 Mg/Ml Vial IM 11/01/24 23:04 15 mg ONCE ONE Administration Methocarbamol 750 mg 11/01/24 23:16 11/01/24 23:48 Methocarbamol 750 Mg Tablet PO 11/01/24 23:17 750 mg ONCE ONE Administration Medical Decision Making Medical Decision Making MDM Narrative: 44-year-old female presents with left ankle pain and swelling. Patient states she stepped on a plastic bottle, subsequently inverting her left ankle. Pain most prominent along lateral aspect of the ankle. No chronic issues History: Per patient I have considered the following differential diagnoses: Fracture, dislocation, sprain, contusion Plan: X-rays ordered from triage, pending assessment. We will be giving the patient a muscle relaxant and Toradol. I have independently reviewed the following tests: X-ray left ankle:Findings: No acute fractures or dislocations. No significant arthritic change or erosions. No ankle effusion. No radiopaque foreign body. IMPRESSION: X-ray left foot: Findings: No fractures or dislocations. No significant loss of joint space, osteophytes, or erosions. No ankle effusion. No radiopaque foreign body. IMPRESSION: 1. No acute findings. Discharge Plan Discharge Clinical Impression: Left ankle sprain Patient Disposition: Home, Self-Care Instructions: Ankle Sprain (ED), Crutch Instructions (ED), Ankle Stirrup Splint (ED), P.R.I.C.E. Treatment (ED) Additional Instructions: X-ray of the foot and ankle were negative for fracture or dislocation, you have a sprain. See home care instructions. Follow up with primary care as needed. You can use [id number]-dkvlprh ibuprofen 600 mg taken every 6 hours with food. You can also use the methocarbamol, every 8 hours as needed for further pain. This medication can be sedating, do not drive or operate machinery while taking the medication. Prescriptions: New methocarbamol 750 mg tablet 750 mg PO Q8H PRN (Reason: pain) Qty: 10 0RF No Action tetracycline 500 mg capsule 500 mg PO QID 14 Days Qty: 56 0RF metronidazole 500 mg tablet 500 mg PO QID Qty: 56 0RF bismuth subsalicylate 262 mg tablet 524 mg PO QID 14 Days Qty: 112 0RF Rx Instructions: Take two tablets four times daily for 14 days. omeprazole 20 mg tablet,delayed release (DR/EC) 20 mg PO BID Qty: 28 0RF Rx Instructions: Take one tablet twice daily for 14 days. tamsulosin [Flomax] 0.4 mg capsule 0.4 mg PO DAILY Qty: 10 0RF ibuprofen 600 mg tablet 600 mg PO Q6H PRN (Reason: pain) Qty: 30 0RF famotidine [Pepcid] 20 mg tablet 20 mg PO DAILY PRN (Reason: abdominal discomfort) Qty: 30 0RF prednisone 10 mg tablet 10 mg PO DAILY Qty: 3 0RF tamsulosin 0.4 mg capsule 0.4 mg PO DAILY Qty: 14 0RF ondansetron HCl 4 mg tablet 4 mg PO Q6H PRN (Reason: nausea and vomiting) Qty: 10 0RF ibuprofen 600 mg tablet 600 mg PO TID PRN (Reason: fever or pain) Qty: 14 0RF polyethylene glycol 3350 [Miralax] 17 gram/dose powder 238 g PO ONCE Qty: 238 0RF Rx Instructions: per colonoscopy prep instructions bisacodyl 5 mg tablet,delayed release (DR/EC) 20 mg PO ONCE 1 Days Qty: 4 0RF Rx Instructions: per colonoscopy instructions Stand Alone Forms: Work/School Release Print Language: Filipino
[2024-11-01] MEDS: methocarbamoL 750 MG TABLET PO (23:48)
[2024-11-01] MEDS: Ketorolac Tromethamine 15 MG/ML VIAL IM (23:49)
[2024-11-02 00:57] VITALS: BP 130/63; PULSE 82; RESP 16; TEMP 36.7; O2SAT 99
[2024-11-02 01:45] VITALS: BP 130/63; PULSE 82; RESP 16; TEMP 36.7; O2SAT 99
== END 2024-11-02 01:42 | disposition home or self-care (01) ==
PROVIDERS: Emergency Provider Emergency Medicine Emergency Medical Services
DX: S93.402A Sprain of unspecified ligament of left ankle, initial encounter (principal); M25.472 Effusion, left ankle; X58.XXXA Exposure to other specified factors, initial encounter; Y93.9 Activity, unspecified; Y92.9 Unspecified place or not applicable; Y99.8 Other external cause status
CPT/HCPCS: 73600; 73620; 96372; 99284; J1885

== ENCOUNTER → 2024-11-01 22:15 | Outpatient (BNV) | payer OTHER, SELFPAY | PROVIDERS: Emergency Provider Emergency Medicine Emergency Medical Services; Visit Provider Radiology Diagnostic Radiology | DX: M25.572 Pain in left ankle and joints of left foot (principal); R22.42 Localized swelling, mass and lump, left lower limb; M79.672 Pain in left foot | CPT/HCPCS: 73600; 73620 ==

== ENCOUNTER 2025-01-09 17:39 | Outpatient (REF) | payer OTHER, SELFPAY ==
--- OUTSIDE RECORDS SUMMARY | 2023-04-25 07:27 | XMS_ITS | Continuity of Care Document ---
Author Organization [facility] Address [address] [place] [address] [address] [place] [address] Phone Care Team Providers Care Test Desk Trouble Locator Name Role Phone Vaishali Thrasher MD, FACS, RVT Unavailable Unavailable Advance Directives Directive Yes / No Effective Date File Name No Information Encounters Encounter Description Practice Location Reason(s) For Visit Diagnoses Date Provider Providers Copied on Encounter [facility], [address] [place] [address] [address], [place], [id number], tel:[phone] [facility] No Information Apr-2 3 Alex Maldonado. [address] [place] [address], [address], . tel:[phone] Referring Provider: Terry Gaytan, [address] [place] [address], [address]. tel:[phone] Family History Family Member Type Diagnosis Age At Onset No Information Payers Payer name Insurance type Covered constitution party ID Authoriza tion(s) No Information Social History Type Description Quantity Date Captured Comments Sex Female Smoking Status No Information Chief Complaint And Reason For Visit No Information Reason For Referral Reason For Referral No Information History Of Present Illness Encounter Date Complaint History Of Prese nt Illness No Information Functional Status Date Functional Assessmen t No Information Instructions Date Instruction Additional Infor mation No Information Assessments Type Assessment Date No Information Patient Care Teams Name Effective Dates (start - stop) Status Members No Information
--- OUTSIDE RECORDS SUMMARY | 2024-10-06 08:00 | XMS_ITS ---
Author Organization [facility] Address [address] [place] [phone] Care Team Providers Care Engineering Systems Analyst Name Role Phone CHRIS TAPIA Unavailable [phone] REASON FOR VISIT lab only Social History Sex Assigned At : Social History Observation Description Sex Assigned At Female Encounters Encounter Location Date Provider Diagnosis [address] [phone] 06/2024 CHRIS TAPIA Plan Of Treatment No Information Progress Notes * Vonda QUEVEDODOB:1980 (44 yo F)Acc No.[id number]:10/06/2024 LAB Patient: Alia lucianVonda Romano Provider: Nicky TAPIA :1980 A ge:44 Y S ex:Female Date:10/06/2024 Address:[address] [place], [place] [phone] Subjective: * Chief Complaints: * L ab only * Electronic signature of GABO TAPIA CNM on 01/09/2025 at 11:20 AM EDT Sign off status: Pending * Provider: Nicky TAPIA Date: 10/06/2024 Generated for Andrew chowdhury/Nick/Anibal on: 0 01/09/2025 11:20 AM EDT
--- OUTSIDE RECORDS SUMMARY | 2025-01-09 11:00 | XMS_ITS | Encounter Summary ---
Author Organization [employer] Address [address] [facility] [address] [place] [address] Care Team Providers Care Electrical Panel Builder Name Role Phone Terry Rasheed MD Primary Care Prov ider Reason for Referral * Consultation (Routine) - Pending Review Specialty Diagnoses / Procedures Referred By Contac t Referred To Contact Obstetrics and Gynecology Diagnoses Family planning Loretta León ANP [address] [place] [address] Phone: tel: fax: Referral ID Status Reason Start Date Expiration Date Visits Requested Visits Authorized [id number] Pending Review Specialty Services Required 01/09/2025 01/09/2026 1 1 * Imaging (Routine) - Authorized Specialty Diagnoses / Procedures Referred By Contac t Referred To Contact Radiology Diagnoses Pelvic pain Procedures US Pelvis Transvaginal Loretta León ANP [address] [place] [address] Phone: tel: fax: [address] Phone: tel: fax: Referral ID Status Reason Start Date Expiration Date V isits Requested Visits Authorized [id number] Authorized 01/09/2025 01/09/2026 1 1 * Imaging (Routine) - Authorized Specialty Diagnoses / Procedures Referred By Contac t Referred To Contact Radiology Diagnoses Pelvic pain Procedures Us Pelvis complete Loretta León ANP [address] [place] [address] Phone: tel: fax: [address] Phone: tel: fax: Referral ID Status Reason Start Date Expiration Date V isits Requested Visits Authorized [id number] Authorized 01/09/2025 01/09/2026 1 1 * Imaging (Routine) - Authorized Specialty Diagnoses / Procedures Referred By Contac t Referred To Contact Radiology Diagnoses Breast pain, left Procedures BI US Breast Limited Left Loretta León ANP [address] [place] [address] Phone: tel: fax: [address] Phone: tel: fax: Referral ID Status Reason Start Date Expiration Date V isits Requested Visits Authorized [id number] Authorized 01/09/2025 01/09/2026 1 1 * Imaging (Routine) - Authorized Specialty Diagnoses / Procedures Referred By Contac t Referred To Contact Radiology Diagnoses Breast pain, left Procedures BI Mammogram Diagnostic Tomosynthesis Bilateral Loretta León ANP [address] [place] [address] Phone: tel: fax: [address] Phone: tel: fax: Referral ID Status Reason Start Date Expiration Date V isits Requested Visits Authorized [id number] Authorized 01/09/2025 01/09/2026 1 1 Reason for Visit * Reason Comments Vaginal Pain Urinary Problem Breast Pain Encounter Details Date Type Department Care Team (Late st Contact Info) Description 01/09/2025 11:00 AM EDT Office Visit [facility] [address] [place] [address] Loretta León ANP [address] [place] [address] Breast pain, left (Primary Dx); Dysuria; Family [...] Was to start hydrochlorothiazide from nephrology in 09/24/24 per their last note Didn't take meds yet today (took during appt) Urinary sx: vaginal pain, urinary sx, UA w/ +blood in urine (has h/o kidney stones) Pap Done at [facility] on 08/2021 NILM/HPV HR other positive, has prior LSIL pap smear Mammo 09/05/24 BIRADS1 Pankaj Arellano ANETTE provided Kiswahili interpretation. Review of Systems Constitutional: Negative for [...] kg/m?? Physical Exam Exam conducted with a research hydrologist present (Evonne Jovel RN). Constitutional: General: She [...] Breast pain, left Expected: 01/09/2025, Expires: 01/09/2026 Bacterial Vaginosis Panel Microbiology Routine Dysuria Ordered: 01/09/2025 Chlamydia/N. Gonorrhoeae RNA, TMA, Vaginal Microbiology Routine Dysuria Ordered: 01/09/2025 Culture, Urine, Routine Microbiology Routine Dysuria Ordered: 01/09/2025 Us Pelvis complete Imaging Routine Pelvic pain [...] Routine 01/09/2025 3:40 PM EDT Pelvic pain POCT URINALYSIS DIPSTICK Routine 01/09/2025 11:34 AM EDT Dysuria documented in this encounter Results * POCT , urine manually resulted (01/09/2025 3:40 PM EDT) Preg Test, Ur Negative Negative, Indeterminate, None Detected, Invalid, Specimen unsatisfactory for evaluation, Weakly Positive, 2+ Urine 01/09/2025 3:40 PM EDT Loretta MUNSON POINT OF CARE TEST ENTER/EDIT OR DERABLES Final Result * (ABNORMAL) POCT urinalysis dipstick manually resulted [...] Detected Urine 01/09/2025 11:3 4 AM EDT Loretta León ANP POINT OF CARE TEST [...] documented as of this encounter Care Teams Electrical Panel Builder Relationship Specialty Start Date End Date Terry Rasheed MD [address] [place] [phone] PCP - General Internal Medicine 12/24/23 documented as of this encounter
--- OUTSIDE RECORDS SUMMARY | 2025-01-09 17:42 | XMS_ITS | Encounter Summary ---
Author Organization [employer] Address [address] [facility] 7 [place] [address] Care Team Providers Care Media Relations Intern Name Role Phone Terry Rasheed MD Primary Care Prov ider Terry Rasheed MD Primary Care Prov ider Reason for Visit * Reason Onset Date Comments ER Follow-up 07/31/2023 Encounter Details Date Type Department Care Team ([facility] st Contact Info) Description 07/31/2023 Telephone [facility] [address] [place], [place] [phone] Terry Rasheed MD [address] [place], [place] [phone] ER Follow-up Social History Tobacco Use Types [...] EDT Fax request for notes, sent to [facility] as requested. * Telephone Encounter [...] patient to seek care and eval in [facility] if she is feeling unwell enough to go back to work or needs further care thisweek or has persistence/worsening of symptoms. She expressed understanding. Scheduled for televisitf/u with PCP for 08/06/23 @ 10:15am. No other concerns or questions at this time. [facility]. Patient calling to report ED [...] documented in this encounter Plan of Treatment Not on file documented as of this encounter Visit Diagnoses Not on filedocumented in this encounter Additional Health Concerns Assessment Noted Time PHQ-9 Depression Total Score: 0 05/28/19 9:00 AM EST documented as of this encounter Care Teams Media Relations Intern Relationship Specialty Start Date End Date Terry Rasheed MD [address] [place] [address] PCP - General Internal Medicine 08/10/20 09/26/23 Terry Rasheed MD [address] [place] [address] PCP - General Internal Medicine 12/24/23 documented as of this encounter
--- OUTSIDE RECORDS SUMMARY | 2025-01-09 17:42 | XMS_ITS | Encounter Summary ---
Author Organization [employer] Address [address] [facility] 7 [place] [address] Care Team Providers Care High School Academic Coach Name Role Phone Terry Rasheed MD Primary Care Prov ider Reason for Visit * Reason Comments Med Refill Encounter Details Date Type Department Care Team ([facility] st Contact Info) Description 11/09/2023 Refill [facility] [address] [place], [place] [phone] Terry Rasheed MD [address] [place] [address] Social History Tobacco Use Types Packs/Day Years [...] as of this encounter Plan of Treatment Not on file documented as of this encounter Visit Diagnoses Not on filedocumented in this encounter Additional Health Concerns Assessment Noted Time PHQ-9 Depression Total Score: 0 05/28/19 9:00 AM EST documented as of this encounter Care Teams High School Academic Coach Relationship Specialty Start Date End Date Terry Rasheed MD [address] [place] [id number] PCP - General Internal Medicine 12/24/23 documented as of this encounter
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
--- OUTSIDE RECORDS SUMMARY | 2025-01-09 17:42 | XMS_ITS | Encounter Summary ---
Author Organization [employer] [facility] Address [address] [facility] 7t [place] [address] Care Team Providers Care Senior Ui Ux Designer Name Role Phone Terry Rasheed MD Primary Care Prov ider Terry Rasheed MD Primary Care Prov ider Encounter Details Date Type Department Care Team (Latest Contact Info) Description 09/24/2020 Abstract [facility] Dental, Provider, DDS Social History [...] on filedocumented in this encounter Care Teams Senior Ui Ux Designer Relationship Specialty Start Date End Date Terry Rasheed MD [address] [place] [address] PCP - General Internal Medicine 08/10/20 09/26/23 Terry Rasheed MD [address] [place] [address] PCP - General Internal Medicine 12/24/23 documented as of this encounter
--- OUTSIDE RECORDS SUMMARY | 2025-01-09 17:42 | XMS_ITS | Encounter Summary ---
Author Organization [employer] Address [address] [facility] 7t [place] [address] Care Team Providers Care Manager Heart Failure Name Role Phone Terry Rasheed MD Primary Care Prov ider Encounter Details Date Type Department Care Team ([facility] st Contact Info) Description 09/22/2024 Orders Only [facility] Information Management [address] [place] [address] Provider, MD Dolly Social History Tobacco Use Types Packs/Day Years [...] on file documented as of this encounter Procedures Procedure Name Priority Date/Time Associated Diagnosis Comments MAMMO SCREENING TOMOSYNTHESIS BILATERAL Routine 09/05/2024 4:16 PM EDT documented in this encounter Results * MAMMO SCREENING TOMOSYNTHESIS BILATERAL (09/05/2024 4:16 PM EDT) Anatomical Region Laterality Modality Mammography us Historical Provider MD [facility] BI PROCEDURES Final R esult documented in this encounter Visit Diagnoses Not on filedocumented in this encounter Additional Health Concerns Assessment Noted Time PHQ-9 Depression Total Score: 16 024 10:47 AM EST documented as of this encounter Care Teams Manager Heart Failure Relationship Specialty Start Date End Date Terry Rasheed MD [address] [place] [address] PCP - General Internal Medicine 12/24/23 documented as of this encounter
--- OUTSIDE RECORDS SUMMARY | 2025-01-09 17:42 | XMS_ITS | Encounter Summary ---
Author Organization [employer] Address [address] [facility] 7t [place] [address] Care Team Providers Care Supply Chain Assistant Name Role Phone Terry Rasheed MD Primary Care Prov ider Terry Rasheed MD Primary Care Prov ider Reason for Visit * Reason Onset Date Comments Referral 07/18/2023 Encounter Details Date Type Department Care Team (Late st Contact Info) Description 07/18/2023 Telephone [facility] MEDICINE [address] [place] [address] Terry Rasheed MD [address] [place] [address] Referral Social History Tobacco Use Types Packs/Day [...] referral : DATE: N/A TIME: N/A Address: [address] [place] [address] [place] [address] Visits: N/A Facility Name: [facility] Urology center Type of Specialist: Urologist DX: Kidney Pain Phone #: [phone] Fax #: [phone] documented in this encounter Plan of Treatment Not on file documented as of this encounter Visit Diagnoses Not on filedocumented in this encounter Additional Health Concerns Assessment Noted Time PHQ-9 Depression Total Score: 0 05/28/19 24 9:00 AM EST documented as of this encounter Care Teams Supply Chain Assistant Relationship Specialty Start Date End Date Terry Rasheed MD [address] [place] [address] PCP - General Internal Medicine 08/10/20 09/26/23 Terry Rasheed MD [address] [place] [address] PCP - General Internal Medicine 12/24/23 documented as of this encounter
--- OUTSIDE RECORDS SUMMARY | 2025-01-09 17:42 | XMS_ITS | Encounter Summary ---
Author Organization [employer] Address [address] [facility] [address] 7t [place] [address] Care Team Providers Care Collar Runner Name Role Phone Terry Rasheed MD Primary Care Prov ider Terry Rasheed MD Primary Care Prov ider Encounter Details Date Type Department Care Team (Late st Contact Info) Description 08/01/2023 Telephone [facility] MEDICINE [address] [place] [address] Terry Rasheed MD [address] [place], [place] [phone] Social History Tobacco Use Types Packs/Day Years [...] your housing situation today? I have brit sing 07/12/[address] you li [...] documented as of this encounter Care Teams Collar Runner Relationship Specialty Start Date End Date Terry Rasheed MD [address] [place] [address] PCP - General Internal Medicine 08/10/20 09/26/23 Terry Rasheed MD [address] [place] [address] PCP - General Internal Medicine 12/24/23 documented as of this encounter
--- OUTSIDE RECORDS SUMMARY | 2025-01-09 17:43 | XMS_ITS | Encounter Summary ---
Author Organization [employer] Address [address] [facility] 7t [place] [address] Care Team Providers Care Criminal Justice Social Worker Name Role Phone Terry Rasheed MD Primary Care Prov ider Terry Rasheed MD Primary Care Prov ider Reason for Visit * Reason Comments Med Refill Encounter Details Date Type Department Care Team ([facility] st Contact Info) Description 07/24/2022 Refill [facility] [address] [place], [place] [phone] Terry Rasheed MD [address] [place] [address] Social History Tobacco Use Types Packs/Day Years [...] documented as of this encounter Care Teams Criminal Justice Social Worker Relationship Specialty Start Date End Date Terry Rasheed MD [address] [place] [address] PCP - General Internal Medicine 08/10/20 09/26/23 Terry Rasheed MD [address] [place] [address] PCP - General Internal Medicine 12/24/23 documented as of this encounter
--- OUTSIDE RECORDS SUMMARY | 2025-01-09 17:43 | XMS_ITS | Encounter Summary ---
Author Organization [facility] Address [address] [place] [address] Care Team Providers Care Bakery Machine Mechanic Name Role Phone Terry Rasheed MD Primary Care Prov ider Encounter Details Date Type Department Care Team (Late st Contact Info) Description 07/28/2022 Orders Only [facility] Interventional Radiology [address] [place] [address] Jovani Shah MD [address] [place] [address] Social History Tobacco Use Types Packs/Day Years Used Date Smoking Tobacco: Never Smokeless Tobacco: Never Comments No Sex and Gender Information Value Date Recorded Sex Assigned at Female 04/16/2022 9:32 AM EST Legal Sex Female 10:22 AM EST Gender Identity Female 04/16/2022 9:32 AM EST Sexual Orientation Other 04/16/2022 9: 32 AM EST documented as of this encounter Plan of Treatment Upcoming Encounters Date Type Department Care Team (Late st Contact Info) Description 03/25/2025 2:40 PM EST Follow-Up [facility] Neph[facility] [address] [place], [place] [phone] Heater Engineer Helper: Arsalan Hercules MD [address] [place] [phone] 09/11/2025 1:45 PM EDT Appointment [facility] [address] [address] documented as of this encounter Visit Diagnoses Not on filedocumented in this encounter Care Teams Bakery Machine Mechanic Relationship Specialty Start Date End Date Terry Rasheed MD [address] [place] [address] PCP - General 05/10/20 documented as of this encounter
--- OUTSIDE RECORDS SUMMARY | 2025-01-09 17:43 | XMS_ITS | Encounter Summary ---
Author Organization [employer] Address [address] [facility] [address] 7[address] [place] [address] Care Team Providers Care Taker Out Name Role Phone Terry Rasheed MD Primary Care Prov ider Terry Rasheed MD Primary Care Prov ider Reason for Visit * Reason Onset Date Comments triage 09/18/2022 Encounter Details Date Type Department Care Team (Late st Contact Info) Description 09/18/2022 Telephone [facility] MEDICINE [address] [place] [address] Terry Rasheed MD [address] [place] [address] triage Social History Tobacco Use Types Packs/Day [...] from Pt, reports missed appt with Flores [facility] Director due to sleeping in. [...] No answer, LVM to return call to [facility]. Noticed pt has appt today with [facility] provider Flores Stewart, discussed with [...] documented as of this encounter Care Teams Taker Out Relationship Specialty Start Date End Date Terry Rasheed MD [address] [place] [address] PCP - General Internal Medicine 08/10/20 09/26/23 Terry Rasheed MD [address] [place] [address] PCP - General Internal Medicine 12/24/23 documented as of this encounter
--- OUTSIDE RECORDS SUMMARY | 2025-01-09 17:43 | XMS_ITS | Encounter Summary ---
Author Organization [employer] Address [address] [facility] [address] 7t [place] [address] Care Team Providers Care Director Project Management Name Role Phone Terry Rasheed MD Primary Care Prov ider Encounter Details Date Type Department Care Team (Latest Contact Info) Description 01/09/2025 Travel Social History Tobacco Use Types Packs/Day [...] as of this encounter Care Teams Director Project Management Relationship Specialty Start Date End Date Terry Rasheed MD [address] [place] [address] PCP - General Internal Medicine 12/24/23 documented as of this encounter
--- OUTSIDE RECORDS SUMMARY | 2025-01-09 17:43 | XMS_ITS | Encounter Summary ---
Author Organization [employer] Address [address] [facility] 7t [place] [address] Care Team Providers Care Process Architect Name Role Phone Terry Rasheed MD Primary Care Prov ider Reason for Visit * Reason Onset Date Comments Nurse Triage 08/04/2024 Encounter Details Date Type Department Care Team ([facility] st Contact Info) Description 08/04/2024 Telephone [facility] MEDICINE [address] [place] [address] Terry Rasheed MD [address] [place] [address] Nurse Triage Social History Tobacco Use Types [...] voice mail. Left voice message to call [facility] [phone] when available. * Telephone Encounter - Vega [...] documented as of this encounter Care Teams Process Architect Relationship Specialty Start Date End Date Terry Rasheed MD [address] [place] [address] PCP - General Internal Medicine 12/24/23 documented as of this encounter
--- OUTSIDE RECORDS SUMMARY | 2025-01-09 17:43 | XMS_ITS | Encounter Summary ---
Author Organization [employer] Address [address] [facility] 7 [place] [address] Care Team Providers Care Fiber Locking Supervisor Name Role Phone Terry Rasheed MD Primary Care Prov ider Encounter Details Date Type Department Care Team ([facility] st Contact Info) Description 12/12/2024 Orders Only [facility] CH[facility] MED & PEDS [address] [place], [place] [phone] Terry Rasheed MD [address] [place] [address] Acute insomnia Social History Tobacco Use Types Packs/Day Years [...] housing situation today? I have britsiddhartha rush 08/13/[address] you [...] as of this encounter Visit Diagnoses Diagnosis Acute insomnia documented in this encounter Additional Health Concerns Assessment Noted Time PHQ-9 Depression Total Score: 2 12/03/19 25 8:46 AM EDT documented as of this encounter Care Teams Fiber Locking Supervisor Relationship Specialty Start Date End Date Terry Rasheed MD [address] [place] [address] PCP - General Internal Medicine 12/24/23 documented as of this encounter
--- OUTSIDE RECORDS SUMMARY | 2025-01-09 17:43 | XMS_ITS | Encounter Summary ---
Author Organization [employer] Address [address] [facility] [address] 7[address] [place] [address] Care Team Providers Care Potato Bucker Name Role Phone Terry Rasheed MD Primary Care Prov ider Encounter Details Date Type Department Care Team (Late st Contact Info) Description 01/09/2025 Telephone [facility] MEDICINE [address] [place] [address] Nancy Prasad, SUDHEER Social History Tobacco Use Types Packs/Day Years [...] encounter Miscellaneous Notes * Telephone Encounter - Nancy Prasad RN - 01/09/2025 2:30 PM EDT Tc to pt via BLS ID: [id number] per Loretta León NP Hi - please schedule pt for BP check in person at [facility], eran . No answer, lvm to return call and ask tos peak to [place] nurses. * Telephone Encounter - Nancy Prasad RN - 01/09/2025 2:19 PM EDT ----- Message from Loretta León sent at 01/09/2025 12:20 PM EDT ----- Hi - please schedule pt for BP check in person at [facility], thanks documented in this encounter Plan of Treatment Not on file documented as of this encounter Visit Diagnoses Not on filedocumented in this encounter Additional Health Concerns Assessment Noted Time PHQ-9 Depression Total Score: 2 12/03/19 25 8:46 AM EDT documented as of this encounter Care Teams Potato Bucker Relationship Specialty Start Date End Date Terry Rasheed MD [address] [place] [address] PCP - General Internal Medicine 12/24/23 documented as of this encounter
--- OUTSIDE RECORDS SUMMARY | 2025-01-09 17:43 | XMS_ITS | Clinical Summary ---
Author Organization [facility] Address [address] [place] [address] Care Team Providers Care Oem Sales Manager Name Role Phone Terry Rasheed MD Primary Care Prov ider Allergies Active Allergy Reactions Criticality Noted Date Comments Latex Rash 12/23/2021 Medications labetaloL (NORMODYNE) 200 mg tablet TAKE ONE TABLET EVERY TWELVE HOURS 0 Active fluticasone propionate (FLONASE) 50 mcg/actuation nasal spray Administer 2 sprays into each nostril daily as needed. 2 Active ergocalciferol (VITAMIN D2) 1,250 mcg (50,000 unit) capsule Take 50,000 Units by mouth once a week. 2 Active albuterol (PROAIR HFA,VENTOLIN HFA) 90 mcg inhaler inhale 2 puff by inhalation route every 4 - 6 hours as needed for cough, wheeze, sob 1 Active amLODIPine (NORVASC) 10 mg tablet Take 5 mg by mouth once a day. 2 Active hydrOXYzine HCL (ATARAX) 25 mg tablet Take 25 mg by mouth every 6 hours as needed. 4 Active losartan (COZAAR) 100 mg tablet Take 100 mg by mouth daily. 4 02/05/20 25 Active NIFEdipine XL (PROCARDIA XL) 30 mg tablet Take 30 mg by mouth daily. 4 02/20/20 25 Active omega-3 acid ethyl esters (LOVAZA) 1 gram capsule Take 1 g by mouth 2 times daily. 4 03/05/20 25 Active PARoxetine (PAXIL) 20 mg tablet Take 20 mg by mouth every evening. 4 02/05/20 25 Active PARoxetine (PAXIL) 40 mg tablet Take 40 mg by mouth every morning. Total of 60 mg daily 4 Active escitalopram (LEXAPRO) 10 mg tablet Take 10 mg by mouth daily. 5 Active hydroCHLOROthia zide (HYDRODIURIL) 25 mg tablet Take 1 tablet (25 mg total) by mouth once a day. 30 tablet 11 5 09/25/19 26 Active Hospital, Clinic, or Other Facility Administered Medication Ordered Dose Route Frequency Start Date End Date Status sulfamethoxazole-trimethop rim (BACTRIM DS) 800-160 mg tablet 1 tablet 1 tablet oral Once 08/13/2023 Active lidocaine (XYLOCAINE) 2% (20 mg/mL) urojet jelly 10 mL 10 mL urethral Once 08/13/2023 Active Active Problems Problem Noted Date Diagnosed Date Essential hypertension 01/05/2020 Assessment & Plan (05/10/2020 5:54 PM EST): We will continue on current regimen. Also started on HCTZ which will also help with her nephrolithiasis. Assessment & Plan (01/05/2020 6:00 PM EDT): The patient will check her bp weekly: once in am upon waking and once at bedtime. Nephrolithiasis 09/15/2019 Assessment & Plan (12/27/2020 10:23 PM EDT): Repeat stone risk profile shows high urine [...] urine calcium and BP. Assessment & Plan (05/10/2020 5:54 PM EST): Risk factors for her renal stone, as per the Litholink test, are low citrate and high oxalate concentration in the urine, although her urine volume was adequate of around 3 L. Her PTH levels and calcium and phosphorus levels are within normal limits. We will increase her potassium citrate to 3 times daily with food, to minimize the GI side effects. She is already compliant with her fluid intake. We will also start her on HCTZ which will help with her blood pressure control as well. Plan to continue on Flomax. We will schedule up another Litholink test in 6 weeks once her acute renal colic episode is resolved. Assessment & Plan (01/05/2020 5:59 PM EDT): Litholink is significant for low urinary citrate (only 320). Her urinary oxalate was moderately elevated at 39. Urinary volume was excellent at 3L. I am starting potassium citrate 10 meq tid with food. I will check renal panel today. I will repeat Litholink in 6 weeks. Assessment & Plan (09/15/2019 4:00 PM EDT): Recurrent nephrolithiasis. I requested a copy of recent ultrasound to assess the stone burden. We will go ahead with a 24 hr urine collection (Litholink) for stone risk. She will most likely need two such collections. Based on results I will order additional work up, which may include serum parathyroid hormone level and renal panel. Family History Medical History Relation Name Comments Breast cancer Neg Hx Social History Tobacco Use Types Packs/Day Years Used Date Smoking Tobacco: Never Smokeless Tobacco: Never Tobacco Cessation:Counseling Given: Not Answered Comments No Sex and Gender Information Value Date Recorded Sex Assigned at Female 04/16/2022 9:32 AM EST Legal Sex Female 10:22 AM EST Gender Identity Female 04/16/2022 9:32 AM EST Sexual Orientation Other 04/16/2022 9: 32 AM EST Last Filed Vital Signs Vital Sign Reading Time Taken Comments Blood Pressure 140/74 09/24/2024 2:10 PM EDT Pulse 106 09/24/2024 2:10 PM EDT Temperature 36.6 C (97.9 F) 07/03/2022 3:26 PM EST Respiratory Rate 17 07/04/2021 12:56 PM EST Oxygen Saturation 99% 09/24/2024 2:10 PM EDT Inhaled Oxygen Concentration - - Weight 77.1 kg (170 lb) 09/24/2024 2:10 PM EDT Height 165.1 cm (5' 5 ) 09/24/2024 2:10 PM EDT Body Mass Index 28.29 09/24/2024 2:10 PM EDT Plan of Treatment Upcoming Encounters Date Type Department Care Team (Late st Contact Info) Description 03/25/2025 2:40 PM EST Follow-Up [facility] [address] [place] [address] [phone] Gaming Worker: Arsalan Hercules MD [address] [place] [address] [phone] 09/11/2025 1:45 PM EDT Appointment [facility] Mammography [address] [place] [address], [place] [address] [address] Health Maintenance Due Date Last Done Comments Cologuard 1979 Colonoscopy 1979 HIV Screening 1979 HPV and Pap Smear 1979 Hepatitis C Screening 1979 Sigmoidoscopy 1979 Varicella Vaccines (1 of 2 - 13+ 2-dose series) 09/26/1992 Hepatitis B Vaccines (1 of 3 - 19+ 3-dose series) 09/26/1998 Pneumococcal Vaccine: Pediat jayleen (0-5 Years) and At-Risk Patients (6-50 Years) (1 of 2 - PCV) 09/26/1998 Alcohol/Substance Use Screening 05/07/2024 Depression Screening and Follow-Up 05/07/2024 Social Drivers of Health Aretha ual Screening 05/07/2024 Cervical Cancer Screening 08/25/2024 Pap Smear 08/25/2024 08/25/2021, 12/18/2019 COVID-19 Vaccine ( - 2023-2 5 season) 2025 Influenza Vaccine (#1) 2025 3, 06/30/2021, 03/11/2020, Additional history exists Basic Metabolic Panel 09/15/2025 09/15/2024 , 06/17/2024, 02/25/2024, Additional history exists Colon Cancer Screening 09/15/2025 FOBT / Fit Test 09/15/2025 09/15/2024, 05/23/2022 Mammogram 09/05/2026 09/05/2024, 02/0 12/2023, 06/14/2023 Diabetes Screening 09/16/2027 09/15/2024, 0 06/17/2024, 02/25/2024, Additional history exists DTaP,Tdap,and Td Vaccines (2 - Td or Tdap) 06/26/2028 06/26/2018 RSV Vaccine (60+ years old a nd patients) (1 - 1-dose 75+ series) 09/26/2054 Procedures * Due to [place] [employer] law, this organization might not be sharing negative HIV tests. Procedure Name Priority Date/Time Associated Diagnosis Comments TRAM BILATERAL SCREENING DIGITAL MAMMOGRAM WITH RICH Routine 09/05/2024 2:10 PM EDT Breast cancer screening by mammogram PAP Routine 08/25/2021 9:37 AM EDT Cervical cancer screening RENAL FUNCTION PANEL Routine 01/05/2020 2:36 PM EDT Nephrolithiasis from Last 3 Months or Most Recently Relevant to Health Maintenance Results * Due to [place] [employer] law, this organization might not be sharing negative HIV tests. * TRAM Bilateral Screening Digital Mammogram With Rich (09/05/2024 2:10 PM EDT) Anatomical Region Laterality Modality Breast Bilateral Mammography Narrative 09/22/2024 2:34 PM EDT Exam Date: 09/05/[address], [address] [place], [place] [address] EXAMINATION TRAM Bilateral Screening Digital Mammogram With Rich. INDICATION Vonda Morrison is a 43 y.o. female and is seen for: TRAM Bilateral Screening Digital Mammogram With Rich. CC and MLO views were obtained. FDA approved [employer] AI (artificial intelligence) software and R2 CAD were used as a concurrent reading aid in the interpretation of this study. COMPARISON Compared to: 06/14/2023 [facility] Bilateral Screening Digital Mammogram With Rich Bilateral Breast Findings: The breasts are heterogeneously dense, which may obscure small masses. No significant masses, calcifications or other abnormalities are seen. IMPRESSION BI-RADS ATLAS category (overall): 1 - Negative MANAGEMENT Routine Screening Mammogram in 1 Year is recommended for bilateral. The patient was entered into a reminder system with a subsequent mammography target date. The patient s lifetime risk for breast cancer was calculated as: Tyrer-Cuzick: 12.12%. For high-risk women (life-time risk greater than 20%), regardless of breast density, supplemental screening with annual breast MRI is recommended in addition to annual mammography, ideally staggered at 6-month intervals. Women with dense breast tissue and lifetime risk less than 20% may also benefit from supplemental screening with breast MRI ([employer] order M RI BREAST BILATERAL SCREENING W WO CONTRAST ) or automated breast ultrasound ([employer] order A BUS ) depending on risk factors. https://acsearch.acr.org/docs/8765248/Narrative/ TC score is not calculated for women with personal history of breast cancer or if age >80 years. If this radiology report contains a blank impression section, it is an incomplete radiology report. Please contact the interpreting radiologist or applicable radiology division as soon as possible to obtain the completed interpretation. Ricco Gupta MD Resulting Agency Comment [id number] Terry Gaytan MD IM BI PROCEDURES Final Result * Pap (08/25/2021 9:37 AM EDT) Specimen Adequacy Satisfactory for evaluation [facility] MANUAL 2 2:00 PM EDT [facility] Pathologist Cytology Interpretation Negative for intraepithelial lesion or malignancy. [facility] MANUAL 2 2:00 PM EDT [facility] at 1359 EDT Comment:This is the result o f a morphological screening test with an inherent possibility of a false negative interpretation. Rig Supervisor Statement This Pap test was examined by the ThinPrep Imaging System, [employer], [place], [place]. This Pap test was examined in accordance with the [facility] Cytopathology Laboratory written policy, which incorporates all CLIA mandates. Current screening guidelines can be found in [place]: A Cancer Journal for Clinicians 2020;70:321-346. Current ASCCP management guidelines for abnormal Pap tests are published in the Journal Lower Genital Tract Disease Volume 2020;24:102-131. [facility] MANUAL 2 2:00 PM EDT [facility] Clinical History screening [facility] 2 2:00 PM EDT [facility] Report Header Gynecologic Cytology Report Case: [id number] Authorizing Provider: Coby Rubio Collected: 08/25/2021 0937 Ordering Location: [facility] Received: 08/25/[address] [place] [address] Obstetrics and Gynecology First Screen: Andres Walker Pathologist: Nixon Mckeon MD Specimen: Screening ThinPrep Pap, Cervix/Endocervix 2 2:00 PM EDT [employer] [facility] Brushing Cervix uteri structure / Unknown Non-Blood Collection / Unknown 08/25/2021 9:37 AM EDT 08/25/2021 10:40 AM EDT us Coby Rubio MD LAB PATHOLOGY/CYTOLOGY ORDERA BLES Final Result [facility] [address] [place] [address], * (ABNORMAL) Renal Function Panel (01/05/2020 2:36 PM EDT) NA 139 135 - 145 mmol/L 01/05/2020 3:11 PM EDT [facility] [employer] K 3.6 3.5 - 5.3 mmol/L 01/05/2020 3:11 PM EDT [facility] Cl 107 97 - 110 mmol/L 01/05/2020 3:11 PM EDT [facility] [facility] CO2 24 24 - 32 mmol/L 01/05/2020 3:11 PM EDT [facility] Anion Gap 8 5 - 15 01/05/2020 3:11 PM EDT [facility] Glucose 114(H) 70 - 99 mg/dL 01/05/2020 3:11 PM EDT [facility] [employer] BUN 9 7 - 23 mg/dL 01/05/2020 3:11 PM EDT [facility] Creatinine 0.60 0.50 - 1.20 mg/dL 01/05/2020 3:11 PM EDT [facility] eGFR Non- >90 >=90 mL/min/BSA 01/05/2020 3:11 PM EDT [facility] [facility] eGFR >90 >=90 mL/min/BSA 01/05/2020 3:11 PM EDT [facility] Comment: Units = mL/min/1.73 m2 Glomerular Filtration Rate (GFR) is estimated based on the CKD-EPI Creatinine Equation (2009). Stage Description GFR 1 Normal >=90 mL/min/BSA 2 Mildly decreased GFR 60-89 mL/min/BSA 3 Moderately decreased GFR 30-59 mL/min/BSA 4 Severely decreased GFR 15-29 mL/min/BSA 5 Kidney Failure <15 mL/min/BSA Calcium 9.4 8.7 - 10.7 mg/dL 01/05/2020 3:11 PM EDT [facility] Phosphorus 3.2 2.5 - 4.5 mg/dL 01/05/2020 3:11 PM EDT [facility] [employer] Albumin 4.8 3.5 - 4.8 g/dL 01/05/2020 3:11 PM EDT [facility] Blood Structure of peripheral vein / Unknown Venipuncture / Unknown 01/05/2020 2:36 PM EDT 01/05/2020 2:44 PM EDT us Arsalan Torres MD LAB BLOOD ORDERABLES Final Result [facility] [employer] [address] from Last 3 Months or Most Recently Relevant to Health Maintenance Insurance [place] Care Teams Oem Sales Manager Relationship Specialty Start Date End Date Terry Rasheed MD [address] [place] [id number] PCP - General 05/10/20
--- OUTSIDE RECORDS SUMMARY | 2025-01-09 17:43 | XMS_ITS | Clinical Summary ---
Author Organization [facility] Address [address] [place] [address] Care Team Providers Care Coal Cager Name Role Phone Unavailable Primary Care Provider [...] Cervical Cancer Screening: P ap Smear 09/26/2000 Colorectal Cancer Screening: Colonoscopy 11/28/2023 HIV Screening 11/28/2023 Hepatitis C Screening 11/28/2023 Social Influencers of Health Screening 11/28/2023 Depression Screening 05/07/2024 COVID-19 Vaccine ( - 2023-2 5 season) 2025 Influenza Vaccine (#1) 2025 HIB Vaccines Aged Out No longer [...] 5 Years) and At-Risk Patients (6 to 49 Years) Aged Out No longer eligible b ased on patient's age to complete this topic RSV Immunization Patients Un ketty 20 months Aged Out No longer eligible b ased on patient's age to complete this topic Varicella Vaccines Aged Out No longer eligible based on patient's age to complete this topic
--- OUTSIDE RECORDS SUMMARY | 2025-01-09 17:43 | XMS_ITS | Encounter Summary ---
Author Organization [employer] Address [address] [facility] 7 [place] [address] Care Team Providers Care Electromechanic Name Role Phone Terry Rasheed MD Primary Care Prov ider Encounter Details Date Type Department Care Team ([facility] st Contact Info) Description 12/17/2024 Telephone [facility] PEDS [address] [place], [place] [phone] Terry Rasheed MD [address] [place] [address] Social History Tobacco Use Types Packs/Day Years [...] documented as of this encounter Care Teams Electromechanic Relationship Specialty Start Date End Date Terry Rasheed MD [address] [place] [phone] PCP - General Internal Medicine 12/24/23 documented as of this encounter
--- OUTSIDE RECORDS SUMMARY | 2025-01-09 17:43 | XMS_ITS | Encounter Summary ---
Author Organization [employer] Address [address] [facility] 7t [place] [address] Care Team Providers Care Polysomnographer Name Role Phone Terry Rasheed MD Primary Care Prov ider Terry Rasheed MD Primary Care Prov ider Reason for Visit * Reason Comments Med Refill Encounter Details Date Type Department Care Team ([facility] st Contact Info) Description 01/05/2023 Refill [facility] MED & PEDS [address] [place], [place] [phone] Terry Rasheed MD [address] [place] [address] Social History Tobacco Use Types Packs/Day Years [...] documented as of this encounter Care Teams Polysomnographer Relationship Specialty Start Date End Date Terry Rasheed MD [address] [place] [address] PCP - General Internal Medicine 08/10/20 09/26/23 Terry Rasheed MD [address] [place] [address] PCP - General Internal Medicine 12/24/23 documented as of this encounter
--- OUTSIDE RECORDS SUMMARY | 2025-01-09 17:44 | XMS_ITS | Encounter Summary ---
Author Organization [facility] Address [address] [place] [address] Care Team Providers Care Market Researcher Name Role Phone Terry Rasheed MD Primary Care Prov ider Reason for Visit * Reason Onset Date Comments Cancel Procedure tomorrow 08/28/2022 Encounter Details Date Type Department Care Team (Late st Contact Info) Description 08/28/2022 Telephone [facility] Central Scheduling Department [address] [place] [address] [place], Annalise Camp MD [address] [place] [address] Cancel Procedure tomorrow Social History Tobacco Use Types Packs/Day Years Used Date Smoking Tobacco: Never Smokeless Tobacco: Never Comments No Sex and Gender Information Value Date Recorded Sex Assigned at Female 04/16/2022 9:32 AM EST Legal Sex Female 10:22 AM EST Gender Identity Female 04/16/2022 9:32 AM EST Sexual Orientation Other 04/16/2022 9: 32 AM EST documented as of this encounter Miscellaneous Notes * Telephone Encounter - Nivia Valenzuela - 08/28/2022 11:12 AM EDT Carlene took care of this * Telephone Encounter - Tanja Austin - 08/28/2022 10:46 AM EDT Pt called states she has something of urgency and is unable to make the procedure/surgery appt for tomorrow 08/29 Please call pt with a Market Development Analyst at [phone] documented in this encounter Plan of Treatment Upcoming Encounters Date Type Department Care Team (Late st Contact Info) Description 03/25/2025 2:40 PM EST Follow-Up [facility] [address] [place] [address] [phone] Airway Traffic Controller: Arsalan Hercules MD [address] [place] [address] [phone] 09/11/2025 1:45 PM EDT Appointment [facility] Mammography [address] [facility], [place] [address] [address] documented as of this encounter Visit Diagnoses Not on filedocumented in this encounter Care Teams Market Researcher Relationship Specialty Start Date End Date Terry Rasheed MD [address] [place] [id number] PCP - General 05/10/20 documented as of this encounter
[2025-01-09 20:49] LABS: Bacterial Vaginosis PCR NEGATIVE (Negative); Candida Group PCR NOT DETECTED (Not Detect); Candida glab krusei PCR NOT DETECTED (Not Detect); Trichomonas vaginalis PCR NOT DETECTED (Not Detect)
[2025-01-09 21:25] LABS: CT PCR NOT DETECTED (Not Detect.); NG PCR NOT DETECTED (Not Detect.)
== END 2025-01-09 17:40 | disposition home or self-care (01) ==
LOC: HO.HHCLNP 17:39
PROVIDERS: Visit Provider Nurse Practitioner Primary Care
DX: Z11.3 Encounter for screening for infections with a predominantly sexual mode of transmission (principal); Z11.8 Encounter for screening for other infectious and parasitic diseases; Z11.2 Encounter for screening for other bacterial diseases; R30.0 Dysuria
CPT/HCPCS: 81515; 87086; 87147; 87491; 87591

== ENCOUNTER 2025-01-20 06:16 | Day surgery (SDC) | payer OTHER, SELFPAY ==
--- OUTSIDE RECORDS SUMMARY | 2025-01-09 11:00 | XMS_ITS | Encounter Summary ---
Author Organization [employer] Address [address] [facility] [address] [place] [address] Care Team Providers Care Hand Tool Filer Name Role Phone Terry Rasheed MD Primary Care Prov ider Reason for Referral * Consultation (Routine) - Closed Specialty Diagnoses / Procedures Referred By Contac t Referred To Contact Obstetrics and Gynecology Diagnoses Family planning Loretta León ANP [address] [place] [address] Phone: tel: fax: [address] Phone: tel: fax: Referral ID Status Reason Start Date Expiration Date V isits Requested Visits Authorized [id number] Closed Specialty Services Required 01/09/2025 01/09/2026 1 1 * Imaging (Routine) - Authorized Specialty Diagnoses / Procedures Referred By Contac t Referred To Contact Radiology Diagnoses Pelvic pain Procedures US Pelvis Transvaginal Loretta León ANP [address] [place] [address] Phone: tel: fax: [facility] [address] [place] [address] Phone: tel: fax: Referral ID Status Reason Start Date Expiration Date V isits Requested Visits Authorized [id number] Authorized 01/09/2025 01/09/2026 1 1 * Imaging (Routine) - Authorized Specialty Diagnoses / Procedures Referred By Contac t Referred To Contact Radiology Diagnoses Pelvic pain Procedures Us Pelvis complete Loretta León ANP [address] [place] [address] Phone: tel: fax: [address] Phone: tel: fax: Referral ID Status Reason Start Date Expiration Date V isits Requested Visits Authorized [id number] Authorized 01/09/2025 01/09/2026 1 1 * Imaging (Routine) - Authorized Specialty Diagnoses / Procedures Referred By Contac t Referred To Contact Radiology Diagnoses Breast pain, left Procedures BI US Breast Limited Left Loretta León ANP [address] [place] [address] Phone: tel: fax: [address] Phone: tel: fax: Referral ID Status Reason Start Date Expiration Date V isits Requested Visits Authorized [id number] Authorized 01/09/2025 01/09/2026 1 1 * Imaging (Routine) - Authorized Specialty Diagnoses / Procedures Referred By Contac t Referred To Contact Radiology Diagnoses Breast pain, left Procedures BI Mammogram Diagnostic Tomosynthesis Bilateral Loretta León ANP [address] [place] [address] Phone: tel: fax: [address] Phone: tel: fax: Referral ID Status Reason Start Date Expiration Date V isits Requested Visits Authorized [id number] Authorized 01/09/2025 01/09/2026 1 1 Reason for Visit * Reason Comments Vaginal Pain Urinary Problem Breast Pain Encounter Details Date Type Department Care Team (Late st Contact Info) Description 01/09/2025 11:00 AM EDT Office Visit [facility] [address] [place] [address] Loretta León ANP [address] [place] [address] Breast pain, left (Primary Dx); Dysuria; Family planning; Pelvic pain; Missed menses; Primary hypertension Social History Tobacco Use Types Packs/Day Years Used Date Smoking Tobacco: Never Passive Smoke Exposure: Never Smokeless Tobacco: Never Alcohol Use Standard Drinks/Week Comments Never 0 (1 standard drink = 0.6 oz pur e alcohol) Depression Answer Date Recorded Patient Health Questionnaire-9 Score 2 12/02/2024 Patient Health Questionnaire-9 Score 2 12/02/2024 Last PHQ-9: Questionnaire Data Not on file 0 12/02/2024 Housing Stability Answer Date Recorded What is [...] Date Recorded Patient Health Questionnaire-2 Score 2 12/02/2024 Internet Access Answer Date Recorded Internet Access [...] Sign Reading Time Taken Comments Blood Pressure 160/98 01/09/2025 11:46 AM EDT Pulse 70 01/09/2025 10:47 AM EDT Temperature 36.7 C (98 F) 01/09/2025 10:47 AM EDT Respiratory Rate 18 01/09/2025 10:47 AM EDT Oxygen Saturation 98% 01/09/2025 10:47 AM EDT Inhaled Oxygen Concentration - - Weight 76.8 kg (169 lb 6.4 oz) 01/09/2025 10:47 AM EDT Height - - Body Mass Index 28.19 11/11/2024 3:56 PM EDT documented in this encounter Progress Notes * JEIMY Willis - 01/09/2025 11:00 AM EDT Images from the original note were not included. Subjective Patient ID: Vonda Madrigal is a 44 y.o. female who presents for Vaginal Pain,Urinary Problem, and Breast Pain. HPI PMH incl PTSD, [place], HTN, h/o gestational DM and HTN, depression, kidney stones TODAY: reports having vaginal/pelvic pain, sometimes strong, but mostly just dull and constant x 3 weeks. Having cramp like abd pain. LMP 11/15/24. Having white vaginal discharge. Occasional vaginal itching. Was scheduled for tubal in 2022 but did not get d/t IPV at that time. Would still like to pursue. Has h/o PCOS, has had irregular menses in past d/t same. L breast pain and swelling: x 3 weeks. Urinary sx: vaginal pain, urinary sx, UA w/ +blood in urine (has h/o kidney stones) Uses condoms. Would like BTL. HTN: meds incl nifedipine XR 60mg daily, losartan 100mg daily, labetalol 200mg BID Was to start hydrochlorothiazide from nephrology in 5/21/25 per their last note Didn't take meds yet today (took during appt) Urinary sx: vaginal pain, urinary sx, UA w/ +blood in urine (has h/o kidney stones) Pap Done at [facility] on 08/2021 NILM/HPV HR other positive, has prior LSIL pap smear Mammo 09/05/24 BIRADS1 Pankajprashant CHEEMA provided Zambian interpretation. Review of Systems Constitutional: Negative for chills and fever. HENT: Negative for sore throat. Respiratory: Negative for cough and shortness of breath. Cardiovascular: Negative for chest pain. Gastrointestinal: Negative for constipation and diarrhea. Endocrine: Negative for polydipsia, polyphagia and polyuria. Genitourinary: Positive for pelvic pain. Negative for difficulty urinating, dysuria and flank pain. Late menses Neurological: Negative for weakness. Psychiatric/Behavioral: The patient is not nervous/anxious. Objective BP (!) 160/98 (BP Location: Right arm, Patient Position: Sitting, BP Cuff Size: Large adult) Pulse 70 Temp 98 ??F (36.7 ??C) (Temporal) Resp 18 Wt 169 lb 6.4 oz (76.8 kg) SpO2 98% BMI 28.19 kg/m?? Physical Exam Exam conducted with a lean consultant present (Evonne Jovel RN). Constitutional: General: She is not in acute distress. Appearance: Normal appearance. She is not ill-appearing. HENT: Head: Normocephalic and atraumatic. Eyes: General: No scleral icterus. Extraocular Movements: Extraocular movements intact. Pupils: Pupils are equal, round, and reactive to light. Cardiovascular: Rate and Rhythm: Normal rate and regular rhythm. Pulmonary: Effort: Pulmonary effort is normal. No accessory muscle usage or respiratory distress. Chest: Breasts: Breasts are symmetrical. Right: Normal. No inverted nipple, nipple discharge, skin change or tenderness. Left: No swelling. Comments: area of thickening deep to L areola, same area very tender to palpate Lymphadenopathy: Upper Body: Right upper body: No supraclavicular, axillary or pectoral adenopathy. Left upper body: No supraclavicular, axillary or pectoral adenopathy. Neurological: Mental Status: She is alert and oriented to person, place, and time. Psychiatric: Mood and Affect: Mood normal. Behavior: Behavior normal. Assessment/Plan Diagnoses and all orders for this visit: Breast pain, left Comments: area of thickening on exam deep to L areola. Ibuprofen for pain TID and check imaging below. PT says area was also there on US 9 mos ago but I cannot yet locate this in chart. Did review mammo from 09/2024. Orders: - BI Mammogram Diagnostic Tomosynthesis Bilateral; Future - BI US Breast Limited Left; Future - ibuprofen 600 MG tablet; Take 1 tablet (600 mg) by mouth every 8 (eight) hours if needed for moderate pain for up to 10 days. Dysuria Sent out for cx, NG/CT/BV panel. Trace blo. - POCT urinalysis dipstick manually resulted - Bacterial Vaginosis Panel - Chlamydia/N. Gonorrhoeae RNA, TMA, Vaginal - Culture, Urine, Routine Family planning Would like BTL - Referral to Obstetrics / Gynecology; Future Pelvic pain Comments: US and TVUS, vaginal swabs, tx pending results Orders: - Us Pelvis complete; Future - US Pelvis Transvaginal; Future - POCT , urine manually resulted Missed menses Comments: Urine Hcg neg Primary hypertension BP mildly improved on repeat. Previously at goal w/ current meds, cautiously rx'ing ibuprofen for pain and so long as BP controlled can cont. Will ask PCP team to schedule BP check. documented in this encounter Plan of Treatment Scheduled Orders Name Type Priority Associated Diagnoses Orde r Schedule BI Mammogram Diagnostic Tomosynthesis Bilateral Imaging Routine Breast pain, left Expected: 01/09/2025, Expires: 03/11/2026 BI US Breast Limited Left Imaging Routine Breast pain, left Expected: 01/09/2025, Expires: 01/09/2026 Us Pelvis complete Imaging Routine Pelvic pain Expected: 01/09/2025, Expires: 01/09/2026 US Pelvis Transvaginal Imaging Routine Pelvic pain Expected: 01/09/2025, Expires: 01/09/2026 Scheduled Referrals Name Type Priority Associated Diagnoses Order Schedule Referral to Obstetrics / Gynecology Outpatient Referral Routine Family planning Expected: 01/09/2025 (Approximate), Expires: 01/09/2026 documented as of this encounter Procedures Procedure Name Priority Date/Time Associated Diagnosis Comments POCT , URINE Routine 01/09/2025 3:40 PM EDT Pelvic pain BACTERIAL VAGINOSIS PANEL Routine 01/09/2025 11:35 AM EDT Dysuria CHLAMYDIA/N. GONORRHOEAE RNA, TMA, UROGENITAL Routine 01/09/2025 11:35 AM EDT Dysuria CULTURE, URINE, ROUTINE Routine 01/09/2025 11:35 AM EDT Dysuria POCT URINALYSIS DIPSTICK Routine 01/09/2025 11:34 AM EDT Dysuria documented in this encounter Results * POCT , urine manually resulted (01/09/2025 3:40 PM EDT) Preg Test, Ur Negative Negative, Indeterminate, None Detected, Invalid, Specimen unsatisfactory for evaluation, Weakly Positive, 2+ Urine 01/09/2025 3:40 PM EDT us Loretta MUNSON POINT OF CARE TEST ENTER/EDIT OR DERABLES Final Result * Culture, Urine, Routine (01/09/2025 11:35 AM EDT) Urine Urine specimen obtained by clean catch procedure / Unknown 01/09/2025 11:35 AM EDT 01/09/2025 5:41 PM EDT Comment:UACC Narrative [facility] - 01/11/2025 1:32 PM EDT Strep agalactiae (Grp B) Quant 10,000 to 50,000 cfu/mL Susc N/A Susceptibility not routinely performed on this isolate. Specimen Source: Urine clean catch us Loretta MUNSON LAB MICROBIOLOGY - GENERAL ORDER MERYL Final Result [facility] [address] [place] [phone] * Chlamydia/N. Gonorrhoeae RNA, TMA, Vaginal (01/09/2025 11:35 AM EDT) CT PCR NOT DETECTED Not Detect. [facility] Comment:A not detected test result does not exclude the possibilityof infection because test results can be affected byimproper specimen collection, concurrent antibiotic therapy,or the number of organisms in the specimen which may bebelow the sensitivity of the test. As with many diagnostictests, results from the Xpert CT/NG assay should beinterpreted in conjunction with other laboratory andclinical data available to the clinician.Xpert CT/NG performance has not been evaluated in patientsless than 14 years of age. The assay should not be used forthe evaluationof suspected sexual abuse or for other medico-legalindications. Additional testing is recommended in anycircumstance when false positive or false negative resultscould lead to adverse medical, social or psychologicalconsequences. NG PCR NOT DETECTED Not Detect. [facility] Comment:A not detected test result does not exclude the possibilityof infection because test results can be affected byimproper specimen collection, concurrent antibiotic therapy,or the number of organisms in the specimen which may bebelow the sensitivity of the test. As with many diagnostictests, results from the Xpert CT/NG assay should beinterpreted in conjunction with other laboratory andclinical data available to the clinician.Xpert CT/NG performance has not been evaluated in patientsless than 14 years of age. The assay should not be used forthe evaluationof suspected sexual abuse or for other medico-legalindications. Additional testing is recommended in anycircumstance when false positive or false negative resultscould lead to adverse medical, social or psychologicalconsequences. Swab (Vaginal Swab) 01/09/2025 11:35 AM EDT 01/09/2025 5:41 PM EDT Loretta León [facility] MICROBIOLOGY - GENERAL ORDER MERYL Final Result [facility] [address] [place] [phone] * Bacterial Vaginosis Panel (01/09/2025 11:35 AM EDT) TRICHOMONAS VAGINALIS DETECTION BY PCR NOT DETECTED Not Detect [facility] BACTERIAL VAGINOSIS DETECTION BY PCR NEGATIVE Negative [facility] Comment:The BV organism targ ets of the Xpert Xpress MVP test can becommensal in women; Xpert Xpress MVP positive results forbacterial vaginosis should be considered in conjunction withother clinical and patient information to determine thedisease status. Organisms that are not detected by the XpertXpress MVP test have also been reported to be associatedwith BV and aerobic vaginitis.The Xpert Xpress MVP test performance has not been evaluatedin patients under the age of 14. SHERRY GROUP DETECTION BY PCR NOT DETECTED Not Detect [facility] Sherry glab krusei PCR NOT DETECTED Not Detect [facility] Swab Vaginal structure / Unknown 01/09/2025 11:35 AM EDT 01/09/2025 5:41 PM EDT us Loretta MUNSON LAB MICROBIOLOGY - GENERAL ORDER MERYL Final Result [facility] [address] [place] [phone] * (ABNORMAL) POCT urinalysis dipstick manually resulted (01/09/2025 11:34 AM EDT) Color, UA Yellow Clarity, UA Clear Glucose, UA Negative Bilirubin, UA Negative Ketones, UA Negative Spec Grav, UA 1.015 Blood, UA Positive(A) Negative, None Detected Comment:Small pH, UA 6.5 Protein, UA Negative Urobilinogen, UA 0.2 Leukocytes, UA Negative Negative, Rare, Trace Nitrite, UA Negative Negative, None Detected Urine 01/09/2025 11:3 4 AM EDT us Loretta León ANP POINT OF CARE TEST ENTER/EDIT OR DERABLES Final Result documented in this encounter Visit Diagnoses Diagnosis Breast pain, left- Primary Dysuria Family planning Other general counseling and advice for contraceptive management Pelvic pain Missed menses Primary hypertension Unspecified essential hypertension documented in this encounter Additional Health Concerns Assessment Noted Time PHQ-9 Depression Total Score: 2 12/03/19 25 8:46 AM EDT documented as of this encounter Care Teams Hand Tool Filer Relationship Specialty Start Date End Date Terry Rasheed MD [address] [place] [address] PCP - General Internal Medicine 12/24/23 documented as of this encounter
--- OUTSIDE RECORDS SUMMARY | 2025-01-14 18:17 | XMS_ITS | Encounter Summary ---
Author Organization [employer] Address [address] [facility] 7t [place] [address] Care Team Providers Care Rug Designer Name Role Phone Terry Rasheed MD Primary Care Prov ider Terry Rasheed MD Primary Care Prov ider Reason for Visit * Reason Onset Date Comments Referral 07/18/2023 Encounter Details Date Type Department Care Team (Late st Contact Info) Description 07/18/2023 Telephone [facility] MEDICINE [address] [place] [address] Terry Rasheed MD [address] [place] [address] Referral Social History Tobacco Use Types Packs/Day [...] referral : DATE: N/A TIME: N/A Address: [address] [place] [address] [place] [address] Visits: N/A Facility Name: [facility] Urology center Type of Specialist: Urologist DX: Kidney Pain Phone #: [phone] Fax #: [phone] documented in this encounter Plan of Treatment Not on file documented as of this encounter Visit Diagnoses Not on filedocumented in this encounter Additional Health Concerns Assessment Noted Time PHQ-9 Depression Total Score: 0 05/28/19 24 9:00 AM EST documented as of this encounter Care Teams Rug Designer Relationship Specialty Start Date End Date Terry Rasheed MD [address] [facility] [address] PCP - General Internal Medicine 08/10/20 09/26/23 Terry Rasheed MD [address] [place] [address] PCP - General Internal Medicine 12/24/23 documented as of this encounter
--- OUTSIDE RECORDS SUMMARY | 2025-01-14 18:17 | XMS_ITS | Encounter Summary ---
Author Organization [employer] Address [address] [facility] 7 [place] [address] Care Team Providers Care Grade Teacher Name Role Phone Terry Rasheed MD Primary Care Prov ider Terry Rasheed MD Primary Care Prov ider Reason for Visit * Reason Onset Date Comments ER Follow-up 07/31/2023 Encounter Details Date Type Department Care Team ([facility] st Contact Info) Description 07/31/2023 Telephone [facility] MED & PEDS [address] [place], [place] [phone] Terry Rasheed MD [address] [place], [place] [phone] ER Follow-up Social History Tobacco Use Types [...] EDT Fax request for notes, sent to [facility] as requested. * Telephone Encounter - Marti [...] patient to seek care and eval in [facility] if she is feeling unwell enough to go back to work or needs further care thisweek or has persistence/worsening of symptoms. She expressed understanding. Scheduled for televisitf/u with PCP for 08/06/23 @ 10:15am. No other concerns or questions at this time. [facility]. Patient calling to report ED visit on [...] documented as of this encounter Care Teams Grade Teacher Relationship Specialty Start Date End Date Terry Rasheed MD [address] [place] [address] PCP - General Internal Medicine 08/10/20 09/26/23 Terry Rasheed MD [address] [place] [address] PCP - General Internal Medicine 12/24/23 documented as of this encounter
--- OUTSIDE RECORDS SUMMARY | 2025-01-14 18:17 | XMS_ITS | Encounter Summary ---
Author Organization [employer] Address [address] [facility] [address] 7[address] [place] [address] Care Team Providers Care Fixture Builder Name Role Phone Terry Rasheed MD Primary Care Prov ider Encounter Details Date Type Department Care Team ([facility] st Contact Info) Description 01/13/2025 Results Follow-Up [facility] MED[facility]INE [address] [place] [address] Loretta León, ANP [address] [place] [address] POCT urinalysis dipstick manually resulted, Bacterial Vaginosis Panel, Chlamydia/N. 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 ----- Message from Loretta León sent at 01/13/2025 4:59 PM EDT ----- Hi - please let pt know, urine culture resulted, am sending antibiotic to take BID with food for 5d. Vaginal testing negative. ----- Message ----- From: Pankaj Arellano MA Sent: 01/09/2025 11:35 AM EDT To: JEIMY Willis * Result Encounter Note - JEIMY Willis - 01/13/2025 4:59 PM EDT Hi - please let pt know, urine culture resulted, am sending antibiotic to take BID with food for 5d. Vaginal testing negative. documented in this encounter Plan of Treatment Not on file documented as of this encounter Visit Diagnoses Diagnosis Acute cystitis with hematuria- Primary documented in this encounter Additional Health Concerns Assessment Noted Time PHQ-9 Depression Total Score: 2 12/03/19 25 8:46 AM EDT documented as of this encounter Care Teams Fixture Builder Relationship Specialty Start Date End Date Terry Rasheed MD [address] [place] [address] PCP - General Internal Medicine 12/24/23 documented as of this encounter
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
--- OUTSIDE RECORDS SUMMARY | 2025-01-14 18:17 | XMS_ITS | Encounter Summary ---
Author Organization [employer] Address [address] 7t [place] [address] Care Team Providers Care Warehouse Engineer Name Role Phone Terry Rasheed MD Primary Care Prov ider Reason for Visit * Reason Onset Date Comments Nurse Triage 08/04/2024 Encounter Details Date Type Department Care Team ([facility] st Contact Info) Description 08/04/2024 Telephone [facility] MEDICINE [address] [place] [address] Terry Rasheed MD [address] [place] [address] Nurse Triage Social History Tobacco Use Types [...] voice mail. Left voice message to call [facility] [phone] when available. * Telephone Encounter - Vega [...] documented as of this encounter Care Teams Warehouse Engineer Relationship Specialty Start Date End Date Terry Rasheed MD [address] [place] [address] PCP - General Internal Medicine 12/24/23 documented as of this encounter
--- OUTSIDE RECORDS SUMMARY | 2025-01-14 18:17 | XMS_ITS | Encounter Summary ---
Author Organization [employer] [facility] Address [address] [facility] 7t [place] [address] Care Team Providers Care [employer] Executive Director Name Role Phone Terry Rasheed MD Primary Care Prov ider Terry Rasheed MD Primary Care Prov ider Encounter Details Date Type Department Care Team (Latest Contact Info) Description 09/24/[address] [facility] CONVERSIONS Dental, Provider, DDS Social History [...] on filedocumented in this encounter Care Teams [employer] Executive Director Relationship Specialty Start Date End Date Terry Rasheed MD [address] [place] [address] PCP - General Internal Medicine 08/10/20 09/26/23 Terry Rasheed MD [address] [place] [address] PCP - General Internal Medicine 12/24/23 documented as of this encounter
--- OUTSIDE RECORDS SUMMARY | 2025-01-14 18:17 | XMS_ITS | Encounter Summary ---
Author Organization [employer] Address [address] [facility] [address] [place] [address] Care Team Providers Care Cytotechnologist/Histotechnologist Name Role Phone Terry Rasheed MD Primary Care Prov ider Terry Rasheed MD Primary Care Prov ider Reason for Visit * Reason Comments Med Refill Encounter Details Date Type Department Care Team ([facility] st Contact Info) Description 01/05/2023 Refill [facility] [address] [place], [place] [phone] Terry Rasheed MD [address] [place] [address] Social History Tobacco Use Types Packs/Day Years [...] documented as of this encounter Care Teams Cytotechnologist/Histotechnologist Relationship Specialty Start Date End Date Terry Rasheed MD [address] [place] [address] PCP - General Internal Medicine 08/10/20 09/26/23 Terry Rasheed MD [address] [place] [address] PCP - General Internal Medicine 12/24/23 documented as of this encounter
--- OUTSIDE RECORDS SUMMARY | 2025-01-14 18:17 | XMS_ITS | Encounter Summary ---
Author Organization [facility] Address [address] [place] [address] Care Team Providers Care Flying Shear Operator Name Role Phone Terry Rasheed MD Primary Care Prov ider Encounter Details Date Type Department Care Team (Late st Contact Info) Description 07/28/2022 Orders Only [facility] Interventional Radiology [address] [place] [address] Jovani Shah MD [address] [place] [phone] Social History Tobacco Use Types Packs/Day Years [...] Info) Description 03/25/2025 2:40 PM EST Follow-Up [facility]ph[facility] [address] [place], [place] [phone] Manager Science: Arsalan Hercules MD [address] [place] [address] [phone] 09/11/2025 1:45 PM EDT Appointment [facility]amm[facility] [address] [facility] [address] [address] documented as of this encounter Visit Diagnoses Not on filedocumented in this encounter Care Teams Flying Shear Operator Relationship Specialty Start Date End Date Terry Rasheed MD [address] [place] [phone] PCP - General 05/10/20 documented as of this encounter
--- OUTSIDE RECORDS SUMMARY | 2025-01-14 18:17 | XMS_ITS | Encounter Summary ---
Author Organization [employer] Address [address] [facility] 7t [place] [address] Care Team Providers Care Professional Skater Name Role Phone Terry Rasheed MD Primary Care Prov ider Encounter Details Date Type Department Care Team ([facility] st Contact Info) Description 09/22/2024 Orders Only [facility] [address] [place] [address] Provider, MD Dolly Social History Tobacco Use [...] documented as of this encounter Care Teams Professional Skater Relationship Specialty Start Date End Date Terry Rasheed MD [address] [place] [phone] PCP - General Internal Medicine 12/24/23 documented as of this encounter
--- OUTSIDE RECORDS SUMMARY | 2025-01-14 18:17 | XMS_ITS | Encounter Summary ---
Author Organization [employer] Address [address] [facility] [address]t [place] [address] Care Team Providers Care Online Merchandising Manager Name Role Phone Terry Rasheed MD Primary Care Prov ider Reason for Visit * Reason Comments Med Refill Encounter Details Date Type Department Care Team ([facility] st Contact Info) Description 11/09/2023 Refill [facility] [address] [place], [place] [phone] Terry Rasheed MD [address] [place] [address] Social History Tobacco Use Types Packs/Day Years [...] documented as of this encounter Care Teams Online Merchandising Manager Relationship Specialty Start Date End Date Terry Rasheed MD [address] [place] [phone] PCP - General Internal Medicine 12/24/23 documented as of this encounter
--- OUTSIDE RECORDS SUMMARY | 2025-01-14 18:17 | XMS_ITS | Encounter Summary ---
Author Organization [employer] Address [address] [place] [address] Care Team Providers Care Email Engineer Name Role Phone Terry Rasheed MD Primary Care Prov ider Terry Rasheed MD Primary Care Prov ider Reason for Visit * Reason Onset Date Comments triage 09/18/2022 Encounter Details Date Type Department Care Team (Late st Contact Info) Description 09/18/2022 Telephone [facility] MEDICINE [address] [place] [address] Terry Rasheed MD [address] [place] [address] triage Social History Tobacco Use Types Packs/Day [...] from Pt, reports missed appt with Flores [facility] Director due to sleeping in. Per pt [...] No answer, LVM to return call to [facility]. Noticed pt has appt today with [facility] provider Flores Stewart, discussed with her and [...] documented as of this encounter Care Teams Email Engineer Relationship Specialty Start Date End Date Terry Rasheed MD [address] [place] [address] PCP - General Internal Medicine 08/10/20 09/26/23 Terry Rasheed MD [address] [place] [address] PCP - General Internal Medicine 12/24/23 documented as of this encounter
--- OUTSIDE RECORDS SUMMARY | 2025-01-14 18:17 | XMS_ITS | Encounter Summary ---
Author Organization [email or web address] Address [address] [facility] 7t [place] [address] Care Team Providers Care Management Lead Name Role Phone Terry Rasheed MD Primary Care Prov ider Terry Rasheed MD Primary Care Prov ider Reason for Visit * Reason Comments Med Refill Encounter Details Date Type Department Care Team ([facility] st Contact Info) Description 07/24/2022 Refill [facility] [address] [place], [place] [phone] Terry Rasheed MD [address] [place] [address] Social History Tobacco Use Types Packs/Day Years [...] documented as of this encounter Care Teams Management Lead Relationship Specialty Start Date End Date Terry Rasheed MD [address] [place] [address] PCP - General Internal Medicine 08/10/20 09/26/23 Terry Rasheed MD [address] [place] [address] PCP - General Internal Medicine 12/24/23 documented as of this encounter
--- OUTSIDE RECORDS SUMMARY | 2025-01-14 18:17 | XMS_ITS | Encounter Summary ---
Author Organization [employer] Address [address] [place] [address] Care Team Providers Care Emergency Department Director Name Role Phone Terry Rasheed MD Primary Care Prov ider Terry Rasheed MD Primary Care Prov ider Encounter Details Date Type Department Care Team (Late st Contact Info) Description 08/01/2023 Telephone [facility] MEDICINE [address] [place] [address] Terry Rasheed MD [address] [place], [place] [phone] Social History Tobacco Use Types Packs/Day Years [...] documented as of this encounter Care Teams Emergency Department Director Relationship Specialty Start Date End Date Terry Rasheed MD [address] [place] [address] PCP - General Internal Medicine 08/10/20 09/26/23 Terry Rasheed MD [address] [place] [address] PCP - General Internal Medicine 12/24/23 documented as of this encounter
--- OUTSIDE RECORDS SUMMARY | 2025-01-14 18:18 | XMS_ITS | Encounter Summary ---
Author Organization [employer] Address [address] [place] [address] Care Team Providers Care Tattoo Technician Name Role Phone Terry Rasheed MD Primary Care Prov ider Encounter Details Date Type Department Care Team (Late st Contact Info) Description 01/09/2025 Telephone [facility] [address] [place] [address] Nancy Prasad, SUDHEER Social History Tobacco Use [...] Tc to pt via BLS ID: [id number] per Loretta León NP Hi - please schedule pt for BP check in person at [facility], eran . No answer, lvm to return call and ask tos peak to [place] nurses. * Telephone Encounter - Nancy Prasad RN - 01/09/2025 2:19 PM EDT ----- Message from Loretta León sent at 01/09/2025 12:20 PM EDT ----- Hi - please schedule pt for BP check in person at [facility], thanks documented in this encounter Plan of Treatment Not on file documented as of this encounter Visit Diagnoses Not on filedocumented in this encounter Additional Health Concerns Assessment Noted Time PHQ-9 Depression Total Score: 2 12/03/19 25 8:46 AM EDT documented as of this encounter Care Teams Tattoo Technician Relationship Specialty Start Date End Date Terry Rasheed MD [address] [place] [address] PCP - General Internal Medicine 12/24/23 documented as of this encounter
--- OUTSIDE RECORDS SUMMARY | 2025-01-14 18:18 | XMS_ITS | Clinical Summary ---
Author Organization [facility] Address [address] [place] [address] Care Team Providers Care Catalogue Illustrator Name Role Phone Unavailable Primary Care Provider [...]
--- OUTSIDE RECORDS SUMMARY | 2025-01-14 18:18 | XMS_ITS | Clinical Summary ---
Author Organization [facility] Address [address] [place] [address] Care Team Providers Care Adult Care Manager Name Role Phone Terry Rasheed MD [...] Info) Description 03/25/2025 2:40 PM EST Follow-Up [facility] [address] [place] [address] [phone] Principal Archaeologist: Arsalan Hercules MD [address] [place] [address] [phone] 09/11/2025 1:45 PM EDT Appointment [facility] Mammography [address] [place] [address], [place] [address] [address] Health Maintenance Due Date Last Done Comments [...] 75+ series) 09/26/2054 Procedures * Due to [place] Parcel law, this organization might not be sharing [...] to Health Maintenance Results * Due to [place] Parcel law, this organization might not be sharing negative HIV tests. * TRAM Bilateral Screening Digital Mammogram With Rich (09/05/2024 2:10 PM EDT) Anatomical Region Laterality Modality Breast Bilateral Mammography Narrative 09/22/2024 2:34 PM EDT Exam Date: 09/05/[address], [address] [place], [place] [address] EXAMINATION TRAM Bilateral Screening Digital Mammogram With Rich. INDICATION Vonda Morrison is a 43 y.o. female and is seen for: TRAM Bilateral Screening Digital Mammogram With Rich. CC and MLO views were obtained. FDA approved [employer] AI (artificial intelligence) software and R2 CAD were used as a concurrent reading aid in the interpretation of this study. COMPARISON Compared to: 06/14/2023 [facility] Bilateral Screening Digital Mammogram With Rich Bilateral [...] benefit from supplemental screening with breast MRI ([employer] order M RI BREAST BILATERAL SCREENING W WO CONTRAST ) or automated breast ultrasound ([employer] order A BUS ) depending on risk factors. https://acsearch.acr.org/docs/2833648/Narrative/ TC score is not calculated for women with personal history of breast cancer or if age >80 years. If this radiology report contains a blank impression section, it is an incomplete radiology report. Please contact the interpreting radiologist or applicable radiology division as soon as possible to obtain the completed interpretation. Ricco Gupta MD Resulting Agency Comment [id number] Terry Gaytan MD IM BI PROCEDURES Final Result * Pap (08/25/2021 9:37 AM EDT) Specimen Adequacy Satisfactory for evaluation [facility] MANUAL 2 2:00 PM EDT [facility] Pathologist Cytology Interpretation Negative for intraepithelial lesion or malignancy. [facility]UAL 2 2:00 PM EDT [facility] at 1359 EDT Comment:This is the result o f a morphological screening test with an inherent possibility of a false negative interpretation. Fiber Worker Statement This Pap test was examined by the Thin[facility] Imaging System, [employer], [place], [place]. This Pap test was examined in accordance with the [facility] Cytopathology Laboratory written policy, which incorporates all CLIA mandates. Current screening guidelines can be found in [place]: A Cancer Journal for Clinicians 2020;70:321-346. Current ASCCP management guidelines for abnormal Pap tests are published in the Journal Lower Genital Tract Disease Volume 2020;24:102-131. [facility]UAL 2 2:00 PM EDT [facility] Clinical History screening [facility] 2 2:00 PM EDT [facility] Report Header Gynecologic Cytology Report Case: [id number] Authorizing Provider: Coby Rubio Collected: 08/25/2021 0937 Ordering Location: [facility] Received: 08/25/[address] [place] [address] Obstetrics and Gynecology First Screen: Andres Walker Pathologist: Nixon Mckeon MD Specimen: Screening ThinPrep Pap, Cervix/Endocervix 2 2:00 PM EDT [facility] Brushing Cervix uteri structure / Unknown Non-Blood Collection / Unknown 08/25/2021 9:37 AM EDT 08/25/2021 10:40 AM EDT us Coby Rubio MD LAB PATHOLOGY/CYTOLOGY ORDERA BLES Final Result [facility] [address] [place] [address], * (ABNORMAL) Renal Function Panel (01/05/2020 2:36 PM EDT) NA 139 135 - 145 mmol/L 01/05/2020 3:11 PM EDT [facility] K 3.6 3.5 - 5.3 mmol/L 01/05/2020 3:11 PM EDT [facility] Cl 107 97 - 110 mmol/L 01/05/2020 3:11 PM EDT [facility] CO2 24 24 - 32 mmol/L 01/05/2020 3:11 PM EDT [facility] Anion Gap 8 5 - 15 01/05/2020 3:11 PM EDT [facility] Glucose 114(H) 70 - 99 mg/dL 01/05/2020 3:11 PM EDT [facility] BUN 9 7 - 23 mg/dL 01/05/2020 3:11 PM EDT [facility] Creatinine 0.60 0.50 - 1.20 mg/dL 01/05/2020 3:11 PM EDT [facility] eGFR Non- >90 >=90 mL/min/BSA 01/05/2020 3:11 PM EDT [facility] eGFR >90 >=90 mL/min/BSA 01/05/2020 3:11 PM EDT [facility] Comment: Units = mL/min/1.73 m2 Glomerular Filtration Rate (GFR) is estimated based on the CKD-EPI Creatinine Equation (2009). Stage Description GFR 1 Normal >=90 mL/min/BSA 2 Mildly decreased GFR 60-89 mL/min/BSA 3 Moderately decreased GFR 30-59 mL/min/BSA 4 Severely decreased GFR 15-29 mL/min/BSA 5 Kidney Failure <15 mL/min/BSA Calcium 9.4 8.7 - 10.7 mg/dL 01/05/2020 3:11 PM EDT [facility] Phosphorus 3.2 2.5 - 4.5 mg/dL 01/05/2020 3:11 PM EDT [facility] Albumin 4.8 3.5 - 4.8 g/dL 01/05/2020 3:11 PM EDT [facility] Blood Structure of peripheral vein / Unknown Venipuncture / Unknown 01/05/2020 2:36 PM EDT 01/05/2020 2:44 PM EDT us Arsalan Torres MD LAB BLOOD ORDERABLES Final Result [facility] [address] from Last 3 Months or Most Recently Relevant to Health Maintenance Insurance [place] Care Teams Adult Care Manager Relationship Specialty Start Date End Date Terry Rasheed MD [address] [place] [phone] PCP - General 05/10/20
--- OUTSIDE RECORDS SUMMARY | 2025-01-14 18:18 | XMS_ITS | Encounter Summary ---
Author Organization [facility] Address [address] [place] [address] Care Team Providers Care Director Talent Acquisition Name Role Phone Terry Rasheed MD Primary Care Prov ider Reason for Visit * Reason Onset Date Comments Cancel Procedure tomorrow 08/28/2022 Encounter Details Date Type Department Care Team (Late st Contact Info) Description 08/28/2022 Telephone [facility] Central Scheduling Department [address] [place] [address] [place], Annalise Camp MD [address] [place] [address] Cancel Procedure tomorrow Social History Tobacco Use [...] tomorrow 08/29 Please call pt with a Machinist Bench at [phone] documented in this encounter Plan of Treatment Upcoming Encounters Date Type Department Care Team (Late st Contact Info) Description 03/25/2025 2:40 PM EST Follow-Up [facility]- [facility] [address] [place] [address] [phone] Regulatory Affairs Consultant: Arsalan Hercules MD [address] [place] [address] [phone] 09/11/2025 1:[address] [facility] Mammography [address] [facility], [address]. [place] [address] documented as of this encounter Visit Diagnoses Not on filedocumented in this encounter Care Teams Director Talent Acquisition Relationship Specialty Start Date End Date Terry Rasheed MD [address] [place] [phone] PCP - General 05/10/20 documented as of this encounter
--- OUTSIDE RECORDS SUMMARY | 2025-01-14 18:18 | XMS_ITS | Encounter Summary ---
Author Organization [employer] Address [address] 7[address] [place] [address] Care Team Providers Care Baker Apprentice Name Role Phone Terry Rasheed MD Primary [...] documented as of this encounter Care Teams Baker Apprentice Relationship Specialty Start Date End Date Terry Rasheed MD [address] [place] [phone] PCP - General Internal Medicine 12/24/23 documented as of this encounter
--- OUTSIDE RECORDS SUMMARY | 2025-01-14 18:18 | XMS_ITS | Encounter Summary ---
Author Organization [employer] Address [address] [facility] 7 [place] [address] Care Team Providers Care Jewel Bearing Broacher Name Role Phone Terry Rasheed MD Primary Care Prov ider Encounter Details Date Type Department Care Team ([facility] st Contact Info) Description 12/17/2024 Telephone [facility] [address] [place], [place] [phone] Terry Rasheed MD [address] [place] [address] Social History Tobacco Use Types Packs/Day Years [...] documented as of this encounter Care Teams Jewel Bearing Broacher Relationship Specialty Start Date End Date Terry Rasheed MD [address] [place] [phone] PCP - General Internal Medicine 12/24/23 documented as of this encounter
--- OUTSIDE RECORDS SUMMARY | 2025-01-14 18:18 | XMS_ITS | Encounter Summary ---
Author Organization [employer] Address [address] [facility] 7 [place] [address] Care Team Providers Care Hazardous Substances Scientist Name Role Phone Terry Rasheed MD Primary Care Prov ider Encounter Details Date Type Department Care Team ([facility] st Contact Info) Description 12/12/2024 Orders Only [facility] [address] [place], [place] [phone] Terry Rasheed MD [address] [place] [address] Acute insomnia Social History Tobacco Use Types [...] documented as of this encounter Care Teams Hazardous Substances Scientist Relationship Specialty Start Date End Date Terry Rasheed MD [address] [place] [phone] PCP - General Internal Medicine 12/24/23 documented as of this encounter
--- NOTE | 2025-01-19 10:04 | P.CONAN_ITS ---
Documented by User: Katherine Rondon NP 01/19/25 10:05 HPI - Anesthesia Eval Consult details Narrative: 44yo F for Upper Endoscopy and Colonoscopy [facility] Active Problems Active Problems: All Active Problems Acid reflux (Acute) Elevated alkaline phosphatase level (Acute) Colon cancer screening (Acute) Change in stool (Acute) HTN (hypertension) (Acute) Diabetes (Acute) Past Medical History Medical History (Updated 11/03/24 @ 00:01 by Background Daemon) Acid reflux Elevated alkaline phosphatase level Colon cancer screening Change in stool delivery delivered Multiple births, some liveborn Miscarriage Diabetes HTN (hypertension) Kidney stone Family History Family History (Updated 09/09/24 @ 11:18 by Mckenzie Garcia) Mother HTN (hypertension) Diabetes Father HTN (hypertension) Disease of colon Paternal Uncle Colon cancer Paternal Uncle Colon cancer Paternal Aunt Breast CA Paternal Aunt Breast CA Surgical History Surgical History (Updated 09/09/24 @ 11:14 by Mckenzie Garcia) Hx of section Social History Social History Alcohol intake: former Patient Tobacco Use Status: Never used Tobacco Use of substances other than those prescribed or required for medical reasons: No Are you DNR?: No Advance Directives: No Advance Directives Information Provided: Yes : No Poor oral hygiene: No Meds Allergies Allergy/AdvReac Type Severity Reaction Status Date / Time latex Allergy Hives Verified 11/01/24 21:52 Exam Pertinent Lab Results Pertinent Lab Results: Laboratory Tests 09/15/24 09:53 WBC 7.6 Hgb 12.2 Hct 37.6 Plt Count 311 Sodium 137 Potassium 4.3 Chloride 104 Carbon Dioxide 24 BUN 10 Creatinine 0.67 Assessment and Plan Assessment Anesthesia Assessment: Chart Reviewed Documented by User: Arian Batres MD 01/20/25 07:15 PMFSH Past Medical History Medical History (Updated 11/03/24 @ 00:01 by Background Daemon) Acid reflux Elevated alkaline phosphatase level Colon cancer screening Change in stool delivery delivered Multiple births, some liveborn Miscarriage Diabetes HTN (hypertension) Kidney stone Functional capacity: independent ambulation Family History Family History (Updated 09/09/24 @ 11:18 by Mckenzie Garcia) Mother HTN (hypertension) Diabetes Father HTN (hypertension) Disease of colon Paternal Uncle Colon cancer Paternal Uncle Colon cancer Paternal Aunt Breast CA Paternal Aunt Breast CA Family history of problems with anesthesia: No Surgical History Surgical History (Updated 09/09/24 @ 11:14 by Mckenzie Garcia) Hx of section History of Problems with Anesthesia: No Social History Social History Alcohol intake: former Patient Tobacco Use Status: Never used Tobacco Use of substances other than those prescribed or required for medical reasons: No Are you DNR?: No Advance Directives: No Advance Directives Information Provided: Yes : No Poor oral hygiene: No Meds Allergies Allergy/AdvReac Type Severity Reaction Status Date / Time latex Allergy Hives Verified 11/01/24 21:52 Assessment and Plan Assessment Anesthesia Assessment: Anesthesia Plan Discussed Final Anesthetic Review Family History of Problems with Anesthesia: No History of Problems with Anesthesia: No NPO: Yes ASA Class: II Final Preanesthetic Review: No Changes in Pt Med Stat, Meds/Allgs Chart Reviewed, Consent Obtained/Reviewed and Anes Risks/Benef Reviewed Patient Risk: Low Procedure Risk: Low Anesthetic Plan Anesthetic Plan: MAC: Disposition: Standard PACU
[2025-01-20 06:40] VITALS: BMI 31.2
[2025-01-20 06:59] VITALS: BP 145/94; PULSE 70; RESP 16; TEMP 36.1; O2SAT 99
[2025-01-20 07:04] LABS: UPreg QC Valid YES
[2025-01-20] MEDS: Lactated Ringers 1,000 ML 100 ML IVCONT (07:08)
--- NOTE | 2025-01-20 07:47 | MHC.SHP ---
Pre-Procedural Eval Section A - 24 Hr Update-Section A only Date of Service: 01/20/25 Section B - Complete if H&P > 30 days Chief Complaint: melena,gerd,screening Details of Present Illness: Acid reflux Elevated alkaline phosphatase level Colon cancer screening Change in stool delivery delivered Multiple births, some liveborn Miscarriage Diabetes HTN (hypertension) Kidney stone Surgical History (Updated 09/09/24 @ 11:14 by Mckenzie Garcia) Hx of section Present Medications: see Short Stay Collaborative assessment Allergies: Allergies Allergy/AdvReac Type Severity Reaction Status Date / Time latex Allergy Hives Verified 11/01/24 21:52 Review of Systems Review of Systems Comment: 10 point ROS negative Exam Exam Comment: Gen appear: No acute distress HEENT: no icterus Chest: No overt resp distress Abd: soft, nontender, nondistended Psych: Stable affect, answering questions appropriately Neuro: A/Ox3 noted to move all extremities spontaneously Ext: no peripheral edema Plan Diagnosis/Plan: Unchanged I have reviewed the history and physical and performed a pertinent physical examination on my patient. No changes have occurred unless specified. Time Spent With Patient Time: Total time managing care of this patient today ____ minutes.
[2025-01-20 08:30] VITALS: BP 121/73; PULSE 70; RESP 16; TEMP 37.1; O2SAT 95
--- NOTE | 2025-01-20 08:39 | P.OPN-COLO_ITS ---
Colonoscopy Operative Note Operative Note Date of Service: 01/20/25 Narrative: Procedure: Upper endoscopy and colonoscopy Indication: GERD, change in bowel habits Endoscopist: Eliane Metcalf MD Anesthesia Provider: Dr Batres Anesthesia type: MAC Instrument: [id number] and [id number] EGD Procedure:?? The procedure, indications, preparation and potential complications were reviewed with the patient, who indicated understanding and gave written informed consent to proceed. The endoscope was introduced through the mouth, and advanced to the 2nd part of the duodenum. The mucosa was carefully examined on slow withdrawal of the endoscope. The patient tolerated the procedure well. There were no immediate complications.? EGD Findings:? * Esophagus:? Small erosions measuring 10 mm were noted extending from the GE junction, but not crossing the tops of the mucosal folds. The Z-line was at 31 cm, displaced by hiatal hernia with the diaphragmatic pinch at 34 cm. Cold forceps biopsies were taken from lower esophagus for histology. * Stomach:? Erythema in the body and antrum of the stomach with a healing ulcer in the antrum at 02:00. Cold forceps biopsies were taken from the edge of this ulcer. Retroflexion was performed in the cardia that showed Hill grade III hiatal hernia. Random cold forceps biopsies were taken from the stomach. * Duodenum:? Normal duodenal mucosa. Cold forceps biopsies were taken from the duodenal bulb and 2nd portion of the duodenum to rule out celiac sprue. Colonoscopy Procedure:? The patient was then turned for the colonoscopy. A digital rectal exam was performed which was normal.? A distal attachment cap was affixed to the tip of the scope and the colonoscope was then inserted through the anus and advanced through the colon and advanced to the cecum at 80 cm and terminal ileum.? Appendiceal orifice and ileocecal valve were identified. Mucosa was carefully examined under high definition white light as the instrument was slowly withdrawn in a retrograde panoramic fashion. Retroflexion was performed in rectum. The procedure was not difficult. The quality of the prep was BBPS: 3+2+2 = adequate Withdrawal time 9 minutes Limitations: No limitations Findings: Mucosa: Normal colon and terminal ileum mucosa. Cold forceps biopsies were taken right and left side of the colon to rule out microscopic colitis. Protruding lesions: * Medium internal hemorrhoids without stigmata of recent bleeding. Excavated lesions: * Diverticulosis in sigmoid colon with rare diverticula noted in the right colon. Impression: 1. Grade B esophagitis (biopsy) 2. Hiatal hernia 3. Gastritis (biopsy) 4. Antral ulcer (biopsy) 5. Normal duodenum (biopsy) 6. Normal colon and terminal ileum mucosa (biopsy) 7. Diverticulosis 8. Internal hemorrhoids Recommendations:?? * Follow-up path results * Avoid NSAIDs * Continue omeprazole twice a day x 8-12 weeks and then once daily * Patient recently prescribed H pylori treatment, however gastric biopsies taken on PPI therapy. Would recommend LEONARDO off PPI. * Repeat colonoscopy for CRC screening in 10 years.
[2025-01-20 08:45] VITALS: BP 128/78; PULSE 63; RESP 16; O2SAT 95
[2025-01-20 09:00] VITALS: BP 128/78; PULSE 66; RESP 16; O2SAT 100
[2025-01-20 09:15] VITALS: BP 143/88; PULSE 69; RESP 16; TEMP 36.9; O2SAT 100
[2025-01-20 09:28] VITALS: BP 160/90; PULSE 71; RESP 16; TEMP 36.3; O2SAT 100
== END 2025-01-20 10:00 | disposition home or self-care (01) ==
PROVIDERS: Nurse Practitioner; PCP Internal Medicine; Visit Provider Internal Medicine
PROC: (CPT 45380; principal; 2025-01-20 07:30)
DX: Z12.11 Encounter for screening for malignant neoplasm of colon (principal); K57.30 Diverticulosis of large intestine without perforation or abscess without bleeding; K64.8 Other hemorrhoids; K21.9 Gastro-esophageal reflux disease without esophagitis; K20.80 Other esophagitis without bleeding; K29.60 Other gastritis without bleeding; K25.9 Gastric ulcer, unspecified as acute or chronic, without hemorrhage or perforation; K44.9 Diaphragmatic hernia without obstruction or gangrene; E11.9 Type 2 diabetes mellitus without complications; I10 Essential (primary) hypertension; Z79.899 Other long term (current) drug therapy
CPT/HCPCS: 45380; 43239; 81025; 88305; 88342; J2003; J2704; J3010

== ENCOUNTER → 2025-01-20 06:16 | Outpatient (BNV) | payer OTHER, SELFPAY | PROVIDERS: PCP Internal Medicine; Visit Provider Internal Medicine | DX: K21.00 Gastro-esophageal reflux disease with esophagitis, without bleeding (principal); K29.70 Gastritis, unspecified, without bleeding; K25.9 Gastric ulcer, unspecified as acute or chronic, without hemorrhage or perforation; R19.4 Change in bowel habit; K57.90 Diverticulosis of intestine, part unspecified, without perforation or abscess without bleeding; K64.8 Other hemorrhoids | CPT/HCPCS: 43239; 45380 ==

== ENCOUNTER 2025-02-10 14:32 | Outpatient (AMB) | payer OTHER, SELFPAY ==
--- OUTSIDE RECORDS SUMMARY | 2024-10-06 08:00 | XMS_ITS ---
Author Organization [facility] Address [address] [place] [phone] Care Team Providers Care Magazine Editor Name Role Phone CHRIS TAPIA Unavailable [phone] REASON FOR VISIT lab only Social History Sex Assigned At : Social History Observation Description Sex Assigned At Female Encounters Encounter Location Date Provider Diagnosis [address] [phone] 06/2024 CHRIS TAPIA Plan Of Treatment No Information Progress Notes * Vonda QUEVEDODOB:1980 (44 yo F)Acc No.[id number]:10/06/2024 LAB Patient: Alia lucianVonda Romano Provider: Nicky TAPIA :1980 A ge:44 Y S ex:Female Date:10/06/2024 Address:[address] [place], [place] [phone] Subjective: * Chief Complaints: * L ab only * Electronic signature of GABO TAPIA CNM on 02/10/2025 at 12:18 PM EDT Sign off status: Pending * Provider: Nicky TAPIA Date: 0 10/06/2024 Generated for Andrew chowdhury/Nick/Anibal on: 1 12:18 PM EDT
--- NOTE | 2025-02-10 14:37 | MHC.OFFVIS ---
Vital Signs 02/10/25 14:41 Height 5 ft 3 in Weight 170 lb BMI 30.1 BP 147/82 H Blood Pressure Location Lt brachial Position Sitting Pulse 75 Intake Visit Reasons: follow up ab pain + stool changes Intake Note: Patient follow up for abdominal pain + stool changes, fecal and H pylori stool results. Patient denies any GI issues for today visit. Industrial Services Worker Required: Yes Industrial Services Worker Name: [facility] Interpeter Accompanied by: Self / Same As Patient Allergies latex Allergy (Verified 02/10/25 14:36) Hives Medication List - Last Reconciled 02/10/25 by Erika Greenwood CNP famotidine (Pepcid) 20 mg PO DAILY PRN methocarbamol 750 mg PO Q8H PRN omeprazole 20 mg PO BID ondansetron HCl 4 mg PO Q6H PRN prednisone 10 mg PO DAILY tamsulosin 0.4 mg PO DAILY HPI HPI follow up ab pain + stool changes: Details: Patient is a 43-year-old female with PMH of depression/anxiety, hypertension. F/u after EGD and colonoscopy from 01-20-25. Pt notes episodic abd pain localized to upper abd, sometimes associated with loose stools (type 6, 2-3x/wk), as well as otherwise normal bowel movements (type 4, daily). Abd pain improves following BM, correlated with certain dietary triggers (grease, sugar, yogurt). Intermittent, infrequent heartburn, trigger-dependent. Reports completion of prior H. pylori abx in October; had intolerance to one component but completed the regimen. Denies recent N/V. Pt reports compliance with current daily meds (prednisone, tamsulosin, omeprazole until present). No interval hospitalizations or acute GI flares noted. [facility] Medical History (Updated 02/10/25 @ 16:59 by Erika Greenwood CNP) Diverticulosis IBS (irritable bowel syndrome) Dysphagia Hiatal hernia Positive H. pylori test Acid reflux Elevated alkaline phosphatase level Colon cancer screening Change in stool delivery delivered Multiple births, some liveborn Miscarriage Diabetes HTN (hypertension) Kidney stone Surgical History Hx of section Family History Mother HTN (hypertension) Diabetes Father HTN (hypertension) Disease of colon Paternal Uncle Colon cancer Paternal Uncle Colon cancer Paternal Aunt Breast CA Paternal Aunt Breast CA Social History Alcohol intake: former Patient Tobacco Use Status: Never used Tobacco Review of Systems Const Reports as per HPI ENT Reports as per HPI Card Reports as per HPI Resp Reports as per HPI GI Reports as per HPI Reports as per HPI Physical Exam Vital Signs: Last Vital Signs Pulse 75 02/10/25 14:41 BP 147/82 H 02/10/25 14:41 BMI result Body Mass Index 30.1 Const General: healthy appearing, no acute distress and well developed Nutritional Appearance: average body habitus Orientation/consciousness: patient oriented x3 HEENT Head: Yes normal to inspection, Yes normocephalic and Yes atraumatic Face and sinus: Yes normal facial exam Eyes General: appearance normal, both eyes and all related structures Neck Neck: Yes normal visual inspection Resp Effort & Inspection: normal respiratory effort, able to speak in complete sentences, no tracheal deviation and symmetric chest movement Cardio Jugular venous distension: no JVD GI Inspection: Yes normal to inspection, No distended, Yes obesity and Yes striae Palpation (GI): Soft to palpation, not firm, nontender and No hepatosplenomegaly present Auscultation: normal bowel sounds Neuro General: patient oriented x3 Gait exam (Neuro): Normal gait present Psych Appearance: grossly normal Mental Status: mental status grossly normal Speech and movement: Normal speech and movement present Affect: normal affect Attitude: cooperative Thought process: Normal thought process present Thought content: Normal thought content present Insight: Good insight present (Psych) Judgement: Good judgement present (Psych) Assessment & Plan Assessment & Plan (1) Positive H. pylori test: Code(s): A04.8 - Other specified bacterial intestinal infections Category: Medical (2) Acid reflux: Comment: 01/20/25 Upper endoscopy-Hiatal hernia, gastritis, gastric ulcer, esophagitis Code(s): K21.9 - Gastro-esophageal reflux disease without esophagitis Category: Medical Qualifiers: Esophagitis presence: esophagitis presence not specified Qualified Code(s): K21.9 - Gastro-esophageal reflux disease without esophagitis Plan: Stable, ongoing mild/infrequent heartburn, persistent upper abd pain, pending H. pylori status. Will Need PPI hold x2 wks for accurate H. pylori testing; tx with sucralfate in interim for mucosal protection while off PPI. Additional Testing: - H. pylori breath test after PPI hold?confirm eradication - Barium swallow?further eval for dysphagia and size/function of hiatal hernia Medications: - Sucralfate 2x/day prn x2 weeks (timin hrs before/after other meds/food; avoid antacids within 30 min)?replace omeprazole during PPI hold - Omeprazole to resume post-H. pylori test, planned for min 8 wks (inflammation/ulcer healing), unless repeat H. pylori (+) Lifestyle Recommendations: - Continue to avoid triggers (sugar, yogurt, greasy foods) - Small meals, hydration, upright 2 hrs post-prandial Referrals / Coordination of Care: - Radiology?barium swallow - Consider General surgery referral only if severe/persistent sx despite standard management, or abnormal swallow findings Follow-Up Plan: - F/u in office post-barium swallow - Phone notification with H. pylori breath test results - Resume omeprazole after breath test unless further abx needed (3) IBS (irritable bowel syndrome): Comment: 01/20/25 colonoscopy complete with adequate prep- diverticulosis ( sigmoid), Medium internal hemorrhoids. Recommedations for repeat in 10 years ( 2034). Code(s): K58.9 - Irritable bowel syndrome, unspecified Category: Medical Qualifiers: Irritable bowel syndrome type: with diarrhea Qualified Code(s): K58.0 - Irritable bowel syndrome with diarrhea Plan: Intermittent sx, with dietary triggers, no red flag signs or significant recent functional decline. Sx responsive to dietary modification. Additional Testing: - None indicated if current pattern persists; monitor for new/worsening sx Medications: - No antidiarrheals or antispasmodics initiated at this time; dietary modification preferred Lifestyle Recommendations: - Identify/avoid food triggers, maintain regular fiber/fluid intake - Education on IBS and when to seek urgent eval (severe pain, fever, rectal bleeding) Referrals / Coordination of Care: - None at present Follow-Up Plan: - Reassess GI sx at next visit; patient to track frequency/severity (4) Diverticulosis: Code(s): K57.90 - Diverticulosis of intestine, part unspecified, without perforation or abscess without bleeding Category: Medical Plan: Stable, no sx suggestive of diverticulitis or hemorrhoidal flare. Preventive focus remains on bowel regularity Additional Testing: - None indicated Medications: - None initiated Lifestyle Recommendations: - Continue high fiber, hydrate, avoid straining - Constipation/diarrhea education provided Referrals / Coordination of Care: - None needed Follow-Up Plan: - Routine follow-up, business and financial counsel to report any pain, fever, hematochezia Plan Follow-up after barium swallow or sooner as needed Time: I spent a total of 34 minutes on the date of encounter which includes: Preparing to see the patient (reviewed previous documentation, test results and medical history) Performing a medically appropriate exam and/or evaluation Ordering medications, tests, and procedures Documenting clinical information in the health record Orders: Orders H Pylori Breath Test Today A04.8 - Other specified bacterial intestinal infections [place] barium swallow Today K21.9 - Gastro-esophageal reflux disease without esophagitis, K44.9 - Diaphragmatic hernia without obstruction or gangrene, R13.10 - Dysphagia, unspecified Medications: New sucralfate Take on tablet two times daily as needed. Take an empty stomach. Avoid antacids within 30 minutes. 1 g PO BID 90 tabs 1RF On Hold omeprazole Hold Comment: Doctor's Order 20 mg PO BID 28 tabs 0RF Coding Level of Care Code Established Pt Est Pt Level 3 (06334) Patient Type Established Diagnoses Positive H. pylori test A04.8 Gastroesophageal reflux disease, unspecified whether esophagitis present K21.9 Esophagitis presence: esophagitis presence not specified Irritable bowel syndrome with diarrhea K58.0 Irritable bowel syndrome type: with diarrhea Diverticulosis K57.90
[2025-02-10 14:41] VITALS: BP 147/82; PULSE 75; BMI 30.1
--- OUTSIDE RECORDS SUMMARY | 2025-02-10 14:45 | XMS_ITS | Encounter Summary ---
Author Organization [employer] Address [address] [place] [address] [place] [address] Care Team Providers Care Out Patient Therapist Name Role Phone Terry Rasheed MD Primary Care Prov ider Encounter Details Date Type Department Care Team ([facility] Contact Info) Description 02/10/2025 2:45 PM EDT Telemedicine [facility] MED & PEDS [address] [place], [place] [phone] Terry Rasheed MD [address] [place] [address] Primary hypertension (Primary Dx) Social History Tobacco Use Types Packs/Day Years [...] Sign Reading Time Taken Comments Blood Pressure 135/89 02/10/2025 2:26 PM EDT Pulse - - Temperature - - Respiratory Rate - - Oxygen Saturation - - Inhaled Oxygen Concentration - - Weight - - Height - - Body Mass Index - - documented in this encounter Progress Notes * Terry Gaytan MD - 02/10/2025 2:45 PM EDT Subjective Patient ID: Vonda Madrigal is a 44 y.o. female who presents for No chief [...] Addressed This Visit Hypertension - Primary Controlled, no chest pain/shortness of breath, no swelling reported, continue current medication, keep low sodium diet and exercise as tolerated. Follow up in 3 months, target <140/90 documented in this encounter Miscellaneous Notes * Assessment & Plan Note - Terry Gaytan MD - 02/10/2025 2:54 PM EDTAssociated Problem(s): Hypertension Controlled, no chest pain/shortness of breath, no swelling reported, continue current medication, keep low sodium diet and exercise as tolerated. Follow up in 3 months, target <140/90 documented in this encounter Plan of Treatment Upcoming Encounters Date Type Department Care Team (Late st Contact Info) Description 02/23/2025 9:30 AM EDT Clinical Support [facility] MEDICINE [address] [place] [phone] documented as of this encounter Visit Diagnoses Diagnosis Primary hypertension- Primary Unspecified essential hypertension documented in this encounter Additional Health Concerns Assessment Noted Time PHQ-9 Depression Total Score: 2 12/03/19 25 8:46 AM EDT documented as of this encounter Care Teams Out Patient Therapist Relationship Specialty Start Date End Date Terry Rasheed MD [address] [place] [id number] PCP - General Internal Medicine 12/24/23 documented as of this encounter
--- OUTSIDE RECORDS SUMMARY | 2025-02-10 17:53 | XMS_ITS | Encounter Summary ---
Author Organization [facility] Address [address] [place] [address] Care Team Providers Care Lumber Estimator Name Role Phone Terry Rasheed MD Primary Care Prov ider Encounter Details Date Type Department Care Team (Late st Contact Info) Description 07/28/2022 Orders Only [facility] Interventional Radiology [address] [place] [address] Jovani Shah MD [address] [place] [phone] Social History Tobacco Use Types Packs/Day Years [...] 03/25/2025 2:40 PM EST Follow-Up [facility] Nephrology Clinic [address] [place], [place] [phone] Variety Saw Operator: Arsalan Hercules MD [address] [place] [phone] 09/11/2025 1:45 PM EDT Appointment [facility] [address] [place] [address] documented as of this encounter Visit Diagnoses Not on filedocumented in this encounter Care Teams Lumber Estimator Relationship Specialty Start Date End Date Terry Rasheed MD [address] [place] [phone] PCP - General 05/10/20 documented as of this encounter
--- OUTSIDE RECORDS SUMMARY | 2025-02-10 17:53 | XMS_ITS | Encounter Summary ---
Author Organization [employer] Address [address] [place] [address] [place] [address] Care Team Providers Care Studio Technician Video Operator Name Role Phone Terry Rasheed MD Primary Care Prov ider Terry Rasheed MD Primary Care Prov ider Reason for Visit * Reason Onset Date Comments ER Follow-up 07/31/2023 Encounter Details Date Type Department Care Team ([facility] st Contact Info) Description 07/31/2023 Telephone [facility] MED & PEDS [address] [place], [place] [phone] Terry Rasheed MD [address] [place] [address] ER Follow-up Social History Tobacco Use Types [...] EDT Fax request for notes, sent to [facility] as requested. * Telephone Encounter - [...] patient to seek care and eval in [facility] if she is feeling unwell enough to go back to work or needs further care thisweek or has persistence/worsening of symptoms. She expressed understanding. Scheduled for televisitf/u with PCP for 08/06/23 @ 10:15am. No other concerns or questions at this time. [facility]. Patient calling to report ED visit [...] Description 02/23/2025 9:30 AM EDT Clinical Support [address] [phone] documented as of this encounter Visit Diagnoses Not on filedocumented in this encounter Additional Health Concerns Assessment Noted Time PHQ-9 Depression Total Score: 0 05/28/19 9:00 AM EST documented as of this encounter Care Teams Studio Technician Video Operator Relationship Specialty Start Date End Date Terry Rasheed MD [address] [place] [address] PCP - General Internal Medicine 08/10/20 09/26/23 Terry Rasheed MD [address] [place] [address] PCP - General Internal Medicine 12/24/23 documented as of this encounter
--- OUTSIDE RECORDS SUMMARY | 2025-02-10 17:53 | XMS_ITS | Encounter Summary ---
Author Organization [employer] Address [address] [place] [address] [place] [address] Care Team Providers Care Hotel Supplies Salesperson Name Role Phone Terry Rasheed MD Primary Care Prov ider Reason for Visit * Reason Onset Date Comments Chart Prep 02/09/2025 Encounter Details Date Type Department Care Team ([facility] Contact Info) Description 02/09/2025 Telephone [facility] MED & PEDS [address] [place] [address] Terry Rasheed MD [address] [place] [address] Chart Prep Social History Tobacco Use Types Packs/Day Years [...] encounter Miscellaneous Notes * Telephone Encounter - Cristina Driscoll [place] - 02/09/2025 10:58 AM EDT Chart Prep Labs: not done Images: appointment pending Referrals: appointment pending Vaccines due: Covid, Flu, PCV20, Hep B, and HPV Screenings: pap smear, LMP, and PISQ Overdue care gaps: Oral health screening, Disability screen, and Tobacco documented in this encounter Plan of Treatment Upcoming Encounters Date Type Department Care Team (Late st Contact Info) Description 02/23/2025 9:30 AM EDT Clinical Support [facility] MEDICINE [address] [place] [phone] documented as of this encounter Visit Diagnoses Not on filedocumented in this encounter Additional Health Concerns Assessment Noted Time PHQ-9 Depression Total Score: 2 12/03/19 25 8:46 AM EDT documented as of this encounter Care Teams Hotel Supplies Salesperson Relationship Specialty Start Date End Date Terry Rasheed MD [address] [place] [address] PCP - General Internal Medicine 12/24/23 documented as of this encounter
--- OUTSIDE RECORDS SUMMARY | 2025-02-10 17:53 | XMS_ITS | Encounter Summary ---
Author Organization [facility] Address [address] [place] [address] Care Team Providers Care Industry Segment Specialist Name Role Phone Terry Rasheed MD Primary Care Prov ider Reason for Visit * Reason Onset Date Comments Cancel Procedure tomorrow 08/28/2022 Encounter Details Date Type Department Care Team (Late st Contact Info) Description 08/28/2022 Telephone [facility] Central Scheduling Department [address] [place] [address] [place], Annalise Camp MD [address] [place] [address] Cancel Procedure tomorrow Social History Tobacco Use [...] tomorrow 08/29 Please call pt with a Registered Massage Therapist at [phone] documented in this encounter Plan of Treatment Upcoming Encounters Date Type Department Care Team (Late st Contact Info) Description 03/25/2025 2:40 PM EST Follow-Up [facility] Nephrology Clinic [address] [place] [phone] Document Manager: Arsalan Hercules MD [address] [place] [phone] 09/11/2025 1:45 PM EDT Appointment [facility] Mammography [address] [facility], [address] [place] [address] documented as of this encounter Visit Diagnoses Not on filedocumented in this encounter Care Teams Industry Segment Specialist Relationship Specialty Start Date End Date Terry Rasheed MD [address] [place] [phone] PCP - General 05/10/20 documented as of this encounter
--- OUTSIDE RECORDS SUMMARY | 2025-02-10 17:53 | XMS_ITS | Clinical Summary ---
Author Organization [employer] Address [address] [place] [address] [address] [place] [address] Care Team Providers Care Systems Testing Laboratory Technician Name Role Phone Terry Rasheed MD [...] hours. 05/04/20 21 Active Katherine 0.35 MG tabletIndications :Encounter for surveillance of contraceptive pills TAKE ONE TABLET DAILY 28 tablet 11 07/21/19 23 Active fluticasone (Flonase) 50 MCG/ACT nasal spray INSERT TWO SPRAYS IN EACH NOSTRIL EVERY DAY NEEDED congestion 48 g 01/06/20 23 Active omega-3 acid ethyl esters (Lovaza) 1 g capsule Take 1 capsule (1 g) by mouth 2 times daily. 60 capsule 11 03/05/20 24 025 Active Vitamin D, Ergocalciferol, 99719 units capsule TAKE ONE CAPSULE ONCE A WEEK 5 capsule 3 03/17/20 24 Active labetalol (Normodyne) 200 MG tabletIndications :Primary hypertension TAKE ONE TABLET EVERY TWELVE HOURS 180 tablet 1 03/17/20 24 Active clotrimazole (Lotrimin) 1 % vaginal creamIndications: Vulvovaginal Candidiasis Insert one applicator per vagina at bedtime for 7 nights 45 g 06/03/19 25 Active albuterol 108 (90 Base) MCG/ACT inhalerIndication s:Mild intermittent asthma without complication Inhale 2 puffs every 4 (four) hours if needed for wheezing. 18 g 3 06/03/19 25 Active omeprazole (PriLOSEC) [address] capsule Take 1 capsule (20 mg) by mouth before breakfast. 90 capsule 08/14/19 25 Active ondansetron (Zofran) 4 MG tabletIndications :Nausea Take 1 tablet (4 mg) by mouth every 8 (eight) hours if needed for nausea. 20 tablet 08/14/19 25 Active busPIRone (Buspar) 5 MG tabletIndications :Generalized anxiety disorder with panic attacks Take 1 tablet (5 mg) by mouth 2 times daily. 60 tablet 1 12/03/19 25 Active losartan (Cozaar) 100 MG tabletIndications :Primary hypertension Take 1 tablet (100 mg) by mouth Once per day. 90 tablet 3 12/03/19 25 026 Active hydrOXYzine HCl (Atarax) 25 MG tabletIndications :Generalized anxiety disorder with panic attacks Take 1-2 tablets (25-50 mg) by mouth if needed in the morning and at bedtime for anxiety. 60 tablet 1 12/09/19 25 Active traZODone (Desyrel) 50 MG tabletIndications :Acute insomnia Take 1 tablet (50 mg) by mouth at bedtime. 30 tablet 12/13/19 25 Active escitalopram (Lexapro) 10 MG tabletIndications :Generalized anxiety disorder with panic attacks,PTSD (post-traumatic stress disorder) TAKE 1 1/2 TABLETS BY MOUTH EVERY MORNING 45 tablet 1 12/25/19 25 Active chlorthalidone (Hygroton) 25 MG tablet Take 1 tablet (25 mg) by mouth Once per day. 30 tablet 02/01/20 25 026 Active Blood Pressure kitIndications:Hy pertensive urgency, malignant 1 each 2 times daily. 1 kit 02/04/20 24 025 NIFEdipine XL (Procardia XL) 60 MG 24 hr tablet Take 1 tablet (60 mg) by mouth Once per day. Do not crush, chew, or split. 90 tablet 3 12/03/19 25 025 Discontinu ed(Side effects) ibuprofen 600 MG tabletIndications :Breast pain, left Take 1 tablet (600 mg) by mouth every 8 (eight) hours if needed for moderate pain for up to 10 days. 30 tablet 01/10/20 25 025 amoxicillin-clavu lanate (Augmentin) 875-125 MG tabletIndications :Acute cystitis with hematuria Take 1 tablet by mouth 2 times daily for 5 days. Take with food. 10 tablet 01/14/20 25 025 Active Problems Problem Noted Date Diagnosed Date [...] of major depressive disorder without prior episode (CMS/HCC) 05/19/2024 Assessment & Plan (08/13/2024 9:54 AM [...] Plan (05/28/2023 9:23 AM EST): [facility] NILM/HPV HR other positive, has [...] shown improvement in most areas through the [facility] interventions, but continues to present with [...] treatment PLAN: 1. Follow up with [facility]: Not recommended for follow-up 2. Patient goal is Improve sleep 3. Behavioral Recommendations a. [facility] Clinician will refer to PCP for review and assessment for medication to help with sleep disturbances b. Vonda will continue Acupuncture sessions at [facility] to manage anxiety c. Vonda will reach out to [facility] Clinician Flores as needed for support [...] to manage sleep. At this time Vonda herrmann Myrnageorges AranaLazaromarquise Solizirez meets criteria for Visit Diagnoses: Problem List Items Addressed This Visit Nervous Sleeping difficulties Other Anxiety disorder, unspecified Patient ready to address current needs Yes Strengths include Willingness to receive treatment PLAN: 1. Follow up with [facility]: Not recommended for follow-up 2. Patient goal is Improve sleep 3. Behavioral Recommendations a. [facility] Clinician will refer to PCP for review and assessment for medication to help with sleep disturbances b. Vonda will continue Acupuncture sessions at [facility] to manage anxiety c. Vonda will reach out to [facility] Clinician Flores as needed for support [...] and provided information of the clinic at [facility] that provides free acupuncture from [...] stabilize. PLAN: 1. Follow up with [facility]: Recommended for follow-up: on 09/18/22 at [facility] 2. Patient goal is Feel safe and reduce worry 3. Behavioral Recommendations a. Vonda will attend acupuncture clinic at [facility] on 09/18 b. Vonda will [...] other family stressors. Patient will benefit from [facility] therapy for individual counseling, but [...] stabilize. PLAN: 1. Follow up with [facility]: Recommended for follow-up: on 09/12/22 at [facility] 2. Patient goal is Feel safe and reduce worry 3. Behavioral Recommendations a. Referral to [facility] b. Provided [facility] information for support c. Vonda will come [...] help with her nephrolithiasis. Assessment & Plan (02/10/2025 2:54 PM EDT): Controlled, no chest pain/shortness of breath, no swelling reported, continue current medication, keep low sodium diet and exercise as tolerated. Follow up in 3 months, target <140/90 Assessment & Plan (01/31/2025 10:33 AM EDT): Mildy uncontrolled, she's not tolerating Nifedipine (leg edema) and is skipping pills. DC Nifedipine, start chlorthalidone and fu BP w RN in 3-4w w labs Continue Losartan and labetalol, FU w PCP in 2-3m Follow up with the Nurse for blood pressure check in 3 weeks. Continue with a low sodium diet and regular exercise as tolerated. For BP < or = to 139/89 (or 129/79 for diabetic patients) continue current medication regimen and follow up with PCP in 8 weeks. For BP > or = to 140/90 (or 130/80 for diabetic patients) increase chlorthalidone to 50 mg once a day Follow up with the Nurse for a second blood pressure check in 2-4 weeks if BP 140-150/90+ (or 130-150/80+ for diabetic patients). Refer to [facility] for BP >150/90+. If second Nurse visit is needed: For BP < or = to 139/89 (or 129/79 for diabetic patients) continue current medication regimen and follow up with the PCP in 4 weeks. For BP > or = to 140/90 (or 130/80 for diabetic patients) increase labetatol to 300 mg twice a day Follow up with the PCP in 8 weeks. Assessment & Plan (12/02/2024 9:16 AM EDT): [...] Date Resolved Date Vaginal candidiasis 06/03/2024 01/10/20 25 Assessment & Plan (06/03/2024 11:05 AM EST): [...] organization. Date Type Department Care Team Description 02/10/2025 2:45 PM EDT Telemedicine [facility] [address] [place] [address] Terry Rasheed MD Primary hypertension (Primary Dx) 02/10/2025 Travel 02/09/[address] [facility] [address] [place] [address] Terry Rasheed MD Chart Prep 02/06/2025 Travel 02/05/[address] [facility] [address] [place] [address] Terry Rasheed MD chart prep 01/31/2025 9:20 AM EDT Office Visit [facility] [address] [place] [phone] Jazz Anthony MD Primary hypertension (Primary Dx); Nonintractable headache, unspecified chronicity pattern, unspecified headache type 01/31/2025 Travel 01/30/[address] [facility] [address] [place] [address] Terry Rasheed MD Nurse Triage 01/29/2025 Telephone [facility] [address] [place] [phone] Terry Rasheed MD Results 01/28/[address] [facility] [address] [place] [address] Terry Rasheed MD Call Back Request 01/20/2025 Orders Only GENERIC EXTERNAL DATA DEPARTMENT Provider, Generic External Data 01/13/2025 Results Follow-Up [facility] [address] [place] [phone] Loretta León ANP POCT urinalysis dipstick manually resulted, Bacterial Vaginosis Panel, Chlamydia/N. Gonorrhoeae RNA, TMA, Vaginal, Additional followed-up results: 2 01/09/2025 11:00 AM EDT Office Visit [facility] [address] [place] [phone] Loretta León ANP Breast pain, left (Primary Dx); Dysuria; Family planning; Pelvic pain; Missed menses; Primary hypertension 01/09/2025 Telephone [facility] [address] [place] [phone] Nancy Prasad RN 01/09/2025 Travel 12/22/[address] [facility] [address] [place] [address] Terry Rasheed MD Generalized anxiety disorder with panic attacks; PTSD (post-traumatic stress disorder) 12/17/[address] [facility] [address] [place] [address] Terry Rasheed MD 12/17/[address] [facility] [address] [place] [address] Terry Rasheed MD FMLA (I called the [...] leave, and return to work) 12/16/[address] [facility] [address] [place] [address] Terry Rasheed MD FMLA (I called the [...] be referred for PT.) 12/12/2024 Orders Only [facility] [address] [place] [address] Terry Rasheed MD Acute insomnia 12/10/2024 Orders Only [facility] [address] [place] [address] Terry Rasheed MD Acute insomnia (Primary Dx) 12/08/[address] [facility] [address] [place] [address] Terry Rasheed MD Generalized anxiety disorder with panic attacks 12/02/2024 8:30 AM EDT Telemedicine [facility] [address] [place] [address] Terry Rasheed MD Generalized anxiety disorder with panic attacks; Primary hypertension 12/02/2024 Travel 11/28/2024 Travel 11/23/2024 Travel 11/12/[address] [facility] [address] [place] [address] Terry Rasheed MD FMLA (I called the [...] appointment.) 11/11/2024 3:45 PM EDT Office Visit [facility] [address] [place] [address] Terry Rasheed MD Acute left ankle pain (Primary Dx) 11/11/2024 Travel 11/10/[address] [facility] [address] [place] [address] Terry Rasheed MD FMLA (I called the patient, regarding an application for FMLA. I reached a voicemail, and left a message asking her to return my call at ext [phone].) from Last 3 Months Immunizations Immunization Administration Dates Next Due HPV 9-Valent 06/13/2019,02/07/2019 Influenza injectable quadriv alent IIV4 with preservative 05/15/2022 Influenza injectable quadriv alent preservative free 06/30/2021,03/11/2020,02/07/2019 Influenza, IIV3, injectable 06/26/2018 Tdap 06/26/2018 Social History Tobacco Use Types Packs/Day Years [...] Pressure 135/89 02/10/2025 2:26 PM EDT Pulse 98 01/31/2025 9:45 AM EDT Temperature 37.2 C (98.9 F) 01/31/2025 9:45 AM EDT Respiratory Rate 20 01/31/2025 9:45 AM EDT Oxygen Saturation 98% 01/31/2025 9:45 AM EDT Inhaled Oxygen Concentration - - Weight 81.4 kg (179 lb 6.4 oz) 01/31/2025 9:45 A M EDT Height 165.1 cm (5' 5 ) 11/11/2024 3:56 PM EDT Body Mass Index 29.85 11/11/2024 3:56 PM EDT Plan of Treatment Upcoming Encounters Date Type Department Care Team (Late st Contact Info) Description 02/23/2025 9:30 AM EDT Clinical Support [address] [address] Health Maintenance Due Date Last Done Comments CT Colonography 1980 FIT DNA/Cologuard 1980 FIT 1980 FOBT 1980 Sigmoidoscopy 1980 Family Planning (PISQ) 09/26/1994 Hepatitis B [...] Pap Smear 12/17/2024 12/18/2019 COVID-19 Vaccine ( - season) 2025 Influenza Vaccine (#1) 2025 3, 06/30/2021, 03/11/2020, Additional history exists Alcohol/Substance Use Screening 02/19/2025 02/20/2024 SDOH Screening 08/13/2025 08/13/2024 Mammogram 09/05/2025 09/05/2024, 06/14/2023 Diabetes: Hemoglobin A1C 09/15/2025 025, 05/23/2022, 08/27/2020 Depression Screening 12/02/2025 12/02/2024, 12/03/19 25 Tobacco Screening 01/09/2026 01/09/2025 Disability Screening 02/10/2026 02/10/2025 DTaP/Tdap/Td Vaccines (2 - Td or Tdap) 06/26/2028 06/26/2018 Lipid Panel 06/17/2029 06/17/2024, 02/05, 05/23/2022, Additional history exists Zoster Vaccines (1 of 2) 09/26/2029 Colonoscopy 01/20/2035 01/20/2025 Colorectal Cancer Screening 01/20/2035 RSV Patients and Patients Aged 60 years [...] Name Priority Date/Time Associated Diagnosis Comments POCT URINALYSIS DIPSTICK Routine 01/31/2025 10:38 AM EDT Nonintractable headache, unspecified chronicity pattern, unspecified headache type POCT INFLUENZA B Routine 01/31/2025 10:3 7 AM EDT Nonintractable headache, unspecified chronicity pattern, unspecified headache type POCT INFLUENZA A Routine 01/31/2025 10:3 7 AM EDT Nonintractable headache, unspecified chronicity pattern, unspecified headache type POCT , URINE Routine 01/31/2025 10:36 AM EDT Nonintractable headache, unspecified chronicity pattern, unspecified headache type POCT RAPID COVID ANTIGEN Routine 01/31/2025 10:36 AM EDT Nonintractable headache, unspecified chronicity pattern, unspecified headache type HEMATOXYLIN AND EOSIN STAIN Routine 01/20/2025 8:11 AM EDT HCG, QL, URINE Routine 01/20/2025 6:37 AM EDT HM COLONOSCOPY Routine 01/20/2025 POCT , URINE Routine 01/09/2025 3:40 PM [...] Relevant to Health Maintenance Results * POCT urinalysis dipstick manually resulted (01/31/2025 10:38 AM EDT) Only the most recent of2 resultswithin the time period is included. Color, UA Dark Sera Clarity, UA Turbid Glucose, UA Negative Bilirubin, UA Comment:small Ketones, UA Positive Spec Grav, UA 1.025 Blood, UA Comment:trace-lysed pH, UA 6.0 Protein, UA Comment:30mg/dl Urobilinogen, UA 0.2 Leukocytes, UA Negative Negative, Rare, Trace Nitrite, UA Negative Negative, None Detected Appearance, UA dark sera QC Media Lot # [id number] Lot# Expiration Date 63 Urine 01/31/2025 10:3 8 AM EDT Jazz Anthony MD POINT OF CARE TEST ENTER /EDIT ORDERABLES Final Result * POCT Influenza B manually resulted (01/31/2025 10:37 AM EDT) Rapid Influenza B Ag Negative Negative, Indeterminate QC Media Lot # [id number] Lot# Expiration Date 120,426 Swab 01/31/2025 10:3 7 AM EDT Jazz Anthony MD POINT OF CARE TEST ENTER /EDIT ORDERABLES Final Result * POCT Influenza A manually resulted (01/31/2025 10:37 AM EDT) Pathologist [facility] Rapid Influenza A Ag Negative Negative, Indeterminate QC Media Lot # [id number] Lot# Expiration Date 120,426 Swab Nasopharyngeal structure / Unknown 01/31/2025 10:37 AM EDT Jazz Anthony MD POINT OF CARE TEST ENTER /EDIT ORDERABLES Final Result * POCT Rapid COVID Ag (01/31/2025 10:36 AM EDT) [facility] Rapid COVID Ag Negative QC Media Lot # [id number] Lot# Expiration Date 102,826 Swab 01/31/2025 10:3 6 AM EDT Jazz Anthony MD POINT OF CARE TEST ENTER /EDIT ORDERABLES Final Result * POCT , urine manually resulted (01/31/2025 10:36 AM EDT) Only the most recent of2 resultswithin the time period is included. Pathologist [facility] Preg Test, Ur Negative Negative, Indeterminate, None Detected, Invalid, Specimen unsatisfactory for evaluation, Weakly Positive, 2+ QC Media Lot # [id number] Lot# Expiration Date 113,026 Urine 01/31/2025 10:3 6 AM EDT Jazz Anthony MD POINT OF CARE TEST ENTER /EDIT ORDERABLES Final Result * Hematoxylin and Eosin Stain (01/20/2025 8:11 AM EDT) 01/20/2025 8:11 AM EDT 01/20/2025 8:56 AM EDT [facility] - 01/22/2025 4:05 PM EDT ----- ------- Name: Vonda Willis Age/Sex: 44/F : 1980 Unit#: [id number] Attend Dr: Eliane Metcalf MD Re01/20/25 Status: [facility] Location: [facility] Disch: ----- ------- SPEC : [id number] RECD: 01/20/25 STATUS: ROBBY ADRIANA NUM: [id number] ARMANDO: 01/20/[address] [facility] [address]: Eliane Metcalf MD ENTERED: 01/20/25 SP TYPE: Surgical OTHR DR: Terry Rasheed MD ORDERED: HE Stain/18, Gross Micro L4/6, IHC/2, H. pylori/2 Addendum Addendum 1 Entered: 01/22/25 Immunostains for H. pylori on B and C are negative with appropriate control. Addendum Signed (signature on file) Aubrie Mak 01/22/25 1605 ----- ------- Diagnosis A. Duodenum, biopsy: Duodenal mucosa with preserved villi and no specific change. B. Stomach, random, biopsy: Gastric antral and body mucosa with minimal chronic inactive gastritis; negative for intestinal metaplasia and dysplasia. C. Gastric ulcer, biopsy: Gastric antral mucosa with mild reactive changes and minimal chronic inactive gastritis; negative for intestinal metaplasia and dysplasia. D. Esophagus, lower, biopsy: Squamous mucosa with no specific change; no columnar mucosa present. E. Colon, right, biopsy: Colonic mucosa with no specific change. F. Colon, left, biopsy: Colonic mucosa with lymphoid aggregates and no specific change. Comment: (B and C): Immunostains for H. pylori pending; addendum to follow. Clinical History Pre-Op Dx: GERD, change in bowel habits Post-Op Dx: Hiatal hernia, gastritis, gastric ulcer, esophagitis, diverticulosis, hemorrhoids Microscopic Description Microscopic sections reviewed. CONTINUED ON NEXT PAGE ----- ------- Name: Vonda Willis Age/Sex: 44/F : 1980 Unit#: [id number] Attend Dr: Eliane Metcalf MD Re01/20/25 Status: [facility] Location: [facility] Disch: ----- ------- SPEC : [id number] RECD: 01/20/25 STATUS: ROBBY WRIGHT NUM: [id number] ARMANDO: 01/20/[address] [facility] [address]: Eliane Metcalf MD ENTERED: 01/20/25 SP TYPE: Surgical OTHR DR: Terry Rasheed MD ORDERED: HE Stain/18, Gross Micro L4/6, IHC/2, H. pylori/2 Material Received A. Duodenum bx's B. Random gastric bx's C. Gastric ulcer bx's D. Lower esophagus bx's E. Right side colon bx's F. Left side colon bx's Gross Description Received in six parts. Part A: Received in formalin labeled duodenum bx's are three rangel-pink irregular tissue fragments ranging from 0.15-0.3 cm, submitted in toto in a cassette labeled A. Part B: Received in formalin labeled random gastric bx's are three rangel irregular and rectangular tissue fragments ranging from 0.25-0.3 cm, submitted in toto in a cassette labeled B. Part C: Received in formalin labeled gastric ulcer bx's are two rangel rectangular tissue fragments measuring 0.3 and 0.45 cm, submitted in toto in a cassette labeled C. Part D: Received in formalin labeled lower esophagus bx's are five ko-white irregular and rectangular tissue fragments ranging from 0.2-0.35 cm, submitted in toto in a cassette labeled D. Part E: Received in formalin labeled right side colon bx's are three ko-white irregular and rectangular tissue fragments ranging from 0.25-0.3 cm, submitted in toto in a cassette labeled E. Part F: Received in formalin labeled left side colon bx's are four rangel irregular tissue fragments each measuring 0.2 cm, submitted in toto in a cassette labeled F. CEDS Special studies ordered and performed: Immunostain for H. pylori on B1 and C1. IHC S/NG Disclaimer NOTE: Unless otherwise stated, all tissue is formalin-fixed and paraffin-embedded. Some or all of the immunohistochemical tests reported herein may have been developed and their performance characteristics determined by [facility]. They have not been cleared or approved by the U.S. Food and Drug Administration (FDA). However, the FDA CONTINUED ON NEXT PAGE ----- ------- Name: Vonda Willis Age/Sex: 44/F : 1980 Unit#: [id number] Attend Dr: Eliane Metcalf MD Re01/20/25 Status: [facility] Location: [facility] Disch: ----- ------- SPEC : [id number] RECD: 01/20/25 STATUS: ROBBY MOSSFreida NUM: [id number] ARMANDO: 01/20/[address] [facility] [address]: Eliane Metcalf MD ENTERED: 01/20/25 SP TYPE: Surgical OTHR DR: Terry Rasheed MD ORDERED: HE Stain/18, Gross Micro L4/6, IHC/2, H. pylori/2 IHC S/NG Disclaimer (Continued) has determined that such clearance or approval is not necessary. This laboratory is certified under the Clinical Laboratory Improvement Amendments of 1988 (CLIA) as qualified to perform high complexity clinical laboratory testing. Copies To: Terry Rasheed MD [address] [id number] Eliane Metcalf MD [facility] [address] [place] [phone] [email or web address] ------- Signed (signature on file) Aubrie Aubree 01/21/251951 ----- ------- END OF REPORT [employer] External Data Provider LAB BLOOD ORDERAB LES Final Result Performing Organization Address [facility]/ZIP Co de Phone Number [facility] [address] [place] [address] [phone] * HCG, Qualitative, Urine (01/20/2025 6:37 AM EDT) Urine NEGATIVE NEGATIVE [facility] Comment:This test was develo ped to detect early . Falsenegative results may occur after the 5th - 7th week ofpregnancy when using this test method. If clinicallyindicated, consider a serum hCG. 01/20/2025 6:37 AM EDT 01/20/2025 7:00 AM EDT [employer] External Data Provider LAB URINE ORDERAB LES Final Result Performing Organization Address [facility]/ZIP Co de Phone Number [facility] [address] [place] [address] [phone] * Hm Colonoscopy (01/20/2025) Colonoscopy Normal Normal Narrative Milli Huddleston - 01/20/2025 See external hospital admission note on 01/20/2025 Historical Provider HEALTH MAINTENANCE Final Result * Bacterial Vaginosis Panel (01/09/2025 11:35 AM EDT) TRICHOMONAS VAGINALIS DETECTION BY PCR NOT DETECTED Not Detect [facility] BACTERIAL VAGINOSIS DETECTION BY PCR NEGATIVE Negative [facility] Comment:The BV organism targ ets [...] DETECTION BY PCR NOT DETECTED Not Detect [facility] Sherry glab krusei PCR NOT DETECTED Not Detect [facility] Swab Vaginal structure / Unknown 01/09/2025 11:35 AM EDT 01/09/2025 5:41 PM EDT [facility] MICROBIOLOGY - GENERAL ORDER MERYL Final Result [facility] [address] [place] [phone] * Chlamydia/N. Gonorrhoeae RNA, TMA, Vaginal (01/09/2025 11:35 AM EDT) CT PCR NOT DETECTED Not Detect. [facility] Comment:A not detected test result [...] psychologicalconsequences. NG PCR NOT DETECTED Not Detect. [facility] Comment:A not detected test result [...] EDT 01/09/2025 5:41 PM EDT Loretta León [employer] [facility] [employer] LAB MICROBIOLOGY - GENERAL ORDER MERYL Final Result Performing Organization Address [facility] Co de Phone Number [facility] [address] [place] [phone] * Culture, Urine, Routine (01/09/2025 11:35 AM EDT) Urine Urine specimen obtained by clean catch procedure / Unknown 01/09/2025 11:35 AM EDT 01/09/2025 5:41 PM EDT Comment:UACC Narrative [facility] - 01/11/2025 1:32 PM EDT Strep agalactiae (Grp B) Quant 10,000 to 50,000 cfu/mL Susc N/A Susceptibility not routinely performed on this isolate. Specimen Source: Urine clean catch Loretta León [employer] [facility] LAB MICROBIOLOGY - GENERAL ORDER MERYL Final Result Performing Organization Address [facility] Co de Phone Number [facility] [facility] [address] [place] [phone] * Hemoglobin A1c (09/15/2024 9:53 AM EDT) Hemoglobin A1c 5.8 <6.0 % [facility] Comment:Hemoglobin A1C Refer ence Range Adults: 4.8 - 6.0 % Non diabetic: < 6.0 % Goal: < 7.0 %Additional Action Suggested: > 8.0 %Note: Hemoglobin A1c results are invalid for patients with abnormal amounts of HbF. Blood transfusions may impact the HbA1c concentration in the patient sample. Estimated Average Glucose 120 mg/dL [facility] Comment:eAG = Estimated ave rage glucose which is %A1C expressed asaverage glucose, using the formula of the R4L-GzmpojkKaveqta Glucose study (ADAG), Diabetes Care, Vol.31,#8,Dec. 2007 09/15/2024 9:53 AM EDT 09/15/2024 9:53 AM EDT us Generic External Data Provider LAB BLOOD ORDERAB LES Final Result Performing Organization Address City/State/[facility] Co de Phone Number [facility] [address] [place] [phone] * (ABNORMAL) Lipid Panel, Standard (06/17/2024 12:17 PM EST) Triglycerides 158(H) <150 mg/dL [facility] Comment:Desirable Triglyceri de: less than 150 mg/dLBorderline High Triglyceride 150-199 mg/dLHigh Triglyceride: 200-499 mg/dLVery High Triglyceride: greater than or equal to 5OO mg/dL Cholesterol 182 <200 mg/dL [facility] Comment:Desirable Cholestero l: less than 200 mg/dLBorderline High Cholesterol: 200-239 mg/dLHigh Cholesterol: greater than 239 mg/dL LDL Cholesterol Calculated 94 <100 mg/dL [facility] Comment:Desirable LDL: less than 100 mg/dLNear Optimal/Above Optimal LDL: 110- 129 mg/dLBorderline High LDL: 130-159 mg/dLHigh LDL: 160-189 mg/dLVery High LDL: greater than or equal to 190 mg/dL HDL Cholesterol 57 >40 mg/dL [facility] Comment:Desirable HDL: great er than 40 mg/dL Note: This HDL assay may give artificially low results in patients with liver disease. Blood Venous blood specimen / Unknown 06/17/2024 12:17 PM EST 06/17/2024 1:02 PM EST Terry Gaytan MD LAB BLOOD ORDERABL ES Final Result [facility] [address] [place] [address] [phone] * HEPATITIS C AB W/REFL TO HCV RNA, QN, PCR (06/03/2021 4:08 PM EST) [facility] HEPATITIS C ANTIBODY NON-REACT DARIA NON-REACT DARIA [facility] INDEX 0.02 <1.00 [facility] Comment: HCV antibody was non-reactive. There is no laboratory evidence of HCV infection. In most cases, no further action is required. However, if recent HCV exposure is suspected, a test for HCV RNA (test code 54470) is suggested. For additional information please refer to http://education.Motionsoft/faq/VZU70c6 (This link is being provided for informational/ educational purposes only.) 06/03/2021 4:08 PM EST us Gabi Carrera Jose ACID EXTRACTOR HISTORICAL/NON ORDERABLE L ABS Final Result [facility] [address] * Hm Pap Smear (12/18/2019) Pathologist [facility] Pap smear Performed Historical Provider HEALTH MAINTENANCE Final Result * HIV AB/AG (06/13/2019 12:41 PM EST) Pathologist [facility] HIV AG/AB NONREACTIVE NR FOUNDATI ON [...] of detection of this assay. The [employer] Phlebotomy Technologist HIV Ag/Ab Combo assay result and supplemental assay results should be interpreted in conjunction with the patient's clinical presentation, history and other laboratory results. If the results are inconsistent with clinical evidence, additional testing is suggested to confirm the result. 06/13/2019 12:4 1 PM EST us Historical Provider HISTORICAL/NON ORDERABLE LABS Final Result Performing Organization Address City/State/[facility] Co de Phone Number [facility] [address] from Last 3 Months or Most Recently Relevant to Health Maintenance Insurance [facility] Care Teams Systems Testing Laboratory Technician Relationship Specialty Start Date End Date Terry Rasheed MD [address] [place] [phone] PCP - General Internal Medicine 12/24/23
--- OUTSIDE RECORDS SUMMARY | 2025-02-10 17:53 | XMS_ITS | Encounter Summary ---
Author Organization [employer] Address [address] [place] [address] [place] [address] Care Team Providers Care Informatica Architect Name Role Phone Terry Rasheed MD Primary Care Prov ider Reason for Visit * Reason Comments Med Refill Encounter Details Date Type Department Care Team ([facility] st Contact Info) Description 11/09/2023 Refill [facility] CHC MED & PEDS [address] [place] [address] Terry Rasheed MD [address] [place] [address] Social History Tobacco Use Types Packs/Day Years [...] Description 02/23/2025 9:30 AM EDT Clinical Support [address] [address] documented as of this encounter Visit Diagnoses Not on filedocumented in this encounter Additional Health Concerns Assessment Noted Time PHQ-9 Depression Total Score: 0 05/28/19 9:00 AM EST documented as of this encounter Care Teams Informatica Architect Relationship Specialty Start Date End Date Terry Rasheed MD [address] [place] [address] PCP - General Internal Medicine 12/24/23 documented as of this encounter
--- OUTSIDE RECORDS SUMMARY | 2025-02-10 17:53 | XMS_ITS | Encounter Summary ---
Author Organization [employer] Address [address] [place] [address] [place] [address] Care Team Providers Care Stitch Marker Name Role Phone Terry Rasheed MD Primary Care Prov ider Reason for Visit * Reason Onset Date Comments Call Back Request 01/28/2025 Encounter Details Date Type Department Care Team ([facility] Contact Info) Description 01/28/2025 Telephone [facility] CHC MED & PEDS [address] [place] [address] Terry Rasheed MD [address] [place] [address] Call Back Request Social History Tobacco Use Types Packs/Day Years [...] encounter Miscellaneous Notes * Telephone Encounter - Harshad Garcia - 01/28/2025 12:07 PM EDT Tc from pt reporting she got a missed call from the nurses and was inquiring what the carlton was about. Any questions contact pt at [phone] documented in this encounter Plan of Treatment Upcoming Encounters Date Type Department Care Team (Late st Contact Info) Description 02/23/2025 9:30 AM EDT Clinical Support [address] [address] documented as of this encounter Visit Diagnoses Not on filedocumented in this encounter Additional Health Concerns Assessment Noted Time PHQ-9 Depression Total Score: 2 12/03/19 25 8:46 AM EDT documented as of this encounter Care Teams Stitch Marker Relationship Specialty Start Date End Date Terry Rasheed MD [address] [place] [phone] PCP - General Internal Medicine 12/24/23 documented as of this encounter
--- OUTSIDE RECORDS SUMMARY | 2025-02-10 17:53 | XMS_ITS | Encounter Summary ---
Author Organization [employer] [facility] Address [address] [place] [address] [address] [address] Care Team Providers Care Business Administration Instructor Name Role Phone Terry Rasheed MD Primary Care Prov ider Terry Rasheed MD Primary Care Prov ider Encounter Details Date Type Department Care Team (Latest Contact Info) Description 09/24/2020 Abstract [facility] CONVERSIONS Dental, Provider, DDS Social History [...] Care Team ( st Contact Info) Description 02/23/2025 9:30 AM EDT Clinical Support [facility] MEDICINE [address] [place] [phone] documented as of this encounter Visit Diagnoses Not on filedocumented in this encounter Care Teams Business Administration Instructor Relationship Specialty Start Date End Date Terry Rasheed MD [address] [place] [address] PCP - General Internal Medicine 08/10/20 09/26/23 Terry Rasheed MD [address] [place] [address] PCP - General Internal Medicine 12/24/23 documented as of this encounter
--- OUTSIDE RECORDS SUMMARY | 2025-02-10 17:53 | XMS_ITS | Encounter Summary ---
Author Organization [employer] Address [address] [place] [address] [place] [address] Care Team Providers Care Logging Operations Inspector Name Role Phone Terry Rasheed MD Primary Care Prov ider Reason for Visit * Reason Onset Date Comments chart prep 02/05/2025 Encounter Details Date Type Department Care Team ([facility] Contact Info) Description 02/05/2025 Telephone [facility] CHC MED & PEDS [address] [place] [address] Terry Rasheed MD [address] [place] [address] chart prep Social History Tobacco Use Types Packs/Day Years [...] encounter Miscellaneous Notes * Telephone Encounter - Lisa Ayala [place] - 02/05/2025 4:16 PM EDT Chart Prep Labs: done Images: not done Referrals: appointment pending Vaccines due: Covid, Flu, PCV20, Hep B, and HPV Screenings: pap smear Overdue care gaps: Disability screen documented in this encounter Plan of Treatment Upcoming Encounters Date Type Department Care Team (Late st Contact Info) Description 02/23/2025 9:30 AM EDT Clinical Support [facility] MEDICINE [address] [place] [address] documented as of this encounter Visit Diagnoses Not on filedocumented in this encounter Additional Health Concerns Assessment Noted Time PHQ-9 Depression Total Score: 2 12/03/19 25 8:46 AM EDT documented as of this encounter Care Teams Logging Operations Inspector Relationship Specialty Start Date End Date Terry Rasheed MD [address] [place] [address] PCP - General Internal Medicine 12/24/23 documented as of this encounter
--- OUTSIDE RECORDS SUMMARY | 2025-02-10 17:53 | XMS_ITS | Encounter Summary ---
Author Organization [employer] Address [address] [place] [address] 7 [place] [address] Care Team Providers Care Primer And Powder Canning Leader Name Role Phone Terry Rasheed MD Primary Care Prov ider Terry Rasheed MD Primary Care Prov ider Reason for Visit * Reason Comments Med Refill Encounter Details Date Type Department Care Team (Late st Contact Info) Description 01/05/2023 Refill [facility] CHC MED & PEDS [address] [place] [address] Terry Rasheed MD [address] [place] [address] Social History Tobacco Use Types Packs/Day Years [...] Description 02/23/2025 9:30 AM EDT Clinical Support [facility] [address] [place] [address] documented as of this encounter Visit Diagnoses Not on filedocumented in this encounter Additional Health Concerns Assessment Noted Time PHQ-9 Depression Total Score: 11 10/09/ 023 10:42 AM EDT documented as of this encounter Care Teams Primer And Powder Canning Leader Relationship Specialty Start Date End Date Terry Rasheed MD [address] [place] [address] PCP - General Internal Medicine 08/10/20 09/26/23 Terry Rasheed MD [address] [place] [address] PCP - General Internal Medicine 12/24/23 documented as of this encounter
--- OUTSIDE RECORDS SUMMARY | 2025-02-10 17:53 | XMS_ITS | Patient Health Record ---
Author Organization [facility] Address [address] [facility] [address] [place], [place] [id number] Care Team Providers Care Channel Machine Operator Name Role Phone CHRIS TAPIA [phone] Allergies No Known Allergies Results Component Value Reference Range Notes Urinalysis Reviewed date:10/06/2024 10:27:25 AM Interpretation:Blood Performing Lab: Notes/Report: Blood Leukocytes - Nitrates - Uro 0.2 Protein 15 pH 6.0 Blood 25 Spec [place] 1.020 Ketones - Bilirubin - Glucose - Wet Mount Reviewed date:10/03/2024 02:18:32 PM Interpretation:Normal Performing Lab: Notes/Report: Normal Clue Cells neg WBC neg Hyphae neg Trichomonas neg pH 4.5 CORDELL Prep neg whiff HBsAg Screen-[id number] Reviewed date:10/06/2024 10:33:05 AM Interpretation:Negative Performing Lab:[facility], [address], [address], [place], Phone - [phone], Director - [facility] Notes/Report: HBsAg Screen Negative Negative Hepatitis B Surf Ab Quant-00 6530 Reviewed date:10/06/2024 10:32:49 AM Interpretation:Immune Performing Lab:[facility], [address], [address], [place], Phone - [phone], Director - [facility] Notes/Report: Hepatitis B Surf Ab Quant 2203.0 Immunity>10 mIU /mL Results confirmed on dilution. Status of Immunity Anti-HBs Level Inconsistent with Immunity 0.0 - 10.0 Consistent with Immunity >10.0 T pallidum Screening [place] -[id number] Reviewed date:10/06/2024 10:33:22 AM Interpretation:Negative Performing Lab:[facility], [address], [address], [place], Phone - [phone], Director - [facility] Notes/Report: T pallidum Antibodies Non Reactive Non Reactive HIV Ab/p24 Ag with Reflex-08 3935 Reviewed date:10/06/2024 10:33:13 AM Interpretation:Negative Performing Lab:[facility], [address], [address], [place], Phone - [phone], Director - [facility] Notes/Report: HIV Ab/p24 Ag Screen Non Reactive Non Reactive HIV-1/HIV-2 antibodies and HIV-1 p24 antigen were NOT detected. There is no laboratory evidence of HIV infection. HIV Negative HCV Antibody RFX to Quant PC [id number] Reviewed date:10/06/2024 10:32:56 AM Interpretation:Negative Performing Lab:[facility], [address], [place], Phone - [phone], Director - [facility] Notes/Report: HCV Ab Non Reactive Non Reactive Interpretation: Not infected with HCV unless early or acute infection is suspected (which may be delayed in an immunocompromised individual), or other evidence exists to indicate HCV infection. NuSwab VG+, Sherry [id number] Reviewed date:10/06/2024 10:44:14 AM Interpretation:Negative Performing Lab:[facility], [address] [place] [address], [place], Phone - [phone], Director - [place] Notes/Report: and Drug Administration. by [employer]. It has not been cleared or approved by the Food was [employer] and its performance characteristics determined 063015-Npflcxd krusei, GREGORIA 366537-R parapsilosis/tropicalis; 049039-Qfuzhbx lusitaniae, GREGORIA; Test(s) 822594-Oejquwv albicans, GREGORIA; 972477-Gvnnoxm glabrata, GREGORIA; and Drug Administration. by [employer]ewz. It has not been cleared or approved by the Food was developed and its performance characteristics determined Megasphaera 1 Test(s) 966804- Atopobium vaginae; 752281- BVAB 2; 850058- Atopobium vaginae Low - 0 BVAB 2 [...] Interpretation:Normal, HPV neg Performing Lab:[facility], [address], [address], [place], Phone - [phone], Director - [facility] Notes/Report: No. of containers..01 ThinPrep Vial Clinical Information:[id number] DIAGNOSIS: NEGATIVE FOR INTRAEPITHELIAL LESION OR MALIGNANCY. Specimen adequacy: Satisfactory for evaluation. Endocervical and/or squamous metaplastic cells (endocervical component) are present. Clinician provided ICD10: Z01.419 Z11.51 Performed by: Kin bailey, Dynamo Repairer (ASCP) . . Note: The Pap [...] 03:39:29 PM Interpretation: Performing Lab:[facility], [address], [address], [place], Phone - [phone], Director - Cori Notes/Report: Clinical Information:[id number] No. of containers..01 ThinPrep Vial Reason For [...] or pressured into sexual activities? No drugs, fdc, safety, other. No Housing Social Info Question [...] 10/03/2024 Encounters Encounter Location Date Provider Diagnosis [address] [place], [place] [phone] 10/03/2024 CHRIS TAPIA Encounter for gynecological examination (general) (routine) without abnormal findings Z01.419 ; Dysuria R30.0 ; Vaginal discharge N89.8 ; HPV Pap Screening Z11.51 ; HIV Screening Z11.4 ; Encounter for screening for infections with a predominantly sexual mode of transmission Z11.3 ; Screening for other viral diseases Z11.59 and Other problems related to lifestyle Z72.[address] [phone] 10/06/2024 CHRIS TAPIA Dysuria R30.0 Assessments Encounter [...] Insured Coverage Start Date Coverage End Date [facility] [address] [place] [id number] Vonda Quevedo Self - patient is the insured Medical (General) History Medical History History ICD Code High blood pressure Kidney disease, kidney stones Depression/Anxiety Vaginal infections Gastritis- followed by GI Hospitalization History Reason Date(Month/Year) childbirth
--- OUTSIDE RECORDS SUMMARY | 2025-02-10 17:53 | XMS_ITS | Clinical Summary ---
Author Organization [employer] [facility] Address [address] [place] [address] Care Team Providers Care Improvement Lead Name Role Phone Unavailable Primary Care Provider [...] Last Done Comments Breast Cancer Screening 1979 Colorectal Cancer Screening: Colonoscopy 1979 DTaP,Tdap,and Td Vaccines (1 - Tdap) 09/26/1998 Hepatitis B Vaccines (1 of 3 - 19+ 3-dose series) 09/26/1998 Cervical Cancer Screening: P ap Smear 09/26/2000 HPV Vaccines (1 - 3-dose SCD M series) 09/26/2006 HIV Screening 11/28/2023 Hepatitis C Screening 11/28/2023 Social Influencers of Health Screening 11/28/2023 Depression Screening 05/07/2024 COVID-19 Vaccine (1 - 2023-2 5 season) 2025 Influenza Vaccine (#1) 2025 RSV Immunization Adult Patie nts (1 - 1-dose 75+ series) 09/26/2054 HIB Vaccines Aged Out No longer eligi [...]
--- OUTSIDE RECORDS SUMMARY | 2025-02-10 17:53 | XMS_ITS | Clinical Summary ---
Author Organization [facility] Address [address] [place] [address] Care Team Providers Care Machinist/Machine Builder Name Role Phone Terry Rasheed MD [...] Take 100 mg by mouth daily. 4 Active NIFEdipine XL (PROCARDIA XL) 30 mg tablet Take 30 mg by mouth daily. 4 02/20/20 25 Active omega-3 acid ethyl esters (LOVAZA) 1 gram capsule Take 1 g by mouth 2 times daily. 4 03/05/20 25 Active PARoxetine (PAXIL) 20 mg tablet Take 20 mg by mouth every evening. 4 Active PARoxetine (PAXIL) 40 mg tablet Take [...] serum parathyroid hormone level and renal panel. Encounters Date Type Department Care Team Description 02/09/2025 Transcribe Orders [facility] Physician Referral Services [address] [place] [address] Terry Rasheed MD Tubal ligation evaluation (Primary Dx) from Last 3 Months Family History Medical History Relation Name Comments [...] Info) Description 03/25/2025 2:40 PM EST Follow-Up [facility] [address] [place] [address] Technical Support Internship: Arsalan Hercules MD [address] [place] [address] 09/11/2025 1:[address] [facility] Mammography [address] [place] [address], Floor [address]. [place] [address] Health Maintenance Due Date Last Done Comments [...] 75+ series) 09/26/2054 Procedures * Due to [place] Start[employer] law, this organization might not be sharing [...] to Health Maintenance Results * Due to [place] Start[employer] law, this organization might not be sharing negative HIV tests. * TRAM Bilateral Screening Digital Mammogram With Rich (09/05/2024 2:10 PM EDT) Anatomical Region Laterality Modality Breast Bilateral Mammography Narrative 09/22/2024 2:34 PM EDT Exam Date: 09/05/[address], [address] [place], [place] [address] EXAMINATION TRAM Bilateral Screening Digital Mammogram With Rich. INDICATION Vonda Morrison is a 43 y.o. female and is seen for: TRAM Bilateral Screening Digital Mammogram With Rich. CC and MLO views were obtained. FDA approved [employer] AI (artificial intelligence) software and R2 CAD were used as a concurrent reading aid in the interpretation of this study. COMPARISON Compared to: 06/14/2023 [facility] Bilateral Screening Digital Mammogram With Rich Bilateral [...] risk for breast cancer was calculated as: Russle: 12.12%. For high-risk women (life-time risk greater than 20%), regardless of breast density, supplemental screening with annual breast MRI is recommended in addition to annual mammography, ideally staggered at 6-month intervals. Women with dense breast tissue and lifetime risk less than 20% may also benefit from supplemental screening with breast MRI (Epic order M RI BREAST BILATERAL SCREENING W WO CONTRAST ) or automated breast ultrasound (Epic order A BUS ) depending on risk factors. https://acsearch.acr.org/docs/1060024/Narrative/ TC score is not calculated for women with personal history of breast cancer or if age >80 years. If this radiology report contains a blank impression section, it is an incomplete radiology report. Please contact the interpreting radiologist or applicable radiology division as soon as possible to obtain the completed interpretation. Ricco Gupta MD Resulting Agency Comment [id number] Terry Gaytan MD IMG BI PROCEDURES Final Result * Pap (08/25/2021 9:37 AM EDT) Specimen Adequacy Satisfactory for evaluation [facility] MANUAL 2 2:00 PM EDT [employer] [facility] Pathologist Cytology Interpretation Negative for intraepithelial lesion or malignancy. [facility] MANUAL 2 2:00 PM EDT [employer] [facility] at 1359 EDT Comment:This is the result o f a morphological screening test with an inherent possibility of a false negative interpretation. [employer] Senior Sergeant Statement This Pap test was examined by the ThinPrep Imaging System, GCD Systeme, Ubly, MD. This Pap test was examined in accordance with the [facility] Cytopathology Laboratory written policy, which incorporates all CLIA mandates. Current screening guidelines can be found in [place]: A Cancer Journal for Clinicians 2020;70:321-346. Current ASCCP management guidelines for abnormal Pap tests are published in the Journal Lower Genital Tract Disease Volume 2020;24:102-131. [facility] MANUAL 2 2:00 PM EDT [facility] Clinical History screening [facility] MANUAL 2 2:00 PM EDT [facility] Report Header Gynecologic Cytology Report Case: [id number] Authorizing Provider: Coby Rubio Collected: 08/25/2021 0937 Ordering Location: [facility] Received: 08/25/[address] [place] [address] Obstetrics and Gynecology First Screen: Andres Walker Pathologist: Nixon Mckeon MD Specimen: Screening ThinPrep Pap, Cervix/Endocervix 2 2:00 PM EDT [facility] [employer] [facility] Brushing Cervix uteri structure / Unknown Non-Blood Collection / Unknown 08/25/2021 9:37 AM EDT 08/25/2021 10:40 AM EDT us Coby Rubio MD LAB PATHOLOGY/CYTOLOGY ORDERA BLES Final Result [facility] [employer] [facility] [address] [place] [address], * (ABNORMAL) Renal Function Panel (01/05/2020 2:36 PM EDT) NA 139 135 - 145 mmol/L 01/05/2020 3:11 PM EDT [facility] [employer] K 3.6 3.5 - 5.3 mmol/L 01/05/2020 3:11 PM EDT [facility] [employer] Cl 107 97 - 110 mmol/L 01/05/2020 3:11 PM EDT [facility] [employer] CO2 24 24 - 32 mmol/L 01/05/2020 3:11 PM EDT [facility] [employer] Anion Gap 8 5 - 15 01/05/2020 3:11 PM EDT [facility] [employer] Glucose 114(H) 70 - 99 mg/dL 01/05/2020 3:11 PM EDT [facility] [employer] BUN 9 7 - 23 mg/dL 01/05/2020 3:11 PM EDT [facility] [employer] Creatinine 0.60 0.50 - 1.20 mg/dL 01/05/2020 3:11 PM EDT [facility] [employer] eGFR Non- >90 >=90 mL/min/BSA 01/05/2020 3:11 PM EDT [facility] [employer] eGFR >90 >=90 mL/min/BSA 01/05/2020 3:11 PM EDT [facility] [employer] Comment: Units = mL/min/1.73 m2 Glomerular Filtration Rate (GFR) is estimated based on the CKD-EPI Creatinine Equation (2009). Stage Description GFR 1 Normal >=90 mL/min/BSA 2 Mildly decreased GFR 60-89 mL/min/BSA 3 Moderately decreased GFR 30-59 mL/min/BSA 4 Severely decreased GFR 15-29 mL/min/BSA 5 Kidney Failure <15 mL/min/BSA Calcium 9.4 8.7 - 10.7 mg/dL 01/05/2020 3:11 PM EDT [facility] [employer] Phosphorus 3.2 2.5 - 4.5 mg/dL 01/05/2020 3:11 PM EDT [facility] [employer] Albumin 4.8 3.5 - 4.8 g/dL 01/05/2020 3:11 PM EDT [facility] [employer] Blood Structure of peripheral vein / Unknown Venipuncture / Unknown 01/05/2020 2:36 PM EDT 01/05/2020 2:44 PM EDT us Arsalan Torres MD LAB BLOOD ORDERABLES Final Result [facility] [employer] [address] [place] [address], from Last 3 Months or Most Recently Relevant to Health Maintenance [place] [address] [address] [place] [id number] Care Teams Machinist/Machine Builder Relationship Specialty Start Date End Date KaiserTerry Gray MD [address] [place] [address] PCP - General 05/10/20
--- OUTSIDE RECORDS SUMMARY | 2025-02-10 17:53 | XMS_ITS | Encounter Summary ---
Author Organization [employer] Address [address] [place] [address] 7 [place] [address] Care Team Providers Care Peace Officer Name Role Phone Terry Rasheed MD Primary Care Prov ider Encounter Details Date Type Department Care Team (Late st Contact Info) Description 09/22/2024 Orders Only [facility] [address] [place] [address] Provider, MD Dolly Social History Tobacco Use [...] Description 02/23/2025 9:30 AM EDT Clinical Support [address] [address] documented as of this encounter Procedures Procedure [...] documented as of this encounter Care Teams Peace Officer Relationship Specialty Start Date End Date Terry Rasheed MD [address] [place] [address] PCP - General Internal Medicine 12/24/23 documented as of this encounter
--- OUTSIDE RECORDS SUMMARY | 2025-02-10 17:53 | XMS_ITS | Encounter Summary ---
Author Organization [employer] Address [address] [facility] 7 [place] [address] Care Team Providers Care Facilities Maintenance Assistant Name Role Phone Terry Rasheed MD Primary Care Prov ider Terry Rasheed MD Primary Care Prov ider Encounter Details Date Type Department Care Team ([facility] st Contact Info) Description 08/01/2023 Telephone [facility] MEDICINE [address] [place] [address] Terry Rasheed MD [address] [place], [place] [phone] Social History Tobacco Use Types Packs/Day Years [...] Description 02/23/2025 9:30 AM EDT Clinical Support [address] [address] documented as of this encounter Visit Diagnoses Not on filedocumented in this encounter Additional Health Concerns Assessment Noted Time PHQ-9 Depression Total Score: 0 05/28/19 9:00 AM EST documented as of this encounter Care Teams Facilities Maintenance Assistant Relationship Specialty Start Date End Date Terry Rasheed MD [address] [place] [address] PCP - General Internal Medicine 08/10/20 09/26/23 Terry Rasheed MD [address] [place] [address] PCP - General Internal Medicine 12/24/23 documented as of this encounter
--- OUTSIDE RECORDS SUMMARY | 2025-02-10 17:53 | XMS_ITS | Encounter Summary ---
Author Organization [employer] Address [address] [place] [address] [place] [address] Care Team Providers Care General Laborer Name Role Phone Terry Rasheed MD Primary Care Prov ider Encounter Details Date Type Department Care Team ([facility] st Contact Info) Description 12/12/2024 Orders Only [facility] CHC MED & PEDS [address] [place], [place] [phone] Terry Rasheed MD [address] [place] [address] Acute insomnia Social History Tobacco Use Types [...] 02/23/2025 9:30 AM EDT Clinical Support [address] [address] documented as of this encounter Visit Diagnoses Diagnosis Acute insomnia documented in this encounter Additional Health Concerns Assessment Noted Time PHQ-9 Depression Total Score: 2 12/03/19 25 8:46 AM EDT documented as of this encounter Care Teams General Laborer Relationship Specialty Start Date End Date Terry Rasheed MD [address] [place] [address] PCP - General Internal Medicine 12/24/23 documented as of this encounter
--- OUTSIDE RECORDS SUMMARY | 2025-02-10 17:53 | XMS_ITS | Encounter Summary ---
Author Organization [employer] Address [address] [place] [address] [place] [address] Care Team Providers Care Child Health Associate Name Role Phone Terry Rasheed MD Primary Care Prov ider Encounter Details Date Type Department Care Team ([facility] Contact Info) Description 12/17/2024 Telephone [facility] CHC MED & PEDS [address] [place], [place] [phone] Terry Rasheed MD [address] [place] [address] Social History Tobacco Use Types Packs/Day Years [...] enough money to get more: Never True 04/ 01/2025 Transportation Answer Date Recorded In the [...] Description 02/23/2025 9:30 AM EDT Clinical Support [facility] MEDICINE [address] [place] [address] documented as of this encounter Visit Diagnoses Not on filedocumented in this encounter Additional Health Concerns Assessment Noted Time PHQ-9 Depression Total Score: 2 12/03/19 25 8:46 AM EDT documented as of this encounter Care Teams Child Health Associate Relationship Specialty Start Date End Date Terry Rasheed MD [address] [place] [address] PCP - General Internal Medicine 12/24/23 documented as of this encounter
--- OUTSIDE RECORDS SUMMARY | 2025-02-10 17:53 | XMS_ITS | Encounter Summary ---
Author Organization [facility] Address [address] [place] [address] Care Team Providers Care Casey Saw Operator Name Role Phone Terry Rasheed MD Primary Care Prov ider Reason for Referral * Consultation (Routine) - Pending Review Specialty Diagnoses / Procedures Referred By Monica kamara Referred To Contact Obstetrics and Gynecology Diagnoses Tubal ligation evaluation Terry Rasheed MD [address] [place] [address] Phone: tel: fax: [facility] [address] [place] [address] Phone: tel: fax: Referral ID Status Reason Start Date Expiration Date Visits Requested Visits Authorized [id number] Pending Review Specialty Services Required 02/09/2025 03/12/2026 6 6 Encounter Details Date Type Department Care Team (Latest Contact Info) Description 02/09/2025 Transcribe Orders [facility] Physician Referral Services [address] [place] [address] Terry Rasheed MD [address] [place] [address] Tubal ligation evaluation (Primary Dx) Social History Tobacco Use Types [...] Info) Description 03/25/2025 2:40 PM EST Follow-Up [facility] [address] [place] [address] Certified Surgical Technologist: Arsalan Hercules MD [address] [place] [phone] 09/11/2025 1:45 PM EDT Appointment [address], [address]. [place] [address] Scheduled Referrals Name Type Priority Associated Diagnoses Order Schedule Ambulatory referral to Obstetrics / Gynecology Outpatient Referral Routine Tubal ligation evaluation Expected: 02/09/2025, Expires: 03/12/2026 documented as of this encounter Visit Diagnoses Diagnosis Tubal ligation evaluation- Primary Other specified pre-operative examination documented in this encounter Care Teams Casey Saw Operator Relationship Specialty Start Date End Date Terry Rasheed MD [address] [place] [address] PCP - General 05/10/20 documented as of this encounter
--- OUTSIDE RECORDS SUMMARY | 2025-02-10 17:53 | XMS_ITS | Encounter Summary ---
Author Organization [employer] Address [address] [facility] 7 [place] [address] Care Team Providers Care Corporate Human Resources Manager Name Role Phone Terry Rasheed MD Primary Care Prov ider Encounter Details Date Type Department Care Team (Latest Contact Info) Description 02/10/2025 Travel Social History Tobacco Use Types Packs/Day [...] Description 02/23/2025 9:30 AM EDT Clinical Support [address] [address] documented as of this encounter Visit Diagnoses Not on filedocumented in this encounter Additional Health Concerns Assessment Noted Time PHQ-9 Depression Total Score: 2 12/03/19 25 8:46 AM EDT documented as of this encounter Care Teams Corporate Human Resources Manager Relationship Specialty Start Date End Date Terry Rasheed MD [address] [place] [address] PCP - General Internal Medicine 12/24/23 documented as of this encounter
--- OUTSIDE RECORDS SUMMARY | 2025-02-10 17:53 | XMS_ITS | Encounter Summary ---
Author Organization [employer] Address [address] [facility] 7 [place] [address] Care Team Providers Care Retail Merchandising Specialist Name Role Phone Terry Rasheed MD Primary Care Prov ider Reason for Visit * Reason Onset Date Comments Results 01/29/2025 Encounter Details Date Type Department Care Team ([facility] Contact Info) Description 01/29/2025 Telephone [facility] MEDICINE [address] [place] [address] Terry Rasheed MD [address] [place] [address] Results Social History Tobacco Use Types Packs/Day [...] encounter Miscellaneous Notes * Telephone Encounter - Galina Benedict - 01/29/2025 3:49 PM EDT TC from pt requesting call back regarding Results. Encounter 01/13 unsure if is regranting the same Type of results: endoscopy. Date when done: 01/09 Facility: [facility] Contact pt at [phone] documented in this encounter Plan of Treatment Upcoming Encounters Date Type Department Care Team (Late st Contact Info) Description 02/23/2025 9:30 AM EDT Clinical Support [facility] MEDICINE [address] [place] [address] documented as of this encounter Visit Diagnoses Not on filedocumented in this encounter Additional Health Concerns Assessment Noted Time PHQ-9 Depression Total Score: 2 12/03/19 8:46 AM EDT documented as of this encounter Care Teams Retail Merchandising Specialist Relationship Specialty Start Date End Date Terry Rasheed MD [address] [place] [address] PCP - General Internal Medicine 12/24/23 documented as of this encounter
--- OUTSIDE RECORDS SUMMARY | 2025-02-10 17:53 | XMS_ITS | Encounter Summary ---
Author Organization [employer] Address [address] [facility] 7 [place] [address] Care Team Providers Care Oncology Rep Name Role Phone Terry Rasheed MD Primary Care Prov ider Encounter Details Date Type Department Care Team (Latest Contact Info) Description 02/06/2025 Travel Social History Tobacco Use Types Packs/Day [...] Description 02/23/2025 9:30 AM EDT Clinical Support [address] [address] documented as of this encounter Visit Diagnoses Not on filedocumented in this encounter Additional Health Concerns Assessment Noted Time PHQ-9 Depression Total Score: 2 12/03/19 25 8:46 AM EDT documented as of this encounter Care Teams Oncology Rep Relationship Specialty Start Date End Date Terry Rasheed MD [address] [place] [address] PCP - General Internal Medicine 12/24/23 documented as of this encounter
--- OUTSIDE RECORDS SUMMARY | 2025-02-10 17:53 | XMS_ITS | Encounter Summary ---
Author Organization [employer] Address [address] [facility] 7 [place] [address] Care Team Providers Care Glass Edger Name Role Phone Terry Rasheed MD Primary Care Prov ider Terry Rasheed MD Primary Care Prov ider Reason for Visit * Reason Onset Date Comments Referral 07/18/2023 Encounter Details Date Type Department Care Team (Late st Contact Info) Description 07/18/2023 Telephone [facility] MEDICINE [address] [place] [address] Terry Rasheed MD [address] [place] [address] Referral Social History Tobacco Use Types Packs/Day [...] : DATE: N/A TIME: N/A Address: [address] [place] [address] [place] [address] Visits: N/A Facility Name: [facility] Urology center Type of Specialist: Urologist DX: Kidney Pain Phone #: [phone] Fax #: [phone] documented in this encounter Plan of Treatment Upcoming Encounters Date Type Department Care Team (Late st Contact Info) Description 02/23/2025 9:30 AM EDT Clinical Support [facility] MEDICINE [address] [place] [address] documented as of this encounter Visit Diagnoses Not on filedocumented in this encounter Additional Health Concerns Assessment Noted Time PHQ-9 Depression Total Score: 0 05/28/19 24 9:00 AM EST documented as of this encounter Care Teams Glass Edger Relationship Specialty Start Date End Date Terry Rasheed MD [address] [place] [address] PCP - General Internal Medicine 08/10/20 09/26/23 Terry Rasheed MD [address] [place] [address] PCP - General Internal Medicine 12/24/23 documented as of this encounter
--- OUTSIDE RECORDS SUMMARY | 2025-02-10 17:53 | XMS_ITS | Encounter Summary ---
Author Organization [employer] Address [address] [place] [address] 7 [place] [address] Care Team Providers Care Or Scrub Tech Name Role Phone Terry Rasheed MD Primary Care Prov ider Terry Rasheed MD Primary Care Prov ider Reason for Visit * Reason Comments Med Refill Encounter Details Date Type Department Care Team (Late Contact Info) Description 07/24/2022 Refill [facility] CHC MED & PEDS [address] [place], [place] [phone] Terry Rasheed MD [address] [place], [place] [phone] Social History Tobacco Use Types Packs/Day Years [...] Department Care Team (Late Contact Info) Description 02/23/2025 9:30 AM EDT Clinical Support [facility] MEDICINE [address] [place] [phone] documented as of this encounter Visit Diagnoses Not on filedocumented in this encounter Additional Health Concerns Assessment Noted Time PHQ-9 Depression Total Score: 0 05/15/19 23 9:53 AM EST documented as of this encounter Care Teams Or Scrub Tech Relationship Specialty Start Date End Date Terry Rasheed MD [address] [place] [address] PCP - General Internal Medicine 08/10/20 09/26/23 Terry Rasheed MD [address] [place] [address] PCP - General Internal Medicine 12/24/23 documented as of this encounter
--- OUTSIDE RECORDS SUMMARY | 2025-02-10 17:53 | XMS_ITS | Encounter Summary ---
Author Organization [facility] [employer] Address [address] [facility] 7 [place] [address] Care Team Providers Care Human Anatomy Teacher Name Role Phone Terry Rasheed MD Primary Care Prov ider Reason for Visit * Reason Onset Date Comments Nurse Triage 08/04/2024 Encounter Details Date Type Department Care Team ([facility] st Contact Info) Description 08/04/2024 Telephone [facility] MEDICINE [address] [place] [address] Terry Rasheed MD [address] [place] [address] Nurse Triage Social History Tobacco Use Types [...] voice mail. Left voice message to call [facility] [phone] when available. * Telephone Encounter - Vega [...] Description 02/23/2025 9:30 AM EDT Clinical Support [facility] MEDICINE [address] [place] [address] documented as of this encounter Visit Diagnoses Not on filedocumented in this encounter Additional Health Concerns Assessment Noted Time PHQ-9 Depression Total Score: 16 024 10:47 AM EST documented as of this encounter Care Teams Human Anatomy Teacher Relationship Specialty Start Date End Date Terry Rashede MD [address] [place], [place] [address] [address] PCP - General Internal Medicine 12/24/23 documented as of this encounter
--- OUTSIDE RECORDS SUMMARY | 2025-02-10 17:53 | XMS_ITS | Encounter Summary ---
Author Organization [employer] Address [address] [facility] 7 [place] [address] Care Team Providers Care Platform Material Handling Supervisor Name Role Phone Terry Rasheed MD Primary Care Prov ider Terry Rasheed MD Primary Care Prov ider Reason for Visit * Reason Onset Date Comments triage 09/18/2022 Encounter Details Date Type Department Care Team (Late st Contact Info) Description 09/18/2022 Telephone [facility] MEDICINE [address] [place] [address] Terry Rasheed MD [address] [place] [address] triage Social History Tobacco Use Types Packs/Day [...] from Pt, reports missed appt with [facility] Director due to sleeping in. Per [...] No answer, LVM to return call to [facility]. Noticed pt has appt today with [facility] provider Flores Stewart, discussed with her [...] Description 02/23/2025 9:30 AM EDT Clinical Support [address] [address] documented as of this encounter Visit Diagnoses Not on filedocumented in this encounter Additional Health Concerns Assessment Noted Time PHQ-9 Depression Total Score: 12 023 11:19 AM EDT documented as of this encounter Care Teams Platform Material Handling Supervisor Relationship Specialty Start Date End Date Terry Rasheed MD [address] [place] [address] PCP - General Internal Medicine 08/10/20 09/26/23 Terry Rasheed MD [address] [place] [address] PCP - General Internal Medicine 12/24/23 documented as of this encounter
== END 2025-02-10 15:09 | disposition home or self-care (01) ==
LOC: HO.HGI 14:33
PROVIDERS: Visit Provider Nurse Practitioner Family
DX: A04.8 Other specified bacterial intestinal infections (principal); K21.9 Gastro-esophageal reflux disease without esophagitis; K58.0 Irritable bowel syndrome with diarrhea; K57.90 Diverticulosis of intestine, part unspecified, without perforation or abscess without bleeding
CPT/HCPCS: 99213

== ENCOUNTER → 2025-02-10 14:32 | Outpatient (BNVA) | payer OTHER, SELFPAY | PROVIDERS: Visit Provider Nurse Practitioner Family | DX: A04.8 Other specified bacterial intestinal infections (principal); K21.9 Gastro-esophageal reflux disease without esophagitis; K58.0 Irritable bowel syndrome with diarrhea; K57.90 Diverticulosis of intestine, part unspecified, without perforation or abscess without bleeding; K44.9 Diaphragmatic hernia without obstruction or gangrene; R13.10 Dysphagia, unspecified | CPT/HCPCS: 99212 ==

== ENCOUNTER 2025-02-26 14:05 | Outpatient (AMB) | payer OTHER, SELFPAY ==
--- OUTSIDE RECORDS SUMMARY | 2024-10-06 08:00 | XMS_ITS ---
Author Organization [facility] Address [address] [place] [address] Care Team Providers Care Emergency Medical Technician Basic Name Role Phone CHRIS TAPIA Unavailable [phone] REASON FOR VISIT lab only Social History Sex Assigned At : Social History Observation Description Sex Assigned At Female Encounters Encounter Location Date Provider Diagnosis [facility] [place] [facility] [address] [place], [place] [phone] 06/2024 CHRIS TAPIA Plan Of Treatment No Information Progress Notes * Vonda QUEVEDODOB:1980 (44 yo F)Acc No.[id number]:10/06/2024 LAB Patient: Alia lucianVonda Romano Provider: Nicky TAPIA :1980 A ge:44 Y S ex:Female Date:10/06/2024 Address:[address] [place] [phone] Subjective: * Chief Complaints: * L ab only * Electronic signature of GABO TAPIA CNM on 02/26/2025 at 05:55 PM EDT Sign off status: Pending * Provider: Nicky TAPIA Date: 0 10/06/2024 Generated for Andrew chowdhury/Nick/eTisaac on: 05:55 PM EDT
--- OUTSIDE RECORDS SUMMARY | 2025-02-23 10:40 | XMS_ITS | Encounter Summary ---
Author Organization [employer] Address [address] [place] [address] 7 [place] [address] Care Team Providers Care Coremaker Helper Name Role Phone Terry Rasheed MD Primary Care Prov ider Reason for Referral * Consultation (Routine) - Closed Specialty Diagnoses / Procedures Referred By Contac t Referred To Contact Physical Therapy Diagnoses Cervical radiculopathy Numbness and tingling in left hand Grace Ventura FNP [address] [place] [address] Phone: tel: fax: [facility] [address] [place] [phone] Phone: tel: fax: Referral ID Status Reason Start Date Expiration Date V isits Requested Visits Authorized [id number] Closed Specialty Services Required 02/23/2025 02/23/2026 1 1 Reason for Visit * Reason Comments Arm Pain Encounter Details Date Type Department Care Team (Latest Contact Info) Description 02/23/2025 10:40 AM EDT Office Visit [facility] [address] [place] [address] Grace Ventura FNP [address] [place] [address] Cervical radiculopathy (Primary Dx); Numbness and tingling in left hand Social History Tobacco Use Types Packs/Day Years [...] Sign Reading Time Taken Comments Blood Pressure 114/81 02/23/2025 10:34 AM EDT Pulse 96 02/23/2025 10:34 AM EDT Temperature 36.8 C (98.2 F) 02/23/2025 10:34 AM EDT Respiratory Rate 16 02/23/2025 10:34 AM EDT Oxygen Saturation 99% 02/23/2025 10:34 AM EDT Inhaled Oxygen Concentration - - Weight 76.2 kg (168 lb) 02/23/2025 10:34 AM EDT Height - - Body Mass Index 27.96 11/11/2024 3:56 PM EDT documented in this encounter Progress Notes * ROGE Paulson - 02/23/2025 10:40 AM EDT SUBJECTIVE Vonda Madrigal is a 44 y.o. female who presents for left Arm Pain. 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 - Confirms neck pain - Patient denies using any medication Review of Systems Constitutional: Negative for chills, diaphoresis, fatigue and fever. Respiratory: Negative for apnea, cough, chest tightness, shortness of breath and wheezing. Cardiovascular: Negative for chest pain and palpitations. Gastrointestinal: Negative for nausea and vomiting. Musculoskeletal: Positive for neck pain. Negative for gait problem and joint swelling. Skin: Negative for pallor. Neurological: Negative for dizziness, syncope, speech difficulty, weakness, light-headedness, numbness and headaches. Allergies[1] OBJECTIVE Vitals: 02/23/25 1034 BP: 114/81 BP Location: Right arm Patient Position: Sitting BP Cuff Size: Adult Pulse: 96 Resp: 16 Temp: 98.2 ??F (36.8 ??C) TempSrc: Temporal SpO2: 99% Weight: 168 lb (76.2 kg) Physical Exam Vitals reviewed. Constitutional: Appearance: Normal appearance. HENT: Head: Atraumatic. Cardiovascular: Rate and Rhythm: Normal rate and regular rhythm. Pulses: Normal pulses. Heart sounds: Normal heart sounds. No murmur heard. Pulmonary: Effort: Pulmonary effort is normal. Breath sounds: Normal breath sounds. No wheezing. Musculoskeletal: Cervical back: Tenderness present. No rigidity. Lymphadenopathy: Cervical: No cervical adenopathy. Neurological: Mental Status: She is alert and oriented to person, place, and time. Motor: No weakness. Gait: Gait normal. Psychiatric: Mood and Affect: Mood normal. Behavior: Behavior normal. Assessment/Plan Problem List Items Addressed This Visit Cervical radiculopathy - Primary Numbness and tingling in left hand Neck pain and upper extremity numbness/tingling: - Cervical radiculopathy considered as a possible etiology for pain radiating from the neck into the shoulder and arm, often accompanied by numbness, tingling. - Negative Phalen test, numbness and tingling felt in all fingers low suspicion of Carpal tunnel syndrome. - Prescribed Tylenol for neck pain. Recommended neck exercises and stretching. Advised to monitor pillow use during sleep. - Referral for physical therapy for neck and upper extremity symptoms placed; patient to be contacted for scheduling. Advised to use warm compresses and topical cream on neck once daily. If symptoms persist after physical therapy, instructed to contact PCP for further evaluation. Relevant Medications acetaminophen (Tylenol 8 Hour) 650 MG ER tablet Diclofenac Sodium 1 % gel Other Relevant Orders Referral to Physical Therapy This note was drafted using Ambient (AI) technology. The patient/patient's guardian has been informed and has consented to the use of this technology: Yes No future appointments. [1] Allergies Allergen Reactions Latex Rash documented in this encounter Plan of Treatment Scheduled Referrals Name Type Priority Associated Diagnoses Orde r Schedule Referral to Physical Therapy Outpatient Referral Routine Cervical radiculopathy Numbness and tingling in left hand Expected: 02/23/2025 (Approximate), Expires: 02/23/2026 documented as of this encounter Visit Diagnoses Diagnosis Cervical radiculopathy- Primary Brachial neuritis or radiculitis nos Numbness and tingling in left hand Disturbance of skin sensation documented in this encounter Additional Health Concerns Assessment Noted Time PHQ-9 Depression Total Score: 2 12/03/19 25 8:46 AM EDT documented as of this encounter Care Teams Coremaker Helper Relationship Specialty Start Date End Date Terry Rasheed MD [address] [place] [id number] PCP - General Internal Medicine 12/24/23 documented as of this encounter
[2025-02-26 14:08] VITALS: BP 144/82; PULSE 71; BMI 29.9
--- NOTE | 2025-02-26 14:08 | A.OFFVIS_ITS ---
Vital Signs 02/26/25 14:08 Height 5 ft 3 in Weight 169 lb BMI 29.9 BP 144/82 H Blood Pressure Location Lt brachial Position Sitting Pulse 71 Intake Visit Reasons: H Pylori Intake Note: Vonda presents to in office follow up of H pylori. CC: Patient states that she has been having dizzinness, itching on her skin, blurry vision, and N/V after she began taking de Sucralfate Allergies No Known Drug Allergies Allergy (Unknown, Verified 02/26/25 14:16) none latex Allergy (Verified 02/26/25 14:16) Hives HPI HPI H Pylori: Details: Patient is a 43-year-old Swedish speaking female with PMH of depression/anxiety, hypertenion. F/u post-upper endoscopy and screening colonoscopy to review results, address ongoing GI sx (GERD, IBS-like stool changes), and assess response to prior H. pylori tx. Pt reports ongoing reflux sx and changes in stool consistent with IBS-type pattern. Completed prescribed course of abx for H. pylori approximately 3?4 wks ago; ongoing PPI therapy withheld the past two wks per test prep. Pt continued sucralfate despite pruritus and mild erythematous rash, attributing rash to known med SEs and prioritizing tx adherence. Reports intermittent dysphagia and careful mastication to mitigate sx; no odynophagia. Hydration maintained. Denies GI bleeding, hematemesis, or melena No hospital or urgent care visits/interim flares. Currently on family medical leave; inquires about workplace restrictions related to lifting for hiatal hernia. No other acute complaints. [facility] Medical History Diverticulosis IBS (irritable bowel syndrome) Dysphagia Hiatal hernia Positive H. pylori test Acid reflux Elevated alkaline phosphatase level Colon cancer screening Change in stool delivery delivered Multiple births, some liveborn Miscarriage Diabetes HTN (hypertension) Kidney stone Surgical History Hx of section Family History Mother HTN (hypertension) Diabetes Father HTN (hypertension) Disease of colon Paternal Uncle Colon cancer Paternal Uncle Colon cancer Paternal Aunt Breast CA Paternal Aunt Breast CA Social History Alcohol intake: former Patient Tobacco Use Status: Never used Tobacco Review of Systems Const Reports as per HPI ENT Reports as per HPI Card Reports as per HPI Resp Reports as per HPI GI Reports as per HPI Reports as per HPI Physical Exam Vital Signs: Last Vital Signs Pulse 71 02/26/25 14:08 BP 144/82 H 02/26/25 14:08 BMI result Body Mass Index 29.9 Const General: healthy appearing, no acute distress and well developed Nutritional Appearance: average body habitus Orientation/consciousness: patient oriented x3 HEENT Head: Yes normal to inspection, Yes normocephalic and Yes atraumatic Face and sinus: Yes normal facial exam Eyes General: appearance normal, both eyes and all related structures Neck Neck: Yes normal visual inspection Resp Effort & Inspection: normal respiratory effort, able to speak in complete sentences, no tracheal deviation and symmetric chest movement Cardio Jugular venous distension: no JVD Neuro General: patient oriented x3 Gait exam (Neuro): Normal gait present Psych Appearance: grossly normal Mental Status: mental status grossly normal Speech and movement: Normal speech and movement present Affect: normal affect Attitude: cooperative Thought process: Normal thought process present Thought content: Normal thought content present Insight: Good insight present (Psych) Judgement: Good judgement present (Psych) Results Reviewed Results Reviewed: Operative Note Date of Service: 01/20/25 Narrative: Procedure: Upper endoscopy and colonoscopy Indication: GERD, change in bowel habits Endoscopist: Eliane Metcalf MD Anesthesia Provider: Dr Batres Anesthesia type: MAC Instrument: GIF-H190 and PCF-H190L EGD Procedure: The procedure, indications, preparation and potential complications were reviewed with the patient, who indicated understanding and gave written informed consent to proceed. The endoscope was introduced through the mouth, and advanced to the 2nd part of the duodenum. The mucosa was carefully examined on slow withdrawal of the endoscope. The patient tolerated the procedure well. There were no immediate complications. EGD Findings: Esophagus: Small erosions measuring 10 mm were noted extending from the GE junction, but not crossing the tops of the mucosal folds. The Z-line was at 31 cm, displaced by hiatal hernia with the diaphragmatic pinch at 34 cm. Cold forceps biopsies were taken from lower esophagus for histology. Stomach: Erythema in the body and antrum of the stomach with a healing ulcer in the antrum at 02:00. Cold forceps biopsies were taken from the edge of this ulcer. Retroflexion was performed in the cardia that showed Hill grade III hiatal hernia. Random cold forceps biopsies were taken from the stomach. Duodenum: Normal duodenal mucosa. Cold forceps biopsies were taken from the duodenal bulb and 2nd portion of the duodenum to rule out celiac sprue. Colonoscopy Procedure: The patient was then turned for the colonoscopy. A digital rectal exam was performed which was normal. A distal attachment cap was affixed to the tip of the scope and the colonoscope was then inserted through the anus and advanced through the colon and advanced to the cecum at 80 cm and terminal ileum. Appendiceal orifice and ileocecal valve were identified. Mucosa was carefully examined under high definition white light as the instrument was slowly withdrawn in a retrograde panoramic fashion. Retroflexion was performed in rectum. The procedure was not difficult. The quality of the prep was BBPS: 3+2+2 = adequate Withdrawal time 9 minutes Limitations: No limitations Findings: Mucosa: Normal colon and terminal ileum mucosa. Cold forceps biopsies were taken right and left side of the colon to rule out microscopic colitis. Protruding lesions: Medium internal hemorrhoids without stigmata of recent bleeding. Excavated lesions: Diverticulosis in sigmoid colon with rare diverticula noted in the right colon. Impression: 1. Grade B esophagitis (biopsy) 2. Hiatal hernia 3. Gastritis (biopsy) 4. Antral ulcer (biopsy) 5. Normal duodenum (biopsy) 6. Normal colon and terminal ileum mucosa (biopsy) 7. Diverticulosis 8. Internal hemorrhoids Recommendations: Follow-up path results Avoid NSAIDs Continue omeprazole twice a day x 8-12 weeks and then once daily Patient recently prescribed H pylori treatment, however gastric biopsies taken on PPI therapy. Would recommend LEONARDO off PPI. Repeat colonoscopy for CRC screening in 10 years. PATHOLOGY: Collected: 01/20/25 Location: [facility] Received: 01/20/25 ADDENDUM REPORT Addendum Addendum #1 Immunostains for H. pylori on B and C are negative with appropriate control. Electronically Signed By: Aubrie Mak 01/22/25 1605 Diagnosis A. Duodenum, biopsy: Duodenal mucosa with preserved villi and no specific change. B. Stomach, random, biopsy: Gastric antral and body mucosa with minimal chronic inactive gastritis; negative for intestinal metaplasia and dysplasia. C. Gastric ulcer, biopsy: Gastric antral mucosa with mild reactive changes and minimal chronic inactive gastritis; negative for intestinal metaplasia and dysplasia. D. Esophagus, lower, biopsy: Squamous mucosa with no specific change; no columnar mucosa present. E. Colon, right, biopsy: Colonic mucosa with no specific change. F. Colon, left, biopsy: Colonic mucosa with lymphoid aggregates and no specific change. Comment: (B and C): Immunostains for H. pylori pending; addendum to follow. Clinical History Pre-Op Dx: GERD, change in bowel habits Post-Op Dx: Hiatal hernia, gastritis, gastric ulcer, esophagitis, diverticulosis, hemorrhoid Assessment & Plan Assessment & Plan (1) Acid reflux: Comment: 01/20/25 Upper endoscopy-Hiatal hernia, gastritis, gastric ulcer, esophagitis Code(s): K21.9 - Gastro-esophageal reflux disease without esophagitis Category: Medical Qualifiers: Esophagitis presence: esophagitis presence not specified Qualified Code(s): K21.9 - Gastro-esophageal reflux disease without esophagitis Plan: Active sx; partial improvement on prior PPI. Hiatal hernia confirmed; ongoing sx likely multifactorial (anatomic, reflux). Additional Testing: Await barium swallow for detailed anatomy/esophageal motility. Medications: Omeprazole 20 mg PO BID x3 mos, resume post-H. pylori retest; monitor for PPI SEs. Lifestyle: Avoid triggers (fatty, fried, acidic foods, caffeine, spicy); small meals; remain upright postprandially; avoid late eating; educate re: fiber/hydration; handouts provided previously. Referrals: None pending barium. Follow-Up: F/u after barium swallow (~1 wk post-study) or PRN for sx escalation. (2) Positive H. pylori test: Code(s): A04.8 - Other specified bacterial intestinal infections Category: Medical Plan: Sx likely post-infectious; confirm H. pylori eradication w/ testing today. Additional Testing: H. pylori breath/stool test today; consider repeat EGD only if sx persist or test positive. Medications: Complete omeprazole course as above. Lifestyle: Maintain bland diet until sx resolved; avoid NSAIDs, EtOH, tobacco. Referrals: None. Follow-Up: Review test results via phone. (3) Diverticulosis: Comment: 01/20/25 colonoscopy complete with adequate prep- diverticulosis ( sigmoid), Medium internal hemorrhoids. Recommendations for repeat in 10 years (2034). Code(s): K57.90 - Diverticulosis of intestine, part unspecified, without perforation or abscess without bleeding Category: Medical Plan: Incidentally found, asx. No evidence of diverticulitis. Additional Testing: None unless sx develop. Medications: None. Lifestyle: Maintain high-fiber diet, routine hydration; avoid constipation. Referrals: None. Follow-Up: Routine colon ca screening next due in 10 yrs unless new sx. Plan Follow-up after BSS or sooner as needed Time: I spent a total of 33 minutes on the date of encounter which includes: Preparing to see the patient (reviewed previous documentation, test results and medical history) Performing a medically appropriate exam and/or evaluation Ordering medications, tests, and procedures Documenting clinical information in the health record Medications: New omeprazole Take one tablet twice daily, on a empty stomach. Delay eating 30 minutes 20 mg PO BID 180 caps 0RF Discontinued omeprazole Take one tablet twice daily for 14 days. Discontinued Reason: Duplicate 20 mg PO BID 28 tabs 0RF Coding Level of Care Code Established Pt Est Pt Level 3 (60044) Patient Type Established Diagnoses Gastroesophageal reflux disease, unspecified whether esophagitis present K21.9 Esophagitis presence: esophagitis presence not specified Positive H. pylori test A04.8 Diverticulosis K57.90
--- OUTSIDE RECORDS SUMMARY | 2025-02-26 17:54 | XMS_ITS | Patient Health Record ---
Author Organization [employer] Address [address] [place] [address] Care Team Providers Care E Commerce Architect Name Role Phone CHRIS TAPIA [phone] Allergies No Known Allergies Results Component Value Reference Range Notes PDF Report Reviewed date:10/08/2024 03:39:29 PM Interpretation: Performing Lab:[facility], [address], [address], [place], Phone - [phone], Director - [facility] Notes/Report: No. of containers..01 ThinPrep Vial Clinical Information:[id number] IGP, Apt HPV,rfx 16/18,45-19 9344 Reviewed date:10/08/2024 03:38:28 PM Interpretation:Normal, HPV neg Performing Lab:[facility] [place], [address], [address], [place], Phone - [phone], Director - [facility] Notes/Report: Clinical Information:[id number] No. of containers..01 ThinPrep Vial DIAGNOSIS: NEGATIVE FOR INTRAEPITHELIAL LESION OR MALIGNANCY. Specimen adequacy: Satisfactory for evaluation. Endocervical and/or squamous metaplastic cells (endocervical component) are present. Clinician provided ICD10: Z01.419 Z11.51 Performed by: Kin bailey, Ferris Wheel Attendant (ASCP) . . Note: The Pap smear [...] high-risk HPV types (16,18,31,33,35,39,45,51,5 2,56,58,59,66,68) without differentiation. NuSwab VG+, Sherry 6sp-1800 68 Reviewed date:10/06/2024 10:44:14 AM Interpretation:Negative Performing Lab[facility], [address] [facility] [place], [place], Phone - [phone], Director - [facility] Notes/Report: and Drug Administration. by [employer]. It has not been cleared or approved by the Food was developed and its performance characteristics determined 323383-Rrnplzw krusei, GREGORIA 793970-N parapsilosis/tropicalis; 164621-Jkqlpiy lusitaniae, GREGORIA; Test(s) 668644-Porzngw albicans, GREGORIA; 272940-Hrjdyin glabrata, GREGORIA; and Drug Administration. by [employer]. It has not been cleared or approved by the [employer] was Content [employer] and its performance characteristics determined Megasphaera 1 Test(s) 900867- Atopobium vaginae; 485920- BVAB 2; 723947- Atopobium vaginae Low - 0 BVAB 2 [...] Negative HCV Antibody RFX to Quant PC [id number] Reviewed date:10/06/2024 10:32:56 AM Interpretation:Negative Performing Lab:[facility], [address], [address], [place], Phone - [phone], Director - [facility] Notes/Report: HCV Ab Non Reactive Non Reactive Interpretation: Not infected with HCV unless early or acute infection is suspected (which may be delayed in an immunocompromised individual), or other evidence exists to indicate HCV infection. HIV Ab/p24 Ag with Reflex-08 3935 Reviewed date:10/06/2024 10:33:13 AM Interpretation:Negative Performing Lab:[facility] [place], [address], [address], [place], Phone - [phone], Director - [facility] Notes/Report: HIV Ab/p24 Ag Screen Non Reactive Non Reactive HIV-1/HIV-2 antibodies and HIV-1 p24 antigen were NOT detected. There is no laboratory evidence of HIV infection. HIV Negative T pallidum Screening [place] -[id number] Reviewed date:10/06/2024 10:33:22 AM Interpretation:Negative Performing Lab:[facility] [place], [address], [address], [place], Phone - [phone], Director - [facility] Notes/Report: T pallidum Antibodies Non Reactive Non Reactive Hepatitis B Surf Ab Quant-00 6530 Reviewed date:10/06/2024 10:32:49 AM Interpretation:Immune Performing Lab:[facility] [place], [address], [address], [place], Phone - [phone], Director - [facility] Notes/Report: Hepatitis B Surf Ab Quant 2203.0 Immunity>10 mIU /mL Results confirmed on dilution. Status of Immunity Anti-HBs Level Inconsistent with Immunity 0.0 - 10.0 Consistent with Immunity >10.0 HBsAg Screen-[id number] Reviewed date:10/06/2024 10:33:05 AM Interpretation:Negative Performing Lab:[facility] [place], [address], [address], [place], Phone - [phone], Director - [facility] Notes/Report: HBsAg Screen Negative Negative [place] Reviewed date:10/03/2024 02:18:32 PM Interpretation:Normal Performing Lab: Notes/Report: Normal Clue Cells neg WBC neg Hyphae neg Trichomonas neg pH 4.5 CORDELL Prep neg whiff Urinalysis Reviewed date:10/06/2024 10:27:25 AM Interpretation:Blood Performing Lab: Notes/Report: Blood Leukocytes - Nitrates - Uro 0.2 Protein 15 pH 6.0 Blood 25 Spec [place] 1.020 Ketones - Bilirubin - Glucose - Reason For Referral No Information Medications Medication [...] 10/03/2024 Encounters Encounter Location Date Provider Diagnosis [address] [place], [place] [id number] 10/03/2024 CHRIS TAPIA Encounter for gynecological examination (general) (routine) without abnormal findings Z01.419 ; Dysuria R30.0 ; Vaginal discharge N89.8 ; HPV Pap Screening Z11.51 ; HIV Screening Z11.4 ; Encounter for screening for infections with a predominantly sexual mode of transmission Z11.3 ; Screening for other viral diseases Z11.59 and Other problems related to lifestyle Z72.[address] [id number] 10/06/2024 CHRIS TAPIA Dysuria R30.0 Assessments Encounter [...] Insured Coverage Start Date Coverage End Date [facility] [address] [place] [id number] [phone] [id number] Vonda Quevedo Self - patient is the insured Medical (General) History Medical History History ICD Code High blood pressure Kidney disease, kidney stones Depression/Anxiety Vaginal infections Gastritis- followed by GI Hospitalization History Reason Date(Month/Year) childbirth
--- OUTSIDE RECORDS SUMMARY | 2025-02-26 17:55 | XMS_ITS | Encounter Summary ---
Author Organization [employer] Address [address] [facility] [address] [place] [address] Care Team Providers Care Printing Bindery Assistant Name Role Phone Terry Rasheed MD Primary Care Prov ider Terry Rasheed MD Primary Care Prov ider Reason for Visit * Reason Onset Date Comments Referral 07/18/2023 Encounter Details Date Type Department Care Team (Late st Contact Info) Description 07/18/2023 Telephone [facility] [address] [place] [address] Terry Rasheed MD [address] [place] [address] Referral Social History Tobacco Use Types Packs/Day [...] referral : DATE: N/A TIME: N/A Address: [address] [place] [address] [place] [address] Visits: N/A Facility Name: [facility] center Type of Specialist: Urologist DX: Kidney Pain Phone #: [phone] Fax #: [phone] documented in this encounter Plan of Treatment Not on file documented as of this encounter Visit Diagnoses Not on filedocumented in this encounter Additional Health Concerns Assessment Noted Time PHQ-9 Depression Total Score: 0 05/28/19 24 9:00 AM EST documented as of this encounter Care Teams Printing Bindery Assistant Relationship Specialty Start Date End Date Terry Rasheed MD [address] [facility] [place] [address] PCP - General Internal Medicine 08/10/20 09/26/23 Terry Rasheed MD [address] [facility] [place] [address] PCP - General Internal Medicine 12/24/23 documented as of this encounter
--- OUTSIDE RECORDS SUMMARY | 2025-02-26 17:55 | XMS_ITS | Encounter Summary ---
Author Organization [employer] Address [address] [place] [address] [place] [address] Care Team Providers Care Supervising Broker Name Role Phone Terry Rasheed MD Primary Care Prov ider Reason for Visit * Reason Comments Med Refill Encounter Details Date Type Department Care Team ([facility] Contact Info) Description 11/09/2023 Refill [facility] MED & PEDS 505 [place] [address] Terry Rasheed MD 505 [place] [address] Social History Tobacco Use Types Packs/Day Years [...] documented as of this encounter Care Teams Supervising Broker Relationship Specialty Start Date End Date Terry Rasheed MD [address] [place] [address] PCP - General Internal Medicine 12/24/23 documented as of this encounter
--- OUTSIDE RECORDS SUMMARY | 2025-02-26 17:55 | XMS_ITS | Encounter Summary ---
Author Organization [employer] Address [address] [facility] 7t [place] [address] Care Team Providers Care Innersole Maker Name Role Phone Terry Rasheed MD Primary Care Prov ider Reason for Visit * Reason Onset Date Comments Walk in Triage 02/23/2025 Encounter Details Date Type Department Care Team ([facility] st Contact Info) Description 02/23/2025 Telephone [facility] MEDICINE 230 [place] [address] Terry Rasheed MD 505 [place] [address] Walk in Triage Social History Tobacco Use Types Packs/Day [...] encounter Miscellaneous Notes * Telephone Encounter - Chantal Diallo RN - 02/23/2025 9:51 AM EDT Patient presented to red team for a BP check via [employer] interpreters (#80096)however upon bringing patient into the room the patient disclosed L arm tingling x a couple of weeks . Patient reports she woke up and her arm felt sleepy . Patient reports since then she has also noticed her veins on her Larm are more prominent. Patient reports her L arm/hand continues to having a tingling sensation. Patient denies any weakness (is able to hold and grasp things). Patient also reports 1 episode of numbness. Patient denies any pain r/t arm tingling. Patient also reports intermittent chest pain and SOBhowever reports they told me it is due to my hiatal hernia . Patient denies any active chest pain at this time and is not SOB, patient spoke to RN in full complete sentences. Patient scheduled in [facility] for 10:40am to see provider in relation to L arm tingling. Patient agreed to [facility] appointment. VS: BP 148/88 LA P 76 SpO2 97% documented in this encounter Plan of Treatment Not on file documented as of this encounter Visit Diagnoses Not on filedocumented in this encounter Additional Health Concerns Assessment Noted Time PHQ-9 Depression Total Score: 2 12/03/19 25 8:46 AM EDT documented as of this encounter Care Teams Innersole Maker Relationship Specialty Start Date End Date Terry Rasheed MD [address] [place] [address] PCP - General Internal Medicine 12/24/23 documented as of this encounter
--- OUTSIDE RECORDS SUMMARY | 2025-02-26 17:55 | XMS_ITS | Encounter Summary ---
Author Organization [employer] Address [address] [place] [address] [place] [address] Care Team Providers Care Percussion Welding Machine Operator Name Role Phone Terry Rasheed MD Primary Care Prov ider Terry Rasheed MD Primary Care Prov ider Reason for Visit * Reason Onset Date Comments ER Follow-up 07/31/2023 Encounter Details Date Type Department Care Team ([facility] st Contact Info) Description 07/31/2023 Telephone [facility] MED & PEDS 505 [place], [place] [phone] Terry Rasheed MD 505 [place] [address] ER Follow-up Social History Tobacco Use Types [...] EDT Fax request for notes, sent to [facility] as requested. * Telephone Encounter - [...] patient to seek care and eval in [facility] if she is feeling unwell enough to go back to work or needs further care thisweek or has persistence/worsening of symptoms. She expressed understanding. Scheduled for televisitf/u with PCP for 08/06/23 @ 10:15am. No other concerns or questions at this time. [facility]. Patient calling to report ED visit [...] documented as of this encounter Care Teams Percussion Welding Machine Operator Relationship Specialty Start Date End Date Terry Rasheed MD 505 [place] [address] PCP - General Internal Medicine 08/10/20 09/26/23 Terry Rasheed MD 505 [place] [address] PCP - General Internal Medicine 12/24/23 documented as of this encounter
--- OUTSIDE RECORDS SUMMARY | 2025-02-26 17:55 | XMS_ITS | Encounter Summary ---
Author Organization [employer] Address [address] [place] [address] 7t [place] [address] Care Team Providers Care Tire Center Manager Name Role Phone Terry Rasheed MD Primary Care Prov ider Encounter Details Date Type Department Care Team (Late st Contact Info) Description 09/22/2024 Orders Only [facility] [address] [place] [address] Provider, MD Dolly Social History Tobacco Use [...] documented as of this encounter Care Teams Tire Center Manager Relationship Specialty Start Date End Date Terry Rasheed MD [address] [place] [address] PCP - General Internal Medicine 12/24/23 documented as of this encounter
--- OUTSIDE RECORDS SUMMARY | 2025-02-26 17:55 | XMS_ITS | Clinical Summary ---
Author Organization [facility] Address [address] [place] [address] Care Team Providers Care Furniture Removalist Name Role Phone Terry Rasheed MD Primary [...] Take 30 mg by mouth daily. 4 Active omega-3 acid ethyl esters (LOVAZA) 1 [...] Department Care Team Description 02/09/2025 Transcribe Orders [facility] Physician Referral Services [address] [place] [address] Terry Rasheed MD Tubal ligation evaluation (Primary [...] Info) Description 03/25/2025 2:40 PM EST Follow-Up [facility] [address] [place] [address] Operators School Manager: Arsalan Hercules MD [address] [place] [address] [phone] 09/11/2025 1:45 PM EDT Appointment [facility] Mammography [address] [place] [address], [place] [address] [address] Health Maintenance Due Date Last [...] 08/25/2024 08/25/2021, 12/18/2019 COVID-19 Vaccine ( - 2024-2 6 season) 2025 Influenza Vaccine (#1) 2025 , 06/30/2021, 03/11/2020, Additional history exists Basic Metabolic Panel 09/15/2025 09/15/2024 , 06/17/2024, 02/25/2024, Additional history exists Colon Cancer Screening 09/15/2025 FOBT / Fit Test 09/15/2025 09/15/2024, 05/23/2022 Mammogram 09/05/2026 09/05/2024, 02/12/2023, 06/14/2023 Diabetes Screening 09/16/2027 09/15/2024, 0 06/17/2024, 02/25/2024, Additional history exists DTaP,Tdap,and Td Vaccines (2 - Td or Tdap) 06/26/2028 06/26/2018 RSV Vaccine (60+ years old a nd patients) (1 - 1-dose 75+ series) 09/26/2054 Procedures * Due to [place] law, this organization might not be sharing [...] to Health Maintenance Results * Due to [place] law, this organization might not be sharing negative HIV tests. * TRAM Bilateral Screening Digital Mammogram With Rich (09/05/2024 2:10 PM EDT) Anatomical Region Laterality Modality Breast Bilateral Mammography Narrative 09/22/2024 2:34 PM EDT Exam Date: 09/05/[address], [address] [place], [place] [address] EXAMINATION TRAM Bilateral Screening Digital Mammogram With Rich. INDICATION Vonda Morrison is a 43 y.o. female and is seen for: TRAM Bilateral Screening Digital Mammogram With Rich. CC and MLO views were obtained. FDA approved [employer] AI (artificial intelligence) software and R2 CAD were used as a concurrent reading aid in the interpretation of this study. COMPARISON Compared to: 06/14/2023 [facility] Bilateral Screening Digital Mammogram With Rich [...] risk for breast cancer was calculated as: Russel: 12.12%. For high-risk women (life-time risk greater [...] WO CONTRAST ) or automated breast ultrasound ([employer] order A BUS ) depending on risk factors. https://acsearch.acr.org/docs/6476517/Narrative/ TC score is not calculated for women with personal history of breast cancer or if age >80 years. If this radiology report contains a blank impression section, it is an incomplete radiology report. Please contact the interpreting radiologist or applicable radiology division as soon as possible to obtain the completed interpretation. Ricoc Gupta MD Resulting Agency Comment [id number] us Terry Gaytan MD IMG BI PROCEDURES Final Result * Pap (08/25/2021 9:37 AM EDT) Specimen Adequacy Satisfactory for evaluation [facility] MANUAL 2 2:00 PM EDT [facility] Pathologist Cytology Interpretation Negative for intraepithelial lesion or malignancy. [facility] MANUAL 2 2:00 PM EDT [facility] at 1359 EDT Comment:This is the result o f a morphological screening test with an inherent possibility of a false negative interpretation. Stripe Marker Statement This Pap test was examined by the [facility] Imaging System, [employer], [place], [place]. This Pap test was examined in accordance with the [facility] Cytopathology Laboratory written policy, which incorporates all CLIA mandates. Current screening guidelines can be found in [place]: A Cancer Journal for Clinicians 2020;70:321-346. Current ASCCP management guidelines for abnormal Pap tests are published in the Journal Lower Genital Tract Disease Volume 2020;24:102-131. [facility] 2 2:00 PM EDT [facility] Clinical History screening [facility] MANUAL 2 2:00 PM EDT [facility] [facility] Report Header Gynecologic Cytology Report Case: [id number] Authorizing Provider: Coby Rubio Collected: 08/25/2021 0937 Ordering Location: [facility] Received: 08/25/[address] [place] [address] Obstetrics and Gynecology First Screen: Andres Walker Pathologist: Nixon Mckeon MD Specimen: Screening ThinPrep Pap, Cervix/Endocervix 2 2:00 PM EDT [employer] [facility] Brushing Cervix uteri structure / Unknown Non-Blood Collection / Unknown 08/25/2021 9:37 AM EDT 08/25/2021 10:40 AM EDT us Coby Rubio MD LAB PATHOLOGY/CYTOLOGY ORDERA BLES Final Result [facility] [facility] [address] [place] [address], * (ABNORMAL) Renal Function Panel (01/05/2020 2:36 PM EDT) NA 139 135 - 145 mmol/L 01/05/2020 3:11 PM EDT [facility] [employer] K 3.6 3.5 - 5.3 mmol/L 01/05/2020 3:11 PM EDT [facility] [facility] Cl 107 97 - 110 mmol/L 01/05/2020 3:11 PM EDT [facility] [facility] CO2 24 24 - 32 mmol/L 01/05/2020 3:11 PM EDT [facility] [facility] Anion Gap 8 5 - 15 01/05/2020 3:11 PM EDT [facility] Glucose 114(H) 70 - 99 mg/dL 01/05/2020 3:11 PM EDT [facility] [facility] BUN 9 7 - 23 mg/dL 01/05/2020 3:11 PM EDT [facility] Creatinine 0.60 0.50 - 1.20 mg/dL 01/05/2020 3:11 PM EDT [facility] [facility] eGFR Non- >90 >=90 mL/min/BSA 01/05/2020 3:11 PM EDT [facility] [facility] eGFR >90 >=90 mL/min/BSA 01/05/2020 3:11 PM EDT [facility] Comment: Units = mL/min/1.73 m2 Glomerular Filtration Rate (GFR) is estimated based on the CKD-EPI Creatinine Equation (2009). Stage Description GFR 1 Normal >=90 mL/min/BSA 2 Mildly decreased GFR 60-89 mL/min/BSA 3 Moderately decreased GFR 30-59 mL/min/BSA 4 Severely decreased GFR 15-29 mL/min/BSA 5 Kidney Failure <15 mL/min/BSA Calcium 9.4 8.7 - 10.7 mg/dL 01/05/2020 3:11 PM EDT [facility] [facility] Phosphorus 3.2 2.5 - 4.5 mg/dL 01/05/2020 3:11 PM EDT [facility] [facility] Albumin 4.8 3.5 - 4.8 g/dL 01/05/2020 3:11 PM EDT [facility] Blood Structure of peripheral vein / Unknown Venipuncture / Unknown 01/05/2020 2:36 PM EDT 01/05/2020 2:44 PM EDT us Arsalan Melissa MD LAB BLOOD ORDERABLES Final Result [facility] [employer] [address] [place] [address], from Last 3 Months or Most Recently Relevant to Health Maintenance Insurance [facility] Care Teams Furniture Removalist Relationship Specialty Start Date End Date KaiserTerry Gray MD [address] [place] [address] PCP - General 05/10/20
--- OUTSIDE RECORDS SUMMARY | 2025-02-26 17:55 | XMS_ITS | Encounter Summary ---
Author Organization [employer] Address [address] [place] [address] [place] [address] Care Team Providers Care Extruding Department Supervisor Name Role Phone Terry Rasheed MD Primary Care Prov ider Encounter Details Date Type Department Care Team ([facility] st Contact Info) Description 12/12/2024 Orders Only [facility] MED & PEDS [address] [place], [place] [phone] Terry Rasheed MD [address] [place] [address] Acute insomnia Social History Tobacco Use Types [...] documented as of this encounter Care Teams Extruding Department Supervisor Relationship Specialty Start Date End Date Terry Rasheed MD [address] [place] [address] PCP - General Internal Medicine 12/24/23 documented as of this encounter
--- OUTSIDE RECORDS SUMMARY | 2025-02-26 17:55 | XMS_ITS | Encounter Summary ---
Author Organization [employer] Address [address] [place] [address] 7 [place] [address] Care Team Providers Care Credit Collections Analyst Name Role Phone Terry Rasheed MD Primary Care Prov ider Terry Rasheed MD Primary Care Prov ider Reason for Visit * Reason Comments Med Refill Encounter Details Date Type Department Care Team ([facility] st Contact Info) Description 01/05/2023 Refill [facility] MED & PEDS 505 [place] [address] Terry Rasheed MD 505 [place] [address] Social History Tobacco Use Types Packs/Day Years [...] Noted Time PHQ-9 Depression Total Score: 11 06/05/ 023 10:42 AM EDT documented as of this encounter Care Teams Credit Collections Analyst Relationship Specialty Start Date End Date Terry Rasheed MD [address] [place] [address] PCP - General Internal Medicine 08/10/20 09/26/23 Terry Rasheed MD [address] [place] [address] PCP - General Internal Medicine 12/24/23 documented as of this encounter
--- OUTSIDE RECORDS SUMMARY | 2025-02-26 17:55 | XMS_ITS | Encounter Summary ---
Author Organization [employer] Address [address] [facility] 7 [place] [address] Care Team Providers Care Medical Genetics Director Name Role Phone Terry Rasheed MD Primary Care Prov ider Terry Rasheed MD Primary Care Prov ider Reason for Visit * Reason Onset Date Comments triage 09/18/2022 Encounter Details Date Type Department Care Team (Late st Contact Info) Description 09/18/2022 Telephone [facility] MEDICINE [address] [place] [address] Terry Rasheed MD 505 [place] [address] triage Social History Tobacco Use Types Packs/Day [...] from Pt, reports missed appt with [facility] Director due to sleeping in. Per [...] No answer, LVM to return call to [facility]. Noticed pt has appt today with [facility] provider Flores [place], discussed with her [...] documented as of this encounter Care Teams Medical Genetics Director Relationship Specialty Start Date End Date Terry Rasheed MD [address] [place] [address] PCP - General Internal Medicine 08/10/20 09/26/23 Terry Rasheed MD [address] [place] [address] PCP - General Internal Medicine 12/24/23 documented as of this encounter
--- OUTSIDE RECORDS SUMMARY | 2025-02-26 17:55 | XMS_ITS | Encounter Summary ---
Author Organization [employer] Address [address] [facility] 7 [place] [address] Care Team Providers Care Process Camera Operator Name Role Phone Terry Rasheed MD Primary Care Prov ider Reason for Visit * Reason Onset Date Comments Nurse Triage 08/04/2024 Encounter Details Date Type Department Care Team ([facility] st Contact Info) Description 08/04/2024 Telephone [facility] MEDICINE [address] [place] [address] Terry Rasheed MD [address] [place] [address] Nurse Triage Social History Tobacco Use Types [...] voice mail. Left voice message to call [facility] [phone] when available. * Telephone Encounter - Vega [...] as of this encounter Care Teams Process Camera Operator Relationship Specialty Start Date End Date Terry Rasheed MD [address] [place] [address] PCP - General Internal Medicine 12/24/23 documented as of this encounter
--- OUTSIDE RECORDS SUMMARY | 2025-02-26 17:55 | XMS_ITS | Encounter Summary ---
Author Organization [employer] Address [address] [facility] 7t [place] [address] Care Team Providers Care Enrollment Management Coordinator Name Role Phone Terry Rasheed MD Primary Care Prov ider Encounter Details Date Type Department Care Team (Latest Contact Info) Description 02/23/2025 Travel Social History Tobacco Use Types Packs/Day [...] documented as of this encounter Care Teams Enrollment Management Coordinator Relationship Specialty Start Date End Date Terry Rasheed MD [address] [place] [address] PCP - General Internal Medicine 12/24/23 documented as of this encounter
--- OUTSIDE RECORDS SUMMARY | 2025-02-26 17:55 | XMS_ITS | Encounter Summary ---
Author Organization [employer] Address [address] [facility] 7 [place] [address] Care Team Providers Care Slurry Tank Tender Name Role Phone Terry Rasheed MD Primary Care Prov ider Reason for Visit * Reason Onset Date Comments Results 01/29/2025 Encounter Details Date Type Department Care Team ([facility] Contact Info) Description 01/29/2025 Telephone [facility] MEDICINE [address] [place] [address] Terry Rasheed MD [address] [place] [address] Results Social History Tobacco Use Types Packs/Day [...] results: endoscopy. Date when done: 01/09 Facility: [facility] Contact pt at [phone] documented in this encounter Plan of Treatment Not on file documented as of this encounter Visit Diagnoses Not on filedocumented in this encounter Additional Health Concerns Assessment Noted Time PHQ-9 Depression Total Score: 2 12/03/19 8:46 AM EDT documented as of this encounter Care Teams Slurry Tank Tender Relationship Specialty Start Date End Date Terry Rasheed MD [address] [place] [address] PCP - General Internal Medicine 12/24/23 documented as of this encounter
--- OUTSIDE RECORDS SUMMARY | 2025-02-26 17:55 | XMS_ITS | Encounter Summary ---
Author Organization [employer] Address [address] [facility] 7 [place] [address] Care Team Providers Care Director Funds Development Name Role Phone Terry Rasheed MD Primary Care Prov ider Terry Rasheed MD Primary Care Prov ider Encounter Details Date Type Department Care Team ([facility] st Contact Info) Description 08/01/2023 Telephone [facility] MEDICINE [address] [place] [address] Terry Rasheed MD [address] [place], [place] [phone] Social History Tobacco Use Types Packs/Day Years [...] as of this encounter Care Teams Director Funds Development Relationship Specialty Start Date End Date Terry Rasheed MD [address] [place] [address] PCP - General Internal Medicine 08/10/20 09/26/23 Terry Rasheed MD [address] [place] [address] PCP - General Internal Medicine 12/24/23 documented as of this encounter
--- OUTSIDE RECORDS SUMMARY | 2025-02-26 17:55 | XMS_ITS | Encounter Summary ---
Author Organization [facility] Address [address] [place] [address] Care Team Providers Care Account Services Manager Name Role Phone Terry Rasheed MD Primary Care Prov ider Reason for Visit * Reason Onset Date Comments Cancel Procedure tomorrow 08/28/2022 Encounter Details Date Type Department Care Team (Late st Contact Info) Description 08/28/2022 Telephone [facility] Central Scheduling Department [address] [place] [address] AlloccoAnnalise MD [address] [place] [address] Cancel Procedure tomorrow Social History Tobacco Use [...] tomorrow 08/29 Please call pt with a Client Services Account Manager at [phone] documented in this encounter Plan of Treatment Upcoming Encounters Date Type Department Care Team (Late st Contact Info) Description 03/25/2025 2:40 PM EST Follow-Up [facility]phrology [facility] [address] [place] [address] [phone] Welding Setter: Arsalan Hercules MD [address] [place] [address] [phone] 09/11/2025 1:45 PM EDT Appointment [facility] Mammography [address] [facility], [place] [address]. [place] [address] documented as of this encounter Visit Diagnoses Not on filedocumented in this encounter Care Teams Account Services Manager Relationship Specialty Start Date End Date Terry Rasheed MD [address] [place] [address] PCP - General 05/10/20 documented as of this encounter
--- OUTSIDE RECORDS SUMMARY | 2025-02-26 17:55 | XMS_ITS | Encounter Summary ---
Author Organization [employer] [facility] Address [address] [place] [address] 7 [place] [address] Care Team Providers Care Teaching Assistant Name Role Phone Terry Rasheed MD Primary Care Prov ider Terry Rasheed MD Primary Care Prov ider Encounter Details Date Type Department Care Team (Latest Contact Info) Description 09/24/2020 Abstract [facility] CONVERSIONS Dental, Provider, DDS Social History [...] on filedocumented in this encounter Care Teams Teaching Assistant Relationship Specialty Start Date End Date Terry Rasheed MD [address] [place] [address] PCP - General Internal Medicine 08/10/20 09/26/23 Terry Rasheed MD [address] [place] [address] PCP - General Internal Medicine 12/24/23 documented as of this encounter
--- OUTSIDE RECORDS SUMMARY | 2025-02-26 17:55 | XMS_ITS | Encounter Summary ---
Author Organization [facility] Address [address] [place] [address] Care Team Providers Care Checkroom Attendant Name Role Phone Terry Rasheed MD Primary Care Prov ider Encounter Details Date Type Department Care Team (Late st Contact Info) Description 07/28/2022 Orders Only [facility] Interventional Radiology [address] [place] [address] Jovani Shah MD [address] [place] [address] Social History Tobacco Use Types Packs/Day Years [...] Info) Description 03/25/2025 2:40 PM EST Follow-Up [facility] Nephrology Clinic [address] [place], [place] [phone] Laborer Tree Tapping: Arsalan Hercules MD [address] [place] [address] [phone] 09/11/2025 1:45 PM EDT Appointment [facility] Mammography [address] [facility], Floor [address]. [place] [address] documented as of this encounter Visit Diagnoses Not on filedocumented in this encounter Care Teams Checkroom Attendant Relationship Specialty Start Date End Date Terry Rasheed MD [address] [place] [address] PCP - General 05/10/20 documented as of this encounter
--- OUTSIDE RECORDS SUMMARY | 2025-02-26 17:55 | XMS_ITS | Clinical Summary ---
Author Organization [employer] [facility] Address [address] [place] [address] Care Team Providers Care Linux Server Engineer Name Role Phone Unavailable Primary Care Provider [...]
--- OUTSIDE RECORDS SUMMARY | 2025-02-26 17:55 | XMS_ITS | Clinical Summary ---
Author Organization [employer] Address [address] [facility] 7t [place] [address] Care Team Providers Care Steam Shovel Oiler Name Role Phone Terry Rasheed MD Primary Care Prov ider Allergies Active Allergy Reactions Criticality Noted Date Comments Latex Rash Low 12/23/2021 Medications * This document contains information received from the source organization and may not represent a complete record from that organization. Katherine 0.35 MG tabletIndication s:Encounter for surveillance [...] 03/05/20 24 2024 Active Vitamin D, Ergocalciferol, 70196 units capsule TAKE ONE CAPSULE ONCE A [...] 12/03/19 25 Active losartan (Cozaar) 100 MG tabletIndication s:Primary [...] 12/09/19 25 Active traZODone (Desyrel) 50 MG tabletIndication s:Acute [...] Once per day. 30 tablet 02/01/20 25 2025 Active acetaminophen (Tylenol 8 Hour) 650 MG ER tabletIndication s:Cervical radiculopathy Take 1 tablet (650 mg) by mouth every 8 (eight) hours. 30 tablet 02/24/20 25 Active Diclofenac Sodium 1 % gelIndications:C ervical radiculopathy Apply small amount to the area of pain twice daily 20 g 02/24/20 25 Active acetaminophen (Tylenol 8 Hour) 650 MG ER tablet Take 1 tablet by mouth every 8 (eight) hours. 05/04/20 21 2024 Discontinued(R eorder (will not trigger notification to Pharmacy)) Blood Pressure kitIndications:H ypertensive urgency, malignant 1 each 2 times daily. 1 kit 02/04/20 24 2024 NIFEdipine XL (Procardia XL) 60 MG 24 hr tablet Take 1 tablet (60 mg) by mouth Once per day. Do not crush, chew, or split. 90 tablet 3 12/03/19 25 2024 Discontinued(S mic effects) Active Problems Problem Noted Date Diagnosed Date Cervical radiculopathy 02/23/2025 Numbness and tingling in left hand 02/23/2025 Generalized abdominal pain 08/13/2024 Assessment & Plan [...] of major depressive disorder without prior episode ([facility]/HCC) 05/19/2024 Assessment & Plan (08/13/2024 9:54 AM [...] Plan (05/28/2023 9:23 AM EST): Done at [facility] on 08/2021 NILM/HPV HR other positive, has [...] shown improvement in most areas through the [facility] interventions, but continues to present [...] receive treatment PLAN: 1. Follow up with [facility]: Not recommended for follow-up 2. Patient goal is Improve sleep 3. Behavioral Recommendations a. [facility] Clinician will refer to PCP for review and assessment for medication to help with sleep disturbances b. Vonda will continue Acupuncture sessions at [facility] to manage anxiety c. Vonda will reach out to [facility] Clinician Flores as needed for support [...] receive treatment PLAN: 1. Follow up with [facility]: Not recommended for follow-up 2. Patient goal is Improve sleep 3. Behavioral Recommendations a. [facility] Clinician will refer to PCP for review and assessment for medication to help with sleep disturbances b. Vonda will continue Acupuncture sessions at [facility] to manage anxiety c. Vonda will reach out to [facility] Clinician Flores as needed for support [...] and provided information of the clinic at [facility] that provides free acupuncture from [...] sxs stabilize. PLAN: 1. Follow up with [facility]: Recommended for follow-up: on 09/18/22 at [facility] 2. Patient goal is Feel safe and reduce worry 3. Behavioral Recommendations a. Vonda will attend acupuncture clinic at [facility] on 09/18 b. Vonda will [...] sxs stabilize. PLAN: 1. Follow up with [facility]: Recommended for follow-up: on 09/12/22 at [facility] 2. Patient goal is Feel safe and reduce worry 3. Behavioral Recommendations a. Referral to Crystal bLitzy Provided [facility] information for support c. Vonda [...] organization. Date Type Department Care Team Description 02/23/2025 10:40 AM EDT Office Visit [facility] [address] [address] Grace Ventura FNP Cervical radiculopathy (Primary Dx); Numbness and tingling in left hand 02/23/2025 Telephone [facility] [address] [place] [phone] Terry Rasheed MD Walk in Triage 02/23/2025 Travel 02/10/2025 2:45 PM EDT Telemedicine [facility] [address] [place] [address] Terry Rasheed MD Primary hypertension (Primary Dx) 02/10/2025 Travel 02/09/2025 Telephone [facility] [address] [place] [address] Terry Rasheed MD Chart Prep 02/06/2025 Travel 02/05/2025 Telephone [facility] [address] [place] [address] Terry Rasheed MD chart prep 01/31/2025 9:20 AM EDT Office Visit [facility] [address] [address] Jazz Anthony MD Primary hypertension (Primary Dx); Nonintractable headache, unspecified chronicity pattern, unspecified headache type 01/31/2025 Travel 01/30/2025 Telephone [facility] [address] [place] [address] Terry Rasheed MD Nurse Triage 01/29/2025 Telephone [facility] [address] [place] [address] Terry Rasheed MD Results 01/28/2025 Telephone [facility] [address] [place] [address] Trery Rasheed MD Call Back Request 01/20/2025 Orders Only GENERIC EXTERNAL DATA DEPARTMENT Provider, Generic External Data 01/13/2025 Results Follow-Up [address] [address] Loretta León ANP POCT urinalysis dipstick manually resulted, Bacterial Vaginosis Panel, Chlamydia/N. Gonorrhoeae RNA, TMA, Vaginal, Additional followed-up results: 2 01/09/2025 11:00 AM EDT Office Visit [facility] [address] [place] [phone] Loretta León ANP Breast pain, left (Primary Dx); Dysuria; Family planning; Pelvic pain; Missed menses; Primary hypertension 01/09/[address] [address] Nancy Prasad RN 01/09/2025 Travel 12/22/2024 Refill [facility] [address] [place] [address] Terry Rasheed MD Generalized anxiety disorder with panic attacks; PTSD (post-traumatic stress disorder) 12/17/2024 Telephone [facility] [address] [place] [address] Terry Rasheed MD 12/17/2024 Telephone [facility] [address] [place] [address] Terry Rasheed MD FMLA (I called the [...] leave, and return to work) 12/16/2024 Telephone [facility] [address] [place] [address] Terry Rasheed MD FMLA (I called the [...] be referred for PT.) 12/12/2024 Orders Only [facility] [address] [place] [address] Terry Rasheed MD Acute insomnia 12/10/2024 Orders Only [facility] [address] [place] [address] Terry Rasheed MD Acute insomnia (Primary Dx) 12/08/2024 Refill [facility] [address] [place] [address] Terry Rasheed MD Generalized anxiety disorder with panic attacks 12/02/2024 8:30 AM EDT Telemedicine [facility] [address] [place] [address] Terry Rasheed MD Generalized anxiety disorder with panic attacks; Primary hypertension 12/02/2024 Travel 11/28/2024 Travel from Last 3 Months Immunizations Immunization Administration [...] (168 lb) 02/23/2025 10:34 AM EDT Height 165.1 cm (5' 5 ) 11/11/2024 3:56 PM EDT Body Mass Index 27.96 11/11/2024 3:56 PM EDT Plan of Treatment Health Maintenance Due Date Last Done Comments CT Colonography 1980 FIT DNA/Cologuard 1980 FIT 1980 FOBT 1980 Sigmoidoscopy 1980 Alcohol/Substance Use Screening 1991 Family Planning (PISQ) 09/26/1994 Hepatitis B Vaccines [...] 12/17/2024 12/18/2019 COVID-19 Vaccine ( season) 2025 10/28/2022, 12/11/2020, 11/20/2020 Influenza Vaccine (#1) 2025 , 06/30/2021, 03/11/2020, Additional history exists SDOH Screening 08/13/2025 08/13/2024 Mammogram 09/05/2025 09/05/2024, 06/14/2023 Diabetes: Hemoglobin A1C 09/15/2025 05 025, 05/23/2022, 08/27/2020 Depression Screening 12/02/2025 12/02/2024, 07/29/20 25 Disability Screening 02/10/2026 02/10/2025 Tobacco Screening 02/23/2026 02/23/2025 DTaP/Tdap/Td Vaccines (2 - Td or Tdap) [...] Media Lot # [id number] Lot# Expiration Date 63,026 Urine 01/31/2025 10:3 8 AM EDT Jazz Anthony MD POINT OF CARE TEST ENTER /EDIT ORDERABLES Final Result * POCT Influenza B manually resulted (01/31/2025 10:37 AM EDT) Rapid Influenza B Ag Negative Negative, Indeterminate QC Media Lot # [id number] Lot# Expiration Date 120,426 Swab 01/31/2025 10:3 7 AM EDT Jazz Anthony MD POINT OF CARE TEST ENTER /EDIT ORDERABLES Final Result * POCT Influenza A manually resulted (01/31/2025 10:37 AM EDT) Rapid Influenza A Ag Negative Negative, Indeterminate QC Media Lot # [id number] Lot# Expiration Date 120,426 Swab Nasopharyngeal structure / Unknown 01/31/2025 10:37 AM EDT Jazz Anthony MD POINT OF CARE TEST ENTER /EDIT ORDERABLES Final Result * POCT Rapid COVID Ag (01/31/2025 10:36 AM EDT) Rapid COVID Ag Negative QC Media Lot # [id number] Lot# Expiration Date 102,826 Swab 01/31/2025 10:3 6 AM EDT Jazz Anthony MD POINT OF CARE TEST ENTER /EDIT ORDERABLES Final Result * POCT , urine manually resulted (01/31/2025 10:36 AM EDT) Only the most recent of2 resultswithin the time period is included. Preg Test, Ur Negative Negative, Indeterminate, None Detected, Invalid, Specimen unsatisfactory for evaluation, Weakly Positive, 2+ QC Media Lot # [id number] Lot# Expiration Date 113,026 Urine 01/31/2025 10:3 6 AM EDT Jazz Anthony MD POINT OF CARE TEST ENTER /EDIT ORDERABLES Final Result * Hematoxylin and Eosin Stain (01/20/2025 8:11 AM EDT) 01/20/2025 8:11 AM EDT 01/20/2025 8:56 AM EDT Paola [facility] - 01/22/2025 4:05 PM EDT ----- ------- Name: Vonda Willis Hermleigh Age/Sex: 44/F : 1980 Unit#: [id number] Attend Dr: Eliane Metcalf MD Re01/20/[address]: [facility] Location: [facility] Disch: ----- ------- SPEC : [id number] RECD: 01/20/25 STATUS: ROBBY WRIGHT NUM: [id number] ARMANDO: 01/20/[address] [facility] [address]: Eliane Metcalf MD ENTERED: 01/20/25 SP [...] Vonda Willis Age/Sex: 44/F : 1980 Unit#: [id number] Attend Dr: Eliane Metcalf MD Re01/20/25 Status: [facility] Location: [facility] Disch: ----- ------- SPEC : [id number] RECD: 01/20/25 STATUS: ROBBY WRIGHT NUM: [id number] ARMANDO: 01/20/[address] [facility] [address]: Eliane Metcalf MD ENTERED: 01/20/25 SP [...] developed and their performance characteristics determined by [facility]. They have not been cleared or approved by the U.S. Food and Drug Administration (FDA). However, the FDA CONTINUED ON NEXT PAGE ----- ------- Name: Vonda Willis Age/Sex: 44/F : 1980 Unit#: [id number] Attend Dr: Eliane Metcalf MD Re01/20/25 Status: [facility] Location: [facility] Disch: ----- ------- SPEC : [id number] RECD: 01/20/25 STATUS: ROBBY WRIGHT NUM: [id number] ARMANDO: 01/20/[address] [facility] [address]: Eliane Metcalf MD ENTERED: 01/20/25 SP [...] laboratory testing. Copies To: Terry Rasheed MD [address] [phone] Eliane Metcalf MD [facility] [address] [address] [phone] [email or web address] ----- ------- Signed (signature on file) Aubrie Krebs 01/21/251951 ----- ------- END OF REPORT us Generic External Data Provider LAB BLOOD ORDERAB LES Final Result Performing Organization Address City/State/[facility] Co de Phone Number [facility] [address] [place] [address] [phone] * HCG, Qualitative, Urine (01/20/2025 6:37 AM EDT) Urine NEGATIVE NEGATIVE [facility] Comment:This test was develo ped to detect early . Falsenegative results may occur after the 5th - 7th week ofpregnancy when using this test method. If clinicallyindicated, consider a serum hCG. 01/20/2025 6:37 AM EDT 01/20/2025 7:00 AM EDT Generic External Data Provider LAB URINE ORDERAB LES Final Result Performing Organization Address City/[facility]/ZIP Co de Phone Number [facility] [address] [place] [address] [phone] * Colonoscopy (01/20/2025) Colonoscopy Normal Normal Narrative Milli Huddleston - 01/20/2025 See external hospital admission note on 01/20/2025 Historical Provider HEALTH MAINTENANCE Final Result * Bacterial Vaginosis Panel (01/09/2025 11:35 AM EDT) TRICHOMONAS VAGINALIS DETECTION BY PCR NOT DETECTED Not Detect [facility] BACTERIAL VAGINOSIS DETECTION BY PCR NEGATIVE Negative [facility] Comment:The BV organism targ ets [...] DETECTION BY PCR NOT DETECTED Not Detect [facility] Sherry glab krusei PCR NOT DETECTED Not Detect [facility] Swab Vaginal structure / Unknown 01/09/2025 11:35 AM EDT 01/09/2025 5:41 PM EDT [facility] León [facility] MICRO[facility] - GENERAL ORDER MERYL Final Result [facility] [address] [place] [address] [phone] * Chlamydia/N. Gonorrhoeae RNA, TMA, Vaginal (01/09/2025 11:35 AM EDT) CT PCR NOT DETECTED Not Detect. [facility] Comment:A not detected test result [...] psychologicalconsequences. NG PCR NOT DETECTED Not Detect. [facility] Comment:A not detected test result [...] 01/09/2025 5:41 PM EDT Loretta León [facility] MICRO[facility] - GENERAL ORDER MERYL Final Result Performing Organization Address [facility] de Phone Number [facility] [address] [place] [phone] * Culture, Urine, Routine (01/09/2025 11:35 AM EDT) Urine Urine specimen obtained by clean catch procedure / Unknown 01/09/2025 11:35 AM EDT 01/09/2025 5:41 PM EDT Comment:UACC Narrative [facility] - 01/11/2025 1:32 PM EDT Strep agalactiae (Grp B) Quant 10,000 to 50,000 cfu/mL Susc N/A Susceptibility not routinely performed on this isolate. Specimen Source: Urine clean catch Loretta León [facility] MICROBIOLOG[facility] - GENERAL ORDER MERYL Final Result Performing Organization Address [facility] de Phone Number [facility] [address] [place] [phone] * Hemoglobin A1c (09/15/2024 9:53 AM EDT) Hemoglobin A1c 5.8 <6.0 % [facility] Comment:Hemoglobin A1C Refer ence Range Adults: 4.8 - 6.0 % Non diabetic: < 6.0 % Goal: < 7.0 %Additional Action Suggested: > 8.0 %Note: Hemoglobin A1c results are invalid for patients with abnormal amounts of HbF. Blood transfusions may impact the HbA1c concentration in the patient sample. Estimated Average Glucose 120 mg/dL [facility] Comment:eAG = Estimated ave rage glucose which is %A1C expressed asaverage glucose, using the formula of the J1G-LsytjlyNxtiqvh Glucose study (ADAG), Diabetes Care, Vol.31,#8,Dec. 2007 09/15/2024 9:53 AM EDT 09/15/2024 9:53 AM EDT us Generic External Data Provider LAB BLOOD ORDERAB LES Final Result Performing Organization Address City/[facility]/ZIP Co de Phone Number [facility] [address] [place] [phone] * (ABNORMAL) Lipid Panel, Standard (06/17/2024 12:17 PM EST) Triglycerides 158(H) <150 mg/dL [facility] Comment:Desirable Triglyceri de: less than 150 mg/dLBorderline High Triglyceride 150-199 mg/dLHigh Triglyceride: 200-499 mg/dLVery High Triglyceride: greater than or equal to 5OO mg/dL Cholesterol 182 <200 mg/dL [facility] Comment:Desirable Cholestero l: less than 200 mg/dLBorderline High Cholesterol: 200-239 mg/dLHigh Cholesterol: greater than 239 mg/dL LDL Cholesterol Calculated 94 <100 mg/dL [facility] Comment:Desirable LDL: less than 100 mg/dLNear Optimal/Above Optimal LDL: 110- 129 mg/dLBorderline High LDL: 130-159 mg/dLHigh LDL: 160-189 mg/dLVery High LDL: greater than or equal to 190 mg/dL HDL Cholesterol 57 >40 mg/dL [facility] Comment:Desirable HDL: great er than 40 mg/dL Note: This HDL assay may give artificially low results in patients with liver disease. Blood Venous blood specimen / Unknown 06/17/2024 12:17 PM EST 06/17/2024 1:02 PM EST us Terry Gaytan MD LAB BLOOD ORDERABL ES Final Result Performing Organization Address City/[facility]/ZIP Co de Phone Number [facility] [address] [place] [address] [phone] * HEPATITIS C AB W/REFL TO HCV RNA, QN, PCR (06/03/2021 4:08 PM EST) HEPATITIS C ANTIBODY NON-REACT D[facility]IA NON-REACT [facility] INDEX 0.02 <1.00 [facility] Comment: HCV antibody was non-reactive. There is no laboratory evidence of HCV infection. In most cases, no further action is required. However, if recent HCV exposure is suspected, a test for HCV RNA (test code 35056) is suggested. For additional information please refer to [email or web address]/faq/[email or web address] (This link is being provided for informational/ educational purposes only.) 06/03/2021 4:08 PM EST Gabi Garcia CYLINDER HANDLER HISTORICAL/NON ORDERABLE L ABS Final Result Performing Organization Address [facility] Phone Number [facility] [address] * Pap Smear (12/18/2019) Pathologist [facility] Pap smear Performed Historical Provider HEALTH MAINTENANCE Final Result * HIV AB/AG (06/13/2019 12:41 PM EST) Pathologist [facility] HIV AG/AB NONREACTIVE NR [facility] [...] of detection of this assay. The [employer]ap Ticket Clerk HIV Ag/Ab Combo assay result and supplemental assay results should be interpreted in conjunction with the patient's clinical presentation, history and other laboratory results. If the results are inconsistent with clinical evidence, additional testing is suggested to confirm the result. 06/13/2019 12:4 1 PM EST Historical Provider HISTORICAL/NON ORDERABLE LABS Final Result Performing Organization Address [facility] Phone Number [facility] [address] from Last 3 Months or Most Recently Relevant to Health Maintenance Insurance [facility] Care Teams Steam Shovel Oiler Relationship Specialty Start Date End Date Terry Rasheed MD [address] [place] [phone] PCP - General Internal Medicine 12/24/23
--- OUTSIDE RECORDS SUMMARY | 2025-02-26 17:55 | XMS_ITS | Encounter Summary ---
Author Organization [employer] Address [address] [place] [address] [address] [place] [address] Care Team Providers Care Warble Saw Operator Name Role Phone Terry Rasheed MD Primary Care Prov ider Terry Rasheed MD Primary Care Prov ider Reason for Visit * Reason Comments Med Refill Encounter Details Date Type Department Care Team ([facility] st Contact Info) Description 07/24/2022 Refill [facility] [address] [place] [address] Terry Rasheed MD [address] [place] [address] Social History Tobacco Use Types Packs/Day Years [...] documented as of this encounter Care Teams Warble Saw Operator Relationship Specialty Start Date End Date Terry Rasheed MD [address] [place] [address] PCP - General Internal Medicine 08/10/20 09/26/23 Terry Rasheed MD [address] [place] [address] PCP - General Internal Medicine 12/24/23 documented as of this encounter
--- OUTSIDE RECORDS SUMMARY | 2025-02-26 17:55 | XMS_ITS | Encounter Summary ---
Author Organization [employer] Address [address] [place] [address] [address] [place] [address] Care Team Providers Care Fresh Meat Grader Name Role Phone Terry Rasheed MD Primary Care Prov ider Reason for Visit * Reason Onset Date Comments Call Back Request 01/28/2025 Encounter Details Date Type Department Care Team ([facility] Contact Info) Description 01/28/2025 Telephone [facility] [address] [place] [address] Terry Rasheed MD [address] [place] [address] Call Back Request Social History Tobacco Use [...] was about. Any questions contact pt at [phone] documented in this encounter Plan of Treatment Not on file documented as of this encounter Visit Diagnoses Not on filedocumented in this encounter Additional Health Concerns Assessment Noted Time PHQ-9 Depression Total Score: 2 12/03/19 25 8:46 AM EDT documented as of this encounter Care Teams Fresh Meat Grader Relationship Specialty Start Date End Date Terry Rasheed MD [address] [place] [address] PCP - General Internal Medicine 12/24/23 documented as of this encounter
== END 2025-02-26 15:25 | disposition home or self-care (01) ==
PROVIDERS: PCP Nurse Practitioner Primary Care; Visit Provider Nurse Practitioner Family
DX: K21.9 Gastro-esophageal reflux disease without esophagitis (principal); A04.8 Other specified bacterial intestinal infections; K57.90 Diverticulosis of intestine, part unspecified, without perforation or abscess without bleeding
CPT/HCPCS: 99213

== ENCOUNTER → 2025-02-26 14:05 | Outpatient (BNVA) | payer OTHER, SELFPAY | PROVIDERS: Visit Provider Nurse Practitioner Family | DX: Z71.2 Person consulting for explanation of examination or test findings (principal); K21.9 Gastro-esophageal reflux disease without esophagitis; A04.8 Other specified bacterial intestinal infections; K57.90 Diverticulosis of intestine, part unspecified, without perforation or abscess without bleeding | CPT/HCPCS: 99212 ==

== ENCOUNTER 2025-03-03 17:24 | Outpatient (REF) | payer OTHER, SELFPAY ==
--- OUTSIDE RECORDS SUMMARY | 2024-10-06 08:00 | XMS_ITS ---
Author Organization [facility] Address [address] [place] [address] Care Team Providers Care Sports Athletic Trainer Name Role Phone CHRIS TAPIA [phone] REASON FOR VISIT lab only Social History Sex Assigned At : Social History Observation Description Sex Assigned At Female Encounters Encounter Location Date Provider Diagnosis [place] [facility] [address] [place], [place] [phone] 06/2024 CHRIS TAPIA Plan Of Treatment No Information Progress Notes * Vonda QUEVEDODOB:1980 (44 yo F)Acc No.[id number]:10/06/2024 LAB Patient: Alia lucianVonda Romano Provider: Nicky TAPIA :1980 A ge:44 Y S ex:Female Date:10/06/2024 Address:[address] [place] [phone] Subjective: * Chief Complaints: * L ab only * Electronic signature of GABO TAPIA CNM on 03/03/2025 at 08:17 PM EDT Sign off status: Pending * Provider: Nicky TAPIA Date: 0 10/06/2024 Generated for Andrew chowdhury/Nick/eTisaac on: 08:17 PM EDT
--- OUTSIDE RECORDS SUMMARY | 2025-03-03 20:17 | XMS_ITS | Encounter Summary ---
Author Organization [employer] Address [address] [place] [address] [address] [place] [address] Care Team Providers Care Manager Non Profit Name Role Phone Terry Rasheed MD Primary Care Prov ider Terry Rasheed MD Primary Care Prov ider Reason for Visit * Reason Comments Med Refill Encounter Details Date Type Department Care Team ([facility] st Contact Info) Description 07/24/2022 Refill [facility] [address] [place] [address] Terry Rasheed MD [address] [place] [address] Social History Tobacco Use Types Packs/Day Years [...] as of this encounter Care Teams Manager Non Profit Relationship Specialty Start Date End Date Terry Rasheed MD [address] [place] [address] PCP - General Internal Medicine 08/10/20 09/26/23 Terry Rasheed MD [address] [place] [address] PCP - General Internal Medicine 12/24/23 documented as of this encounter
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
--- OUTSIDE RECORDS SUMMARY | 2025-03-03 20:17 | XMS_ITS | Patient Health Record ---
Author Organization [employer] Address [address] [place] [address] Care Team Providers Care Clay Roaster Name Role Phone CHRIS TAPIA [phone] Allergies No Known Allergies Results Component Value Reference Range Notes IGP, Apt HPV,rfx 16/18,45-19 9344 Reviewed date:10/08/2024 03:38:28 PM Interpretation:Normal, HPV neg Performing Lab:[facility], [address], [address], [place], Phone - [phone], Director - [facility] Notes/Report: No. of containers..01 ThinPrep Vial Clinical Information:[id number] DIAGNOSIS: NEGATIVE FOR INTRAEPITHELIAL LESION OR MALIGNANCY. Specimen adequacy: Satisfactory for evaluation. Endocervical and/or squamous metaplastic cells (endocervical component) are present. Clinician provided ICD10: Z01.419 Z11.51 Performed by: Kin bailey, Asbestos Coverer (ASCP) . . Note: The Pap smear [...] 68 Reviewed date:10/06/2024 10:44:14 AM Interpretation:Negative Performing Lab:[facility], [address] [facility], [place], Phone - [phone], Director - Wilfredo Notes/Report: and Drug Administration. by [employer]. It has not been cleared or approved by the Food was developed and its performance characteristics determined 735143-Zfxllmy krusei, GREGORIA 472181-X parapsilosis/tropicalis; 321132-Tjaujou lusitaniae, GREGORIA; Test(s) 318779-Juvllcw albicans, GREGORIA; 361684-Curgwxg glabrata, GREGORIA; and Drug Administration. by [employer]. It has not been cleared or approved by the Food was developed and its performance characteristics determined Megasphaera 1 Test(s) 726615- Atopobium vaginae; 322334- BVAB 2; 741618- Atopobium vaginae Low - 0 BVAB 2 [...] Negative HCV Antibody RFX to Quant PC [id number] Reviewed date:10/06/2024 10:32:56 AM Interpretation:Negative Performing Lab:[facility], [address], [address], [place], Phone - [phone], Director - [facility] Notes/Report: HCV Ab Non Reactive Non Reactive Interpretation: Not infected with HCV unless early or acute infection is suspected (which may be delayed in an immunocompromised individual), or other evidence exists to indicate HCV infection. HIV Ab/p24 Ag with Reflex-08 3935 Reviewed date:10/06/2024 10:33:13 AM Interpretation:Negative Performing Lab:[facility], [address], [address], [place], Phone - [phone], Director - [facility] Notes/Report: HIV Ab/p24 Ag Screen Non Reactive Non Reactive HIV-1/HIV-2 antibodies and HIV-1 p24 antigen were NOT detected. There is no laboratory evidence of HIV infection. HIV Negative T pallidum Screening [place] -723815 Reviewed date:10/06/2024 10:33:22 AM Interpretation:Negative Performing Lab:[facility], [address], [address], [place], Phone - [phone], Director - [facility] Notes/Report: T pallidum Antibodies Non Reactive Non Reactive Hepatitis B Surf Ab Quant-00 6530 Reviewed date:10/06/2024 10:32:49 AM Interpretation:Immune Performing Lab:[facility] Luna, [address], [address], [employer] Phone - [phone], Director - [facility] Notes/Report: Hepatitis B Surf Ab Quant 2203.0 Immunity>10 mIU /mL Results confirmed on dilution. Status of Immunity Anti-HBs Level Inconsistent with Immunity 0.0 - 10.0 Consistent with Immunity >10.0 HBsAg Screen-[id number] Reviewed date:10/06/2024 10:33:05 AM Interpretation:Negative Performing Lab:[facility] Luna, [address], [address], [employer] Phone - [phone], Director - [facility] Notes/Report: HBsAg Screen Negative Negative [place] Reviewed date:10/03/2024 02:18:32 PM Interpretation:Normal Performing Lab: Notes/Report: Normal Clue Cells neg WBC neg Hyphae neg Trichomonas neg pH 4.5 CORDELL Prep neg whiff Urinalysis Reviewed date:10/06/2024 10:27:25 AM Interpretation:Blood Performing Lab: Notes/Report: Blood Leukocytes - Nitrates - Uro 0.2 Protein 15 pH 6.0 Blood 25 Spec Vinson 1.020 Ketones - Bilirubin - Glucose - PDF Report Reviewed date:10/08/2024 03:39:29 PM Interpretation: Performing Lab:Kath Avitia, [address], [employer] Phone - [phone], Director - Cori Notes/Report: Clinical Information:[id number] No. of containers..01 ThinPrep Vial Reason For [...] or pressured into sexual activities? No drugs, fpc, safety, other. No Housing Social Info Question [...] 10/03/2024 Encounters Encounter Location Date Provider Diagnosis [address] [place], [place] [id number] 10/03/2024 CHRIS TAPIA Encounter for gynecological examination (general) (routine) without abnormal findings Z01.419 ; Dysuria R30.0 ; Vaginal discharge N89.8 ; HPV Pap Screening Z11.51 ; HIV Screening Z11.4 ; Encounter for screening for infections with a predominantly sexual mode of transmission Z11.3 ; Screening for other viral diseases Z11.59 and Other problems related to lifestyle Z72.[address] [id number] 10/06/2024 CHRIS TAPIA Dysuria R30.0 Assessments Encounter [...] Insured Coverage Start Date Coverage End Date [facility] [address] [place] [id number] Vonda Quevedo Self - patient is the insured Medical (General) History Medical History History ICD Code High blood pressure Kidney disease, kidney stones Depression/Anxiety Vaginal infections Gastritis- followed by GI Hospitalization History Reason Date(Month/Year) childbirth
--- OUTSIDE RECORDS SUMMARY | 2025-03-03 20:17 | XMS_ITS | Encounter Summary ---
Author Organization [employer] Address [address] [place] [address] [place] [address] Care Team Providers Care Lean Facilitator Name Role Phone Terry Rasheed MD Primary Care Prov ider Reason for Visit * Reason Comments Med Refill Encounter Details Date Type Department Care Team ([facility] st Contact Info) Description 11/09/2023 Refill [facility] CHC MED & PEDS 505 [place] [address] Terry Rasheed MD 505 [place] [address] Social History Tobacco Use Types Packs/Day Years [...] documented as of this encounter Care Teams Lean Facilitator Relationship Specialty Start Date End Date Terry Rasheed MD [address] [place] [address] PCP - General Internal Medicine 12/24/23 documented as of this encounter
--- OUTSIDE RECORDS SUMMARY | 2025-03-03 20:17 | XMS_ITS | Encounter Summary ---
Author Organization [employer] Address 75 [facility] 7 [place] [address] Care Team Providers Care Mobile Marketing Specialist Name Role Phone Terry Rasheed MD Primary Care Prov ider Terry Rasheed MD Primary Care Prov ider Reason for Visit * Reason Onset Date Comments Referral 07/18/2023 Encounter Details Date Type Department Care Team (Late st Contact Info) Description 07/18/2023 Telephone [facility] MEDICINE [address] [place] [address] Terry Rasheed MD 505 [place] [address] Referral Social History Tobacco Use Types Packs/Day [...] referral : DATE: N/A TIME: N/A Address: [address] [place] [address] [place] [address] Visits: N/A Facility Name: [facility] Urology center Type of Specialist: Urologist DX: Kidney Pain Phone #: [phone] Fax #: [phone] documented in this encounter Plan of Treatment Not on file documented as of this encounter Visit Diagnoses Not on filedocumented in this encounter Additional Health Concerns Assessment Noted Time PHQ-9 Depression Total Score: 0 05/28/19 24 9:00 AM EST documented as of this encounter Care Teams Mobile Marketing Specialist Relationship Specialty Start Date End Date Terry Rasheed MD 505 [facility] [place] [address] PCP - General Internal Medicine 08/10/20 09/26/23 Terry Rasheed MD 505 [facility] [place] [address] PCP - General Internal Medicine 12/24/23 documented as of this encounter
--- OUTSIDE RECORDS SUMMARY | 2025-03-03 20:17 | XMS_ITS | Encounter Summary ---
Author Organization [employer] Address [address] [place] [address] 7 [place] [address] Care Team Providers Care Ex Chef Name Role Phone Terry Rasheed MD Primary Care Prov ider Terry Rasheed MD Primary Care Prov ider Reason for Visit * Reason Comments Med Refill Encounter Details Date Type Department Care Team ([facility] st Contact Info) Description 01/05/2023 Refill [facility] MED & PEDS 505 [place] [address] Terry Rasheed MD 505 [place] [address] Social History Tobacco Use Types Packs/Day Years [...] documented as of this encounter Care Teams Ex Chef Relationship Specialty Start Date End Date Terry Rasheed MD 505 [place] [address] PCP - General Internal Medicine 08/10/20 09/26/23 Terry Rasheed MD 505 [place] [address] PCP - General Internal Medicine 12/24/23 documented as of this encounter
--- OUTSIDE RECORDS SUMMARY | 2025-03-03 20:17 | XMS_ITS | Encounter Summary ---
Author Organization [facility] Address [address] [place] [address] Care Team Providers Care Head Neck Surgeon Name Role Phone Terry Rasheed MD Primary Care Prov ider Encounter Details Date Type Department Care Team (Late st Contact Info) Description 07/28/2022 Orders Only [facility] Interventional Radiology [address] [place] [address] Jovani Shah MD [address] [place] [address] Social History Tobacco Use Types Packs/Day Years [...] Info) Description 03/25/2025 2:40 PM EST Follow-Up [facility] Nephrology Clinic [address] [place], [place] [phone] Railroad Car Painter: Arsalan Hercules MD [address] [place] [address] [phone] 09/11/2025 1:45 PM EDT Appointment [facility] Mammography [address] [facility], [place] [address]. [place] [address] documented as of this encounter Visit Diagnoses Not on filedocumented in this encounter Care Teams Head Neck Surgeon Relationship Specialty Start Date End Date Terry Rasheed MD [address] [place] [address] PCP - General 05/10/20 documented as of this encounter
--- OUTSIDE RECORDS SUMMARY | 2025-03-03 20:17 | XMS_ITS | Encounter Summary ---
Author Organization [employer] Address 75 [facility] 7 [place] [address] Care Team Providers Care Body Presser Name Role Phone Terry Rasheed MD Primary Care Prov ider Reason for Visit * Reason Onset Date Comments Nurse Triage 08/04/2024 Encounter Details Date Type Department Care Team ([facility] st Contact Info) Description 08/04/[address] [facility] MEDICINE [address] [place] [address] Terry Rasheed MD 505 [place] [address] Nurse Triage Social History Tobacco Use Types [...] voice mail. Left voice message to call [facility] [phone] when available. * Telephone Encounter - Vega [...] documented as of this encounter Care Teams Body Presser Relationship Specialty Start Date End Date Terry Rasheed MD 505 [place] [address] PCP - General Internal Medicine 12/24/23 documented as of this encounter
--- OUTSIDE RECORDS SUMMARY | 2025-03-03 20:17 | XMS_ITS | Encounter Summary ---
Author Organization [employer] Address [address] [place] [address] [place] [address] Care Team Providers Care Hospitality Manager Name Role Phone Terry Rasheed MD Primary Care Prov ider Terry Rasheed MD Primary Care Prov ider Reason for Visit * Reason Onset Date Comments ER Follow-up 07/31/2023 Encounter Details Date Type Department Care Team ([facility] st Contact Info) Description 07/31/2023 Telephone [facility] MED & PEDS 505 [place], [place] [phone] Terry Rasheed MD 505 [place] [address] ER Follow-up Social History Tobacco Use Types [...] EDT Fax request for notes, sent to [facility] as requested. * Telephone Encounter - Marti [...] patient to seek care and eval in [facility] if she is feeling unwell enough to go back to work or needs further care thisweek or has persistence/worsening of symptoms. She expressed understanding. Scheduled for televisitf/u with PCP for 08/06/23 @ 10:15am. No other concerns or questions at this time. R[facility] to fax request for recent ED records to [facility]. Patient calling to report ED visit on [...] documented as of this encounter Care Teams Hospitality Manager Relationship Specialty Start Date End Date Terry Rasheed MD 505 [place] [address] PCP - General Internal Medicine 08/10/20 09/26/23 Terry Rasheed MD 505 [place] [address] PCP - General Internal Medicine 12/24/23 documented as of this encounter
--- OUTSIDE RECORDS SUMMARY | 2025-03-03 20:17 | XMS_ITS | Encounter Summary ---
Author Organization [employer] Address [address] [place] [address] [place] [address] Care Team Providers Care Film Examiner Name Role Phone Terry Rasheed MD Primary Care Prov ider Encounter Details Date Type Department Care Team ([facility] st Contact Info) Description 12/12/[address] [facility] CHC MED & PEDS 505 [place], [place] [phone] Terry Rasheed MD 505 [place] [address] Acute insomnia Social History Tobacco Use Types [...] documented as of this encounter Care Teams Film Examiner Relationship Specialty Start Date End Date Terry Rasheed MD [address] [place] [address] PCP - General Internal Medicine 12/24/23 documented as of this encounter
--- OUTSIDE RECORDS SUMMARY | 2025-03-03 20:17 | XMS_ITS | Encounter Summary ---
Author Organization [employer] [facility] Address [address] [place] [address] 7 [place] [address] Care Team Providers Care Assembly Machine Operator Name Role Phone Terry Rasheed MD Primary Care Prov ider Terry Rasheed MD Primary Care Prov ider Encounter Details Date Type Department Care Team (Latest Contact Info) Description 09/24/2020 Abstract [facility] CONVERSIONS Dental, Provider, DDS Social History [...] on filedocumented in this encounter Care Teams Assembly Machine Operator Relationship Specialty Start Date End Date Terry Rasheed MD 505 [place] [address] PCP - General Internal Medicine 08/10/20 09/26/23 Terry Rasheed MD 505 [place] [address] PCP - General Internal Medicine 12/24/23 documented as of this encounter
--- OUTSIDE RECORDS SUMMARY | 2025-03-03 20:17 | XMS_ITS | Encounter Summary ---
Author Organization [employer] Address 75 [facility] 7 [place] [address] Care Team Providers Care Manager Medical Writing Name Role Phone Terry Rasheed MD Primary Care Prov ider Reason for Visit * Reason Onset Date Comments Results 01/29/2025 Encounter Details Date Type Department Care Team ([facility] Contact Info) Description 01/29/2025 Telephone [facility] MEDICINE 230 [place] [address] Terry Rasheed MD 505 [place] [address] Results Social History Tobacco Use Types Packs/Day [...] results: endoscopy. Date when done: 01/09 Facility: [facility] Contact pt at [phone] documented in this encounter Plan of Treatment Not on file documented as of this encounter Visit Diagnoses Not on filedocumented in this encounter Additional Health Concerns Assessment Noted Time PHQ-9 Depression Total Score: 2 12/03/19 8:46 AM EDT documented as of this encounter Care Teams Manager Medical Writing Relationship Specialty Start Date End Date Terry Rasheed MD [address] [place] [address] PCP - General Internal Medicine 12/24/23 documented as of this encounter
--- OUTSIDE RECORDS SUMMARY | 2025-03-03 20:17 | XMS_ITS | Encounter Summary ---
Author Organization [employer] Address [address] [place] [address] 7t [place] [address] Care Team Providers Care [employer] Social Studies Teacher Name Role Phone Terry Rasheed MD Primary Care Prov ider Encounter Details Date Type Department Care Team (Late st Contact Info) Description 09/22/2024 Orders Only [facility] 230 [place] [address] Provider, MD Dolly Social History Tobacco Use [...] of this encounter Care Teams High School Social Studies Teacher Relationship Specialty Start Date End Date Terry Rasheed MD [address] [place] [address] PCP - General Internal Medicine 12/24/23 documented as of this encounter
--- OUTSIDE RECORDS SUMMARY | 2025-03-03 20:17 | XMS_ITS | Encounter Summary ---
Author Organization [employer] Address [address] [place] [address] 7 [place] [address] Care Team Providers Care Rf Test Technician Name Role Phone Terry Rasheed MD Primary Care Prov ider Reason for Visit * Reason Onset Date Comments Call Back Request 01/28/2025 Encounter Details Date Type Department Care Team ([facility] Contact Info) Description 01/28/2025 Telephone [facility] CHC MED & PEDS 505 [place] [address] Terry Rasheed MD 505 [place] [address] Call Back Request Social History Tobacco Use [...] was about. Any questions contact pt at [phone] documented in this encounter Plan of Treatment Not on file documented as of this encounter Visit Diagnoses Not on filedocumented in this encounter Additional Health Concerns Assessment Noted Time PHQ-9 Depression Total Score: 2 12/03/19 25 8:46 AM EDT documented as of this encounter Care Teams Rf Test Technician Relationship Specialty Start Date End Date Terry Rasheed MD 505 [place] [address] PCP - General Internal Medicine 12/24/23 documented as of this encounter
--- OUTSIDE RECORDS SUMMARY | 2025-03-03 20:17 | XMS_ITS | Clinical Summary ---
Author Organization [facility] Address [address] [place] [address] Care Team Providers Care Matcher Leather Parts Name Role Phone Unavailable Primary Care Provider [...]
--- OUTSIDE RECORDS SUMMARY | 2025-03-03 20:17 | XMS_ITS | Clinical Summary ---
Author Organization [facility] Address [address] [place] [address] Care Team Providers Care Airfield Operations Specialist Name Role Phone Terry Rasheed MD [...] Department Care Team Description 02/09/2025 Transcribe Orders [facility] Physician Referral Services [address] [place] [address] Terry Rasheed MD Tubal ligation evaluation (Primary [...] Info) Description 03/25/2025 2:40 PM EST Follow-Up [facility] Nephrology Clinic [address] [place] [address] Laborer Pole Crew: Arsalan Hercules MD [address] [place] [address] [phone] 09/11/2025 1:45 PM EDT Appointment [facility] Mammography [address] [place] [address], [place] [address]. [place] [address] Health Maintenance Due Date Last [...] 75+ series) 09/26/2054 Procedures * Due to [place] law, this organization might not be sharing [...] to Health Maintenance Results * Due to [place] law, this organization might not be sharing negative HIV tests. * TRAM Bilateral Screening Digital Mammogram With Rich (09/05/2024 2:10 PM EDT) Anatomical Region Laterality Modality Breast Bilateral Mammography Narrative 09/22/2024 2:34 PM EDT Exam Date: 09/05/[address], [address] [place], [place] [address] EXAMINATION TRAM Bilateral Screening Digital Mammogram With Rich. INDICATION Vonda Morrison is a 43 y.o. female and is seen for: TRAM Bilateral Screening Digital Mammogram With Rich. CC and MLO views were obtained. FDA approved benchee AI (artificial intelligence) software and R2 CAD were used as a concurrent reading aid in the interpretation of this study. COMPARISON Compared to: 06/14/2023 [facility] Bilateral Screening Digital Mammogram With Rich [...] WO CONTRAST ) or automated breast ultrasound (MANGO BCN order A BUS ) depending on risk factors. https://acsearch.acr.org/docs/1624375/Narrative/ TC score is not calculated for women with personal history of breast cancer or if age >80 years. If this radiology report contains a blank impression section, it is an incomplete radiology report. Please contact the interpreting radiologist or applicable radiology division as soon as possible to obtain the completed interpretation. Ricco Gupta MD Resulting Agency Comment [id number] [phone] Terry Gaytan MD IMG BI PROCEDURES Final Result * Pap (08/25/2021 9:37 AM EDT) Specimen Adequacy Satisfactory for evaluation [facility] MANUAL 2 2:00 PM EDT [facility] Pathologist Cytology Interpretation Negative for intraepithelial lesion or malignancy. [facility] MANUAL 2 2:00 PM EDT [facility] at 1359 EDT Comment:This is the result o f a morphological screening test with an inherent possibility of a false negative interpretation. Wastewater Treatment Operator Statement This Pap test was examined by the [facility] Imaging System, [employer], [place], [place]. This Pap test was examined in accordance with the [facility] Cytopathology Laboratory written policy, which incorporates all CLIA mandates. Current screening guidelines can be found in [place]: A Cancer Journal for Clinicians 2020;70:321-346. Current ASCCP management guidelines for abnormal Pap tests are published in the Journal Lower Genital Tract Disease Volume 2020;24:102-131. [facility] MANUAL 2 2:00 PM EDT [employer] [facility] ANATOMIC PATHOLOGY LABORATORY Clinical History screening [facility] MANUAL 2 2:00 PM EDT [employer] [facility] ANATOMIC [facility]OLOGY LABORATORY Report Header Gynecologic Cytology Report Case: [id number] Authorizing Provider: Coby Rubio Collected: 08/25/2021 0937 Ordering Location: [facility] Received: 08/25/[address] [place] [address] Obstetrics and Gynecology First Screen: Andres Walker Pathologist: Nixon Mckeon MD Specimen: Screening ThinPrep Pap, Cervix/Endocervix 2 2:00 PM EDT [employer] [facility] AN[facility]OLOGY LABOR[facility] Brushing Cervix uteri structure / Unknown Non-Blood Collection / Unknown 08/25/2021 9:37 AM EDT 08/25/2021 10:40 AM EDT us Coby Rubio MD LAB PATHOLOGY/CYTOLOGY ORDERA BLES Final Result [employer] [facility] ANATOMIC PATHOLOGY LABORATORY [address] [place] [address], * (ABNORMAL) Renal Function Panel (01/05/2020 2:36 PM EDT) NA 139 135 - 145 mmol/L 01/05/2020 3:11 PM EDT [facility] K 3.6 3.5 - 5.3 mmol/L 01/05/2020 3:11 PM EDT [facility] Cl 107 97 - 110 mmol/L 01/05/2020 3:11 PM EDT [facility] CO2 24 24 - 32 mmol/L 01/05/2020 3:11 PM EDT [facility] Anion Gap 8 5 - 15 01/05/2020 3:11 PM EDT [facility] Glucose 114(H) 70 - 99 mg/dL 01/05/2020 3:11 PM EDT [facility] BUN 9 7 - 23 mg/dL 01/05/2020 3:11 PM EDT [facility] Creatinine 0.60 0.50 - 1.20 mg/dL 01/05/2020 3:11 PM EDT [facility] eGFR Non- >90 >=90 mL/min/BSA 01/05/2020 3:11 PM EDT [facility] eGFR >90 >=90 mL/min/BSA 01/05/2020 3:11 PM EDT [facility] Comment: Units = mL/min/1.73 m2 Glomerular Filtration Rate (GFR) is estimated based on the CKD-EPI Creatinine Equation (2009). Stage Description GFR 1 Normal >=90 mL/min/BSA 2 Mildly decreased GFR 60-89 mL/min/BSA 3 Moderately decreased GFR 30-59 mL/min/BSA 4 Severely decreased GFR 15-29 mL/min/BSA 5 Kidney Failure <15 mL/min/BSA Calcium 9.4 8.7 - 10.7 mg/dL 01/05/2020 3:11 PM EDT [facility] Phosphorus 3.2 2.5 - 4.5 mg/dL 01/05/2020 3:11 PM EDT [facility] Albumin 4.8 3.5 - 4.8 g/dL 01/05/2020 3:11 PM EDT [facility] Blood Structure of peripheral vein / Unknown Venipuncture / Unknown 01/05/2020 2:36 PM EDT 01/05/2020 2:44 PM EDT us Arsalan Melissa MD LAB BLOOD ORDERABLES Final Result [facility] [address] [place] [address], from Last 3 Months or Most Recently Relevant to Health Maintenance Insurance [facility] Care Teams Airfield Operations Specialist Relationship Specialty Start Date End Date KaiserTerry Gray MD [address] [place] [id number] PCP - General 05/10/20
--- OUTSIDE RECORDS SUMMARY | 2025-03-03 20:17 | XMS_ITS | Encounter Summary ---
Author Organization [employer] Address [address] [facility] 7 [place] [address] Care Team Providers Care Cattle Sprayer Name Role Phone Terry Rasheed MD Primary Care Prov ider Terry Rasheed MD Primary Care Prov ider Reason for Visit * Reason Onset Date Comments triage 09/18/2022 Encounter Details Date Type Department Care Team (Late st Contact Info) Description 09/18/2022 Telephone [facility] MEDICINE [address] [place] [address] Terry Rasheed MD 505 [place] [address] triage Social History Tobacco Use Types Packs/Day [...] from Pt, reports missed appt with Flores [facility] Director due to sleeping in. Per pt [...] LVM to return call to [facility]. Noticed pt has appt today with [facility] provider Flores Stewart, discussed with her and [...] documented as of this encounter Care Teams Cattle Sprayer Relationship Specialty Start Date End Date Terry Rasheed MD [address] [place] [address] PCP - General Internal Medicine 08/10/20 09/26/23 Terry Rasheed MD [address] [place] [address] PCP - General Internal Medicine 12/24/23 documented as of this encounter
--- OUTSIDE RECORDS SUMMARY | 2025-03-03 20:17 | XMS_ITS | Encounter Summary ---
Author Organization [employer] Address [address] [facility] 7 [place] [address] Care Team Providers Care Pull Tab Dealer Name Role Phone Terry Rasheed MD Primary Care Prov ider Terry Rasheed MD Primary Care Prov ider Encounter Details Date Type Department Care Team ([facility] st Contact Info) Description 08/01/2023 Telephone [facility] MEDICINE [address] [place] [address] Terry Rasheed MD [address] [place], [place] [phone] Social History Tobacco Use Types Packs/Day Years [...] documented as of this encounter Care Teams Pull Tab Dealer Relationship Specialty Start Date End Date Terry Rasheed MD [address] [place] [address] PCP - General Internal Medicine 08/10/20 09/26/23 Terry Rasheed MD [address] [place] [address] PCP - General Internal Medicine 12/24/23 documented as of this encounter
--- OUTSIDE RECORDS SUMMARY | 2025-03-03 20:18 | XMS_ITS | Encounter Summary ---
Author Organization [facility] Address [address] [place] [address] Care Team Providers Care Park Aide Name Role Phone Terry Rasheed MD Primary Care Prov ider Reason for Visit * Reason Onset Date Comments Cancel Procedure tomorrow 08/28/2022 Encounter Details Date Type Department Care Team (Late st Contact Info) Description 08/28/2022 Telephone [facility] Central Scheduling Department [address] [place] [address] [place], Annalise Camp MD [address] [place] [address] Cancel Procedure tomorrow Social History Tobacco Use [...] tomorrow 08/29 Please call pt with a Home Teaching Grades 7 And 8 Teacher at [phone] documented in this encounter Plan of Treatment Upcoming Encounters Date Type Department Care Team (Late st Contact Info) Description 03/25/2025 2:40 PM EST Follow-Up [facility] Nephrology Clinic [address] [place] [address] [phone] Manager Steel: Arsalan Hercules MD [address] [place] [address] [phone] 09/11/2025 1:45 PM EDT Appointment [facility] Mammography [address] [facility], Floor [address]. [place] [address] documented as of this encounter Visit Diagnoses Not on filedocumented in this encounter Care Teams Park Aide Relationship Specialty Start Date End Date Terry Rasheed MD [address] [place] [address] PCP - General 05/10/20 documented as of this encounter
== END 2025-03-03 17:25 | disposition home or self-care (01) ==
LOC: HO.LNP 17:24
PROVIDERS: Visit Provider Nurse Practitioner Family
DX: A04.8 Other specified bacterial intestinal infections (principal)
CPT/HCPCS: 83013

== ENCOUNTER 2025-03-13 14:03 | Outpatient (REF) | payer OTHER, SELFPAY ==
--- NOTE | ~2025-03-13 | US_ITS ---
EXAMINATION: US PELVIS CLINICAL INFORMATION: Pelvic pain, polycystic ovarian syndrome COMPARISON: None available. TECHNIQUE: Ultrasound of the pelvis is performed using both transabdominal and transvaginal transducers along with Doppler. Transvaginal imaging is performed due to inadequate visualization transabdominally. FINDINGS: Uterus: The uterus is retroflexed and measures 9.9 x 3.6 x 4.0 cm. There is trace fluid in the endocervical canal. The double wall endometrial thickness is 5 mm. The uterus is smooth in contour and has normal myometrial echogenicity. No visible fibroid. Adnexa: Both ovaries are visualized. There is normal color flow to the adnexa. There is no ovarian torsion. There is no pelvic ascites or fluid collection. Right ovary measures 2.0 x 1.2 x 2.2 cm. There is a dominant follicle. Left ovary measures 2.1 x 1.0 x 1.5 cm. US/US pelvic and transvaginal IMPRESSION: Unremarkable pelvic ultrasound with normal-appearing ovaries. There is fluid in the endocervical canal, a nonspecific finding. Electronically signed by: Reji Garcia MD 03/13/2025 03:21 PM EST
--- OUTSIDE RECORDS SUMMARY | 2025-03-13 15:52 | XMS_ITS | Encounter Summary ---
Author Organization [employer] Address [address] [place] [address] [place] [address] Care Team Providers Care Life Enrichment Specialist Name Role Phone Terry Rasheed MD Primary Care Prov ider Reason for Visit * Reason Onset Date Comments Call Back Request 01/28/2025 Encounter Details Date Type Department Care Team ([facility] Contact Info) Description 01/28/2025 Telephone [facility] MED & PEDS [address] [place] [address] Terry Rasheed MD [address] [place] [address] Call Back Request Social History Tobacco Use [...] was about. Any questions contact pt at [phone] documented in this encounter Plan of Treatment Not on file documented as of this encounter Visit Diagnoses Not on filedocumented in this encounter Additional Health Concerns Assessment Noted Time PHQ-9 Depression Total Score: 2 12/03/19 25 8:46 AM EDT documented as of this encounter Care Teams Life Enrichment Specialist Relationship Specialty Start Date End Date Terry Rasheed MD [address] [place] [address] PCP - General Internal Medicine 12/24/23 documented as of this encounter
--- OUTSIDE RECORDS SUMMARY | 2025-03-13 15:52 | XMS_ITS | Encounter Summary ---
Author Organization [employer] Address [address] [facility] 7 [place] [address] Care Team Providers Care Metal Reclamation Kettle Tender Name Role Phone Terry Rasheed MD Primary Care Prov ider Terry Rasheed MD Primary Care Prov ider Reason for Visit * Reason Onset Date Comments Referral 07/18/2023 Encounter Details Date Type Department Care Team (Late st Contact Info) Description 07/18/2023 Telephone [facility] [address] [place] [address] Terry Rasheed MD [address] [place] [address] Referral Social History Tobacco Use Types Packs/Day [...] referral : DATE: N/A TIME: N/A Address: [address] [place] [address] [place] [address] Visits: N/A Facility Name: [facility] center Type of Specialist: Urologist DX: Kidney Pain Phone #: [phone] Fax #: [phone] documented in this encounter Plan of Treatment Not on file documented as of this encounter Visit Diagnoses Not on filedocumented in this encounter Additional Health Concerns Assessment Noted Time PHQ-9 Depression Total Score: 0 05/28/19 24 9:00 AM EST documented as of this encounter Care Teams Metal Reclamation Kettle Tender Relationship Specialty Start Date End Date Terry Rasheed MD [address] [facility] [place] [address] PCP - General Internal Medicine 08/10/20 09/26/23 Terry Rasheed MD [address] [facility] [place] [address] PCP - General Internal Medicine 12/24/23 documented as of this encounter
--- OUTSIDE RECORDS SUMMARY | 2025-03-13 15:52 | XMS_ITS | Encounter Summary ---
Author Organization [employer] Address 75 [facility] 7 [place] [address] Care Team Providers Care Academic Physician Name Role Phone Terry Rasheed MD Primary Care Prov ider Reason for Visit * Reason Onset Date Comments Nurse Triage 08/04/2024 Encounter Details Date Type Department Care Team ([facility] st Contact Info) Description 08/04/2024 Telephone [facility] MEDICINE [address] [place] [address] Terry Rasheed MD [address] [place] [address] Nurse Triage Social History Tobacco Use Types [...] message to call [facility] [phone] when available. * Telephone Encounter - [facility] [...] documented as of this encounter Care Teams Academic Physician Relationship Specialty Start Date End Date Terry Rasheed MD [address] [place] [address] PCP - General Internal Medicine 12/24/23 documented as of this encounter
--- OUTSIDE RECORDS SUMMARY | 2025-03-13 15:52 | XMS_ITS | Clinical Summary ---
Author Organization [employer] [facility] Address [address] [place] [address] Care Team Providers Care Extractions Technician Name Role Phone Unavailable Primary Care Provider [...]
--- OUTSIDE RECORDS SUMMARY | 2025-03-13 15:52 | XMS_ITS | Encounter Summary ---
Author Organization [facility] Address [address] [place] [address] 7 [place] [address] Care Team Providers Care Director Student Union Name Role Phone Terry Rasheed MD Primary Care Prov ider Terry Rasheed MD Primary Care Prov ider Encounter Details Date Type Department Care Team (Latest Contact Info) Description 09/24/2020 Abstract [facility] CONVERSIONS Dental, Provider, DDS Social History [...] filedocumented in this encounter Care Teams Director Student Union Relationship Specialty Start Date End Date Terry Rasheed MD [address] [place] [address] PCP - General Internal Medicine 08/10/20 09/26/23 Terry Rasheed MD [address] [place] [address] PCP - General Internal Medicine 12/24/23 documented as of this encounter
--- OUTSIDE RECORDS SUMMARY | 2025-03-13 15:52 | XMS_ITS | Encounter Summary ---
Author Organization [facility] Address [address] [place] [address] Care Team Providers Care Grey Roll Worker Name Role Phone Terry Rasheed MD Primary Care Prov ider Reason for Visit * Reason Onset Date Comments Cancel Procedure tomorrow 08/28/2022 Encounter Details Date Type Department Care Team (Late st Contact Info) Description 08/28/2022 Telephone [facility] Central Scheduling Department [address] [place] [address] AlloccoAnnalise MD [address] [place] [address] Cancel Procedure tomorrow Social History Tobacco Use [...] tomorrow 08/29 Please call pt with a Power Brake Operator at [phone] documented in this encounter Plan of Treatment Upcoming Encounters Date Type Department Care Team (Late st Contact Info) Description 03/25/2025 2:40 PM EST Follow-Up [facility] [address] [place] [address] [phone] Manager Respiratory Care: Arsalan Hercules MD [address] [place] [address] [phone] 09/11/2025 1:[address] [facility] Mammography [address] [facility], Floor [address]. [place] [address] documented as of this encounter Visit Diagnoses Not on filedocumented in this encounter Care Teams Grey Roll Worker Relationship Specialty Start Date End Date Terry Rasheed MD [address] [place] [address] PCP - General 05/10/20 documented as of this encounter
--- OUTSIDE RECORDS SUMMARY | 2025-03-13 15:52 | XMS_ITS | Encounter Summary ---
Author Organization [employer] Address [address] [facility] 7 [place] [address] Care Team Providers Care Sales Systems Engineer Name Role Phone Terry Rasheed MD Primary Care Prov ider Terry Rasheed MD Primary Care Prov ider Encounter Details Date Type Department Care Team ([facility] st Contact Info) Description 08/01/2023 Telephone [facility] MEDICINE [address] [place] [address] Terry Rasheed MD [address] [place], [place] [phone] Social History Tobacco Use Types Packs/Day Years [...] as of this encounter Care Teams Sales Systems Engineer Relationship Specialty Start Date End Date Terry Rasheed MD [address] [place] [address] PCP - General Internal Medicine 08/10/20 09/26/23 Terry Rasheed MD [address] [place] [address] PCP - General Internal Medicine 12/24/23 documented as of this encounter
--- OUTSIDE RECORDS SUMMARY | 2025-03-13 15:52 | XMS_ITS | Clinical Summary ---
Author Organization [facility] Address [address] [place] [address] Care Team Providers Care Plaster Mixer Name Role Phone Terry Rasheed MD Primary [...] 30 mg by mouth daily. 4 Active PARoxetine (PAXIL) 20 mg tablet Take [...] 30 tablet 11 5 09/25/19 26 Active omega-3 acid ethyl esters (LOVAZA) 1 gram capsule Take 1 g by mouth 2 times daily. 4 03/05/20 25 Hospital, Clinic, or Other Facility Administered Medication [...] Department Care Team Description 02/09/2025 Transcribe Orders [facility] [address] [place] [address] Terry Rasheed MD Tubal ligation evaluation (Primary [...] Info) Description 03/25/2025 2:40 PM EST Follow-Up [facility] [address] [place] [address] Boat Carpenter Mechanic: Arsalan Hercules MD [address] [place] [address] 09/11/2025 1:45 PM EDT Appointment [facility] Mammography [address] [place] [address], [place] [address]. [place] [address] Health Maintenance Due Date Last [...] 75+ series) 09/26/2054 Procedures * Due to [place] [employer] law, this organization might not be sharing [...] to Health Maintenance Results * Due to [place] [employer] law, this organization might not be sharing negative HIV tests. * TRAM Bilateral Screening Digital Mammogram With Rich (09/05/2024 2:10 PM EDT) Anatomical Region Laterality Modality Breast Bilateral Mammography Narrative 09/22/2024 2:34 PM EDT Exam Date: 09/05/[address], [address] [place], [place] [address] EXAMINATION TRAM Bilateral Screening Digital Mammogram With Rich. INDICATION Vonda Morrison is a 43 y.o. female and is seen for: TRAM Bilateral Screening Digital Mammogram With Rich. CC and MLO views were obtained. FDA approved [employer] AI (artificial intelligence) software and R2 CAD were used as a concurrent reading aid in the interpretation of this study. COMPARISON Compared to: 06/14/2023 TRAM Bilateral Screening Digital Mammogram With Rich Bilateral [...] WO CONTRAST ) or automated breast ultrasound ([place] order A BUS ) depending on risk factors. https://acsearch.acr.org/docs/4176478/Narrative/ TC score is not calculated for women with personal history of breast cancer or if age >80 years. If this radiology report contains a blank impression section, it is an incomplete radiology report. Please contact the interpreting radiologist or applicable radiology division as soon as possible to obtain the completed interpretation. Ricco Gupta MD Resulting Agency Comment [id number] [phone] Terry Gaytan MD IMG BI PROCEDURES Final Result * Pap (08/25/2021 9:37 AM EDT) Specimen Adequacy Satisfactory for evaluation [facility] MANUAL 2 2:00 PM EDT [facility] Pathologist Cytology Interpretation Negative for intraepithelial lesion or malignancy. [facility] MANUAL 2 2:00 PM EDT [facility] at 1359 EDT Comment:This is the result o f a morphological screening test with an inherent possibility of a false negative interpretation. Inspector Statement This Pap test was examined by the ThinPrep Imaging System, [employer], [place], [place]. This Pap test was examined in accordance with the [facility] Cytopathology Laboratory written policy, which incorporates all CLIA mandates. Current screening guidelines can be found in [place]: A Cancer Journal for Clinicians 2020;70:321-346. Current ASCCP management guidelines for abnormal Pap tests are published in the Journal Lower Genital Tract Disease Volume 2020;24:102-131. [facility] MANUAL 2 2:00 PM EDT [facility] Clinical History screening [facility] MANUAL 2 2:00 PM EDT [employer] [facility] Report Header Gynecologic Cytology Report Case: [id number] Authorizing Provider: Coby Rubio Collected: 08/25/2021 0937 Ordering Location: [facility] Received: 08/25/2021 1040 [facility] Obstetrics and Gynecology First Screen: Andres Walker Pathologist: Nixon Mckeon MD Specimen: Screening ThinPrep Pap, Cervix/Endocervix 2 2:00 PM EDT [employer] [facility] Brushing Cervix uteri structure / Unknown Non-Blood Collection / Unknown 08/25/2021 9:37 AM EDT 08/25/2021 10:40 AM EDT us Coby Rubio MD LAB PATHOLOGY/CYTOLOGY ORDERA BLES Final Result [facility]OR[facility] [address] [place] [address], * (ABNORMAL) Renal Function Panel (01/05/2020 2:36 PM EDT) NA 139 135 - 145 mmol/L 01/05/2020 3:11 PM EDT [facility] [facility] K 3.6 3.5 - 5.3 mmol/L 01/05/2020 3:11 PM EDT [facility] Cl 107 97 - 110 mmol/L 01/05/2020 3:11 PM EDT [facility] [facility] CO2 24 24 - 32 mmol/L 01/05/2020 3:11 PM EDT [facility] Anion Gap 8 5 - 15 01/05/2020 3:11 PM EDT [facility] Glucose 114(H) 70 - 99 mg/dL 01/05/2020 3:11 PM EDT [facility] BUN 9 7 - 23 mg/dL 01/05/2020 3:11 PM EDT [facility] Creatinine 0.60 0.50 - 1.20 mg/dL 01/05/2020 3:11 PM EDT [facility] eGFR Non- >90 >=90 mL/min/BSA 01/05/2020 3:11 PM EDT [facility] eGFR >90 >=90 mL/min/BSA 01/05/2020 3:11 PM EDT [facility] Comment: Units = mL/min/1.73 m2 Glomerular Filtration Rate (GFR) is estimated based on the CKD-EPI Creatinine Equation (2009). Stage Description GFR 1 Normal >=90 mL/min/BSA 2 Mildly decreased GFR 60-89 mL/min/BSA 3 Moderately decreased GFR 30-59 mL/min/BSA 4 Severely decreased GFR 15-29 mL/min/BSA 5 Kidney Failure <15 mL/min/BSA Calcium 9.4 8.7 - 10.7 mg/dL 01/05/2020 3:11 PM EDT [facility] Phosphorus 3.2 2.5 - 4.5 mg/dL 01/05/2020 3:11 PM EDT [facility] [facility] Albumin 4.8 3.5 - 4.8 g/dL 01/05/2020 3:11 PM EDT [facility] [facility] Blood Structure of peripheral vein / Unknown Venipuncture / Unknown 01/05/2020 2:36 PM EDT 01/05/2020 2:44 PM EDT Arsalan Torres MD LAB BLOOD ORDERABLES Final Result [facility] [employer] [address] [place] [address], from Last 3 Months or Most Recently Relevant to Health Maintenance Insurance [facility] Care Teams Plaster Mixer Relationship Specialty Start Date End Date KaiserTerry Gray MD [address] [place] [address] PCP - General 05/10/20
--- OUTSIDE RECORDS SUMMARY | 2025-03-13 15:52 | XMS_ITS | Encounter Summary ---
Author Organization [employer] Address [address] [place] [address] 7 [place] [address] Care Team Providers Care Health Education Director Name Role Phone Terry Rasheed MD Primary Care Prov ider Terry Rasheed MD Primary Care Prov ider Reason for Visit * Reason Comments Med Refill Encounter Details Date Type Department Care Team ([facility] st Contact Info) Description 07/24/2022 Refill [facility] MED & PEDS [address] [place] [address] Terry Rasheed MD [address] [place] [address] Social History Tobacco Use Types Packs/Day Years [...] as of this encounter Care Teams Health Education Director Relationship Specialty Start Date End Date Terry Rasheed MD [address] [place] [address] PCP - General Internal Medicine 08/10/20 09/26/23 Terry Rasheed MD [address] [place] [address] PCP - General Internal Medicine 12/24/23 documented as of this encounter
--- OUTSIDE RECORDS SUMMARY | 2025-03-13 15:52 | XMS_ITS | Encounter Summary ---
Author Organization [employer] Address [address] [place] [address] [place] [address] Care Team Providers Care Sketcher Name Role Phone Terry Rasheed MD Primary Care Prov ider Terry Rasheed MD Primary Care Prov ider Reason for Visit * Reason Comments Med Refill Encounter Details Date Type Department Care Team ([facility] st Contact Info) Description 01/05/2023 Refill [facility] MED & PEDS [address] [place] [address] Terry Rasheed MD [address] [place] [address] Social History Tobacco Use Types Packs/Day Years [...] documented as of this encounter Care Teams Sketcher Relationship Specialty Start Date End Date Terry Rasheed MD [address] [place] [address] PCP - General Internal Medicine 08/10/20 09/26/23 Terry Rasheed MD [address] [place] [address] PCP - General Internal Medicine 12/24/23 documented as of this encounter
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
--- OUTSIDE RECORDS SUMMARY | 2025-03-13 15:52 | XMS_ITS | Encounter Summary ---
Author Organization [employer] Address [address] [place] [address] [place] [address] Care Team Providers Care Commanding Officer Garage Name Role Phone Terry Rasheed MD Primary Care Prov ider Terry Rasheed MD Primary Care Prov ider Reason for Visit * Reason Onset Date Comments ER Follow-up 07/31/2023 Encounter Details Date Type Department Care Team ([facility] st Contact Info) Description 07/31/2023 Telephone [facility] [address] [place], [place] [phone] Terry Rasheed MD [address] [place] [address] ER Follow-up Social History Tobacco Use Types [...] EDT Fax request for notes, sent to [facility] as requested. * Telephone Encounter - [...] patient to seek care and eval in [facility] if she is feeling unwell enough to go back to work or needs further care thisweek or has persistence/worsening of symptoms. She expressed understanding. Scheduled for televisitf/u with PCP for 08/06/23 @ 10:15am. No other concerns or questions at this time. [facility]. Patient calling to report ED visit [...] documented as of this encounter Care Teams Commanding Officer Garage Relationship Specialty Start Date End Date Terry Rasheed MD [address] [place] [address] PCP - General Internal Medicine 08/10/20 09/26/23 Terry Rasheed MD [address] [place] [address] PCP - General Internal Medicine 12/24/23 documented as of this encounter
--- OUTSIDE RECORDS SUMMARY | 2025-03-13 15:52 | XMS_ITS | Encounter Summary ---
Author Organization [employer] Address [address] [place] [address] [address] [place] [address] Care Team Providers Care Hairpiece Stylist Name Role Phone Terry Rasheed MD Primary Care Prov ider Encounter Details Date Type Department Care Team (Late st Contact Info) Description 09/22/2024 Orders Only [facility] [address] [place] [address] Provider, MD Dolly Social History Tobacco Use [...] documented as of this encounter Care Teams Hairpiece Stylist Relationship Specialty Start Date End Date Terry Rasheed MD [address] [place] [phone] PCP - General Internal Medicine 12/24/23 documented as of this encounter
--- OUTSIDE RECORDS SUMMARY | 2025-03-13 15:52 | XMS_ITS | Encounter Summary ---
Author Organization [employer] Address [address] [place] [address] [place] [address] Care Team Providers Care Transplant Surgeon Name Role Phone Terry Rasheed MD Primary Care Prov ider Reason for Visit * Reason Comments Med Refill Encounter Details Date Type Department Care Team ([facility] st Contact Info) Description 11/09/2023 Refill [facility] CHC MED & PEDS [address] [place] [address] Terry Rasheed MD [address] [place] [address] Social History Tobacco Use Types Packs/Day Years [...] documented as of this encounter Care Teams Transplant Surgeon Relationship Specialty Start Date End Date Terry Rasheed MD [address] [place] [id number] PCP - General Internal Medicine 12/24/23 documented as of this encounter
--- OUTSIDE RECORDS SUMMARY | 2025-03-13 15:52 | XMS_ITS | Encounter Summary ---
Author Organization [employer] Address [address] [place] [address] [place] [address] Care Team Providers Care Deburr Technician Name Role Phone Terry Rasheed MD Primary Care Prov ider Encounter Details Date Type Department Care Team ([facility] st Contact Info) Description 12/12/2024 Orders Only [facility] CHC MED & PEDS [address] [place], [place] [phone] Terry Rasheed MD [address] [place] [address] Acute insomnia Social History Tobacco Use Types [...] documented as of this encounter Care Teams Deburr Technician Relationship Specialty Start Date End Date Terry Rasheed MD [address] [place] [id number] PCP - General Internal Medicine 12/24/23 documented as of this encounter
--- OUTSIDE RECORDS SUMMARY | 2025-03-13 15:52 | XMS_ITS | Encounter Summary ---
Author Organization [facility] Address [address] [place] [address] Care Team Providers Care Encapsulator Name Role Phone Terry Rasheed MD Primary Care Prov ider Encounter Details Date Type Department Care Team (Late st Contact Info) Description 07/28/2022 Orders Only [facility] Interventional Radiology [address] [place] [address] Jovani Shah MD [address] [place] [phone] Social History Tobacco Use Types Packs/Day Years [...] Info) Description 03/25/2025 2:40 PM EST Follow-Up [facility]ph[facility] [address] [place], [place] [phone] Reforestation Worker: Arsalan Hercules MD [address] [place] [address] [phone] 09/11/2025 1:45 PM EDT Appointment [facility] Mammography [address] [place] [address] documented as of this encounter Visit Diagnoses Not on filedocumented in this encounter Care Teams Encapsulator Relationship Specialty Start Date End Date Terry Rasheed MD [address] [place] [phone] PCP - General 05/10/20 documented as of this encounter
--- OUTSIDE RECORDS SUMMARY | 2025-03-13 15:52 | XMS_ITS | Encounter Summary ---
Author Organization [employer] Address [address] [facility] 7 [place] [address] Care Team Providers Care Percussion Teacher Name Role Phone Terry Rasheed MD Primary Care Prov ider Terry Rasheed MD Primary Care Prov ider Reason for Visit * Reason Onset Date Comments triage 09/18/2022 Encounter Details Date Type Department Care Team (Late st Contact Info) Description 09/18/2022 Telephone [facility] MEDICINE [address] [place] [address] Terry Rasheed MD [address] [place] [address] triage Social History Tobacco Use Types Packs/Day [...] from Pt, reports missed appt with [facility] Director due to sleeping in. Per [...] No answer, LVM to return call to [facility]. Noticed pt has appt today with [facility] provider Flores Stewart, discussed with her [...] as of this encounter Care Teams Percussion Teacher Relationship Specialty Start Date End Date Terry Rasheed MD [address] [place] [address] PCP - General Internal Medicine 08/10/20 09/26/23 Terry Rasheed MD [address] [place] [address] PCP - General Internal Medicine 12/24/23 documented as of this encounter
--- OUTSIDE RECORDS SUMMARY | 2025-03-13 15:52 | XMS_ITS | Encounter Summary ---
Author Organization [facility] Address [address] [facility] 7 [place] [address] Care Team Providers Care Typesetting Machine Operator/Tender Name Role Phone Terry Rasheed MD Primary Care Prov ider Reason for Visit * Reason Onset Date Comments Results 01/29/2025 Encounter Details Date Type Department Care Team ([facility] Contact Info) Description 01/29/2025 Telephone [facility] MEDICINE [address] [place] [address] Terry Rasheed MD [address] [place] [address] Results Social History Tobacco Use Types Packs/Day [...] results: endoscopy. Date when done: 01/09 Facility: [facility] Contact pt at [phone] documented in this encounter Plan of Treatment Not on file documented as of this encounter Visit Diagnoses Not on filedocumented in this encounter Additional Health Concerns Assessment Noted Time PHQ-9 Depression Total Score: 2 12/03/19 8:46 AM EDT documented as of this encounter Care Teams Typesetting Machine Operator/Tender Relationship Specialty Start Date End Date Terry Rasheed MD [address] [place] [phone] PCP - General Internal Medicine 12/24/23 documented as of this encounter
== END 2025-03-13 14:04 | disposition home or self-care (01) ==
LOC: HO.US 14:03
PROVIDERS: PCP Nurse Practitioner Primary Care; Visit Provider Nurse Practitioner Primary Care
DX: R10.20 Pelvic and perineal pain unspecified side (principal)
CPT/HCPCS: 76830; 76856

== ENCOUNTER → 2025-03-13 14:07 | Outpatient (BNV) | payer OTHER, SELFPAY | PROVIDERS: PCP Nurse Practitioner Primary Care; Visit Provider Radiology Diagnostic Radiology | DX: R10.20 Pelvic and perineal pain unspecified side (principal); Z87.42 Personal history of other diseases of the female genital tract | CPT/HCPCS: 76830; 76856 ==

== ENCOUNTER 2025-04-15 08:08 | Outpatient (REF) | payer OTHER, SELFPAY ==
--- NOTE | ~2025-04-15 | FL_ITS ---
EXAMINATION: XR FLUOROSCOPY BARIUM SWALLOW WITH AIR CLINICAL INFORMATION: Reflux type symptoms. COMPARISON: None TECHNIQUE: Fluoroscopic air contrast barium swallow examination was performed utilizing standard techniques with thin and thick barium and effervescent granules. Numerous spot images were obtained. Several fluoroscopic image hold cine sequences were also obtained. FINDINGS: BARIUM SWALLOW: Lateral cine images of the oropharynx and hypopharynx demonstrate normal swallow mechanism with normal epiglottic inversion and soft palate elevation. No laryngeal penetration, glottic or subglottic aspiration identified. Minimal nasopharyngeal reflux was noted. Hypopharyngeal structures appear normal without evidence of mass or diverticulum. There was very mild cricopharyngeal achalasia. Dual and single contrast images of the esophagus demonstrate normal caliber, contour, and mucosal pattern. No evidence of stricture, mass, or ulcerations identified. Esophageal peristalsis was essentially normal. No definite evidence of hiatus hernia identified. Mildly patulous GE junction. Mild gastroesophageal reflux was noted to the level of the zoë. Dual contrast and single contrast images of the stomach demonstrated normal contour and mucosal pattern without evidence of mass, ulceration, or other abnormality. Normal gastric rugal fold pattern. Contrast freely passed into the gastric antrum and duodenal bulb without delay. FLUOROSCOPY TIME: 2 minutes, 55 seconds Number of Spot Images:9 Number of cines obtained: 11 DOSE AREA PRODUCT: 2881 uGy-m2 (microgray-meter squared) FL/FL barium swallow with air IMPRESSION: 1. Very minimal cricopharyngeal achalasia. 2. Normal appearing esophagus. 3. Mild gastroesophageal reflux noted to the level of the zoë. 4. Normal-appearing stomach. Electronically signed by: Arturo Patino MD 04/15/2025 09:18 AM [facility]
== END 2025-04-15 08:09 | disposition home or self-care (01) ==
LOC: HO.XRAY 08:08
PROVIDERS: PCP Nurse Practitioner Primary Care; Visit Provider Nurse Practitioner Family
DX: K21.9 Gastro-esophageal reflux disease without esophagitis (principal); K44.9 Diaphragmatic hernia without obstruction or gangrene; R13.10 Dysphagia, unspecified
CPT/HCPCS: 74221

== ENCOUNTER → 2025-04-15 08:11 | Outpatient (BNV) | payer OTHER, SELFPAY | PROVIDERS: PCP Nurse Practitioner Primary Care; Visit Provider Radiology Diagnostic Radiology | DX: K21.9 Gastro-esophageal reflux disease without esophagitis (principal) | CPT/HCPCS: 74221 ==

== ENCOUNTER 2025-04-24 10:33 | Outpatient (AMB) | payer OTHER, SELFPAY ==
--- OUTSIDE RECORDS SUMMARY | 2024-10-06 07:00 | XMS_ITS ---
Author Organization [facility] Address [address] [place] [address] Care Team Providers Care Senior Pensions Administrator Name Role Phone CHRIS TAPIA Unavailable [phone] REASON FOR VISIT lab only Social History Sex Assigned At : Social History Observation Description Sex Assigned At Female Encounters Encounter Location Date Provider Diagnosis [address] [phone] 06/2024 CHRIS TAPIA Plan Of Treatment Next Appt Details Provider Name:CHRIS TAPIA, 09/2025 11:00:00 AM, [address] [place] [address], [address], [phone], Progress Notes * Vonda QUEVEDODOB:1980 (44 yo F)Acc No.[id number]:10/06/2024 LAB Patient: Alia Vonda Wallis Provider: Nicky TAPIA :1980 A ge:44 Y S ex:Female Date:10/06/2024 Address:[address] [place] [phone] Subjective: * Chief Complaints: * L ab only * Electronic signature of GABO TAPIA CNM on 04/24/2025 at 12:12 PM EST Sign off status: Pending * Provider: Nicky TAPIA Date: 0 10/06/2024 Generated for Printi ng/Faxing/eTransmitting on: 1 06/25/2024 12:12 PM EST
[2025-04-24 10:58] VITALS: BP 158/103; PULSE 80; O2SAT 98; BMI 30.5
--- NOTE | 2025-04-24 10:58 | MHC.OFFVIS ---
Vital Signs 04/24/25 10:58 Height 5 ft 3 in Weight 171 lb 15.369 oz BMI 30.5 BP 158/103 H Blood Pressure Location Lt brachial Position Sitting Pulse 80 Pulse Source Pulse Oximeter Pulse Oximetry (%) 98 Oxygen Delivery Method Room Air Intake Visit Reasons: Follow up Barium swallow Textile Mach[employer] Sales Representative Required: Yes Textile Mach[employer] Sales Representative Name: MATT [id number], Mckenzie [id number] Allergies No Known Drug Allergies Allergy (Unknown, Verified 02/26/25 14:16) none latex Allergy (Verified 02/26/25 14:16) Hives HPI HPI Follow up Barium swallow: Details: Patient is a 43-year-old female with PMH of depression/anxiety, hypertenion. Follow-up visit for gastrointestinal symptoms and to review Barium swallow study. A prior upper endoscopy in January showed gastritis, H. pylori, and a hiatal hernia. She has been experiencing dysphagia, which is sometimes worse but improves with increased fluid intake and softer foods. The patient also has gastroesophageal reflux, and she reports her symptoms are effectively managed with omeprazole. Although prescribed 20 mg twice daily, she has been taking it once daily with good effect. She reports mild (4/10) pain in her upper abdomen only when pressing on the area. Her H. pylori infection was successfully eradicated, confirmed by a negative test in February. She recently had a transient episode of loose stools that she attributes to dietary choices, which has since resolved. She denies nausea, vomiting, or blood in her stools. [facility] Medical History Diverticulosis IBS (irritable bowel syndrome) Dysphagia Hiatal hernia Positive H. pylori test Acid reflux Elevated alkaline phosphatase level Colon cancer screening Change in stool delivery delivered Multiple births, some liveborn Miscarriage Diabetes HTN (hypertension) Kidney stone Surgical History Hx of section Family History Mother HTN (hypertension) Diabetes Father HTN (hypertension) Disease of colon Paternal Uncle Colon cancer Paternal Uncle Colon cancer Paternal Aunt Breast CA Paternal Aunt Breast CA Social History Alcohol intake: former Patient Tobacco Use Status: Never used Tobacco Review of Systems Const Reports as per HPI ENT Reports dysphagia Card Reports as per HPI Resp Reports as per HPI GI Reports abdominal pain, Reports dysphagia and Reports loose stools Reports as per HPI Physical Exam Vital Signs: Last Vital Signs Pulse 80 04/24/25 10:58 BP 158/103 H 04/24/25 10:58 Pulse Ox 98 04/24/25 10:58 Oxygen Delivery Method Room Air 04/24/25 10:58 BMI result Body Mass Index 30.5 Const General: healthy appearing, no acute distress and well developed Nutritional Appearance: average body habitus Orientation/consciousness: patient oriented x3 HEENT Head: Yes normal to inspection, Yes normocephalic and Yes atraumatic Face and sinus: Yes normal facial exam Eyes General: appearance normal, both eyes and all related structures Neck Neck: Yes normal visual inspection Resp Effort & Inspection: normal respiratory effort, able to speak in complete sentences, no tracheal deviation and symmetric chest movement Cardio Jugular venous distension: no JVD GI Inspection: Yes normal to inspection, No distended and Yes obesity Palpation (GI): Soft to palpation, not firm, nontender and No hepatosplenomegaly present Auscultation: normal bowel sounds Neuro General: patient oriented x3 Gait exam (Neuro): Normal gait present Psych Appearance: grossly normal Mental Status: mental status grossly normal Speech and movement: Normal speech and movement present Affect: normal affect Attitude: cooperative Thought process: Normal thought process present Thought content: Normal thought content present Insight: Good insight present (Psych) Judgement: Good judgement present (Psych) Results Reviewed Results Reviewed: Date of Service: 04/15/25 Procedure(s): FL barium swallow with air Accession Number(s): [id number] cc: COLIN PAGAN MANAGER MOTOR; Erika Greenwood CROP RESEARCH SCIENTIST~ Reason for Exam: K21.9 - Gastro-esophageal reflux disease without esophagitis EXAMINATION: XR FLUOROSCOPY BARIUM SWALLOW WITH AIR CLINICAL INFORMATION: Reflux type symptoms. COMPARISON: None TECHNIQUE: Fluoroscopic air contrast barium swallow examination was performed utilizing standard techniques with thin and thick barium and effervescent granules. Numerous spot images were obtained. Several fluoroscopic image hold cine sequences were also obtained. FINDINGS: BARIUM SWALLOW: Lateral cine images of the oropharynx and hypopharynx demonstrate normal swallow mechanism with normal epiglottic inversion and soft palate elevation. No laryngeal penetration, glottic or subglottic aspiration identified. Minimal nasopharyngeal reflux was noted. Hypopharyngeal structures appear normal without evidence of mass or diverticulum. There was very mild cricopharyngeal achalasia. Dual and single contrast images of the esophagus demonstrate normal caliber, contour, and mucosal pattern. No evidence of stricture, mass, or ulcerations identified. Esophageal peristalsis was essentially normal. No definite evidence of hiatus hernia identified. Mildly patulous GE junction. Mild gastroesophageal reflux was noted to the level of the zoë. Dual contrast and single contrast images of the stomach demonstrated normal contour and mucosal pattern without evidence of mass, ulceration, or other abnormality. Normal gastric rugal fold pattern. Contrast freely passed into the gastric antrum and duodenal bulb without delay. FLUOROSCOPY TIME: 2 minutes, 55 seconds Number of Spot Images:9 Number of cines obtained: 11 DOSE AREA PRODUCT: 2881 uGy-m2 (microgray-meter squared) FL/FL barium swallow with air IMPRESSION: 1. Very minimal cricopharyngeal achalasia. 2. Normal appearing esophagus. 3. Mild gastroesophageal reflux noted to the level of the zoë. 4. Normal-appearing stomach. Electronically signed by: Arturo Patino MD 04/15/2025 09:18 AM [facility] Assessment & Plan Assessment & Plan (1) Dysphagia: Code(s): R13.10 - Dysphagia, unspecified Category: Medical Qualifiers: Dysphagia type: unspecified Qualified Code(s): R13.10 - Dysphagia, unspecified Plan: A recent barium swallow showed minimal evidence of an very minimal cricopharyngeal achalasia, which is a likely cause of her symptoms. - Symptoms are intermittent and improve with dietary modification. Further intervention not indicated at this time. - Advised to continue consuming softer foods and drinking more fluids with meals. (2) Acid reflux: Comment: 01/20/25 Upper endoscopy-Hiatal hernia, gastritis, gastric ulcer, esophagitis Code(s): K21.9 - Gastro-esophageal reflux disease without esophagitis Category: Medical Qualifiers: Esophagitis presence: esophagitis presence not specified Qualified Code(s): K21.9 - Gastro-esophageal reflux disease without esophagitis Plan: The patient's reflux symptoms are well-controlled with omeprazole, taken once daily. - A 90-day refill for omeprazole will be sent, with instructions adjusted to 20 mg once daily. - Advised to continue avoiding dietary triggers such as greasy, fatty, and acidic foods to manage symptoms. Plan Follow-up 6 months or sooner as needed Time: I spent a total of 30 minutes on the date of encounter which includes: Preparing to see the patient (reviewed previous documentation, test results and medical history) Performing a medically appropriate exam and/or evaluation Ordering medications, tests, and procedures Documenting clinical information in the health record Medications: Changed From omeprazole Take one tablet twice daily, on a empty stomach. Delay eating 30 minutes 20 mg PO BID 180 caps 0RF To omeprazole Take one tablet daily, on a empty stomach. Delay eating 30 minutes 20 mg PO DAILY 90 caps 1RF Coding Level of Care Code Established Pt Est Pt Level 4 (58163) Patient Type Established Diagnoses Dysphagia, unspecified type R13.10 Dysphagia type: unspecified Gastroesophageal reflux disease, unspecified whether esophagitis present K21.9 Esophagitis presence: esophagitis presence not specified
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
--- OUTSIDE RECORDS SUMMARY | 2025-04-24 12:12 | XMS_ITS | Encounter Summary ---
Author Organization [employer] Address [address] [place] [address] [address] [place] [address] Care Team Providers Care Commercial Lines Sales Executive Name Role Phone Terry Rasheed MD Primary Care Prov ider Encounter Details Date Type Department Care Team (Late st Contact Info) Description 09/22/2024 Orders Only [facility] [address] [place] [address] Provider, MD Dolly Social History Tobacco Use [...] Upcoming Encounters Date Type Department Care Team ([facility] st Contact Info) Description 05/19/2025 10:30 AM EST Office Visit [facility] [address] [place] [address] Terry Rasheed MD [address] [place] [address] documented as of this encounter Procedures Procedure [...] documented as of this encounter Care Teams Commercial [employer] Sales Executive Relationship Specialty Start Date End Date Terry Rasheed MD [address] [place] [address] PCP - General Internal Medicine 12/24/23 documented as of this encounter
--- OUTSIDE RECORDS SUMMARY | 2025-04-24 12:12 | XMS_ITS | Encounter Summary ---
Author Organization [employer] Address [address] [facility] 7 [place] [address] Care Team Providers Care Calculus Teacher Name Role Phone Terry Rasheed MD Primary Care Prov ider Terry Rasheed MD Primary Care Prov ider Reason for Visit * Reason Onset Date Comments triage 09/18/2022 Encounter Details Date Type Department Care Team (Late st Contact Info) Description 09/18/2022 Telephone [facility] MEDICINE [address] [place] [address] Terry Rasheed MD [address] [place] [address] triage Social History Tobacco Use Types Packs/Day [...] from Pt, reports missed appt with Flores [facility] Director due to sleeping in. Per pt [...] No answer, LVM to return call to [facility]. Noticed pt has appt today with [facility] provider Flores Stewart, discussed with her and [...] 05/19/2025 10:30 AM EST Office Visit [facility] MED & PEDS [address] [place] [address] Terry Rasheed MD [address] [place] [address] documented as of this encounter Visit Diagnoses Not on filedocumented in this encounter Additional Health Concerns Assessment Noted Time PHQ-9 Depression Total Score: 12 023 11:19 AM EDT documented as of this encounter Care Teams Calculus Teacher Relationship Specialty Start Date End Date Terry Rasheed MD [address] [place] [address] PCP - General Internal Medicine 08/10/20 09/26/23 Terry Rasheed MD [address] [place] [address] PCP - General Internal Medicine 12/24/23 documented as of this encounter
--- OUTSIDE RECORDS SUMMARY | 2025-04-24 12:12 | XMS_ITS | Encounter Summary ---
Author Organization [employer] Address [address] [place] [address] [place] [address] Care Team Providers Care Truck Driver Name Role Phone Terry Rasheed MD Primary Care Prov ider Terry Rasheed MD Primary Care Prov ider Reason for Visit * Reason Onset Date Comments ER Follow-up 07/31/2023 Encounter Details Date Type Department Care Team ([facility] st Contact Info) Description 07/31/[address] [facility] MED & PEDS [address] [place], [place] [phone] Terry Rasheed MD [address] [place] [address] ER Follow-up Social History Tobacco Use Types [...] EDT Fax request for notes, sent to [facility] as requested. * Telephone [...] patient to seek care and eval in [facility] if she is feeling unwell enough to go back to work or needs further care thisweek or has persistence/worsening of symptoms. She expressed understanding. Scheduled for televisitf/u with PCP for 08/06/23 @ 10:15am. No other concerns or questions at this time. [facility]. Patient calling to report [...] Description 05/19/2025 10:30 AM EST Office Visit [facility] MED & PEDS [address] [place] [address] Terry Rasheed MD [address] [place] [address] documented as of this encounter Visit Diagnoses Not on filedocumented in this encounter Additional Health Concerns Assessment Noted Time PHQ-9 Depression Total Score: 0 05/28/19 9:00 AM EST documented as of this encounter Care Teams Truck Driver Relationship Specialty Start Date End Date Terry Rasheed MD [address] [place] [address] PCP - General Internal Medicine 08/10/20 09/26/23 Trery Rasheed MD [address] [place] [address] PCP - General Internal Medicine 12/24/23 documented as of this encounter
--- OUTSIDE RECORDS SUMMARY | 2025-04-24 12:12 | XMS_ITS | Encounter Summary ---
Author Organization [employer] Address [address] [facility] 7 [place] [address] Care Team Providers Care Health Information Systems Technician Name Role Phone Terry Rasheed MD Primary Care Prov ider Encounter Details Date Type Department Care Team (Late st Contact Info) Description 04/20/2025 Telephone [facility] [address] [place] [address] Terry Rasheed MD [address] [place] [address] Social History Tobacco Use Types Packs/Day Years [...] encounter Miscellaneous Notes * Telephone Encounter - Myrna Villafuerte - 04/20/2025 2:13 PM EST Please send new referral with office notes. Thank you. documented in this encounter Plan of Treatment Upcoming Encounters Date Type Department Care Team (Late st Contact Info) Description 05/19/2025 10:30 AM EST Office Visit [facility] MED & PEDS [address] [place] [address] Terry Rasheed MD [address] [place] [address] documented as of this encounter Visit Diagnoses Not on filedocumented in this encounter Additional Health Concerns Assessment Noted Time PHQ-9 Depression Total Score: 2 12/03/19 25 8:46 AM EDT documented as of this encounter Care Teams Health Information Systems Technician Relationship Specialty Start Date End Date Terry Rasheed MD [address] [place] [address] PCP - General Internal Medicine 12/24/23 documented as of this encounter
--- OUTSIDE RECORDS SUMMARY | 2025-04-24 12:12 | XMS_ITS | Encounter Summary ---
Author Organization [employer] [facility] Address [address] [place] [address] [address], [place] [address] Care Team Providers Care Heavy Equipment Rental Manager Name Role Phone Terry Rasheed MD Primary Care Prov ider Terry Rasheed MD Primary Care Prov ider Encounter Details Date Type Department Care Team (Latest Contact Info) Description 09/24/[address] [facility] CONVERSIONS Dental, Provider, DDS Social [...] Care Team ( st Contact Info) Description 05/19/2025 10:30 AM EST Office Visit [facility] CHC MED & PEDS [address] [place] [address] Terry Rasheed MD [address] [place] [address] documented as of this encounter Visit Diagnoses Not on filedocumented in this encounter Care Teams Heavy Equipment Rental Manager Relationship Specialty Start Date End Date Terry Rasheed MD [address] [place] [address] PCP - General Internal Medicine 08/10/20 09/26/23 Terry Rasheed MD [address] [place] [address] PCP - General Internal Medicine 12/24/23 documented as of this encounter
--- OUTSIDE RECORDS SUMMARY | 2025-04-24 12:12 | XMS_ITS | Encounter Summary ---
Author Organization [employer] Address [address] [facility] 7 [place] [address] Care Team Providers Care Spout Liner Name Role Phone Terry Rasheed MD Primary Care Prov ider Terry Rasheed MD Primary Care Prov ider Encounter Details Date Type Department Care Team ([facility] st Contact Info) Description 08/01/2023 Telephone [facility] MEDICINE [address] [place] [address] Terry Rasheed MD [address] [place], [place] [phone] Social History Tobacco Use Types Packs/Day Years [...] Description 05/19/2025 10:30 AM EST Office Visit [facility] MED & PEDS [address] [place] [address] Terry Rasheed MD [address] [place] [address] documented as of this encounter Visit Diagnoses Not on filedocumented in this encounter Additional Health Concerns Assessment Noted Time PHQ-9 Depression Total Score: 0 05/28/19 24 9:00 AM EST documented as of this encounter Care Teams Spout Liner Relationship Specialty Start Date End Date Terry Rasheed MD [address] [place] [address] PCP - General Internal Medicine 08/10/20 09/26/23 Terry Rasheed MD [address] [place] [address] PCP - General Internal Medicine 12/24/23 documented as of this encounter
--- OUTSIDE RECORDS SUMMARY | 2025-04-24 12:12 | XMS_ITS | Encounter Summary ---
Author Organization [employer] Address [address] [place] [address] [place] [address] Care Team Providers Care Plow Holder Name Role Phone Terry Rasheed MD Primary Care Prov ider Reason for Visit * Reason Comments Med Refill Encounter Details Date Type Department Care Team ([facility] Contact Info) Description 11/09/2023 Refill [facility] CHC MED & PEDS [address] [place] [address] Terry Rasheed MD [address] [place] [address] Social History Tobacco Use Types Packs/Day Years [...] Upcoming Encounters Date Type Department Care Team ([facility] st Contact Info) Description 05/19/2025 10:30 AM EST Office Visit [facility] MED & PEDS [address] [place] [address] Terry Rasheed MD [address] [place] [address] documented as of this encounter Visit Diagnoses Not on filedocumented in this encounter Additional Health Concerns Assessment Noted Time PHQ-9 Depression Total Score: 0 05/28/19 24 9:00 AM EST documented as of this encounter Care Teams Plow Holder Relationship Specialty Start Date End Date Terry Rasheed MD [address] [place] [address] PCP - General Internal Medicine 12/24/23 documented as of this encounter
--- OUTSIDE RECORDS SUMMARY | 2025-04-24 12:12 | XMS_ITS | Encounter Summary ---
Author Organization [facility] Address [address] [place] [address] Care Team Providers Care Billiard Table Repairer Name Role Phone Terry Rasheed MD Primary Care Prov ider Encounter Details Date Type Department Care Team (Late st Contact Info) Description 07/28/2022 Orders Only [facility] Interventional Radiology [address] [place], [place] [phone] Jovani Shah MD [address] [place], [place] [phone] Social History Tobacco Use Types Packs/Day Years [...] Care Team (Late st Contact Info) Description 09/11/2025 1:45 PM EDT Appointment [facility] [address] [facility] [address] documented as of this encounter Visit Diagnoses Not on filedocumented in this encounter Care Teams Billiard Table Repairer Relationship Specialty Start Date End Date Terry Rasheed MD [address] [place] [address] PCP - General 05/10/20 documented as of this encounter
--- OUTSIDE RECORDS SUMMARY | 2025-04-24 12:12 | XMS_ITS | Encounter Summary ---
Author Organization [employer] Address [address] [place] [address] 7 [place] [address] Care Team Providers Care Apparel Embroidery Digitizer Name Role Phone Terry Rasheed MD Primary Care Prov ider Reason for Visit * Reason Onset Date Comments Call Back Request 01/28/2025 Encounter Details Date Type Department Care Team ([facility] Contact Info) Description 01/28/2025 Telephone [facility] CHC MED & PEDS [address] [place] [address] Terry Rasheed MD [address] [place] [address] Call Back Request Social History Tobacco Use [...] was about. Any questions contact pt at [phone] documented in this encounter Plan of Treatment Upcoming Encounters Date Type Department Care Team ([facility] st Contact Info) Description 05/19/2025 10:30 AM EST Office Visit [facility] CHC MED & PEDS [address] [place] [address] Terry Rasheed MD [address] [place] [address] documented as of this encounter Visit Diagnoses Not on filedocumented in this encounter Additional Health Concerns Assessment Noted Time PHQ-9 Depression Total Score: 2 12/03/19 25 8:46 AM EDT documented as of this encounter Care Teams Apparel Embroidery Digitizer Relationship Specialty Start Date End Date Terry Rasheed MD [address] [place] [address] PCP - General Internal Medicine 12/24/23 documented as of this encounter
--- OUTSIDE RECORDS SUMMARY | 2025-04-24 12:12 | XMS_ITS | Encounter Summary ---
Author Organization [employer] Address [address] [facility] 7 [place] [address] Care Team Providers Care Movie Critic Name Role Phone Terry Rasheed MD Primary Care Prov ider Terry Rasheed MD Primary Care Prov ider Reason for Visit * Reason Onset Date Comments Referral 07/18/2023 Encounter Details Date Type Department Care Team (Late st Contact Info) Description 07/18/2023 Telephone [facility] MEDICINE [address] [place] [address] Terry Rasheed MD [address] [place] [address] Referral Social History Tobacco Use Types Packs/Day [...] referral : DATE: N/A TIME: N/A Address: [address] [place] [address] [place] [address] Visits: N/A Facility Name: [facility] Urology center Type of Specialist: Urologist DX: Kidney Pain Phone #: [phone] Fax #: [phone] documented in this encounter Plan of Treatment Upcoming Encounters Date Type Department Care Team ([facility] st Contact Info) Description 05/19/2025 10:30 AM EST Office Visit [facility] MED & PEDS [address] [place] [address] Terry Rasheed MD [address] [place] [address] documented as of this encounter Visit Diagnoses Not on filedocumented in this encounter Additional Health Concerns Assessment Noted Time PHQ-9 Depression Total Score: 0 05/28/19 24 9:00 AM EST documented as of this encounter Care Teams Movie Critic Relationship Specialty Start Date End Date Terry Rasheed MD [address] [place] [address] PCP - General Internal Medicine 08/10/20 09/26/23 Terry Rasheed MD [address] [place] [address] PCP - General Internal Medicine 12/24/23 documented as of this encounter
--- OUTSIDE RECORDS SUMMARY | 2025-04-24 12:12 | XMS_ITS | Encounter Summary ---
Author Organization [employer] Address [address] [place] [address] 7 [place] [address] Care Team Providers Care Dispatch Clerk Name Role Phone Terry Rasheed MD Primary Care Prov ider Terry Rasheed MD Primary Care Prov ider Reason for Visit * Reason Comments Med Refill Encounter Details Date Type Department Care Team (Late Contact Info) Description 07/24/2022 Refill [facility] MED & PEDS [address] [place] [address] Terry Rasheed MD [address] [place] [address] Social History Tobacco Use Types Packs/Day Years [...] Department Care Team ([facility] Contact Info) Description 05/19/2025 10:30 AM EST Office Visit [facility] CHC MED & PEDS [address] [place] [address] Terry Rasheed MD [address] [place] [address] documented as of this encounter Visit Diagnoses Not on filedocumented in this encounter Additional Health Concerns Assessment Noted Time PHQ-9 Depression Total Score: 0 05/15/19 23 9:53 AM EST documented as of this encounter Care Teams Dispatch Clerk Relationship Specialty Start Date End Date Terry Rasheed MD [address] [place] [address] PCP - General Internal Medicine 08/10/20 09/26/23 Terry Rasheed MD [address] [place] [address] PCP - General Internal Medicine 12/24/23 documented as of this encounter
--- OUTSIDE RECORDS SUMMARY | 2025-04-24 12:12 | XMS_ITS | Encounter Summary ---
Author Organization [employer] Address [address] [facility] 7 [place] [address] Care Team Providers Care Health Program Analyst Name Role Phone Terry Rasheed MD Primary Care Prov ider Reason for Visit * Reason Onset Date Comments Nurse Triage 08/04/2024 Encounter Details Date Type Department Care Team ([facility] st Contact Info) Description 08/04/2024 Telephone [facility] MEDICINE [address] [place] [address] Terry Rasheed MD [address] [place] [address] Nurse Triage Social History Tobacco Use Types [...] voice mail. Left voice message to call [facility] [phone] when available. * Telephone Encounter - Vega [...] Description 05/19/2025 10:30 AM EST Office Visit [facility] CHC MED & PEDS [address] [place] [address] Terry Rasheed MD [address] [place], [place] [phone] documented as of this encounter Visit Diagnoses Not on filedocumented in this encounter Additional Health Concerns Assessment Noted Time PHQ-9 Depression Total Score: 16 024 10:47 AM EST documented as of this encounter Care Teams Health Program Analyst Relationship Specialty Start Date End Date Terry Rasheed MD [address] [place] [address] PCP - General Internal Medicine 12/24/23 documented as of this encounter
--- OUTSIDE RECORDS SUMMARY | 2025-04-24 12:12 | XMS_ITS | Patient Health Record ---
Author Organization [facility] Address [address] [place] [address] Care Team Providers Care Masonry Installer Name Role Phone EZEQUIEL KEBEDE Unavailable [phone] CHRIS TAPIA Unavailable [phone] Allergies No Known Allergies Results Component Value Reference Range Notes Urinalysis Reviewed date:04/08/2025 11:14:56 AM Interpretation:Blood Performing Lab: Notes/Report: Blood Leukocytes neg Nitrates neg Uro 0.2 Protein neg pH 6.5 Blood 1+ Spec Brandywine 1.015 Ketones neg Bilirubin neg Glucose neg Wet Mount Reviewed date:04/08/2025 10:54:45 AM Interpretation:Negative Performing Lab: Notes/Report: Negative Clue Cells neg WBC neg Hyphae neg Trichomonas neg pH 4.5 CORDELL Prep neg whiff Urine Culture, Routine-[id number] Reviewed date:04/10/2025 09:36:09 AM Interpretation:Negative Performing Lab:[facility], [address], [address], [place], Phone - [phone], Director - [facility] Notes/Report: Urine Culture, Routine Final report Result 1 No growth NuSwab VG+, Sherry 6sp-1800 68 Reviewed date:04/12/2025 02:20:13 PM Interpretation:Negative Performing Lab:[facility], [address] [facility], [place], Phone - [phone], Director - [facility] Notes/Report: Test(s) 613248- Atopobium vaginae; 036033- BVAB 2; 475482- Megasphaera 1; 019090-Lzppncxiqg hominis GREGORIA; 232475- Ureaplasma spp GREGORIA was developed and its performance characteristics determined by [facility]. It has not been cleared or approved by the Food and Drug Administration. Test(s) 303586-Gvtlkgg albicans, GREGORIA; 966485-Ozqkgzm glabrata, GREGORIA; 515310-T parapsilosis/tropicalis; 656918-Ghoxlir lusitaniae, GREGORIA; 728189-Tgyddae krusei, GREGORIA was developed and its performance characteristics determined by [facility]. It has not been cleared or approved [...] Negative Negative Neisseria gonorrhoeae, GREGORIA Negative Negative Genital Mycoplasmas GREGORIA, [facility] [id number] Reviewed date:04/12/2025 02:20:14 PM Interpretation:Negative Performing Lab:Eliza Castro, [address] [place] [address], [place], Phone - [phone], Director - [facility] Notes/Report: Test(s) 404476- Atopobium vaginae; 973720- BVAB 2; 333214- Megasphaera 1; 241314-Ficalotato hominis GREGORIA; 775273- Ureaplasma spp GREGORIA was developed and its performance characteristics determined by [facility]. It has not been cleared or approved by the Food and Drug Administration. Test(s) 190622-Ozzynhl albicans, GREGORIA; 152196-Bhvdedq glabrata, GREGORIA; 814351-Q parapsilosis/tropicalis; 184312-Egqdafp lusitaniae, GREGORIA; 135951-Hszunsa krusei, GREGORIA was developed and its performance characteristics determined by [facility]. It has not been cleared or approved by the Food and Drug Administration. Mycoplasma genitalium GREGORIA Negative Negative Mycoplasma hominis GREGORIA Negative Negative Ureaplasma spp GREGORIA Negative Negative PDF Report Reviewed date:10/08/2024 03:39:29 PM Interpretation: Performing Lab:[facility] [place], [address], [address], [place], Phone - [phone], Director - [facility] Notes/Report: Clinical Information:[id number] No. of containers..01 ThinPrep Vial IGP, Apt HPV,rfx 16/18,45-19 9344 Reviewed date:10/08/2024 03:38:28 PM Interpretation:Normal, HPV neg Performing Lab:[facility] [place], [address], [address], [place], Phone - [phone], Director - [facility] Notes/Report: Clinical Information:[id number] No. of containers..01 ThinPrep Vial DIAGNOSIS: NEGATIVE FOR INTRAEPITHELIAL LESION OR MALIGNANCY. Specimen adequacy: Satisfactory for evaluation. Endocervical and/or squamous metaplastic cells (endocervical component) are present. Clinician provided ICD10: Z01.419 Z11.51 Performed by: Kin bailey, Insurance Assistant ([facility]) . . Note: The Pap smear is [...] date:10/06/2024 10:44:14 AM Interpretation:Negative Performing Lab:[facility], [address], [place], Phone - [phone], Director - Wilfredo Notes/Report: Test(s) 404462- Atopobium vaginae; 748532- BVAB 2; 886774- Megasphaera 1 was developed and its performance characteristics determined by [employer]. It has not been cleared or approved by the Food and Drug Administration. Test(s) 746423-Kuufpju albicans, GREGORIA; 289726-Yprmert glabrata, GREGORIA; 976370-C parapsilosis/tropicalis; 754072-Bbcesvr lusitaniae, GREGORIA; 124054-Wzbrwka krusei, GREGORIA was developed and its performance characteristics determined by [employer]. It has not been cleared or approved [...] Negative HCV Antibody RFX to Quant PC [id number] Reviewed date:10/06/2024 10:32:56 AM Interpretation:Negative Performing Lab:[facility] [place], [address], [address], [place], Phone - [phone], Director - [facility] Notes/Report: HCV Ab Non Reactive Non Reactive Interpretation: Not infected with HCV unless early or acute infection is suspected (which may be delayed in an immunocompromised individual), or other evidence exists to indicate HCV infection. HIV Ab/p24 Ag with Reflex-08 3935 Reviewed date:10/06/2024 10:33:13 AM Interpretation:Negative Performing Lab:[facility] [place], [address], [address], [place], Phone - [phone], Director - [facility] Notes/Report: HIV Ab/p24 Ag Screen Non Reactive Non Reactive HIV-1/HIV-2 antibodies and HIV-1 p24 antigen were NOT detected. There is no laboratory evidence of HIV infection. HIV Negative T pallidum Screening Ellis -[id number] Reviewed date:10/06/2024 10:33:22 AM Interpretation:Negative Performing Lab:[facility] [place], [address], [address], [place], Phone - [phone], Director - [facility] Notes/Report: T pallidum Antibodies Non Reactive Non Reactive Hepatitis B Surf Ab Quant-00 6530 Reviewed date:10/06/2024 10:32:49 AM Interpretation:Immune Performing Lab:[facility] [place], [address], [address], [place], Phone - [phone], Director - [facility] Notes/Report: Hepatitis B Surf Ab Quant 2203.0 Immunity>10 mIU /mL Results confirmed on dilution. Status of Immunity Anti-HBs Level Inconsistent with Immunity 0.0 - 10.0 Consistent with Immunity >10.0 HBsAg Screen-[id number] Reviewed date:10/06/2024 10:33:05 AM Interpretation:Negative Performing Lab:[facility], [address], [address], [place], Phone - [phone], Director - [facility] Notes/Report: HBsAg Screen Negative Negative Wet Mount Reviewed date:10/03/2024 02:18:32 PM Interpretation:Normal Performing Lab: Notes/Report: Normal Clue Cells neg WBC neg Hyphae neg Trichomonas neg pH 4.5 CORDELL Prep neg whiff Urinalysis Reviewed date:10/06/2024 10:27:25 AM Interpretation:Blood Performing Lab: Notes/Report: Blood Leukocytes - Nitrates - Uro 0.2 Protein 15 pH 6.0 Blood 25 Spec Brandywine 1.020 Ketones - Bilirubin - Glucose - Reason For Referral No Information Medications Medication SIG (Take, Route, Fr equency, Duration) Notes Start Date End Date Status hydrOXYzine HCl Acti ve Omeprazole Active Atenolol Active Social History Sex Assigned At : Social [...] Men Your sexual activities include: vaginal intercourse Reviewed types of EC? No Do you use condoms? No Number of partners in past 3 months: 0 Number of partners in past year: 1 What is the client's primary method to prevent at the end of their visit? None/No Method (Specify Reason) If none, what is the reason? Other Reason Does your partner(s) currently have any STIs? No Completed Gardasil vaccinati on series? No clt believes she was given 2 vaccines and missing the last one Counseling Provided: Social Info Question Answer Notes Counseling Provided Please indicate the length of time, in minutes, that counseling was provided. 5 Counseling Was Provided By: homero Drugs/Alcohol: Social Info Question Answer Notes Drug/Alcohol [...] or pressured into sexual activities? No drugs, long term, safety, other. No Housing Social Info Question Answer Notes Housing The client's current living situation is: unstable housing, homeless Clt would like referrals Tobacco Use: Social Info Question Answer Notes Tobacco Use: Do you/have you used tobacco? 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 Vital Signs Blood pressure diastolic 90 mm Hg 04/08/2025 Height 5'5 in 04/08/2025 Blood pressure systolic 148 mm Hg 04/08/2025 Weight 174.9 lbs 04/08/2025 BMI 29.1 kg/m2 04/08/2025 Encounters Encounter Location Date Provider Diagnosis [address] [id number] 10/03/2024 CHRIS TAPIA Encounter for gynecological examination (general) (routine) without abnormal findings Z01.419 ; Dysuria R30.0 ; Vaginal discharge N89.8 ; HPV Pap Screening Z11.51 ; HIV Screening Z11.4 ; Encounter for screening for infections with a predominantly sexual mode of transmission Z11.3 ; Screening for other viral diseases Z11.59 and Other problems related to lifestyle Z72.89 [facility] [address] [facility] [address] [place], [place] [id number] 04/08/2025 EZEQUIEL KEBEDE Encounter for screening for infections with a predominantly sexual mode of transmission Z11.3 ; Atrophy of vulva N90.5 ; Dysuria R30.0 and Encounter for screening for other infectious and parasitic diseases Z11.[address] [place], [place] [id number] 10/06/2024 CHRIS TAPIA Dysuria R30.0 Assessments Encounter [...] if normal. 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 Reviewed common symptoms, including vaginal dryness, pruritus, burning, dyspareunia, and recurrent urinary tract infections, likely related to estrogen deficiency. Treatment options were discussed, including vaginal estrogen in the form of cream, tablets, or ring. These therapies can help restore the vaginal epithelium, normalize harleen and pH, alleviate local symptoms, and improve urinary symptoms. The patient is agreeable to initiating a trial of vaginal estrogen therapy for a few months. Vaginal estrogen may also offer benefit for symptoms of urogenital atrophy and may contribute to improvement in urinary incontinence. Plan: Follow-up in 3 months to assess response to therapy and determine if continuation is indicated. Clt aware that vaginal estrogen will not improve any vasomotor symptoms, can follow up for further discussion on HRT if symptomatic. Briefly discussed that although HTN is not an absolute CI to starting HRT, it would be best to continue to work with PCP for better management. Would likely be able to provide transdermal estrogen since it bypasses hepatic first pass metabolism, resulting in fewer adverse effects on coagulation and inflammatory biomarkers. If ASCVD risk is more than 10%, non-hormonal options should be considered. Clt to schedule follow up appt to discuss in further detail Need 2 out of 3 Sections from A-C Section A) Problems (only need one from below) Two or more self-limited or minor programs Section B) Data (at least one of the following categories in this section) Category 1: (Choose 2 of the following): Order unique tests Review test results (each unique test counts as one) Category 2: Assessment requiring an independent historian Section C) Risk Document low risk of morbidity/mort ality 04/08/2025 Encounter for screening for infections with a predominantly sexual mode of transmission (ICD-10 - Z11.3) Reviewed routine screening, safe sex and consistent barrier protection. Aware of window period for testing and testing options. Discussed symptoms that would warrant further evaluation and follow-up care Need 2 out of 3 Sections from A-C Section A) Problems (only need one from below) Two or more self-limited or minor programs Section B) Data (at least one of the following categories in this section) Category 1: (Choose 2 of the following): Order unique tests Review test results (each unique test counts as one) Category 2: Assessment requiring an independent historian Section C) Risk Document low risk of morbidity/mort ality 04/08/2025 Dysuria (ICD-10 - R30.0) Reviewed UA results, will send rx for urine culture for further eval. Encouraged clt to RTC for further eval if all labs negative and symptoms persist or worsen Need 2 out of 3 Sections from A-C Section A) Problems (only need one from below) Two or more self-limited or minor programs Section B) Data (at least one of the following categories in this section) Category 1: (Choose 2 of the following): Order unique tests Review test results (each unique test counts as one) Category 2: Assessment requiring an independent historian Section C) Risk Document low risk of morbidity/mort ality 10/03/2024 Vaginal discharge (ICD-10 - N89.8) Will further evaluate clt's concerns for symptoms with STI and vaginal infection check. Normal on exam 10/03/2024 HPV Pap Screening (ICD-10 - Z11.51) 04/08/2025 Encounter for screening for other infectious and parasitic diseases (ICD-10 - Z11.8) Need 2 out of 3 Sections from A-C Section A) Problems (only need one from below) Two or more self-limited or minor programs Section B) Data (at least one of the following categories in this section) Category 1: (Choose 2 of the following): Order unique tests Review test results (each unique test counts as one) Category 2: Assessment requiring an independent historian Section C) Risk Document low risk of morbidity/mort ality 10/03/2024 HIV Screening (ICD-10 - Z11.4) 10/03/2024 [...] lifestyle (ICD-10 - Z72.89) Plan Of Treatment Next Appt Details Provider Name:CHRIS TAPIA, 09/2025 11:00:00 AM, [address] [place] [address], [address], [place], [place], [id number], Insurance Providers Payer Name Payer Address Payer Phone Subscriber Number Group Number Insured Name Patient Relationship to Insured Coverage Start Date Coverage End Date [address] [id number] [phone] [id number] Vonda Quevedo Self - patient is the insured Medical (General) History Medical History History ICD Code High blood pressure Kidney disease, kidney stones Depression/Anxiety Vaginal infections Gastritis- followed by GI Hospitalization History Reason Date(Month/Year) childbirth
--- OUTSIDE RECORDS SUMMARY | 2025-04-24 12:12 | XMS_ITS | Encounter Summary ---
Author Organization [facility] [employer] Address [address] [place] [address] [address] [place] [address] Care Team Providers Care Oracle Applications Analyst Name Role Phone Terry Rasheed MD Primary Care Prov ider Terry Rasheed MD Primary Care Prov ider Reason for Visit * Reason Comments Med Refill Encounter Details Date Type Department Care Team (Late st Contact Info) Description 01/05/2023 Refill [facility] [address] [place] [address] Terry Rasheed MD [address] [place] [address] Social History Tobacco Use Types Packs/Day Years [...] Description 05/19/2025 10:30 AM EST Office Visit [facility] [address] [place] [address] Terry Rasheed MD [address] [place] [address] documented as of this encounter Visit Diagnoses Not on filedocumented in this encounter Additional Health Concerns Assessment Noted Time PHQ-9 Depression Total Score: 11 023 10:42 AM EDT documented as of this encounter Care Teams Oracle Applications Analyst Relationship Specialty Start Date End Date Terry Rasheed MD [address] [place] [address] PCP - General Internal Medicine 08/10/20 09/26/23 Terry Rasheed MD [address] [place] [address] PCP - General Internal Medicine 12/24/23 documented as of this encounter
--- OUTSIDE RECORDS SUMMARY | 2025-04-24 12:13 | XMS_ITS | Encounter Summary ---
Author Organization [facility] Address [address] [place] [address] Care Team Providers Care Skin Diver Name Role Phone Terry Rasheed MD Primary Care Prov ider Reason for Visit * Reason Onset Date Comments Cancel Procedure tomorrow 08/28/2022 Encounter Details Date Type Department Care Team (Late st Contact Info) Description 08/28/2022 Telephone [facility] Central Scheduling Department [address] [place] [address] AlloccoAnnalise MD [address] [place] [address] Cancel Procedure tomorrow Social History Tobacco Use [...] tomorrow 08/29 Please call pt with a Recruiting Scheduler at [phone] documented in this encounter Plan of Treatment Upcoming Encounters Date Type Department Care Team (Late st Contact Info) Description 09/11/2025 1:45 PM EDT Appointment [facility] [address] [place] [address], [address]. [place] [address] documented as of this encounter Visit Diagnoses Not on filedocumented in this encounter Care Teams Skin Diver Relationship Specialty Start Date End Date KaiserTerry Gray MD [address] [place] [address] PCP - General 05/10/20 documented as of this encounter
--- OUTSIDE RECORDS SUMMARY | 2025-04-24 12:13 | XMS_ITS | Clinical Summary ---
Author Organization [facility] Address [address] [place] [address] Care Team Providers Care Sheet Metal Mechanic Name Role Phone Unavailable Primary Care Provider [...] Depression Screening 05/07/2024 COVID-19 Vaccine (1 - 2024-2 6 season) 2025 Influenza Vaccine (#1) 2025 RSV [...]
--- OUTSIDE RECORDS SUMMARY | 2025-04-24 12:13 | XMS_ITS | Clinical Summary ---
Author Organization [facility] Address [address] [place] [address] Care Team Providers Care Financial Data Analyst Name Role Phone Terry Rasheed MD [...] Department Care Team Description 02/09/2025 Transcribe Orders [facility] Physician Referral Services [address] [place] [address] Terry Rasheed MD Tubal ligation evaluation (Primary [...] Info) Description 09/11/2025 1:45 PM EDT Appointment [facility] Mammography [address] [facility], [address] [address] Health Maintenance Due Date Last Done Comments [...] Screening 08/25/2024 Pap Smear 08/25/2024 08/25/2021, 12/18/2019 Influenza Vaccine (#1) 2024 , 06/30/2021, 03/11/2020, Additional history exists COVID-19 Vaccine (1 - 2024-2 6 season) 2025 Basic Metabolic Panel 09/15/2025 09/15/2024 , 06/17/2024, 02/25/2024, Additional history exists Colon Cancer Screening 09/15/2025 FOBT / Fit Test 09/15/2025 09/15/2024, 05/23/2022 Mammogram 09/05/2026 09/05/2024, 02/0 12/2023, 06/14/2023 Diabetes Screening 09/16/2027 09/15/2024, 0 06/17/2024, 02/25/2024, Additional history exists DTaP,Tdap,and Td Vaccines (2 - Td or Tdap) 06/26/2028 06/26/2018 Procedures * Due to [place] law, this organization might not be sharing [...] to Health Maintenance Results * Due to [place] law, this organization might not be sharing negative HIV tests. * TRAM Bilateral Screening Digital Mammogram With Rich (09/05/2024 2:10 PM EDT) Anatomical Region Laterality Modality Breast Bilateral Mammography Narrative 09/22/2024 2:34 PM EDT Exam Date: 09/05/[address] [place], [place] [address] EXAMINATION TRAM Bilateral Screening Digital Mammogram With Rich. INDICATION Vonda Morrison is a 43 y.o. female and is seen for: TRAM Bilateral Screening Digital Mammogram With Rich. CC and MLO views were obtained. FDA approved [employer] AI (artificial intelligence) software and R2 CAD [...] benefit from supplemental screening with breast MRI ([employer] order M RI BREAST BILATERAL SCREENING W WO CONTRAST ) or automated breast ultrasound ([employer] order A BUS ) depending on risk factors. https://acsearch.acr.org/docs/9792918/Narrative/ TC score is not calculated for women with personal history of breast cancer or if age >80 years. If this radiology report contains a blank impression section, it is an incomplete radiology report. Please contact the interpreting radiologist or applicable radiology division as soon as possible to obtain the completed interpretation. Ricco Gupta MD Resulting Agency Comment [id number] Terry Gaytan MD IMG BI PROCEDURES Final Result * Pap (08/25/2021 9:37 AM EDT) Specimen Adequacy Satisfactory for evaluation [facility] 2 2:00 PM EDT [employer] [facility] Pathologist Cytology Interpretation Negative for intraepithelial lesion or malignancy. [facility] 2 2:00 PM EDT [employer] [facility] at 1359 EDT Comment:This is the result o f a morphological screening test with an inherent possibility of a false negative interpretation. Regulatory Affairs Intern Statement This Pap test was examined by the [facility] Imaging System, [employer], [place], [place]. This Pap test was examined in accordance with the [facility] written policy, which incorporates all CLIA mandates. Current screening guidelines can be found in [place]: A Cancer Journal for Clinicians 2020;70:321-346. Current ASCCP management guidelines for abnormal Pap tests are published in the Journal Lower Genital Tract Disease Volume 2020;24:102-131. [facility] 2 2:00 PM EDT [employer] [facility] Clinical History screening [facility] 2 2:00 PM EDT [facility] Report Header Gynecologic Cytology Report Case: [id number] Authorizing Provider: Coby Rubio Collected: 08/25/2021 0937 Ordering Location: [facility] Received: 08/25/2021 1040 [employer] [facility] Obstetrics [facility] Gynecology First Screen: Andres Walker Pathologist: Nixon Mckeon MD Specimen: Screening ThinPrep Pap, Cervix/Endocervix 2 2:00 PM EDT [facility] Brushing Cervix uteri structure / Unknown Non-Blood Collection / Unknown 08/25/2021 9:37 AM EDT 08/25/2021 10:40 AM EDT us Coby Rubio MD LAB PATHOLOGY/CYTOLOGY ORDERA BLES Final Result [facility] [address] [place] [id number], * (ABNORMAL) Renal Function Panel (01/05/2020 2:36 PM EDT) NA 139 135 - 145 mmol/L 01/05/2020 3:11 PM EDT [facility] [employer] K 3.6 3.5 - 5.3 mmol/L 01/05/2020 3:11 PM EDT [facility] Cl 107 97 - 110 mmol/L 01/05/2020 3:11 PM EDT [facility] CO2 24 24 - 32 mmol/L 01/05/2020 3:11 PM EDT [facility] Anion Gap 8 5 - 15 01/05/2020 3:11 PM EDT [facility] Glucose 114(H) 70 - 99 mg/dL 01/05/2020 3:11 PM EDT [facility] BUN 9 7 - 23 mg/dL 01/05/2020 3:11 PM EDT [facility] Creatinine 0.60 0.50 - 1.20 mg/dL 01/05/2020 3:11 PM EDT [facility] eGFR Non- >90 >=90 mL/min/BSA 01/05/2020 3:11 PM EDT [facility] eGFR >90 >=90 mL/min/BSA 01/05/2020 3:11 PM EDT [facility] Comment: Units = mL/min/1.73 m2 Glomerular Filtration Rate (GFR) is estimated based on the CKD-EPI Creatinine Equation (2009). Stage Description GFR 1 Normal >=90 mL/min/BSA 2 Mildly decreased GFR 60-89 mL/min/BSA 3 Moderately decreased GFR 30-59 mL/min/BSA 4 Severely decreased GFR 15-29 mL/min/BSA 5 Kidney Failure <15 mL/min/BSA Calcium 9.4 8.7 - 10.7 mg/dL 01/05/2020 3:11 PM EDT [facility] Phosphorus 3.2 2.5 - 4.5 mg/dL 01/05/2020 3:11 PM EDT [facility] Albumin 4.8 3.5 - 4.8 g/dL 01/05/2020 3:11 PM EDT [facility] Blood Structure of peripheral vein / Unknown Venipuncture / Unknown 01/05/2020 2:36 PM EDT 01/05/2020 2:44 PM EDT Arsalan Torres MD LAB BLOOD ORDERABLES Final Result [facility] [employer] [address] [place] [address], from Last 3 Months or Most Recently Relevant to Health Maintenance Insurance [facility] Care Teams Financial Data Analyst Relationship Specialty Start Date End Date KaiserTerry Gray MD [address] [place] [id number] PCP - General 05/10/20
--- OUTSIDE RECORDS SUMMARY | 2025-04-24 12:13 | XMS_ITS | Encounter Summary ---
Author Organization [employer] Address [address] [place] [address] [place] [address] Care Team Providers Care Fitness Director Name Role Phone Terry Rasheed MD Primary Care Prov ider Encounter Details Date Type Department Care Team ([facility] st Contact Info) Description 12/12/2024 Orders Only [facility] MED & PEDS [address] [place], [place] [phone] Terry Rasheed MD [address] [place] [address] Acute insomnia Social History Tobacco Use Types [...] Description 05/19/2025 10:30 AM EST Office Visit [facility] PEDS [address] [place] [address] Terry Rasheed MD [address] [place] [address] documented as of this encounter Visit Diagnoses Diagnosis Acute insomnia documented in this encounter Additional Health Concerns Assessment Noted Time PHQ-9 Depression Total Score: 2 12/03/19 25 8:46 AM EDT documented as of this encounter Care Teams Fitness Director Relationship Specialty Start Date End Date Terry Rasheed MD [address] [place] [address] PCP - General Internal Medicine 12/24/23 documented as of this encounter
== END 2025-04-24 11:38 | disposition home or self-care (01) ==
LOC: HO.HGI 10:34
PROVIDERS: PCP Nurse Practitioner Primary Care; Visit Provider Nurse Practitioner Family
DX: R13.10 Dysphagia, unspecified (principal); K21.9 Gastro-esophageal reflux disease without esophagitis
CPT/HCPCS: 99214

== ENCOUNTER → 2025-04-24 10:33 | Outpatient (BNVA) | payer OTHER, SELFPAY | PROVIDERS: PCP Nurse Practitioner Primary Care; Visit Provider Nurse Practitioner Family | DX: K21.9 Gastro-esophageal reflux disease without esophagitis (principal); R13.10 Dysphagia, unspecified; Z79.899 Other long term (current) drug therapy | CPT/HCPCS: 99212 ==

== ENCOUNTER 2025-04-27 15:23 | Emergency (ER) | payer OTHER, SELFPAY ==
--- OUTSIDE RECORDS SUMMARY | 2023-04-25 06:27 | XMS_ITS | Continuity of Care Document ---
Author Organization [facility] Address [address] [place] [address] [address] [place] [address] Phone Care Team Providers Care Director Of Event Sales Name Role Phone Vaishali Thrasher MD, FACS, RVT Unavailable Unavailable Advance Directives Directive Yes / No Effective Date File Name No Information Encounters Encounter Description Practice Location Reason(s) For Visit Diagnoses Date Provider Encounter Disposition [facility], [address] [place] [address] [address], [place], [id number], tel:[phone] [facility] No Information 3 Alex Maldonado. [address] [place] [address], [address], . tel:[phone] Family History Family Member Type Diagnosis Age At Onset No Information Payers Payer name Insurance type Identifiers Authorization(s) Com ments No Information Social History Type Description Quantity Date Captured Comments Sex Female Smoking Status No Information Current Gender Female (finding) Chief Complaint And Reason For Visit No Information History Of Present Illness Encounter Date Complaint History Of Prese nt Illness No Information Functional Status Date Description Comments No Information Instructions Date Instruction Additional Infor mation No Information Assessments Type Assessment Date No Information
--- OUTSIDE RECORDS SUMMARY | 2024-10-06 07:00 | XMS_ITS ---
Author Organization [employer] Address [address] [place] [address] Care Team Providers Care Mat Inspector Name Role Phone CHRIS TAPIA Unavailable [phone] REASON FOR VISIT lab only Social History Sex Assigned At : Social History Observation Description Sex Assigned At Female Encounters Encounter Location Date Provider Diagnosis [address] [id number] 06/2024 CHRIS TAPIA Plan Of Treatment Next Appt Details Provider Name:CHRIS TAPIA, 09/2025 11:00:00 AM, [address] [place] [address], [address], [phone], Progress Notes * Vonda QUEVEDODOB:1980 (44 yo F)Acc No.[id number]:10/06/2024 LAB Patient: Alia Vonda Wallis Provider: Nicky TAPIA :1980 A ge:44 Y S ex:Female Date:10/06/2024 Address:[address] [place] [phone] Subjective: * Chief Complaints: * L ab only * Electronic signature of GABO TAPIA CNM on 04/27/2025 at 02:41 PM EST Sign off status: Pending * Provider: Nicky TAPIA Date: 0 10/06/2024 Generated for Printi ng/Faxing/eTransmitting on: 1 06/28/2024 02:41 PM EST
--- NOTE | ~2025-04-27 | XR_ITS ---
EXAMINATION: XR CHEST CLINICAL INFORMATION: Chest pain COMPARISON: X-ray 05/20/2024 TECHNIQUE: 2 views of the chest were obtained. FINDINGS: The cardiomediastinal silhouette is within normal limits. The lungs are well expanded. There is no focal consolidation, edema, or effusion. No pneumothorax. No acute osseous abnormality. XR/XR chest 2V IMPRESSION: No evidence of acute process Electronically signed by: Kalia Haywood MD 04/27/2025 04:31 PM EST
--- NOTE | 2025-04-27 15:27 | ECG_ITS ---
Test Reason : CP Blood Pressure : */* mmHG Vent. Rate : 90 BPM Atrial Rate : 90 BPM P-R Int : 136 ms QRS Dur : 86 ms QT Int : 368 ms P-R-T Axes : 59 35 48 degrees QTcB Int : 450 ms Normal sinus rhythm Possible Left atrial enlargement Nonspecific ST abnormality Abnormal ECG When compared with ECG of 03-Feb-2023 07:02, No significant change was found Referred By: Bunny House Electronically Signed By: LENCHO RUBY MD
[2025-04-27 15:37] VITALS: BP 159/105; PULSE 86; RESP 18; TEMP 36.6; O2SAT 97; BMI 29.8
--- NOTE | 2025-04-27 15:40 | ED.CHESTPAIN ---
HPI - Chest Pain General Chief Complaint: Chest Pain Stated Complaint: Chest Pain, High Blood Pressure, Headaches, Blurry Time Seen by Provider: 04/27/25 17:10 Source: patient, RN notes reviewed and old records reviewed Mode of arrival: ambulatory Limitations: no limitations History of Present Illness ED Provider: Madie BILL narrative: 44-year-old female with a past medical history significant for hypertension, diabetes, GERD, IBS, anxiety presents for evaluation of chest pain pain Patient reports over last 3 days she has had intermittent chest pain and palpitations. She has also had some nausea, dizziness. She plans of a mild headache. At the time of my evaluation she denies all these symptoms pain She reports no chest pain or palpitations. She has not had any fevers or chills pain Denies any sick contacts pain Denies any cough, sore throat Her symptoms are random, not related to exertion Denies any leg swelling or recent travel Related Data Home Medications ?Medication ?Instructions ?Recorded ?Confirmed buspirone 5 mg tablet 5 mg PO BID 02/26/25 escitalopram oxalate 10 mg tablet 15 mg PO QAM 02/26/25 hydroxyzine HCl 25 mg tablet 25 - 50 mg PO BID PRN anxiety 02/26/25 losartan 100 mg tablet 100 mg PO DAILY 04/24/25 Previous Rx's ?Medication ?Instructions ?Recorded omeprazole 20 mg capsule,delayed 20 mg PO DAILY #90 caps 04/24/25 release Allergies Allergy/AdvReac Type Severity Reaction Status Date / Time No Known Drug Allergies Allergy Unknown none Verified 02/26/25 14:16 latex Allergy Hives Verified 04/27/25 15:38 Review of Systems Constitutional: Constitutional: Denies body ache(s), Denies chills, Denies fever(s), Denies frequent falls and Reports headache(s) Eyes: Eyes: Denies blurry vision ENT: Denies vertigo, Reports dizziness and Reports headache(s) Cardiovascular: Cardiovascular: Reports chest pain, Reports syncope, Reports palpitations and Denies dyspnea on exertion Respiratory: Respiratory: Denies cough and Denies dyspnea on exertion Genitourinary: Genitourinary: Denies dysuria Musculoskeletal: Musculoskeletal: Denies back pain Integumentary/Breasts: Skin/Breast: Denies rash Neurologic: Denies vertigo, Reports dizziness, Reports syncope, Denies frequent falls and Reports headache(s) Endocrine: Endocrine: Reports palpitations PMFSH Past Medical History Medical History Diverticulosis IBS (irritable bowel syndrome) Dysphagia Hiatal hernia Positive H. pylori test Acid reflux Elevated alkaline phosphatase level Colon cancer screening Change in stool delivery delivered Multiple births, some liveborn Miscarriage Diabetes HTN (hypertension) Kidney stone Surgical History Hx of section Family History Family History Mother HTN (hypertension) Diabetes Father HTN (hypertension) Disease of colon Paternal Uncle Colon cancer Paternal Uncle Colon cancer Paternal Aunt Breast CA Paternal Aunt Breast CA Social History Social History Alcohol intake: former Patient Tobacco Use Status: Never used Tobacco Smoked in Last 30 Days: No Use of substances other than those prescribed or required for medical reasons: No Advance Directives: No Advance Directives Information Provided: No Do you have a plan to hurt others: No Plan Physical Exam Vital Signs: Vital Signs: Last Vital Signs Temp 97.7 F 04/27/25 17:54 Pulse 80 04/27/25 17:54 Resp 18 04/27/25 17:54 BP 155/91 H 04/27/25 17:54 Pulse Ox 98 04/27/25 17:54 O2 Del Method Room Air 04/27/25 17:54 BMI result Body Mass Index 29.8 Const: General: healthy appearing, comfortable, no acute distress, alert and awake Nutritional Appearance: well nourished Orientation/consciousness: patient oriented x3 HEENT: Head: Yes normocephalic and Yes atraumatic Throat: Yes posterior oropharynx normal Eyes: Eyelids: Yes eyelids normal Conjunctivae: conjunctivae normal Sclerae: sclerae normal Corneas: corneas normal Pupils: Equal, round and reactive pupils present EOM: EOMs intact bilaterally Neck: Neck: Yes full ROM Resp: Effort & Inspection: normal respiratory effort, able to speak in complete sentences, no audible wheezes and not labored Auscultation: clear to auscultation bilaterally Cardio: Rate: regular rate Rhythm: regular rhythm GI: Inspection: No distended Palpation (GI): Soft to palpation, not firm, nontender, no guarding and not rigid Skin: General skin exam: elasticity normal Neuro: General: patient oriented x3 Cranial nerves: Yes Equal, round and reactive pupils present and Yes Bilaterally intact EOM present Cognition (Neuro): normal cognition Course Course Course Narrative: RME: 44-year-old female presents to ED for chest pain palpitation and dizziness and nausea. Patient denies any recent travel recent surgery. EKG labs ordered Medical Decision Making Medical Decision Making MDM Narrative: 44-year-old female with a past medical history as above presents for evaluation of intermittent chest pain, palpitations over the last 3 days. At the time of my evaluation, she denies any chest pain, palpitations. She is mildly hypertensive, she is not hypoxic, her heart rate is 80 and sinus. EKG does not show any evidence of ST segment elevation AR. her troponin is within normal limits, BNP is undetectable as well. She rules out for ACS as she has had pain for 3 days. She is PERC negative, do not suspect a PE. Labs are reassuring. She has a slight elevation of AST and ALT which could be related to a viral illness. Chest x-ray was clear without evidence of infectious process. The patient is stable for discharge to follow up with the PCP Differential Diagnosis Differential Diagnoses: The differential diagnosis associated with the presentation includes Viral syndrome Upper respiratory infection Pneumonia Bronchitis ACS Anxiety Admission/Observation Consideration of admission/observation: Escalation of care including admission/observation considered Lab Data [facility] Lab Attestation statement: I reviewed the patient's lab results. As above 04/27/25 15:53 04/27/25 15:53 Labs: Lab Results 04/27/25 Range/Units 15:53 WBC 8.1 (4.8-10.8) X10*3/uL RBC 4.66 (4.20-5.50) X10*6/uL Hgb 13.7 (12.0-16.0) g/dl Hct 40.8 (37.0-47.0) % MCV 87.6 (80.0-98.0) fL MCH 29.4 (27.0-33.0) pg MCHC 33.6 (31.0-35.0) g/dl RDW 13.9 (11.0-16.0) % Plt Count 362 (160-400) X10*3/uL MPV 10.7 (9.4-12.3) fL Immature Gran % (Auto) 0.5 H (0.0-0.4) % Neut % (Auto) 63.2 (45-73) % Lymph % (Auto) 28.3 (20-40) % [place] % (Auto) 6.4 (2-11) % Eos % (Auto) 1.2 (0-4) % Baso % (Auto) 0.4 (0-2) % Lymph # (Auto) 2.3 (1.2-4.9) X10*3/uL [place] # (Auto) 0.5 (0.1-1.2) X10*3/uL Eos # (Auto) 0.1 (0.0-0.4) X10*3/uL Baso # (Auto) 0.0 (0.0-0.2) X10*3/uL Abs Immat Gran (auto) 0.04 H (0.00-0.03) X10*3/uL Absolute Neuts (auto) 5.1 (2.0-8.3) x10*3/uL Absolute Nucleated RBC 0.000 (0.0-0.012) X10*3/uL Nucleated RBC % (auto) 0.0 (0.0-0.2) /100WBC Sodium 139 (135-145) mmol/L Potassium 3.3 D (3.3-5.1) mmol/L Chloride 101 (96-108) mmol/L Carbon Dioxide 26 (22-29) mmol/L Anion Gap 15 (12-20) BUN 12 (9-16) mg/dL Creatinine 0.61 (0.5-1.4) mg/dL Estim Creat Clear Calc 122.6 Estimated GFR > 60 Random Glucose 110 (60-115) mg/dL Calcium 9.3 (8.4-10.2) mg/dL Total Bilirubin 0.7 (0.0-1.0) mg/dL AST 104 H (5-31) U/L ALT 110 H (0-31) U/L Alkaline Phosphatase 148 H (39-117) U/L Troponin I High Sens < 2.7 (<3.5-17.0) ng/L NT-Pro-B Natriuret Pep < 15.8 (<300) pg/mL Total Protein 8.4 H (6.5-8.0) g/dL Albumin 4.7 (3.5-5.0) g/dL TSH 2.62 (0.32-4.0) uIU/mL Independent Interpretation I performed an independent interpretation of an: EKG (Normal sinus rhythm with a rate of [address] segment elevation AR) and Plain X-Ray Interpretation: No focal infiltrates Radiology Impression Discussion of test interpretation with radiology: I have reviewed the radiologist's reading. Radiologist Impression: FINDINGS: The cardiomediastinal silhouette is within normal limits. The lungs are well expanded. There is no focal consolidation, edema, or effusion. No pneumothorax. No acute osseous abnormality. XR/XR chest 2V IMPRESSION: No evidence of acute process Electronically signed by: Kalia Haywood MD 04/27/2025 04:31 PM [facility] Discharge Plan Discharge Clinical Impression: Chest pain Patient Disposition: Home, Self-Care Instructions: Chest Pain (ED) Additional Instructions: Your workup in the ER today was reassuring pain This includes your labs, EKG, chest x-ray. Your symptoms may be related to a viral illness. You may use ibuprofen or Tylenol for any headaches. Follow up with your primary doctor, return for new or worsening symptoms Prescriptions: No Action losartan 100 mg tablet 100 mg PO DAILY omeprazole 20 mg capsule,delayed release(DR/EC) 20 mg PO DAILY Qty: 90 1RF Rx Instructions: Take one tablet daily, on a empty stomach. Delay eating 30 minutes buspirone 5 mg tablet 5 mg PO BID hydroxyzine HCl 25 mg tablet 25 - 50 mg PO BID PRN (Reason: anxiety) escitalopram oxalate 10 mg tablet 15 mg PO QAM Interventions: ED Discharge Assessment Last Done: 04/27/25 17:54 Discharge Date/Time: 04/27/25 17:55 Print Language: Peruvian
[2025-04-27 16:03] LABS: MANUAL DIFF FLAG NO
[2025-04-27 16:06] LABS: Hematocrit 40.8 % (37.0-47.0); Hemoglobin 13.7 g/dl (12.0-16.0); Imm Gran Abs Auto 0.04 X10*3/uL (0.00-0.03); Imm Gran Pct Auto 0.5 % (0.0-0.4); Lymphocytes Absolute Auto 2.3 X10*3/uL (1.2-4.9); Mean Corpuscular HGB Conc 33.6 g/dl (31.0-35.0); Mean Corpuscular Hemoglobin 29.4 pg (27.0-33.0); Mean Corpuscular Volume 87.6 fL (80.0-98.0); NRBC Abs Auto 0.000 X10*3/uL (0.0-0.012); NRBC Pct Auto 0.0 /100WBC (0.0-0.2); Platelet Count 362 X10*3/uL (160-400); Red Blood Count 4.66 X10*6/uL (4.20-5.50); White Blood Count 8.1 X10*3/uL (4.8-10.8)
[2025-04-27 16:21] LABS: Alanine Aminotransferase 110 U/L (0-31); Albumin Level 4.7 g/dL (3.5-5.0); Alkaline Phosphatase 148 U/L (39-117); Anion Gap 15 (12-20); Aspartate Amino Transferase 104 U/L (5-31); Blood Urea Nitrogen 12 mg/dL (9-16); Calcium 9.3 mg/dL (8.4-10.2); Carbon Dioxide 26 mmol/L (22-29); Chloride 101 mmol/L (96-108); Creatinine Clr Calc Pharmacy 122.6; Estimated Glomerular Filt Rate > 60; Potassium 3.3 mmol/L (3.3-5.1); Sodium 139 mmol/L (135-145); Total Protein 8.4 g/dL (6.5-8.0)
[2025-04-27 16:25] LABS: Troponin-I High Sensitivity < 2.7 ng/L (<3.5-17.0)
[2025-04-27 16:56] LABS: NT Pro B Type Natriuretic Pept < 15.8 pg/mL (<300)
[2025-04-27 17:25] VITALS: BP 155/91; PULSE 80; RESP 18; TEMP 36.5; O2SAT 98
[2025-04-27 17:54] VITALS: BP 155/91; PULSE 80; RESP 18; TEMP 36.5; O2SAT 98
--- OUTSIDE RECORDS SUMMARY | 2025-04-27 18:57 | XMS_ITS | Encounter Summary ---
Author Organization [employer] Address [address] [facility] 7 [place] [address] Care Team Providers Care Commercial Real Estate Broker Name Role Phone Terry Rasheed MD Primary Care Prov ider Reason for Visit * Reason Onset Date Comments In person triage 04/27/2025 Encounter Details Date Type Department Care Team ([facility] Contact Info) Description 04/27/2025 Telephone [facility] [address] [place] [address] Terry Rasheed MD [address] [place] [address] In person triage Social History Tobacco Use Types Packs/Day [...] Miscellaneous Notes * Telephone Encounter - Evonne Joevl RN - 04/27/2025 3:08 PM EST Assessment: Patient presents to [facility]- [facility] Center c/o left sided chest pain, headache, nausea and elevated BP, pthusband in room translating. reports pt BP has been elevated for awhile and she been complaining of headaches and blurred vision. Yesterday pt was seen at [facility] and pt reports they gave her potassium as it was low. BP in office 157/103 and EKG was obtained and reviewed with provider Symptoms have been present for a few days. Symptoms are episodic. Patient is taking (treatment/meds) her blood pressure medication. Recent ED visit or hospitalization: Yes. VS as follows (if applicable): HR 92 Resp 17 BP 157/103 left Arm; Device: Automatic Cuff Size: regular O2 sat 99 % on room air In Office Testing EKG yes obtained Plan of care: Report to [facility] Provider evaluation: No Tx sent to ED going by private car will drive did not want EMS Pt going to [facility] and a tele visit was scheduled for tomorrow with PCP per pt request Evonne Jovel RN documented in this encounter Plan of Treatment Upcoming Encounters Date Type Department Care Team (Late st Contact Info) Description 04/28/2025 8:30 AM EST Telemedicine [facility] MED & PEDS [address] [place] [address] Terry Rasheed MD [address] [place] [address] 05/19/2025 10:30 AM EST Office Visit [facility] [address] [place] [address] Terry Rasheed MD [address] [place] [address] documented as of this encounter Visit Diagnoses Not on filedocumented in this encounter Additional Health Concerns Assessment Noted Time PHQ-9 Depression Total Score: 2 12/03/19 25 8:46 AM EDT documented as of this encounter Care Teams Commercial Real Estate Broker Relationship Specialty Start Date End Date Terry Rasheed MD [address] [place] [id number] PCP - General Internal Medicine 12/24/23 documented as of this encounter
--- OUTSIDE RECORDS SUMMARY | 2025-04-27 18:57 | XMS_ITS | Encounter Summary ---
Author Organization [employer] Address [address] [place] [address] 7 [place] [address] Care Team Providers Care Box Lining Machine Operator Name Role Phone Terry Rasheed MD Primary Care Prov ider Encounter Details Date Type Department Care Team (Late st Contact Info) Description 04/27/2025 Orders Only GENERIC EXTERNAL DATA DEPARTMENT Provider, Generic External Data Social History Tobacco Use Types Packs/Day Years [...] Info) Description 04/28/2025 8:30 AM EST Telemedicine [facility] [address] [place] [address] Terry Rasheed MD [address] [place] [address] 05/19/2025 10:30 AM EST Office Visit [facility] [address] [place] [address] Terry Rasheed MD [address] [place] [address] documented as of this encounter Procedures Procedure Name Priority Date/Time Associated Diagnosis Comments XR CHEST 2 VIEWS Routine 04/27/2025 4:20 PM EST HIGH SENSITIVITY TROPONIN I Routine 04/27/2025 3:53 PM EST TSH W/REFLEX TO FT4 Routine 04/27/2025 3 :53 PM EST NT-PROBNP Routine 04/27/2025 3:53 PM EST CBC WITH AUTO DIFFERENTIAL Routine 04/27/2025 3:53 PM EST COMPREHENSIVE METABOLIC PANEL Routine 04/27/2025 3:53 PM EST documented in this encounter Results * XR Chest 2 Views (04/27/2025 4:20 PM EST) Anatomical Region Laterality Modality Chest Radiographic Joanne ging 04/27/2025 4:20 PM EST Narrative 04/27/2025 4:35 PM EST [address] [address] XRay Report Signed Patient: Vonda Willis MR#: [id number] : 1980 Acct:[id number] Age/Sex: 44 / F ADM Date: 04/27/25 Loc: HO.ED Attending Dr: Ordering Physician: Bunny House Date of Service: 04/27/25 Procedure(s): XR chest 2V Accession Number(s): [id number] cc: Bunny House; Terry Rasheed MD Reason for Exam: Chest pain EXAMINATION: XR CHEST CLINICAL INFORMATION: Chest pain COMPARISON: X-ray 05/20/2024 TECHNIQUE: 2 views of the chest were obtained. FINDINGS: The cardiomediastinal silhouette is within normal limits. The lungs are well expanded. There is no focal consolidation, edema, or effusion. No pneumothorax. No acute osseous abnormality. XR/XR chest 2V IMPRESSION: No evidence of acute process Electronically signed by: Kalia Haywood MD 04/27/2025 04:31 PM EST Dictated By: Kalia Haywood MD Signed By: <Electronically signed by Kalia Haywood MD in OV> 04/27/25 1631 DD/ 1620 TD/TT: 04/27/25 1620 Corporate Events Director: Procedure Note Donotuseinterpreter, Image - 04/27/[address] [address] XRay Report Signed Patient: Vonda Willis MR#: [id number] : 1980Acct:[id number] Age/Sex: 44 / FADM Date: 04/27/25 Loc: HO.ED Attending Dr: Ordering Physician: Bunny House Date of Service: 04/27/25 Procedure(s): XR chest 2V Accession Number(s): [id number] cc: Bunny House; Terry Rasheed MD Reason for Exam: Chest pain EXAMINATION: XR CHEST CLINICAL INFORMATION: Chest pain COMPARISON: X-ray 05/20/2024 TECHNIQUE: 2 views of the chest were obtained. FINDINGS: The cardiomediastinal silhouette is within normal limits. The lungs are well expanded. There is no focal consolidation, edema, or effusion. No pneumothorax. No acute osseous abnormality. XR/XR chest 2V IMPRESSION: No evidence of acute process Electronically signed by: Kalia Haywood MD 04/27/2025 04:31 PM EST RP Dictated By: Kalia Haywood MD Signed By: <Electronically signed by Kalia Haywood MD in OV> 04/27/25 1631 DD/ 1620 TD/TT: 04/27/25 1620 Corporate Events Director: TANO [facility] External Provider IMG XR PROCEDURES Final Result * NT-proBNP (04/27/2025 3:53 PM EST) NT-proBNP <15.8 <300 pg/mL [facility] Comment:Reference Range:Age Group (years) NT-proBNP (pg/ml) InterpretationAll <300 Negative: HF unlikelyFor patients presenting to the ED with clinical suspicion ofnew onset or worsening HF, see below:18 to <50 >299.9 to <450.0 Grayzone: Peqtqgue70 to 75 >299.9 to <900.0 other causes of>75 >299.9 to <1800.0 NT-proBNP hruljyvyl36 to <50 >449.9 Positive: HF sdnpei79-15 >899.9>75 >1799.9Note: Elevated NT-proBNP levels should be interpreted inthe context of other clinical information. 04/27/2025 3:53 PM EST 04/27/2025 4:01 PM EST Generic External Data Provider LAB BLOOD ORDERAB LES Final Result Performing Organization Address [facility] Co de Phone Number [facility] [address] [place] [phone] * TSH with Reflex to Free T4 (04/27/2025 3:53 PM EST) [facility] TSH reflex Free T4 2.62 0.32 - 4.0 uIU/mL [facility] 04/27/2025 3:53 PM EST 04/27/2025 4:01 PM EST Generic External Data Provider LAB BLOOD ORDERAB LES Final Result Performing Organization Address [facility] [address] [place] [phone] * High Sensitivity Troponin I (04/27/2025 3:53 PM EST) [facility] TROPONIN I HIGH SENSITIVITY <2.7 <3.5 - 17.0 ng/L [facility] Comment:The Yap high sens itivity Troponin-I results should beused in conjunction with other diagnostic information suchas ECG, clinical observations and information, and patientsymptoms to aid in the diagnosis of GA. 04/27/2025 3:53 PM EST 04/27/2025 4:01 PM EST Generic External Data Provider LAB BLOOD ORDERAB LES Final Result Performing Organization Address [facility] de Phone Number [facility] [address] [place] [phone] * (ABNORMAL) Comprehensive Metabolic Panel (04/27/2025 3:53 PM EST) [facility] Sodium 139 135 - 145 mmol/L [facility] Potassium 3.3 3.3 - 5.1 mmol/L [facility] Chloride 101 96 - 108 mmol/L [facility] Carbon Dioxide 26 22 - 29 mmol/L [facility] Anion Gap 15 12 - 20 [facility] Urea Nitrogen (BUN) 12 9 - 16 mg/dL [facility] Creatinine, Serum 0.61 0.5 - 1.4 mg/dL [facility] Creatinine Clr Calc Pharmacy 122.6 [facility] Comment:Provided height and weight: 165.1 cm,81.193 kg.eGFR (calculated from the MDRD study equation) and eCrCl(calculated from the Cockcroft-Gault equation) are based ondifferent parameters and may not yield comparable results.If eCrCl result is absurd, please check patient'sheight/weight. Estimated Glomerular Filt Rate >60 [facility] Comment:Chronic Kidney Disea se: Estimated GFR < 60 mL/min/1.64d7Jxlgvv Kidney Disease: Estimated GFR < 15 mL/min/1.73m2 Glucose 110 60 - 115 mg/dL [facility] Calcium 9.3 8.4 - 10.2 mg/dL [facility] Bilirubin, Total 0.7 0.0 - 1.0 mg/dL [facility] Aspartate Amino Transferase 104(H) 5 - 31 U/L [facility] Alanine Aminotransferase 110(H) 0 - 31 U/L [facility] Total Protein 8.4(H) 6.5 - 8.0 g/dL [facility] Albumin Level 4.7 3.5 - 5.0 g/dL [facility] Alkaline Phosphatase 148(H) 39 - 117 U/L [facility] 04/27/2025 3:53 PM EST 04/27/2025 4:01 PM EST us Generic External Data Provider LAB BLOOD ORDERAB LES Final Result [facility] [address] [place] [phone] * (ABNORMAL) CBC auto differential (04/27/2025 3:53 PM EST) White Blood Count 8.1 4.8 - 10.8 X10*3/uL [facility] Red Blood Count 4.66 4.20 - 5.50 X10*6/uL [facility] Hemoglobin 13.7 12.0 - 16.0 g/dl [facility] Hematocrit 40.8 37.0 - 47.0 % [facility] Mean Corpuscular Volume 87.6 80.0 - 98.0 fL [facility] Mean Corpuscular Hemoglobin 29.4 27.0 - 33.0 pg [facility] Mean Corpuscular HGB Conc 33.6 31.0 - 35.0 g/dl [facility] Red Cell Distribution Width 13.9 11.0 - 16.0 % [facility] Platelet Count 362 160 - 400 X10*3/uL [facility] Mean Platelet Volume 10.7 9.4 - 12.3 fL [facility] Neutrophils Percent Auto 63.2 45 - 73 % [facility] Imm Gran Pct Auto 0.5(H) 0.0 - 0.4 % [facility] Lymphocytes Percent Auto 28.3 20 - 40 % [facility] Monocytes Percent Auto 6.4 2 - 11 % [facility] Eosinophils Percent Auto 1.2 0 - 4 % [facility] Basophils Percent Auto 0.4 0 - 2 % [facility] NRBC Pct Auto 0.0 0.0 - 0.2 /100WBC [facility] Neutrophils Absolute Auto 5.1 2.0 - 8.3 x10*3/uL [facility] Imm Gran Abs Auto 0.04(H) 0.00 - 0.03 X10*3/uL [facility] Lymphocytes Absolute Auto 2.3 1.2 - 4.9 X10*3/uL [facility] Monocytes Absolute Auto 0.5 0.1 - 1.2 X10*3/uL [facility] Eosinophils Absolute Auto 0.1 0.0 - 0.4 X10*3/uL [facility] Basophils Absolute Auto 0.0 0.0 - 0.2 X10*3/uL [facility] NRBC Abs Auto 0.000 0.0 - 0.012 X10*3/uL [facility] 04/27/2025 3:53 PM EST 04/27/2025 4:01 PM EST us Generic External Data Provider LAB BLOOD ORDERAB LES Final Result [facility] [address] [place] [phone] documented in this encounter Visit Diagnoses Not on filedocumented in this encounter Additional Health Concerns Assessment Noted Time PHQ-9 Depression Total Score: 2 12/03/19 25 8:46 AM EDT documented as of this encounter Care Teams Box Lining Machine Operator Relationship Specialty Start Date End Date Terry Rasheed MD [address] [place] [phone] PCP - General Internal Medicine 12/24/23 documented as of this encounter
--- OUTSIDE RECORDS SUMMARY | 2025-04-27 18:57 | XMS_ITS | Encounter Summary ---
Author Organization [employer] Address [address] [place] [address] 7 [place] [address] Care Team Providers Care Backup Sawyer Name Role Phone Terry Rasheed MD Primary Care Prov ider Encounter Details Date Type Department Care Team (Latest Contact Info) Description 04/27/2025 Travel Social History Tobacco Use Types Packs/Day [...] Info) Description 04/28/2025 8:30 AM EST Telemedicine [facility] [address] [place] [address] Terry Rasheed MD [address] [place] [address] 05/19/2025 10:30 AM EST Office Visit [facility] [address] [place] [address] Terry Rasheed MD [address] [place] [address] documented as of this encounter Visit Diagnoses Not on filedocumented in this encounter Additional Health Concerns Assessment Noted Time PHQ-9 Depression Total Score: 2 12/03/19 25 8:46 AM EDT documented as of this encounter Care Teams Backup Sawyer Relationship Specialty Start Date End Date Terry Rasheed MD [address] [place] [address] PCP - General Internal Medicine 12/24/23 documented as of this encounter
--- OUTSIDE RECORDS SUMMARY | 2025-04-27 18:57 | XMS_ITS | Patient Health Record ---
Author Organization [employer] Address [address] [place] [address] Care Team Providers Care Property Caretaker Name Role Phone EZEQUIEL KEBEDE Unavailable [phone] CHRIS TAPIA Unavailable [phone] Allergies No Known Allergies Results Component Value Reference Range Notes Urinalysis Reviewed date:04/08/2025 11:14:56 AM Interpretation:Blood Performing Lab: Notes/Report: Blood Leukocytes neg Nitrates neg Uro 0.2 Protein neg pH 6.5 Blood 1+ Spec [place] 1.015 Ketones neg Bilirubin neg Glucose neg Wet Mount Reviewed date:04/08/2025 10:54:45 AM Interpretation:Negative Performing Lab: Notes/Report: Negative Clue Cells neg WBC neg Hyphae neg Trichomonas neg pH 4.5 CORDELL Prep neg whiff Urine Culture, Routine-52193 7 Reviewed date:04/10/2025 09:36:09 AM Interpretation:Negative Performing Lab:[facility], [address], [address], [place], Phone - [phone], Director - [facility] Notes/Report: Urine Culture, Routine Final report Result 1 No growth NuSwab VG+, Sherry 6sp-1800 68 Reviewed date:04/12/2025 02:20:13 PM Interpretation:Negative Performing Lab:[facility], [address] [facility], [place], Phone - [phone], Director - Wilfredo Notes/Report: and Drug Administration. by [facility]. It has not been cleared or approved by the Food was developed and its performance characteristics determined 511184-Nmswrxm krusei, [place] 281464-V parapsilosis/tropicalis; 773138-Kvvcmuu lusitaniae, [place]; Test(s) 513532-Evylqhy albicans, [place]; 579065-Wozbnic glabrata, [place]; and Drug Administration. by [employer]. It has not been cleared or approved by the Food was developed and its performance characteristics determined Ureaplasma spp [place] Megasphaera 1; 752159-Wtdxvbdcbr hominis [place]; 820377- Test(s) 409509- Atopobium vaginae; 588000- BVAB 2; 079707- Atopobium vaginae Low - 0 BVAB 2 [...] gonorrhoeae, [place] Negative Negative Genital Mycoplasmas [place], [facility] b-[id number] Reviewed date:04/12/2025 02:20:14 PM Interpretation:Negative Performing Lab:[facility], [address] [place] [address], [place], Phone - [phone], Director - Wilfredo Notes/Report: Test(s) 130293- Atopobium vaginae; 149455- BVAB 2; 650529- Megasphaera 1; 822301-Ctxjzmrcqb hominis [place]; 002467- Ureaplasma spp [place] was developed and its performance characteristics determined by [employer]. It has not been cleared or approved by the Food and Drug Administration. Test(s) 996822-Uknynds albicans, [place]IA; 270693-Erryerp glabrata, [place]; 356522-X parapsilosis/tropicalis; 993885-Fruqhtx lusitaniae, [place]; 875660-Nlvjger krusei, [place] was developed and its performance characteristics determined by [employer]. It has not been cleared or approved by the Food and Drug Administration. Mycoplasma genitalium [place] Negative Negative Mycoplasma hominis [place] Negative Negative Ureaplasma spp [place] Negative Negative PDF Report Reviewed date:10/08/2024 03:39:29 PM Interpretation: Performing Lab:[facility] [place], [address], [address], [place], Phone - [phone], Director - [facility] Notes/Report: No. of containers..01 ThinPrep Vial Clinical Information:[id number] IGP, Apt HPV,rfx 16/18,45-19 9344 Reviewed date:10/08/2024 03:38:28 PM Interpretation:Normal, HPV neg Performing Lab:[facility] [place], [address], [address], [place], Phone - [phone], [facility] - [facility] Notes/Report: Clinical Information:[id number] No. of containers..01 ThinPrep Vial DIAGNOSIS: NEGATIVE FOR INTRAEPITHELIAL LESION OR MALIGNANCY. Specimen adequacy: Satisfactory for evaluation. Endocervical and/or squamous metaplastic cells (endocervical component) are present. Clinician provided ICD10: Z01.419 Z11.51 Performed by: Kin bailey, Pleat Taper ([facility]) . . Note: The Pap smear is [...] high-risk HPV types (16,18,31,33,35,39,45,51,5 2,56,58,59,66,68) without differentiation. [facility]+, Sherry 6sp-1800 68 Reviewed date:10/06/2024 10:44:14 AM Interpretation:Negative Performing Lab:[facility] [place], [address] [facility] [address], [place], Phone - [phone], Director - Wilfredo Notes/Report: and Drug Administration. by [facility]. It has not been cleared or approved by the Food was developed and its performance characteristics determined 335804-Oiqpqak krusei, [place] 188428-J parapsilosis/tropicalis; 286280-Fzketyr lusitaniae, [place]; Test(s) 106758-Dszbing albicans, [place]; 015328-Jvdqtwa glabrata, [place]; and Drug Administration. by [employer]. It has not been cleared or approved by the Food was developed and its performance characteristics determined Megasphaera 1 Test(s) 496857- Atopobium vaginae; 294898- BVAB 2; 747802- Atopobium vaginae Low - 0 BVAB 2 [...] Negative HCV Antibody RFX to Quant PC [id number] Reviewed date:10/06/2024 10:32:56 AM Interpretation:Negative Performing Lab:[facility] [place], [address], [address], [place], Phone - [phone], Director - [facility] Notes/Report: HCV Ab Non Reactive Non Reactive Interpretation: Not infected with HCV unless early or acute infection is suspected (which may be delayed in an immunocompromised individual), or other evidence exists to indicate HCV infection. HIV Ab/p24 Ag with Reflex-08 3935 Reviewed date:10/06/2024 10:33:13 AM Interpretation:Negative Performing Lab:[facility] [place], [address], [address], [place], Phone - [phone], Director - [facility] Notes/Report: HIV Ab/p24 Ag Screen Non Reactive Non Reactive HIV-1/HIV-2 antibodies and HIV-1 p24 antigen were NOT detected. There is no laboratory evidence of HIV infection. HIV Negative T pallidum Screening [place] -[id number] Reviewed date:10/06/2024 10:33:22 AM Interpretation:Negative Performing Lab:[facility] [place], [address], [address], [place], Phone - [phone], Director - [facility] Notes/Report: T pallidum Antibodies Non Reactive Non Reactive Hepatitis B Surf Ab Quant-00 6530 Reviewed date:10/06/2024 10:32:49 AM Interpretation:Immune Performing Lab:[facility] [place], [address], [address], [place], Phone - [phone], Director - [facility] Notes/Report: Hepatitis B Surf Ab Quant 2203.0 Immunity>10 mIU /mL Results confirmed on dilution. Status of Immunity Anti-HBs Level Inconsistent with Immunity 0.0 - 10.0 Consistent with Immunity >10.0 HBsAg Screen-[id number] Reviewed date:10/06/2024 10:33:05 AM Interpretation:Negative Performing Lab:[facility] [place], [address], [address], [place], Phone - [phone], Director - [facility] Notes/Report: HBsAg Screen Negative Negative Wet Mount Reviewed date:10/03/2024 02:18:32 PM Interpretation:Normal Performing Lab: Notes/Report: Normal Clue Cells neg WBC neg Hyphae neg Trichomonas neg pH 4.5 CORDELL Prep neg whiff Urinalysis Reviewed date:10/06/2024 10:27:25 AM Interpretation:Blood Performing Lab: Notes/Report: Blood Leukocytes - Nitrates - Uro 0.2 Protein 15 pH 6.0 Blood 25 Spec [place] 1.020 Ketones - Bilirubin - Glucose - [...] or pressured into sexual activities? No drugs, detention, safety, other. No Housing Social Info Question Answer Notes Housing The client's current living situation is: unstable housing, homeless Clt would like referrals Tobacco Use: Social Info Question Answer Notes Tobacco Use: Do you/have you used tobacco? 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 Vital Signs Blood pressure diastolic 90 mm Hg 04/08/2025 Height 5'5 in 04/08/2025 Blood pressure systolic 148 mm Hg 04/08/2025 Weight 174.9 lbs 04/08/2025 BMI 29.1 kg/m2 04/08/2025 Encounters Encounter Location Date Provider Diagnosis [address] [id number] 10/03/2024 CHRIS TAPIA Encounter for gynecological examination (general) (routine) without abnormal findings Z01.419 ; Dysuria R30.0 ; Vaginal discharge N89.8 ; HPV Pap Screening Z11.51 ; HIV Screening Z11.4 ; Encounter for screening for infections with a predominantly sexual mode of transmission Z11.3 ; Screening for other viral diseases Z11.59 and Other problems related to lifestyle Z72.89 [facility] [address] [facility] [address] [place], [place] [phone] 04/08/2025 EZEQUIEL KEBEDE Encounter for screening for infections with a predominantly sexual mode of transmission Z11.3 ; Atrophy of vulva N90.5 ; Dysuria R30.0 and Encounter for screening for other infectious and parasitic diseases Z11.[address] [place], [place] [id number] 10/06/2024 CHRIS TAPIA Dysuria R30.0 Assessments Encounter [...] Details Provider Name:CHRIS TAPIA, 09/2025 11:00:00 AM, [address] [place] [address], [address], [place], [place], [phone], Insurance Providers Payer Name Payer Address Payer Phone Subscriber Number Group Number Insured Name Patient Relationship to Insured Coverage Start Date Coverage End Date [address] [id number] [phone] [id number] Vonda Quevedo Self - patient is the insured Medical (General) History Medical History History ICD Code High blood pressure Kidney disease, kidney stones Depression/Anxiety Vaginal infections Gastritis- followed by GI Hospitalization History Reason Date(Month/Year) childbirth
--- OUTSIDE RECORDS SUMMARY | 2025-04-27 18:57 | XMS_ITS | Encounter Summary ---
Author Organization [employer] Address [address] [place] [address] [place] [address] Care Team Providers Care Forensic Analyst Name Role Phone Terry Rasheed MD Primary Care Prov ider Reason for Visit * Reason Onset Date Comments ER Follow-up 04/27/2025 Encounter Details Date Type Department Care Team ([facility] st Contact Info) Description 04/27/2025 Telephone [facility] [address] [place] [address] Terry Rasheed MD [address] [place] [address] ER Follow-up Social History Tobacco Use Types [...] Telephone Encounter - Chantal Diallo RN - 04/27/2025 11:48 AM EST TC placed to patient [phone] via [employer] interpreters (#[id number]) in regards to below message. Patient reports overall she feels better however she feels palpitations and feels her pulse elevated with exertion and a headache that comes and goes . Patient has BP machine in the home and was able to take BP during call-155/107. Per medication review, patient has losartan, chlorthalidone and labetalol listed. Patient reports she only took losartan 100mg this AM and hydrochlorothiazide 25mg. Patient reports hydrochlorothiazide was prescribed 03/06/[address] Araslan Espinosa (street photographer). Patient reports she has not taken labetalol since 02/2025 d/t experiencing side effects (committing and dizziness). Patient is unsure if she notified PCP (no notation in chart). Patient reports she never started the chlorthalidone 25mg because she never received it from the pharmacy. Patient confirms only BP medications being taken at this time are: Labetalol 100mg and hydrochlorothiazide 25mg daily. Patient advised no available appointments in [facility] today however recommended patient come to [facility] to have BP evaluated (d/t having hypertension s/s) and discuss BP medication management. Patient agreeable to this POC. Protocol Used: Blood Pressure - High (Adult) Protocol-Based Disposition: See in Office or Video Visit Today Video visit not offered Positive Triage Questions: * Patient wants to be seen * Systolic BP >= 130 OR Diastolic >= 80, and is taking BP medications * Patient wants doctor (or MAJOR DONOR COORDINATOR/PA) to measure BP * All higher-acuity triage questions were negative. * Telephone Encounter - Den Meadows - 04/27/2025 11:15 AM EST Tc from pt requesting a call back regarding prior message Contact pt at [phone] (hungarian) * Telephone Encounter - Chantal Diallo RN - 04/27/2025 11:07 AM EST TC placed to patient [phone] in regards to below message however no answer, RN unable to leaveVM d/t VM being full. TC placed to secondary number [phone] however number is OOS. Patient to f/u PRN. * Telephone Encounter - Jarvis Driscoll - 04/27/2025 9:35 AM EST Patient calling to report ED visit on : Date: 04/26/25 Hospital: [facility] Seen for: Multiple Conditions Symptomatic Yes Symptoms: Heartbeat Symptoms (Fast, Slow, or Irregular), Dizziness, Headache Outcome: Schedule a same-day appointment or talk to a nurse or provider today Reason: Caller denied all higher acuity questions Please contact pt at [phone]. (Sammarinese Speaker) documented in this encounter Plan of Treatment Upcoming Encounters Date Type Department Care Team (Late st Contact Info) Description 04/28/2025 8:30 AM EST Telemedicine [facility] [address] [place] [address] Terry Rasheed MD [address] [place] [address] 05/19/2025 10:30 AM EST Office Visit [facility] [address] [place] [address] Terry Rasheed MD [address] [place] [address] documented as of this encounter Visit Diagnoses Not on filedocumented in this encounter Additional Health Concerns Assessment Noted Time PHQ-9 Depression Total Score: 2 12/03/19 25 8:46 AM EDT documented as of this encounter Care Teams Forensic Analyst Relationship Specialty Start Date End Date Terry Rasheed MD [address] [place] [address] PCP - General Internal Medicine 12/24/23 documented as of this encounter
--- OUTSIDE RECORDS SUMMARY | 2025-04-27 18:57 | XMS_ITS | Encounter Summary ---
Author Organization [employer] Address [address] [place] [address] [place] [address] Care Team Providers Care Flakeboard Line Tender Name Role Phone Terry Rasheed MD Primary Care Prov ider Terry Rasheed MD Primary Care Prov ider Reason for Visit * Reason Onset Date Comments Referral 07/18/2023 Encounter Details Date Type Department Care Team (Late st Contact Info) Description 07/18/2023 Telephone [facility] [address] [place] [address] Terry Rasheed MD [address] [place] [address] Referral Social History Tobacco Use Types Packs/Day [...] referral : DATE: N/A TIME: N/A Address: [address] [place] [address] [place] [address] Visits: N/A Facility Name: [facility] Urology center Type of Specialist: Urologist DX: Kidney Pain Phone #: [phone] Fax #: [phone] documented in this encounter Plan of Treatment Upcoming Encounters Date Type Department Care Team (Late st Contact Info) Description 04/28/2025 8:30 AM EST Telemedicine [facility] MED [facility] [address] [place] [address] Terry Rasheed MD [address] [place] [address] 05/19/2025 10:30 AM EST Office Visit [facility] [address] [place] [address] Terry Rasheed MD [address] [place] [address] documented as of this encounter Visit Diagnoses Not on filedocumented in this encounter Additional Health Concerns Assessment Noted Time PHQ-9 Depression Total Score: 0 05/28/19 9:00 AM EST documented as of this encounter Care Teams Flakeboard Line Tender Relationship Specialty Start Date End Date Terry Rasheed MD [address] [place] [address] PCP - General Internal Medicine 08/10/20 09/26/23 Terry Rasheed MD [address] [place] [address] PCP - General Internal Medicine 12/24/23 documented as of this encounter
--- OUTSIDE RECORDS SUMMARY | 2025-04-27 18:58 | XMS_ITS | Encounter Summary ---
Author Organization [employer] Address [address] [place] [address] 7 [place] [address] Care Team Providers Care Director Of Group Sales Name Role Phone Terry Rasheed MD Primary Care Prov ider Encounter Details Date Type Department Care Team (Late st Contact Info) Description 09/22/2024 Orders Only [facility] [address] [place] [address] Provider, MD Dolly Social History Tobacco Use [...] Upcoming Encounters Date Type Department Care Team ([facility] st Contact Info) Description 04/28/2025 8:30 AM EST Telemedicine [facility] [address] [place] [address] Terry Rasheed MD [address] [place] [address] 05/19/2025 10:30 AM EST Office Visit [facility] [address] [place] [address] Terry Rasheed MD [address] [place] [address] documented as of this encounter Procedures Procedure [...] as of this encounter Care Teams Director Of Group Sales Relationship Specialty Start Date End Date Terry Rasheed MD [address] [place] [address] PCP - General Internal Medicine 12/24/23 documented as of this encounter
--- OUTSIDE RECORDS SUMMARY | 2025-04-27 18:58 | XMS_ITS | Encounter Summary ---
Author Organization [employer] Address [address] [place] [address] Care Team Providers Care Manager Investment Name Role Phone Terry Rasheed MD Primary Care Prov ider Terry Rasheed MD Primary Care Prov ider Reason for Visit * Reason Onset Date Comments ER Follow-up 07/31/2023 Encounter Details Date Type Department Care Team ([facility] st Contact Info) Description 07/31/2023 Telephone [facility] [address] [place], [place] [phone] Terry Rasheed MD [address] [place] [address] ER Follow-up Social History Tobacco Use Types [...] EDT Fax request for notes, sent to [facility] as requested. * Telephone Encounter [...] patient to seek care and eval in [facility] if she is feeling unwell enough to go back to work or needs further care thisweek or has persistence/worsening of symptoms. She expressed understanding. Scheduled for televisitf/u with PCP for 08/06/23 @ 10:15am. No other concerns or questions at this time. [facility]. Patient calling to report ED visit on : Date: 07/30/23 Hospital: [facility] Seen for: Fever , headache, back pain , cough and trouble breathing . Patient advised will forward to team nurse for follow up * Telephone Encounter - Natalee Rosa - 07/31/2023 9:08 AM EDT Patient calling [...] Info) Description 04/28/2025 8:30 AM EST Telemedicine [facility] [address] [place] [address] Terry Rasheed MD [address] [place] [address] 05/19/2025 10:30 AM EST Office Visit [facility] [address] [place] [address] Terry Rasheed MD [address] [place] [address] documented as of this encounter Visit Diagnoses Not on filedocumented in this encounter Additional Health Concerns Assessment Noted Time PHQ-9 Depression Total Score: 0 05/28/19 9:00 AM EST documented as of this encounter Care Teams Manager Investment Relationship Specialty Start Date End Date Terry Rasheed MD [address] [place] [address] PCP - General Internal Medicine 08/10/20 09/26/23 Terry Rasheed MD [address] [place] [address] PCP - General Internal Medicine 12/24/23 documented as of this encounter
--- OUTSIDE RECORDS SUMMARY | 2025-04-27 18:58 | XMS_ITS | Encounter Summary ---
Author Organization [employer] Address [address] [place] [address] [facility] [place] [address] Care Team Providers Care Fusion Operator Name Role Phone Terry Rasheed MD Primary Care Prov ider Terry Rasheed MD Primary Care Prov ider Reason for Visit * Reason Comments Med Refill Encounter Details Date Type Department Care Team (Late Contact Info) Description 07/24/2022 Refill [facility] [address] [place] [address] Terry Rasheed MD [address] [place], [place] [id number] Social History Tobacco Use Types Packs/Day Years [...] Department Care Team (Late Contact Info) Description 04/28/2025 8:30 AM EST Telemedicine [facility] PEDS [address] [place] [address] Terry Rasheed MD [address] [place] [address] 05/19/2025 10:30 AM EST Office Visit [facility] PEDS [address] [place] [address] Terry Rasheed MD [address] [place] [address] documented as of this encounter Visit Diagnoses Not on filedocumented in this encounter Additional Health Concerns Assessment Noted Time PHQ-9 Depression Total Score: 0 05/15/19 23 9:53 AM EST documented as of this encounter Care Teams Fusion Operator Relationship Specialty Start Date End Date Terry Rasheed MD [address] [place] [address] PCP - General Internal Medicine 08/10/20 09/26/23 Terry Rasheed MD [address] [place] [address] PCP - General Internal Medicine 12/24/23 documented as of this encounter
--- OUTSIDE RECORDS SUMMARY | 2025-04-27 18:58 | XMS_ITS | Encounter Summary ---
Author Organization [employer] Address [address] [place] [address] [place] [address] Care Team Providers Care Dining Services Director Name Role Phone Terry Rasheed MD Primary Care Prov ider Terry Rasheed MD Primary Care Prov ider Reason for Visit * Reason Comments Med Refill Encounter Details Date Type Department Care Team (Late Contact Info) Description 01/05/2023 Refill [facility] MED & PEDS [address] [place] [address] Terry Rasheed MD [address] [place] [address] Social History Tobacco Use Types Packs/Day Years [...] Info) Description 04/28/2025 8:30 AM EST Telemedicine [facility] [address] [place] [address] Terry Rasheed MD [address] [place] [address] 05/19/2025 10:30 AM EST Office Visit [facility] [address] [place] [address] Terry Rasheed MD [address] [place] [address] documented as of this encounter Visit Diagnoses Not on filedocumented in this encounter Additional Health Concerns Assessment Noted Time PHQ-9 Depression Total Score: 11 023 10:42 AM EDT documented as of this encounter Care Teams Dining Services Director Relationship Specialty Start Date End Date Terry Rasheed MD [address] [place] [address] PCP - General Internal Medicine 08/10/20 09/26/23 Terry Rasheed MD [address] [place] [address] PCP - General Internal Medicine 12/24/23 documented as of this encounter
--- OUTSIDE RECORDS SUMMARY | 2025-04-27 18:58 | XMS_ITS | Encounter Summary ---
Author Organization [employer] [facility] Address [address] [place] [address] [facility] [place] [address] Care Team Providers Care Automotive Hardware Engineer Name Role Phone Terry Rasheed MD Primary Care Prov ider Terry Rasheed MD Primary Care Prov ider Encounter Details Date Type Department Care Team (Latest Contact Info) Description 09/24/2020 Abstract [facility] CONVERSIONS Dental, Provider, DDS Social History [...] Care Team ( st Contact Info) Description 04/28/2025 8:30 AM EST Telemedicine [facility] [address] [place] [address] Terry Rasheed MD [address] [place] [address] 05/19/2025 10:30 AM EST Office Visit [facility] [address] [place] [address] Terry Rasheed MD [address] [place] [address] documented as of this encounter Visit Diagnoses Not on filedocumented in this encounter Care Teams Automotive Hardware Engineer Relationship Specialty Start Date End Date Terry Rasheed MD [address] [place] [address] PCP - General Internal Medicine 08/10/20 09/26/23 Terry Rasheed MD [address] [place] [address] PCP - General Internal Medicine 12/24/23 documented as of this encounter
--- OUTSIDE RECORDS SUMMARY | 2025-04-27 18:58 | XMS_ITS | Encounter Summary ---
Author Organization [employer] Address [address] [place] [address] Care Team Providers Care Senior Software Systems Engineer Name Role Phone Terry Rasheed MD Primary Care Prov ider Reason for Visit * Reason Comments Med Refill Encounter Details Date Type Department Care Team ([facility] Contact Info) Description 11/09/[address] [facility] MED & PEDS [address] [place] [address] Terry Rasheed MD [address] [place] [address] Social History Tobacco Use Types Packs/Day Years [...] Info) Description 04/28/2025 8:30 AM EST Telemedicine [facility] MED [facility] PEDS [address] [place] [address] Terry Rasheed MD [address] [place] [address] 05/19/2025 10:30 AM EST Office Visit [facility] [address] [place] [address] Terry Rasheed MD [address] [place] [address] documented as of this encounter Visit Diagnoses Not on filedocumented in this encounter Additional Health Concerns Assessment Noted Time PHQ-9 Depression Total Score: 0 05/28/19 9:00 AM EST documented as of this encounter Care Teams Senior Software Systems Engineer Relationship Specialty Start Date End Date Terry Rasheed MD [address] [place] [address] PCP - General Internal Medicine 12/24/23 documented as of this encounter
--- OUTSIDE RECORDS SUMMARY | 2025-04-27 18:58 | XMS_ITS | Clinical Summary ---
Author Organization [facility] Address [address] [place] [address] Care Team Providers Care Powerhouse Electrician Apprentice Name Role Phone Terry Rasheed MD [...] Department Care Team Description 02/09/2025 Transcribe Orders [facility] Physician Referral Services [address] [place] [address] Terry Rasheed MD Tubal ligation evaluation (Primary [...] Description 09/11/2025 1:45 PM EDT Appointment [facility] Mammography [address] [facility], [place] [address] [address] Health Maintenance Due Date Last Done Comments [...] Tdap) 06/26/2028 06/26/2018 Procedures * Due to [place] VerbalizeIt law, this organization might not be sharing [...] to Health Maintenance Results * Due to [place] VerbalizeIt law, this organization might not be sharing negative HIV tests. * TRAM Bilateral Screening Digital Mammogram With Rich (09/05/2024 2:10 PM EDT) Anatomical Region Laterality Modality Breast Bilateral Mammography Narrative 09/22/2024 2:34 PM EDT Exam Date: 09/05/[address] [place], [place] [address] EXAMINATION TRAM Bilateral Screening Digital Mammogram With Rich. INDICATION Vonda Morrison is a 43 y.o. female and is seen for: TRAM Bilateral Screening Digital Mammogram With Rich. CC and MLO views were obtained. FDA approved [employer] AI (artificial intelligence) software and R2 CAD [...] benefit from supplemental screening with breast MRI (Soft Tissue Regeneration order M RI BREAST BILATERAL SCREENING W WO CONTRAST ) or automated breast ultrasound (Soft Tissue Regeneration order A BUS ) depending on risk factors. https://acsearch.acr.org/docs/0591053/Narrative/ TC score is not calculated for women with personal history of breast cancer or if age >80 years. If this radiology report contains a blank impression section, it is an incomplete radiology report. Please contact the interpreting radiologist or applicable radiology division as soon as possible to obtain the completed interpretation. Ricco Gupta MD Resulting Agency Comment [id number] Terry Gaytan MD IMG BI PROCEDURES Final Result * Pap (08/25/2021 9:37 AM EDT) Specimen Adequacy Satisfactory for evaluation [facility] MANUAL 2 2:00 PM EDT [employer] [facility] Pathologist Cytology Interpretation Negative for intraepithelial lesion or malignancy. [facility] MANUAL 2 2:00 PM EDT [email or web address] [facility] at 1359 EDT Comment:This is the result o f a morphological screening test with an inherent possibility of a false negative interpretation. Criminal Justice Faculty Statement This Pap test was examined by the [facility] System, [employer], [place], [place]. This Pap test was examined in accordance with the [facility] written policy, which incorporates all CLIA mandates. Current screening guidelines can be found in [place]: A Cancer Journal for Clinicians 2020;70:321-346. Current ASCCP management guidelines for abnormal Pap tests are published in the Journal Lower Genital Tract Disease Volume 2020;24:102-131. [facility] MANUAL 2 2:00 PM EDT [email or web address] [facility] Clinical History screening [facility] MANUAL 2 2:00 PM EDT [facility] Report Header Gynecologic Cytology Report Case: [id number] Authorizing Provider: Coby Rubio Collected: 08/25/2021 0937 Ordering Location: [facility] Received: 08/25/2021 1040 [facility] Obstetrics and Gynecology First Screen: Andres Walker Pathologist: Nixon Mckeon MD Specimen: Screening ThinPrep Pap, Cervix/Endocervix 2 2:00 PM EDT [facility] Brushing Cervix uteri structure / Unknown Non-Blood Collection / Unknown 08/25/2021 9:37 AM EDT 08/25/2021 10:40 AM EDT us Coby Rubio MD LAB PATHOLOGY/CYTOLOGY ORDERA BLES Final Result [facility] [address] [place] [address], * (ABNORMAL) Renal Function Panel (01/05/2020 2:36 PM EDT) NA 139 135 - 145 mmol/L 01/05/2020 3:11 PM EDT [facility] K 3.6 3.5 - 5.3 mmol/L 01/05/2020 3:11 PM EDT [facility] Cl 107 97 - 110 mmol/L 01/05/2020 3:11 PM EDT [facility] CO2 24 24 - 32 mmol/L 01/05/2020 3:11 PM EDT [facility] Anion Gap 8 5 - 15 01/05/2020 3:11 PM EDT [facility] Glucose 114(H) 70 - 99 mg/dL 01/05/2020 3:11 PM EDT [facility] BUN 9 7 - 23 mg/dL 01/05/2020 3:11 PM EDT [facility] Creatinine 0.60 0.50 - 1.20 mg/dL 01/05/2020 3:11 PM EDT [facility] eGFR Non- >90 >=90 mL/min/BSA 01/05/2020 3:11 PM EDT [facility] eGFR >90 >=90 mL/min/BSA 01/05/2020 3:11 PM EDT [facility] Comment: Units = mL/min/1.73 m2 Glomerular Filtration Rate (GFR) is estimated based on the CKD-EPI Creatinine Equation (2009). Stage Description GFR 1 Normal >=90 mL/min/BSA 2 Mildly decreased GFR 60-89 mL/min/BSA 3 Moderately decreased GFR 30-59 mL/min/BSA 4 Severely decreased GFR 15-29 mL/min/BSA 5 Kidney Failure <15 mL/min/BSA Calcium 9.4 8.7 - 10.7 mg/dL 01/05/2020 3:11 PM EDT [facility] Phosphorus 3.2 2.5 - 4.5 mg/dL 01/05/2020 3:11 PM EDT [facility] Albumin 4.8 3.5 - 4.8 g/dL 01/05/2020 3:11 PM EDT [facility] Blood Structure of peripheral vein / Unknown Venipuncture / Unknown 01/05/2020 2:36 PM EDT 01/05/2020 2:44 PM EDT Arsalan Torres MD LAB BLOOD ORDERABLES Final Result [facility] [address] [place] [address], from Last 3 Months or Most Recently Relevant to Health Maintenance Insurance [facility] Care Teams Powerhouse Electrician Apprentice Relationship Specialty Start Date End Date KaiserTerry Gray MD [address] [place] [address] PCP - General 05/10/20
--- OUTSIDE RECORDS SUMMARY | 2025-04-27 18:58 | XMS_ITS | Encounter Summary ---
Author Organization [employer] Address [address] [place] [address] [place] [address] Care Team Providers Care Bi Analyst Name Role Phone Terry Rasheed MD Primary Care Prov ider Reason for Visit * Reason Onset Date Comments Call Back Request 01/28/2025 Encounter Details Date Type Department Care Team ([facility] Contact Info) Description 01/28/[address] [facility] MED & PEDS [address] [place] [address] Terry Rasheed MD [address] [place] [address] Call Back Request Social History Tobacco Use [...] was about. Any questions contact pt at [phone] documented in this encounter Plan of Treatment Upcoming Encounters Date Type Department Care Team ([facility] st Contact Info) Description 04/28/2025 8:30 AM EST Telemedicine [facility] [address] [place] [address] Terry Rasheed MD [address] [place] [address] 05/19/2025 10:30 AM EST Office Visit [facility] PEDS [address] [place] [address] Terry Rasheed MD [address] [place] [address] documented as of this encounter Visit Diagnoses Not on filedocumented in this encounter Additional Health Concerns Assessment Noted Time PHQ-9 Depression Total Score: 2 12/03/19 25 8:46 AM EDT documented as of this encounter Care Teams Bi Analyst Relationship Specialty Start Date End Date Terry Rasheed MD [address] [place] [address] PCP - General Internal Medicine 12/24/23 documented as of this encounter
--- OUTSIDE RECORDS SUMMARY | 2025-04-27 18:58 | XMS_ITS | Encounter Summary ---
Author Organization [facility] Address [address] [place] [address] Care Team Providers Care Lathe Machine Operator Name Role Phone Terry Rasheed MD Primary Care Prov ider Encounter Details Date Type Department Care Team (Late st Contact Info) Description 07/28/2022 Orders Only [facility] Interventional Radiology [address], [place] [phone] Jovani Shah MD [address] [place], [place] [phone] Social History Tobacco Use Types Packs/Day Years [...] Info) Description 09/11/2025 1:45 PM EDT Appointment [facility] [address] [address] documented as of this encounter Visit Diagnoses Not on filedocumented in this encounter Care Teams Lathe Machine Operator Relationship Specialty Start Date End Date Terry Rasheed MD [address] [place] [address] PCP - General 05/10/20 documented as of this encounter
--- OUTSIDE RECORDS SUMMARY | 2025-04-27 18:58 | XMS_ITS | Clinical Summary ---
Author Organization [facility] ity Address [address] [place] [address] Care Team Providers Care Refund Specialist Name Role Phone Unavailable Primary Care Provider [...]
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
--- OUTSIDE RECORDS SUMMARY | 2025-04-27 18:58 | XMS_ITS | Encounter Summary ---
Author Organization [employer] Address [address] [place] [address] [place] [address] Care Team Providers Care Gang Supervisor Pipe Lines Name Role Phone Terry Rasheed MD Primary Care Prov ider Encounter Details Date Type Department Care Team ([facility] st Contact Info) Description 12/12/2024 Orders Only [facility] MED [facility]EDS [address] [place], [place] [id number] Terry Rasheed MD [address] [place] [address] Acute insomnia Social History Tobacco Use Types [...] Description 04/28/2025 8:30 AM EST Telemedicine [facility] MED & PEDS [address] [place] [address] Terry Rasheed MD [address] [place] [address] 05/19/2025 10:30 AM EST Office Visit [facility] MED & PEDS [address] [place] [address] Terry Rasheed MD [address] [place] [address] documented as of this encounter Visit Diagnoses Diagnosis Acute insomnia documented in this encounter Additional Health Concerns Assessment Noted Time PHQ-9 Depression Total Score: 2 12/03/19 25 8:46 AM EDT documented as of this encounter Care Teams Gang Supervisor Pipe Lines Relationship Specialty Start Date End Date Terry Rasheed MD [address] [place] [address] PCP - General Internal Medicine 12/24/23 documented as of this encounter
--- OUTSIDE RECORDS SUMMARY | 2025-04-27 18:58 | XMS_ITS | Encounter Summary ---
Author Organization [facility] Address [address] [place] [address] Care Team Providers Care Fruit Packer Face And Fill Name Role Phone Terry Rasheed MD Primary Care Prov ider Reason for Visit * Reason Onset Date Comments Cancel Procedure tomorrow 08/28/2022 Encounter Details Date Type Department Care Team (Late st Contact Info) Description 08/28/2022 Telephone [facility] Central Scheduling Department [address] [place] [address] AlloccoAnnalise MD [address] [place] [address] Cancel Procedure tomorrow Social History Tobacco Use [...] tomorrow 08/29 Please call pt with a Mechanic Foreman at [phone] documented in this encounter Plan of Treatment Upcoming Encounters Date Type Department Care Team (Late st Contact Info) Description 09/11/2025 1:45 PM EDT Appointment [facility] Mammography [address] [place] [address], [place] [address] [place] [address] documented as of this encounter Visit Diagnoses Not on filedocumented in this encounter Care Teams Fruit Packer Face And Fill Relationship Specialty Start Date End Date KaiserTerry Gray MD [address] [place] [id number] PCP - General 05/10/20 documented as of this encounter
--- OUTSIDE RECORDS SUMMARY | 2025-04-27 18:58 | XMS_ITS | Encounter Summary ---
Author Organization [employer] Address [address] [place] [address] [place] [address] Care Team Providers Care Cone Classifier Tender Name Role Phone Terry Rasheed MD Primary Care Prov ider Terry Rasheed MD Primary Care Prov ider Encounter Details Date Type Department Care Team (Late st Contact Info) Description 08/01/2023 Telephone [facility] MEDICINE [address] [place] [address] Terry Rasheed MD [address] [place] [address] Social History Tobacco Use Types Packs/Day Years [...] Info) Description 04/28/2025 8:30 AM EST Telemedicine [facility] MED & PEDS [address] [place] [address] Terry Rasheed MD [address] [place] [address] 05/19/2025 10:30 AM EST Office Visit [facility] MED & PEDS [address] [place] [address] Terry Rasheed MD [address] [place] [address] documented as of this encounter Visit Diagnoses Not on filedocumented in this encounter Additional Health Concerns Assessment Noted Time PHQ-9 Depression Total Score: 0 05/28/19 24 9:00 AM EST documented as of this encounter Care Teams Cone Classifier Tender Relationship Specialty Start Date End Date Terry Rasheed MD [address] [place] [address] PCP - General Internal Medicine 08/10/20 09/26/23 Terry Rasheed MD [address] [place] [address] PCP - General Internal Medicine 12/24/23 documented as of this encounter
--- OUTSIDE RECORDS SUMMARY | 2025-04-27 18:58 | XMS_ITS | Encounter Summary ---
Author Organization [employer] Address [address] [place] [address] [place] [address] Care Team Providers Care Sound Recording Technician Name Role Phone Terry Rasheed MD Primary Care Prov ider Reason for Visit * Reason Onset Date Comments Nurse Triage 08/04/2024 Encounter Details Date Type Department Care Team ([facility] st Contact Info) Description 08/04/2024 Telephone [facility] MEDICINE [address] [place] [address] Terry Rasheed MD [address] [place] [address] Nurse Triage Social History Tobacco Use Types [...] voice mail. Left voice message to call [facility] [phone] when available. * Telephone Encounter - [facility] [...] Info) Description 04/28/2025 8:30 AM EST Telemedicine [facility] MED & PEDS [address] [place] [address] Terry Rasheed MD [address] [place] [address] 05/19/2025 10:30 AM EST Office Visit [facility] MED & PEDS [address] [place] [address] Terry Rasheed MD [address] [place] [address] documented as of this encounter Visit Diagnoses Not on filedocumented in this encounter Additional Health Concerns Assessment Noted Time PHQ-9 Depression Total Score: 16 12/ 024 10:47 AM EST documented as of this encounter Care Teams Sound Recording Technician Relationship Specialty Start Date End Date Terry Rasheed MD [address] [place] [address] PCP - General Internal Medicine 12/24/23 documented as of this encounter
--- OUTSIDE RECORDS SUMMARY | 2025-04-27 18:58 | XMS_ITS | Encounter Summary ---
Author Organization [employer] Address [address] [place] [address] 7 [place] [address] Care Team Providers Care Anesthesiology Fellow Name Role Phone Terry Rasheed MD Primary Care Prov ider Terry Rasheed MD Primary Care Prov ider Reason for Visit * Reason Onset Date Comments triage 09/18/2022 Encounter Details Date Type Department Care Team (Late st Contact Info) Description 09/18/2022 Telephone [facility] MEDICINE [address] [place] [address] Terry Rasheed MD [address] [place] [address] triage Social History Tobacco Use Types Packs/Day [...] from Pt, reports missed appt with Flores [facility] Director due to sleeping in. [...] No answer, LVM to return call to [facility]. Noticed pt has appt today with [facility] provider Flores Stewart, discussed with [...] Description 04/28/2025 8:30 AM EST Telemedicine [facility] MED & PEDS [address] [place] [address] Terry Rasheed MD [address] [place] [address] 05/19/2025 10:30 AM EST Office Visit [facility] MED & PEDS [address] [place] [address] Terry Rasheed MD [address] [place] [address] documented as of this encounter Visit Diagnoses Not on filedocumented in this encounter Additional Health Concerns Assessment Noted Time PHQ-9 Depression Total Score: 12 023 11:19 AM EDT documented as of this encounter Care Teams Anesthesiology Fellow Relationship Specialty Start Date End Date Terry Rasheed MD [address] [place] [address] PCP - General Internal Medicine 08/10/20 09/26/23 Terry Rasheed MD [address] [place] [address] PCP - General Internal Medicine 12/24/23 documented as of this encounter
== END 2025-04-27 17:55 | disposition home or self-care (01) ==
PROVIDERS: Physician Assistant; Emergency Provider Emergency Medicine; PCP Internal Medicine
DX: R07.89 Other chest pain (principal); R51.9 Headache, unspecified; H53.8 Other visual disturbances; R00.2 Palpitations; R11.0 Nausea; R42 Dizziness and giddiness; R06.02 Shortness of breath; Z79.899 Other long term (current) drug therapy
CPT/HCPCS: 36415; 71046; 80053; 83880; 84443; 84484; 85025; 93005; 99283; 99284

== ENCOUNTER → 2025-04-27 15:27 | Outpatient (BNV) | payer OTHER, SELFPAY | PROVIDERS: PCP Internal Medicine; Visit Provider Internal Medicine Cardiovascular Disease | DX: R94.31 Abnormal electrocardiogram [ECG] [EKG] (principal); R07.9 Chest pain, unspecified | CPT/HCPCS: 93010 ==

== ENCOUNTER → 2025-04-27 15:46 | Outpatient (BNV) | payer OTHER, SELFPAY | PROVIDERS: PCP Internal Medicine; Visit Provider Radiology Diagnostic Ultrasound | DX: R07.9 Chest pain, unspecified (principal) | CPT/HCPCS: 71046 ==